=== PATIENT | female | born 1935 | race Caucasian/White ===

== ENCOUNTER 2020-11-21 14:53 | Emergency (ER) | payer MEDICARE, SELFPAY ==
--- NOTE | ~2020-11-21 | XR_ITS ---
EXAMINATION: XR shoulder LT min 2V EXAM DATE: 11/21/2020 15:59 INDICATION: diffuse left shoulder pain s/p fall today. Initial encounter. TECHNIQUE: The following left shoulder projections obtained: frontal projection with internal rotatio n, frontal projection with external rotation, Grashey, and scapular Y view (4+ views). There is no p rior study for comparison. FINDINGS: No evidence of left shoulder rotator cuff calcific tendinosis. There is There is mild gle nohumeral joint, mild to moderate acromioclavicular joint primary osteoarthritis. There are no acute fractures or dislocations identified. There is no subcutaneous gas. The soft tissue is unremarkable . There are no radiopaque foreign bodies. IMPRESSION: 1. Left shoulder exam without acute osseous findings. Reviewed, dictated and finalized at location B.
--- NOTE | ~2020-11-21 | XR_ITS ---
EXAMINATION: XR wrist LT min 3V EXAM DATE: 11/21/2020 15:17 INDICATION: Initial encounter following injury, with pain of the left wrist. TECHNIQUE: Left wrist frontal, frontal with ulnar deviation, oblique and lateral projections obtained and reviewed. There is no prior study for comparison. FINDINGS: Possible nondisplaced acute closed posttraumatic left radial distal metaphyseal fracture. T his finding has been indicated, marked on the examination for review, clinical correlation. There is some swelling overlying this region. Carpal bones are unremarkable. IMPRESSION: Possible nondisplaced left radial distal metaphyseal fracture. Reviewed, dictated and finalized at location B.
--- NOTE | ~2020-11-21 | XR_ITS ---
EXAMINATION: XR elbow LT min 3V DATE: 11/21/2020 16:00 INDICATION: Left elbow pain post fall TECHNIQUE: Anteroposterior, two oblique and lateral views of the left elbow were obtained. COMPARISON: None. FINDINGS: Alignment is normal. No fracture or joint effusion. Joint spaces are normal. Small corticated heterot opic ossicles along side the lateral epicondyle likely sequela of enthesopathy or chronic trauma to t he common extensor tendon wad. Soft tissues are otherwise unremarkable. IMPRESSION: 1. No left elbow joint effusion or osseous abnormality. Reviewed, dictated and finalized at location A.
[2020-11-21 15:03] VITALS: BP 130/75; PULSE 67; RESP 16; TEMP 36.4; O2SAT 98
--- NOTE | 2020-11-21 15:04 | ED.UPPEXIN ---
HPI - Extremity Injury (Upper) General Chief Complaint: Extremity Injury, Upper Stated Complaint: Left arm pain and shoulder Time Seen by Provider: 11/21/20 15:12 Source: patient and RN notes reviewed Mode of arrival: ambulatory Limitations: no limitations History of Present Illness HPI narrative: 85-year-old female with history of anemia, cardiac arrhythmia, hypertension presents with concern for right extremity pain after tripping on flip-flops and falling while pulling tian today. Reports she landed on her left upper extremity. Reports right wrist pain, right elbow pain, right shoulder pain denies intervention. Reports left wrist bruising and swelling. Denies head injury or head trauma. MD complaint: injury to: left and arm Related Data Home Medications Medication Instructions Recorded Confirmed alprazolam 0.5 mg tablet 0.5 mg PO DAILY 05/03/19 11/21/20 amlodipine 5 mg tablet 5 mg PO DAILY 05/03/19 11/21/20 cholestyramine-aspartame 4 gram 4 gm PO BID 05/03/19 11/21/20 oral powder ipratropium bromide 42 mcg (0.06 2 spray NASAL TID 05/03/19 11/21/20 %) nasal spray losartan 25 mg tablet 25 mg PO DAILY 05/03/19 11/21/20 metoprolol tartrate 25 mg tablet 25 mg PO DAILY 05/03/19 11/21/20 montelukast 10 mg tablet 10 mg PO DAILY 05/03/19 11/21/20 pantoprazole 40 mg tablet,delayed 40 mg PO QAM 05/03/19 11/21/20 release pramipexole 0.25 mg tablet 0.25 mg PO TID 05/03/19 11/21/20 prochlorperazine maleate 10 mg 10 mg PO Q8H PRN 05/03/19 11/21/20 tablet warfarin 4 mg tablet 4 mg PO DAILY 05/03/19 11/21/20 Allergies Allergy/AdvReac Type Severity Reaction Status Date / Time caffeine Allergy Unknown unknown Verified 11/21/20 15:10 codeine Allergy Unknown Unknown Verified 11/21/20 15:10 epinephrine Allergy Unknown Unknown Verified 11/21/20 15:10 fluoxetine Allergy Unknown Unknown Verified 11/21/20 15:10 hydroxyzine Allergy Unknown Unknown Verified 11/21/20 15:10 paroxetine Allergy Unknown Unknown Verified 11/21/20 15:10 procaine Allergy Unknown Unknown Verified 11/21/20 15:10 propafenone Allergy Unknown Diarrhea Verified 11/21/20 15:10 STIMULANTS Allergy Unknown Unknown Uncoded 11/21/20 15:10 Review of Systems Review of Systems: CONSTITUTIONAL: Denies malaise, chills, sweats, or fever. CARDIOVASCULAR: Denies chest pain, palpitations, or edema. RESPIRATORY: Denies cough or dyspnea. SKIN: Reports mild bruising and swelling to the left wrist MUSCULOSKELETAL: Reports left wrist pain, elbow pain, shoulder pain NEUROLOGIC: Denies numbness, weakness All systems reviewed & are unremarkable except as noted in HPI and below PMFSH Past Medical History Medical History (Updated 11/21/20 @ 16:11 by Rea Betancourt NP) Anemia Atrial fibrillation Cardiac arrhythmia Heart disease History of blood clots Hypertension Mitral valve prolapse Osteoporosis Restless leg syndrome Skin cancer Vascular disease Surgical History Surgical History (Updated 05/03/19 @ 10:27 by James Lala MD) H/O bilateral breast implants 1989 H/O: hysterectomy 1984 History of benign breast biopsy 2x 1995 and 1997 History of facelift 1989 History of hemorrhoidectomy 1979 History of parotidectomy 1995 Status post lumbar surgery foraminotomy Family History Family History Daughter Diabetes mellitus Father Cancer Grandparent Kidney disease Other Family history of arthritis Social History Social History (Updated 05/03/19 @ 10:16 by James Lala MD) Smoking status: Never smoker Alcohol intake: current Alcohol use details: Occasional Additional living arrangements comments: Daugther Gender identity (if verbalized by the patient): Female Spiritual care concerns: Yes ( Restorationism) Agree to blood products: No Comments At time of signature, agree with nursing past medical, surgical, social and family history. There is no relevant family his
== END 2020-11-21 16:29 | disposition home or self-care (01) ==
PROVIDERS: Emergency Provider Nurse Practitioner; PCP Internal Medicine
DX: S52.502A Unspecified fracture of the lower end of left radius, initial encounter for closed fracture (principal); W01.0XXA Fall on same level from slipping, tripping and stumbling without subsequent striking against object, initial encounter; I48.91 Unspecified atrial fibrillation; I10 Essential (primary) hypertension; I34.1 Nonrheumatic mitral (valve) prolapse; M81.0 Age-related osteoporosis without current pathological fracture; G25.81 Restless legs syndrome; Z85.828 Personal history of other malignant neoplasm of skin; D64.9 Anemia, unspecified; I49.9 Cardiac arrhythmia, unspecified
CPT/HCPCS: 29125; 73030; 73080; 73110; 99214; A4565; G0463

== ENCOUNTER 2021-01-13 09:48 | Outpatient (CLI) | payer MEDICARE, SELFPAY ==
--- NOTE | ~2021-01-13 | XR_ITS ---
EXAMINATION: XR lg joint inject/asp w image DATE: 01/13/2021 10:44 INDICATION: Unilateral primary osteoarthritis, right hip. TECHNIQUE: A time-out was performed to verify the patient's name, date of , and procedure to b e performed. The procedure including the risks, benefits, and alternatives was discussed with the pat ient. Risks discussed included bleeding and infection. The patient understood the risks and agreed to proceed. The skin overlying the right hip joint was prepped and draped in usual sterile fashion. A nesthetic was administered with 1% lidocaine subcutaneously. A 22 G needle was advanced under fluoro scopic guidance into the joint. Injection of 1 mL of Omnipaque 240 confirmed intra-articular positio n of the needle. Subsequently, injectate consisting of 5 mL 1% lidocaine and 2 mL 10 mg/mL Kenalog w as instilled. The needle was removed and the entry site was cleaned and dressed. There were no imme diate complications. Fluoroscopy exposure time was 0.1 minutes. The total number of images was 2. FINDINGS: Real-time fluoroscopy demonstrates the needle in the right hip joint. Patient's pain prior to procedure:5/10. Patient's pain following the procedure: 0/10. IMPRESSION: 1. Fluoroscopy guided right hip joint injection of local anesthetic and steroid with decrease in the patient's presenting pain. Reviewed, dictated and finalized at location A. 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
== END 2021-01-13 09:49 | disposition home or self-care (01) ==
LOC: ANHIMG 09:52
PROVIDERS: PCP Internal Medicine; Visit Provider Orthopaedic Surgery
DX: M16.11 Unilateral primary osteoarthritis, right hip (principal)
CPT/HCPCS: 20610; 77002; J3301; Q9966

== ENCOUNTER 2021-02-12 08:00 | Outpatient (RCR) | payer MEDICARE, SELFPAY ==
--- NOTE | 2021-01-14 15:08 | PTOPEVAL ---
PHYSICAL THERAPY EVALUATION AND PLAN OF CARE Thank you for referring Reginaldo Colby to [facility].? The patient is scheduled to be seen for therapy? 2x/week for 4 weeks. Please review, sign, date and return this plan of care CYNDEE. I agree with and certify that the following plan of care is medically necessary. Referring Physician Date Attending Provider: James Lala MD Evaluation Outpatient Past Medical History Cardiovascular History Hx Atrial Fibrillation Yes Hx Hypertension Yes Diagnosis pain in left shoulder, Onset 12/29/2020 Cause fall Subjective Information Reginaldo is here today following a Query Text:As Reported By Patient/ fall that resulted in a left Family distal radius fracture - she was in a brace until last week . That is doing well except her thumb is still sore. She reports left shoulder pain that pops. States that she can be sitting a certain way and the shoulder will catch and pop and be quite uncomfortable . There is a pain with reaching over head. She has modified how she gets dressed to avoid shoulder pain. Self Report Pain Assessment Left Shoulder(s) Reported Pain Level 0 Pain Description Aching Pain Frequency Acute,Intermittent Greatest Pain Intensity 4 Pain Aggravating Factors ADL's Other Pain Aggravating Factors reaching overhead Pain Behaviors Guarding Pain Score Pain Score 0: Self Report Interventions Used Interventions Used By Clinicians Exercise,Manual Therapy Techniques Pain Relief Interventions Used By Medication Patient Upper Extremity Range of Motion Scapular/ Shoulder Range of Motion Left Shoulder Flexion - Active 140 Shoulder Abduction - Active 130 Shoulder Medial Rotation - Active L5 Query Text:Reach Behind the Back Shoulder Lateral Rotation - Active 55 Shoulder Lateral Rotation - Active back of head Query Text:Reach Behind the Head Scapular/Shoulder Range of Motion Pain Limitations Scapular/Shoulder Range of Motion right external rotation: 65deg Comments Upper Extremity Muscle Strength Testing Scapular/Shoulder Left Scapular Protraction - Serratus 3+ Fair + Shoulder Flexion Strength 3+ Fair + Shoulder Abduction Strength 3+ Fair + Shoulder Medial Rotation Strength 4- Good - Shoulder Lateral Rota
--- NOTE | 2021-02-10 08:07 | PCPTNOTE ---
Patient called & cancelled scheduled appointment this date due to stomach issues.
--- NOTE | 2021-02-12 09:06 | PTOPEVAL ---
PHYSICAL THERAPY DISCHARGE NOTE Thank you for referring Reginaldo Colby to [facility].? Please review, sign, date and return this plan of care CYNDEE. I agree with and certify that the following plan of care is medically necessary. Referring Physician Date Attending Provider: James Lala MD Discharge note Diagnosis pain in left shoulder, Onset 12/29/2020 Cause fall Subjective Information Reginaldo states that her wrist/ Query Text:As Reported By Patient/ thumb are doing very well and Family she uses her putty to help strength. States that her shoulder still gives her trouble, but she can raise the arm now. She has a follow-up appointment with the MD. Reginaldo would like today to be her last therapy visit. Left Shoulder(s) Reported Pain Level 0 Pain Score Pain Score 0: Self Report Upper Extremity Range of Motion Scapular/ Shoulder Range of Motion Left Shoulder Flexion - Active 150 Shoulder Abduction - Active 145 Shoulder Medial Rotation - Active L1 Query Text:Reach Behind the Back Shoulder Lateral Rotation - Active 55 Shoulder Lateral Rotation - Active back of head Query Text:Reach Behind the Head Scapular/Shoulder Range of Motion Pain Limitations Upper Extremity Muscle Strength Testing Scapular/Shoulder Left Shoulder Flexion Strength 4 Good Shoulder Abduction Strength 4 Good Shoulder Medial Rotation Strength 4 Good Shoulder Lateral Rotation Strength 4 Good Shoulder Strength Comments left cup setter lockstitch strength: 35lb; right cup setter lockstitch strength 41lb PT Clinical Summary Reginaldo would like to discharge from physical therapy at this time. I am agreeable to this as long as she continues her shoulder strengthening exercises at home. Her ROM is symmetrical to contralateral side and her strength is progressing although does not demonstrate as WNL yet. plan to D/C from PT with HEP. PT Services Indicated No Rehabilitation Potential Good Potential Barriers to Goal Achievements None Support Requirements For Optimal None [place]
== END 2021-02-12 14:42 | disposition home or self-care (01) ==
LOC: ANHPT 08:00
PROVIDERS: PCP Internal Medicine; Visit Provider Orthopaedic Surgery
DX: S52.552D Other extraarticular fracture of lower end of left radius, subsequent encounter for closed fracture with routine healing (principal); M25.512 Pain in left shoulder
CPT/HCPCS: 97110; 97140; 97162

== ENCOUNTER 2021-03-08 11:58 | Emergency (ER) | payer MEDICARE, SELFPAY ==
--- NOTE | ~2021-03-08 | CT_ITS ---
EXAMINATION: CT cervical spine wo con DATE: 03/08/2021 14:33 INDICATION: Head injury TECHNIQUE: Computed tomography (CT) of the cervical spine was performed without intravenous contrast. The dose-length product (DLP) was 123.77 mGy-cm. Automated exposure control and iterative reconstruc tion technique were employed. COMPARISON: None FINDINGS: There is no fracture. There are 2 mm of anterolisthesis of C4 on C5. The vertebral body hei ghts are maintained. There is severe loss of intervertebral disc space height at C5-6 and C6-7. The o dontoid is intact. The prevertebral soft tissues are normal. There is moderate to severe multilevel f acet and uncovertebral joint osteoarthritis. IMPRESSION: 1. Moderate to severe cervical spondylosis without acute findings. Reviewed, dictated and finalized at location F. 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
--- NOTE | ~2021-03-08 | CT_ITS ---
EXAMINATION: CT brain wo con INDICATION: Head injury COMPARISON: None TECHNIQUE: Standard unenhanced head CT. The dose-length product (DLP) was 605.33 mGy-cm. The mA was a djusted according to patient size. Iterative reconstruction technique was employed. FINDINGS: There is no acute intraparenchymal hemorrhage. No evidence of mass lesion. No evidence of a cute infarction. There is mild periventricular and subcortical hypodensity probably related to small vessel ischemic disease. There is mild prominence of the sulci and ventricles related to cerebral atr ophy. Intracranial calcified cerebral atherosclerosis is noted. There are no extra-axial collections. There is no mass effect or midline shift. Changes in the globes are likely from ocular lens surgery. The visualized sinuses and mastoid air cells are well aerated. IMPRESSION: 1. No acute intracranial abnormality. 2. Age related findings. Reviewed, dictated and finalized at location F. 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
--- NOTE | ~2021-03-08 | XR_ITS ---
XR hip BI 2V w AP pelvis 03/08/2021 13:10 Indication: Hip pain after fall Procedure: AP pelvis and 2 views each hip Comparison: 05/03/2019 Findings: There is osteoarthritis of the hips, right greater than left. There are subchondral cysts i n the right femoral head. Pelvic rings are intact. Sacral foramen are symmetric. No acute fracture or traumatic malalignment. No focal soft tissue abnormality. No foreign bodies. Impression: 1: No acute fracture. Reviewed, dictated and finalized at location A. GHT BRAKEMAN Impression: 1: No acute fracture.
[2021-03-08 12:31] VITALS: BP 149/77; PULSE 83; RESP 16; TEMP 36.6; O2SAT 100
--- NOTE | 2021-03-08 12:41 | ED.FALL ---
HPI - Fall General Chief Complaint: Fall Stated Complaint: fall, head inj, on warfarin Time Seen by Provider: 03/08/21 12:41 Source: patient Limitations: no limitations History of Present Illness HPI Narrative: The patient is an 85 yo woman with a history of HTN, atrial fibrillation, anticoagulated on warfarin, presenting for evaluation of ground level fall. Pt states she did not pass out. Patient is not sure what made her fall. She states she may have tripped over something as she commonly does that. Pt denies chest pain, lightheadedness, or dizziness prior to the fall. She denies cough, dyspnea or chest pain. Denies lower extremity weakness or numbness. Pt has had a headache on the right side of her head, improved with Tylenol. Headache described as pounding in nature. Pt also reporting left hip pain, although impact from the fall was on the right hip. Pt has been ambulatory. Denies focal weakness or numbness. Also reports arthritis of the right hip. No LOC. No nausea, vomiting or vision changes. Pt has a ground level fall a month ago; has been following with Dr. Lala since that fall with injury. Patient has been compliant with her anticoagulation. Related Data Home Medications Medication Instructions Recorded Confirmed alprazolam 0.5 mg tablet 0.5 mg PO DAILY 05/03/19 01/07/21 amlodipine 5 mg tablet 5 mg PO DAILY 05/03/19 01/07/21 cholestyramine-aspartame 4 gram 4 gm PO BID 05/03/19 01/07/21 oral powder ipratropium bromide 42 mcg (0.06 2 spray NASAL TID 05/03/19 01/07/21 %) nasal spray losartan 25 mg tablet 25 mg PO DAILY 05/03/19 01/07/21 metoprolol tartrate 25 mg tablet 25 mg PO DAILY 05/03/19 01/07/21 montelukast 10 mg tablet 10 mg PO DAILY 05/03/19 01/07/21 pantoprazole 40 mg tablet,delayed 40 mg PO QAM 05/03/19 01/07/21 release pramipexole 0.25 mg tablet 0.25 mg PO TID 05/03/19 01/07/21 prochlorperazine maleate 10 mg 10 mg PO Q8H PRN 05/03/19 01/07/21 tablet warfarin 4 mg tablet 4 mg PO DAILY 05/03/19 01/07/21 Allergies Allergy/AdvReac Type Severity Reaction Status Date / Time caffeine Allergy Unknown unknown Verified 03/08/21 13:14 codeine Allergy Unknown Unknown Verified 03/08/21 13:14 epinephrine Allergy Unknown Unknown Verified 03/08/21 13:14 fluoxetine Allergy Unknown Unknown Verified 03/08/21 13:14 hydroxyzine Allergy Unknown Unknown Verified 03/08/21 13:14 paroxetine Allergy Unknown Unknown Verified 03/08/21 13:14 procaine Allergy Unknown Unknown Verified 03/08/21 13:14 propafenone Allergy Unknown Diarrhea Verified 03/08/21 13:14 STIMULANTS Allergy Unknown Unknown Uncoded 03/08/21 13:14 Review of Systems Review of Systems: CONSTITUTIONAL: Denies fever, chills, or sweats. EYES: Denies visual changes, redness, or discharge. ENT: Denies rhinorrhea, congestion, sore throat, or otalgia. CARDIOVASCULAR: Denies chest pain, palpitations, or edema. RESPIRATORY: Denies cough or dyspnea. GASTROINTESTINAL: Denies abdominal pain, nausea, vomiting, or diarrhea. GENITOURINARY: Denies dysuria or hematuria. SKIN: Denies rash or itching. MUSCULOSKELETAL: Denies back pain, joint pain, or myalgia.Reports left hip pain. NEUROLOGIC: Reports headache without numbness, or weakness. [facility] Past Medical History Medical History Anemia Atrial fibrillation Cardiac arrhythmia Heart disease History of blood clots Hypertension Mitral valve prolapse Osteoporosis Restless leg syndrome Skin cancer Vascular disease Surgical History Surgical History H/O bilateral breast implants 1989 H/O: hysterectomy 1984 History of benign breast biopsy 2x 1995 and 1997 History of facelift 1989 History of hemorrhoidectomy 1979 History of parotidectomy 1995 Status post lumbar surgery foraminotomy Family History Family History Daughter Diabetes mellitus Fat
[2021-03-08] MEDS: IBUPROFEN 400 MG TABLET PO (14:01)
[2021-03-08] MEDS: ACETAMINOPHEN 500 MG TABLET 1000 MG PO (14:01)
[2021-03-08 15:38] VITALS: BP 157/82; PULSE 80; RESP 17; O2SAT 100
== END 2021-03-08 15:40 | disposition home or self-care (01) ==
PROVIDERS: Emergency Provider Emergency Medicine; PCP Internal Medicine
DX: S09.90XA Unspecified injury of head, initial encounter (principal); I48.91 Unspecified atrial fibrillation; I11.9 Hypertensive heart disease without heart failure; I34.1 Nonrheumatic mitral (valve) prolapse; G25.81 Restless legs syndrome; M81.0 Age-related osteoporosis without current pathological fracture; I99.9 Unspecified disorder of circulatory system; E89.2 Postprocedural hypoparathyroidism; Z86.2 Personal history of diseases of the blood and blood-forming organs and certain disorders involving the immune mechanism; Z79.01 Long term (current) use of anticoagulants; M47.812 Spondylosis without myelopathy or radiculopathy, cervical region; W01.0XXA Fall on same level from slipping, tripping and stumbling without subsequent striking against object, initial encounter
CPT/HCPCS: 70450; 72125; 73521; 99284; A9270

== ENCOUNTER 2021-06-17 10:32 | Outpatient (CLI) | payer MEDICARE, SELFPAY ==
--- NOTE | ~2021-06-17 | XR_ITS ---
EXAMINATION: XR lg joint inject/asp w image DATE: 06/17/2021 11:17 INDICATION: Unilateral primary osteoarthritis of the right hip TECHNIQUE: A time-out was performed to verify the patient's name, date of , and procedure to b e performed. The procedure including the risks, benefits, and alternatives was discussed with the pat ient. Risks discussed included bleeding and infection. The patient understood the risks and agreed to proceed. The skin overlying the right hip joint was prepped and draped in usual sterile fashion. A nesthetic was administered with 1% lidocaine subcutaneously. A 22 G needle was advanced under fluoro scopic guidance into the joint. Injection of 1 mL of Omnipaque 240 confirmed intra-articular positio n of the needle. Subsequently, injectate consisting of 7 mL of a 5:2 mixture of 1% lidocaine:10 mg/m L Kenalog for a total dosage of 20 mg Kenalog was instilled. Washout of contrast was seen confirming intra-articular administration. The needle was removed and the entry site was cleaned and dressed. T here were no immediate complications. Fluoroscopy exposure time was 2.1 minutes. The total number of images was 2. FINDINGS: Real-time fluoroscopy demonstrates the needle in the right hip joint. Patient's pain prior to procedure:2/10. Patient's pain following the procedure: 0/10. IMPRESSION: 1. Successful right hip joint injection of local anesthetic and steroid with decrease in the patient' s presenting pain. Reviewed, dictated and finalized at location A. IMPRESSION: 1. Successful right hip joint injection of local anesthetic and steroid with de crease in the patient's presenting pain.
== END 2021-06-17 10:33 | disposition home or self-care (01) ==
PROVIDERS: PCP Internal Medicine; Visit Provider Orthopaedic Surgery
DX: M25.551 Pain in right hip (principal)
CPT/HCPCS: 20610; 77002; J3301; Q9966

== ENCOUNTER 2022-07-22 14:55 | Emergency (ER) | payer MEDICARE, SELFPAY ==
--- NOTE | ~2022-07-22 | XR_ITS ---
EXAMINATION: XR knee LT min 4V DATE: 07/22/2022 15:39 INDICATION: Left knee pain. TECHNIQUE: 4 views of left knee were obtained. COMPARISON: None. FINDINGS: Bone alignment is normal. No fracture. There is mild tricompartmental osteoarthritis charac terized by marginal osteophytes. No joint space narrowing. There is chondrocalcinosis involving the m enisci. There are dystrophic calcifications of the joint capsule. No knee joint effusion. IMPRESSION: 1. Mild left knee osteoarthritis. Reviewed, dictated and finalized at location E.
--- NOTE | 2022-07-22 15:05 | ED.EXTPRO ---
HPI - Extremity Problem General Chief complaint: Extremity Injury, Lower Stated complaint: Pain in left knee; traveling down leg Source: patient and RN notes reviewed History of Present Illness HPI Narrative: 86 yo F presents to urgent care with neighbor at side. Pt states she has been having left lateral knee pain that radiates down left lower leg x 3 weeks. Pt states she was bending over 3 weeks ago when she lost her balance and fell, injuring her left knee. Denies hitting her head or any LOC. Denies any chest pain, SOB, neck pain, numbness, tingling, N/V/D. Related Data Home Medications Medication Instructions Recorded Confirmed alprazolam 0.5 mg tablet 0.5 mg PO DAILY 05/03/19 07/22/22 amlodipine 5 mg tablet 5 mg PO DAILY 05/03/19 07/22/22 losartan 25 mg tablet 25 mg PO DAILY 05/03/19 07/22/22 metoprolol tartrate 25 mg tablet 25 mg PO DAILY 05/03/19 07/22/22 montelukast 10 mg tablet 10 mg PO DAILY 05/03/19 07/22/22 pantoprazole 40 mg tablet,delayed 40 mg PO QAM 05/03/19 07/22/22 release prochlorperazine maleate 10 mg 10 mg PO Q8H PRN Nausea 05/03/19 07/22/22 tablet aspirin 81 mg tablet,delayed 81 mg PO DAILY 10/12/21 07/22/22 release trazodone 50 mg tablet 50 mg PO HS PRN Sleep 07/22/22 07/22/22 Allergies Allergy/AdvReac Type Severity Reaction Status Date / Time codeine Allergy Unknown Unknown Verified 07/22/22 15:00 epinephrine Allergy Unknown Unknown Verified 07/22/22 15:00 fluoxetine Allergy Unknown Unknown Verified 07/22/22 15:00 hydroxyzine Allergy Unknown Unknown Verified 07/22/22 15:00 paroxetine Allergy Unknown Unknown Verified 07/22/22 15:00 procaine Allergy Unknown Unknown Verified 07/22/22 15:00 caffeine AdvReac Intermediate Jittery Verified 07/22/22 15:23 propafenone AdvReac Intermediate Diarrhea Verified 07/22/22 15:23 Review of Systems Review of Systems: Pertinent positives and pertinent negatives per HPI. [facility] Past Medical History Medical History Anemia Atrial fibrillation Cardiac arrhythmia Heart disease History of blood clots Hypertension Left shoulder pain Mitral valve prolapse Osteoporosis Restless leg syndrome Skin cancer Vascular disease Surgical History Surgical History H/O bilateral breast implants 1989 H/O: hysterectomy 1984 History of benign breast biopsy 2x 1995 and 1997 History of facelift 1989 History of hemorrhoidectomy 1979 History of parotidectomy 1995 Status post lumbar surgery foraminotomy Family History Family History Daughter Diabetes mellitus Father Cancer Grandparent Kidney disease Other Family history of arthritis Social History Social History Smoking status: Never smoker Alcohol intake: current Alcohol use details: Occasional Living arrangements: with family Additional living arrangements comments: Daugther Occupation/Education: other Gender identity (if verbalized by the patient): Female Spiritual care concerns: Yes ( Restorationist) Agree to blood products: No Comments At the time of my signature, I reviewed and agree with the nursing past medical, surgical, social, and family history. There is no relevant family history pertinent to the patient complaint. Exam Narrative: GENERAL: This is a well-nourished, well-developed patient, in no apparent distress. HEAD: normocephalic, atraumatic. EYES: Sclera clear/white. Vision is grossly intact. EARS: External ears normal, auditory canals clear and without drainage, TMs normal without perforation. Hearing grossly intact. NOSE: External nose normal with no obvious nasal discharge, nares without redness, no rhinorrhea. THROAT: Mucous membranes moist, posterior pharynx clear. NECK: Neck supple, non-tender without lymphad
[2022-07-22 15:09] VITALS: BP 142/66; PULSE 84; RESP 12; TEMP 36.8; O2SAT 100
[2022-07-22 15:18] VITALS: BP 142/66; PULSE 84; RESP 12; TEMP 36.8; O2SAT 100
[2022-07-22 15:32] LABS: Glucose Point of Care 114 mg/dl (65-105)
== END 2022-07-22 16:12 | disposition home or self-care (01) ==
PROVIDERS: Emergency Provider Nurse Practitioner Family; PCP Internal Medicine
DX: M17.12 Unilateral primary osteoarthritis, left knee (principal); I48.91 Unspecified atrial fibrillation; I10 Essential (primary) hypertension; I34.1 Nonrheumatic mitral (valve) prolapse; M81.0 Age-related osteoporosis without current pathological fracture; G25.81 Restless legs syndrome; Z85.828 Personal history of other malignant neoplasm of skin; Z86.2 Personal history of diseases of the blood and blood-forming organs and certain disorders involving the immune mechanism; Z90.89 Acquired absence of other organs; Z79.82 Long term (current) use of aspirin; R73.9 Hyperglycemia, unspecified
CPT/HCPCS: 73564; 82948; 99213; G0463

== ENCOUNTER 2025-02-18 13:13 | Emergency (ER) | payer MEDICARE, SELFPAY ==
--- OUTSIDE RECORDS SUMMARY | 2014-05-23 07:30 | XMS_ITS | Continuity of Care Document ---
Author Organization [facility] Address [address] [place] [id number] Phone Care Team Providers Care Film Reader Name Role Phone Cristian Almonte MD, MD Unavailable Unavailable Procedures Procedure Date CATARACT SURG W/IOL, 1 STAGE DILATED FUNDUS EVAL DONE PRE-SURG EYE MEASURES DOC'D CATARACT SURG W/IOL, 1 STAGE OFFICE/OUTPATIENT VISIT, NEW DILATED EXAM RIGHT EYE DILATED EXAM LEFT EYE OPHTHALMIC BIOMETRY OPHTHALMIC BIOMETRY Advance Directives Directive Yes / No Effective Date File Name No Information Encounters Encounter Description Practice Location Reason(s) For Visit Diagnoses Date Provider Providers Copied on Encounter [facility], [address] [place] [address], [id number], tel:[phone] [address] [place] [address] No Information 5 Suzy Foster. [address], [address] [place] [address], [id number] , [place]. [phone] Referring Provider: Cristian Lerner, [address], [place], [address] . tel:[phone] [facility], [address] [place] [address], [id number], tel:[phone] [address] [place] [address] No Information 5 Suzy Foster. [address], [address] [place] [address], [id number] , [place]. tel:[phone] Referring Provider: Cristian Almonte MD P, [address], [place], [address] . tel:[phone] OFFICE/OUTPA TIENT VISIT, NEW [facility], [address], [place], [place], [id number], tel:[phone] [facility] No Information 5 Suzy Foster. [address], [address], [place], [place], [id number] , [place]. tel:[phone] Referring Provider: Cristian Almonte MD P, [address], [place], [address] . tel:[phone] Family History Family Member Type Diagnosis Age At Onset No Information Payers Payer name Insurance type Covered republican ID Authoriza timarquis(s) MEDICARE OF [place] MB [id number] [facility] [id number] Social History Type Description Quantity Date Captured Comments Sex Female Smoking Status No Information Chief Complaint And Reason For Visit No Information Reason For Referral Reason For Referral No Information History Of Present Illness Encounter Date Complaint History Of Prese nt Illness No Information Functional Status Date Functional Assessmen t No Information Instructions Date Instruction Additional Infor mation No Information Assessments Type Assessment Date No Information Patient Care Teams Name Effective Dates (start - stop) Status Members No Information
[2025-02-18 13:18] VITALS: BP 150/102; PULSE 92; RESP 16; TEMP 36.4; O2SAT 97
--- NOTE | 2025-02-18 13:38 | ED.DENTAL ---
HPI - Dental/Oral General Chief complaint: Dental/Oral Stated complaint: broke crown off tooth, R. bottom tooth Time Seen by Provider: 02/18/25 13:29 Source: patient and family Mode of arrival: EMS Limitations: no limitations History of Present Illness HPI Narrative: This is a an 89-year-old female who presents to the ED via EMS for lost a crown. Family states the patient was eating tap his morning and a piece got stuck on to her right mandibular crown causing her to lose the crown. She denies any pain at this time. She does report some annoyance with the remaining metallic piece in her mouth causing some scratching to her tongue. Family does have the crown in a bag. Related Data Home Medications ?Medication ?Instructions ?Recorded ?Confirmed ?Last Taken ?Type alprazolam 0.5 mg tablet 0.5 mg PO DAILY 05/03/19 06/19/24 Unknown History amlodipine 5 mg tablet 5 mg PO DAILY 05/03/19 06/19/24 Unknown History losartan 25 mg tablet 25 mg PO DAILY 05/03/19 06/19/24 Unknown History metoprolol tartrate 25 mg tablet 25 mg PO DAILY 05/03/19 06/19/24 Unknown History montelukast 10 mg tablet 10 mg PO DAILY 05/03/19 06/19/24 Unknown History pantoprazole 40 mg tablet,delayed 40 mg PO QAM 05/03/19 06/19/24 Unknown History release prochlorperazine maleate 10 mg 10 mg PO Q8H PRN Nausea 05/03/19 06/19/24 Unknown History tablet aspirin 81 mg tablet,delayed 81 mg PO DAILY 10/12/21 06/19/24 Unknown History release pramipexole 0.75 mg tablet 1 mg PO QHS 06/19/24 06/19/24 Unknown History Allergies Allergy/AdvReac Type Severity Reaction Status Date / Time codeine Allergy Unknown Unknown Verified 02/18/25 13:14 epinephrine Allergy Unknown Unknown Verified 02/18/25 13:14 fluoxetine Allergy Unknown Unknown Verified 02/18/25 13:14 hydroxyzine Allergy Unknown Unknown Verified 02/18/25 13:14 paroxetine Allergy Unknown Unknown Verified 02/18/25 13:14 procaine Allergy Unknown Unknown Verified 02/18/25 13:14 caffeine AdvReac Intermediate Jittery Verified 02/18/25 13:14 propafenone AdvReac Intermediate Diarrhea Verified 02/18/25 13:14 Review of Systems Review of Systems: All systems reviewed & are unremarkable except as noted in HPI and below PMFSH Past Medical History Medical History Left shoulder pain Vascular disease Osteoporosis Hypertension Heart disease Cardiac arrhythmia Skin cancer History of blood clots Anemia Restless leg syndrome Mitral valve prolapse Atrial fibrillation Surgical History Surgical History Status post lumbar surgery foraminotomy History of hemorrhoidectomy 1979 History of parotidectomy 1995 History of benign breast biopsy 2x 1995 and 1997 H/O bilateral breast implants 1989 History of facelift 1989 H/O: hysterectomy 1984 Family History Family History Daughter Diabetes mellitus Father Cancer Grandparent Kidney disease Sibling Pulmonary embolism DVT (deep venous thrombosis) Other Family history of arthritis Social History Social History Smoking status: Never smoker Alcohol intake: never Alcohol use details: Occasional Substance use: never Lack of Transportation: No Lack of Food: Never True Current Housing: I Have Housing Concerned About Future Housing: No Difficulty Paying Gas/Electric Bills: No Difficulty Paying for Meds: No Currently Unemployed: No Education: High School Diploma/GED Difficulty w/ Childcare or Family Care: No Living arrangements: with family Additional living arrangements comments: Daugther Occupation/Education: other Gender identity (if verbalized by the patient): Female Spiritual care concerns: Yes ( Rastafari) Agree to blood products: No Exam Narrative: APPEARANCE: No acute distress, nontoxic, resting in bed HEENT: Normocephalic, atraumatic. Poor dentition Missing crown to the right mandibular tooth 29 RESPIRATORY: No respiratory distress CARDIOVASCULAR: Appears well perfused ABDOMINAL: Nondistended MUSCULOSKELETAl: Moves all extremities. No obvious deformities NEURO: Awake and alert. SKIN:: Warm, dry. No rashes lesions or abrasions PSYCHIATRIC: Normal affect/mood, Course Vital Signs Vital signs: Vital Signs Temperature 97.5 F L 02/18/25 13:18 Pulse Rate 92 02/18/25 13:18 Respiratory Rate 16 02/18/25 13:18 Blood Pressure 150/102 H 02/18/25 13:18 Pulse Oximetry 97 02/18/25 13:18 Oxygen Delivery Room Air 02/18/25 13:18 Temperature 97.5 F L 02/18/25 13:18 Pulse Rate 88 02/18/25 14:14 Respiratory Rate 18 02/18/25 14:14 Blood Pressure 148/62 H 02/18/25 14:14 Pulse Oximetry 97 02/18/25 14:14 Oxygen Delivery Room Air 02/18/25 13:18 MDM MDM Narrative Medical decision making narrative: 89-year-old female Presenting for lost a crown. On initial evaluation patient was in no acute distress afebrile, hemodynamic stable. Differentials include but are not limited to: Brew[place] dislodgement, abscess, dental fracture Notable exam findings: [place] dislodged to tooth 29 Patient has no tenderness over the area. There is no evidence of abscess. Family does have the crown and a plastic pad. There were given referrals to multiple dentists in the area for further evaluation and management. Patient and family were agreeable to this plan. Given strict return precautions. Differential Diagnosis Differential Diagnosis: Brew[place] dislodgement, abscess, dental fracture Discharge Plan Discharge Clinical Impression: Loss of retention of dental crown Patient Disposition: Home Condition: Stable Instructions: Antibiotic Form Additional Instructions: Try some local dentist office, here are some contact info so for them [facility]: [phone] [facility]: [phone] [facility]: [phone] Patient Language: Lithuanian Prescriptions: No Action aspirin 81 mg tablet,delayed release (DR/EC) 81 mg PO DAILY pramipexole 0.75 mg tablet 1 mg PO QHS alprazolam 0.5 mg tablet 0.5 mg PO DAILY amlodipine 5 mg tablet 5 mg PO DAILY losartan 25 mg tablet 25 mg PO DAILY metoprolol tartrate 25 mg tablet 25 mg PO DAILY montelukast 10 mg tablet 10 mg PO DAILY pantoprazole 40 mg tablet,delayed release (DR/EC) 40 mg PO QAM prochlorperazine maleate 10 mg tablet 10 mg PO Q8H PRN (Reason: Nausea) acetaminophen 500 mg capsule 500 mg PO Q6H PRN (Reason: fever or pain) Qty: 30 0RF celecoxib 200 mg capsule See Rx Instructions .ROUTE .COMPLEX Qty: 30 1RF Dose Instruction: Take 1 capsule by mouth once daily Rx Instructions: Take 1 capsule by mouth once daily Follow-up/Referrals: Paras,Allison Ellis MD [Non-Staff, Unknown]
[2025-02-18 14:14] VITALS: BP 148/62; PULSE 88; RESP 18; O2SAT 97
--- OUTSIDE RECORDS SUMMARY | 2025-02-18 14:57 | XMS_ITS | Encounter Summary ---
Author Organization [facility] Facility Care Team Providers Care Managing Manager Name Role Phone Allison Crain MD Primary Care Provider [phone] Sultan Arabella Tyson MD Unavailable [phone] Grant Romo MD Unavailable [phone] Rosalind Domingo LPN Unavailable [phone] James Lala MD Unavailable Jennifer Lewis MA Unavailable Rosalind Domingo LPN Unavailable Izabel Alvarez MA Unavailable Eyad Jimenez RN Unavailable [phone] Encounter Details Date Type Department Care Team (Latest Contact Info) Description 12/29/2014 Orders Only [facility] CLINCONV Provider, MD Ronaldo [address] [place] [address] Social History Tobacco Use Types Packs/Day Years Used Date Smoking Tobacco: Never Assessed Comments Unknown Sex and Gender Information Value Date Recorded Sex Assigned at Not on file Legal Sex Female 6:46 AM SENIOR FRONT END ENGINEER Gender Identity Not on file Sexual Orientation Not on file documented as of this encounter Plan of Treatment Not on file documented as of this encounter Procedures Procedure Name Priority Date/Time Associated Diagnosis Comments SCAN - LABS 11/24/2015 12:00 AM CDT SCAN - LABS 12/29/2014 12:00 AM CDT documented in this encounter Results * SCAN - LABS (11/24/2015 12:00 AM CDT) Narrative 11/24/2015 12:00 AM CDT Ordered by an unspecified provider. us Historical Provider Final Res ult * SCAN - LABS (12/29/2014 12:00 AM CDT) Narrative 12/29/2014 12:00 AM CDT Ordered by an unspecified provider. us Historical Provider Final Res ult documented in this encounter Visit Diagnoses Not on filedocumented in this encounter Additional Health Concerns Infection Onset Date Last Indicated Resolved Time COVID: Suspected 04/12/2022 04/12/2022 04/12/2022 12:14 PM SENIOR FRONT END ENGINEER COVID: Suspected 08/11/2022 08/11/2022 08/11/2022 3:55 PM CDT COVID: Suspected 01/10/2024 01/10/2024 01/10/2024 11:43 AM SENIOR FRONT END ENGINEER COVID: Suspected 07/23/2024 07/23/2024 07/23/2024 7:32 PM CDT MDR gram neg/ESBL Comment:Contact Precautions (gown and gloves) Must be off effective antibiotics for at least 48 hours, 1 negative culture from original site (if accessible) AND 1 negative culture from any open wounds AND 1 culture from any body site with an indwelling device prior to flag removal. - Nicolas DALEY, RN 02/11/25 08/10/2024 08/10/2024 COVID: Suspected 11/27/2024 11/27/2024 11/27/2024 3:33 PM CDT COVID: Suspected 02/04/2025 02/04/2025 02/04/2025 1:06 AM SENIOR FRONT END ENGINEER documented as of this encounter Care Teams Managing Manager Relationship Specialty Start Date End Date Allison Crain MD [address] [place] [address] [phone] PCP - General Internal Medicine 07/21/18 Sultan Arabella Tyson MD [address] [facility] [address] [address] Licensed Chemical Spray Technician Cardiovascular Disease 11/20/18 Grant Romo MD [address] [facility] [address] [facility] [address] [address] Surgeon Vascular Surgery 11/20/18 Rosalind Domingo LPN [address] [facility] [address] [facility] [address] [address] Leather Stretcher 07/30/20 07/30/20 James Lala MD [address] [facility] [address] [facility] [address] [address] Referring Physician Orthopedic Surgery 11/28/20 Jennifer Lewis MA [address] [facility] [address] [place] [address] ACO Care Ceramic Tile Installation Helper 07/16/24 07/24/24 Rosalind Domingo LPN [address] [facility] [address] [place] [address] Leather Stretcher 08/07/24 08/27/24 Izabel Alvarez MA [address] [facility] [address] [place] [address] ACO Care Ceramic Tile Installation Helper 09/17/24 09/17/24 Eyad Jimenez, MAYNOR [address] [facility] [address] [place] [address] Leather Stretcher 10/18/24 12/23/24 documented as of this encounter
--- OUTSIDE RECORDS SUMMARY | 2025-02-18 14:57 | XMS_ITS | Encounter Summary ---
Author Organization [facility] Facility Care Team Providers Care Senior Customer Service Representative Name Role Phone Allison Crain MD Primary Care Provider [phone] Sultan Arabella Tyson MD Unavailable [phone] Grant Romo MD Unavailable [phone] Rosalind Domingo LPN Unavailable [phone] James Lala MD Unavailable Jennifer Lewis MA Unavailable Rosalind Domingo LPN Unavailable [phone] Izabel Alvarez MA Unavailable Eyad Jimenez RN Unavailable [phone] Encounter Details Date Type Department Care Team (Latest Contact Info) Description 11/24/2015 Orders Only [facility] CLINCONV ProviderRonaldo MD [address] [place] [address] Social History Tobacco Use Types Packs/Day Years Used Date Smoking Tobacco: Never Assessed Comments Unknown Sex and Gender Information Value Date Recorded Sex Assigned at Not on file Legal Sex Female 6:46 AM SUPERVISOR BEAM DEPARTMENT Gender Identity Not on file Sexual Orientation Not on file documented as of this encounter Plan of Treatment Not on file documented as of this encounter Procedures Procedure Name Priority Date/Time Associated Diagnosis Comments COLONOSCOPY - SCAN 11/24/2015 12 :00 AM CDT documented in this encounter Results * COLONOSCOPY - SCAN (11/24/2015 12:00 AM CDT) Narrative 11/24/2015 12:00 AM CDT Ordered by an unspecified provider. us Historical Provider Final Res ult documented in this encounter Visit Diagnoses Not on filedocumented in this encounter Additional Health Concerns Infection Onset Date Last Indicated Resolved Time COVID: Suspected 04/12/2022 04/12/2022 04/12/2022 12:14 PM SUPERVISOR BEAM DEPARTMENT COVID: Suspected 08/11/2022 08/11/2022 08/11/2022 3:55 PM CDT COVID: Suspected 01/10/2024 01/10/2024 01/10/2024 11:43 AM SUPERVISOR BEAM DEPARTMENT COVID: Suspected 07/23/2024 07/23/2024 07/23/2024 7:32 PM [...] COVID: Suspected 02/04/2025 02/04/2025 02/04/2025 1:06 AM SUPERVISOR BEAM DEPARTMENT documented as of this encounter Care Teams Senior Customer Service Representative Relationship Specialty Start Date End Date Allison Crain MD [address] [place] [address] PCP - General Internal Medicine 07/21/18 Sultan Arabella Tyson MD [address] [address] Mortgage Loan Originator Cardiovascular Disease 11/20/18 Grant Romo MD [address] [facility] [address] [place] [address] [place] [address] Surgeon Vascular Surgery 11/20/18 Rosalind Domingo LPN [address] [facility] [address] [place] [address] [place] [address] Package Lift Operator 07/30/20 07/30/20 James Lala MD [address] [facility] [address] [place] [address] [place] [address] Referring Physician Orthopedic Surgery 11/28/20 Jennifer Lewis MA [address] [place] [address] [address] [place] [address] ACO Care Automobile Radio Repairer 07/16/24 07/24/24 Rosalind Domingo LPN [address] [place] [address] [address] [place] [address] Package Lift Operator 08/07/24 08/27/24 Izabel Alvarez MA [address] [place] [address] [address] [place] [address] ACO Care Automobile Radio Repairer 09/17/24 09/17/24 Eyad Jimenez, MAYNOR [address] [place] [address] [address] [place] [address] Package Lift Operator 10/18/24 12/23/24 documented as of this encounter
--- OUTSIDE RECORDS SUMMARY | 2025-02-18 14:57 | XMS_ITS | Encounter Summary ---
Author Organization [facility] Facility Care Team Providers Care Steward/Stewardess Bath Name Role Phone Allison Crain MD Primary Care Provider [phone] Sultan Arabella Tyson MD Unavailable [phone] Grant Romo MD Unavailable [phone] Rosalind Domingo LPN Unavailable [phone] James Lala MD Unavailable Jennifer Lewis MA Unavailable Rosalind Domingo LPN Unavailable [phone] Izabel Alvarez MA Unavailable Eyad Jimenez RN Unavailable [phone] Encounter Details Date Type Department Care Team (Latest Contact Info) Description 03/15/2018 Orders Only [facility] CLINCONV Provider, MD Ronaldo [address] [place] [address] Social History Tobacco Use Types Packs/Day Years Used Date Smoking Tobacco: Never Assessed Comments Unknown Sex and Gender Information Value Date Recorded Sex Assigned at Not on file Legal Sex Female 6:46 AM ACCOUNTING ADMINISTRATIVE ASSISTANT Gender Identity Not on file Sexual Orientation Not on file documented as of this encounter Plan of Treatment Not on file documented as of this encounter Procedures Procedure Name Priority Date/Time Associated Diagnosis Comments SCAN - LABS 03/16/2018 12:00 AM ACCOUNTING ADMINISTRATIVE ASSISTANT documented in this encounter Results * SCAN - LABS (03/16/2018 12:00 AM ACCOUNTING ADMINISTRATIVE ASSISTANT) Narrative 03/16/2018 12:00 AM ACCOUNTING ADMINISTRATIVE ASSISTANT Ordered by an unspecified provider. us Historical Provider Final Res ult documented in this encounter Visit Diagnoses Not on filedocumented in this encounter Additional Health Concerns Infection Onset Date Last Indicated Resolved Time COVID: Suspected 04/12/2022 04/12/2022 04/12/2022 12:14 PM ACCOUNTING ADMINISTRATIVE ASSISTANT COVID: Suspected 08/11/2022 08/11/2022 08/11/2022 3:55 PM CDT COVID: Suspected 01/10/2024 01/10/2024 01/10/2024 11:43 AM ACCOUNTING ADMINISTRATIVE ASSISTANT COVID: Suspected 07/23/2024 07/23/2024 07/23/2024 7:32 PM [...] COVID: Suspected 02/04/2025 02/04/2025 02/04/2025 1:06 AM ACCOUNTING ADMINISTRATIVE ASSISTANT documented as of this encounter Care Teams Steward/Stewardess Bath Relationship Specialty Start Date End Date Allison Crain MD [address] [place] [address] PCP - General Internal Medicine 07/21/18 Sultan Arabella Tyson MD [address] [address] Administrative Assistant Front Desk Cardiovascular Disease 11/20/18 Grant Romo MD [address] [facility] [address] [place] [address] [place] [address] Surgeon Vascular Surgery 11/20/18 Rosalind Domingo LPN [address] [facility] [address] [place] [address] Waste Reduction Coordinator 07/30/20 07/30/20 James Lala MD [address] [facility] [address] [place] [address] [place] [address] Referring Physician Orthopedic Surgery 11/28/20 Jennifer Lewis MA [address] [place] [address] [address] [place] [address] ACO Care Human Resources Assistant 07/16/24 07/24/24 Rosalind Domingo LPN [address] [place] [address] Waste Reduction Coordinator 08/07/24 08/27/24 Izabel Alvarez MA [address] [place] [address] [address] [place] [address] ACO Care Human Resources Assistant 09/17/24 09/17/24 Eyad Jimenez, MAYNOR [address] [place] [address] [address] [place] [address] Waste Reduction Coordinator 10/18/24 12/23/24 documented as of this encounter
--- OUTSIDE RECORDS SUMMARY | 2025-02-18 14:57 | XMS_ITS | Encounter Summary ---
Author Organization [facility] Facility Care Team Providers Care Lithoplate Maker Name Role Phone Allison Crain MD Primary Care Provider + [phone] Sultan Arabella Tyson MD Unavailable [phone] Grant Romo MD Unavailable [phone] Rosalind Domingo LPN Unavailable [phone] James Lala MD Unavailable Jennifer Lewis MA Unavailable Rosalind Domingo LPN Unavailable [phone] Izabel Alvarez MA Unavailable Eyad Jimenez RN Unavailable [phone] Encounter Details Date Type Department Care Team (Latest Contact Info) Description 02/26/2013 Orders Only [facility] CLINCONV ProviderRonaldo MD [address] [place] [address] Social History Tobacco Use Types Packs/Day Years Used Date Smoking Tobacco: Never Assessed Comments Unknown Sex and Gender Information Value Date Recorded Sex Assigned at Not on file Legal Sex Female 6:46 AM MIGRANT LEADER Gender Identity Not on file Sexual Orientation Not on file documented as of this encounter Plan of Treatment Not on file documented as of this encounter Procedures Procedure Name Priority Date/Time Associated Diagnosis Comments CARDIOLOGY REPORT 02/26/2013 12: 00 AM MIGRANT LEADER CARDIOLOGY REPORT 02/26/2013 12: 00 AM MIGRANT LEADER documented in this encounter Results * CARDIOLOGY REPORT (02/26/2013 12:00 AM MIGRANT LEADER) Anatomical Region Laterality Modality Other Narrative 02/26/2013 12:00 AM MIGRANT LEADER Ordered by an unspecified provider. us Historical Provider CV CARDIAC SERVICES PROCE DURES Final Result * CARDIOLOGY REPORT (02/26/2013 12:00 AM MIGRANT LEADER) Anatomical Region Laterality Modality Other Narrative 02/26/2013 12:00 AM MIGRANT LEADER Ordered by an unspecified provider. us Historical Provider CV CARDIAC SERVICES PROCE DURES Final Result documented in this encounter Visit Diagnoses Not on filedocumented in this encounter Additional Health Concerns Infection Onset Date Last Indicated Resolved Time COVID: Suspected 04/12/2022 04/12/2022 04/12/2022 12:14 PM MIGRANT LEADER COVID: Suspected 08/11/2022 08/11/2022 08/11/2022 3:55 PM CDT COVID: Suspected 01/10/2024 01/10/2024 01/10/2024 11:43 AM MIGRANT LEADER COVID: Suspected 07/23/2024 07/23/2024 07/23/2024 7:32 PM [...] COVID: Suspected 02/04/2025 02/04/2025 02/04/2025 1:06 AM MIGRANT LEADER documented as of this encounter Care Teams Lithoplate Maker Relationship Specialty Start Date End Date Allison Crain MD [address] [place] [address] PCP - General Internal Medicine 07/21/18 Sultan Arabella Tyson MD [address] [facility] [address] [address] Rn Referral Cardiovascular Disease 11/20/18 Grant Romo MD [address] [facility] [address] [address] Surgeon Vascular Surgery 11/20/18 Rosalind Domingo LPN [address] [facility] [address] [address] Drum Handler 07/30/20 07/30/20 James Lala MD [address] [facility] [address] [address] Referring Physician Orthopedic Surgery 11/28/20 Jennifer Lewis MA [address] [facility] [address] [place] [address] ACO Care Seat Covers Trimmer 07/16/24 07/24/24 Rosalind Domingo LPN [address] [facility] [address] [place] [address] Drum Handler 08/07/24 08/27/24 Izabel Alvarez MA [address] [facility] [address] [place] [address] ACO Care Seat Covers Trimmer 09/17/24 09/17/24 Eyad Jimenez, MAYNOR [address] [place] [address] [address] [place] [address] Drum Handler 10/18/24 12/23/24 documented as of this encounter
--- OUTSIDE RECORDS SUMMARY | 2025-02-18 14:57 | XMS_ITS | Encounter Summary ---
Author Organization [facility] Facility Care Team Providers Care Submarine Diver Name Role Phone Allison Crain MD Primary Care Provider [phone] Sultan Arabella Tyson MD Unavailable [phone] Grant Romo MD Unavailable [phone] Rosalind Domingo LPN Unavailable [phone] James Lala MD Unavailable Jennifer Lewis MA Unavailable Rosalind Domingo LPN Unavailable [phone] Izabel Alvarez MA Unavailable Eyda Jimenez RN Unavailable [phone] Encounter Details Date Type Department Care Team (Latest Contact Info) Description 08/10/2017 Orders Only [facility] CLINCONV ProviderRonaldo MD [address] [place] [address] Social History Tobacco Use Types Packs/Day Years Used Date Smoking Tobacco: Never Assessed Comments Unknown Sex and Gender Information Value Date Recorded Sex Assigned at Not on file Legal Sex Female 6:46 AM APPETIZER PACKER Gender Identity Not on file Sexual Orientation Not on file documented as of this encounter Plan of Treatment Not on file documented as of this encounter Procedures Procedure Name Priority Date/Time Associated Diagnosis Comments SCAN - LABS 08/18/2017 12:00 AM CDT documented in this encounter Results * SCAN - LABS (08/18/2017 12:00 AM CDT) Narrative 08/18/2017 12:00 AM CDT Ordered by an unspecified provider. us Historical Provider Final Res ult documented in this encounter Visit Diagnoses Not on filedocumented in this encounter Additional Health Concerns Infection Onset Date Last Indicated Resolved Time COVID: Suspected 04/12/2022 04/12/2022 04/12/2022 12:14 PM APPETIZER PACKER COVID: Suspected 08/11/2022 08/11/2022 08/11/2022 3:55 PM CDT COVID: Suspected 01/10/2024 01/10/2024 01/10/2024 11:43 AM APPETIZER PACKER COVID: Suspected 07/23/2024 07/23/2024 07/23/2024 7:32 PM [...] COVID: Suspected 02/04/2025 02/04/2025 02/04/2025 1:06 AM APPETIZER PACKER documented as of this encounter Care Teams Submarine Diver Relationship Specialty Start Date End Date Allison Crain MD [address] [place] [address] PCP - General Internal Medicine 07/21/18 Sultan Arabella Tyson MD [address] [address] Competitive Intelligence Analyst Cardiovascular Disease 11/20/18 Grant Romo MD [address] [facility] [address] [place] [address] [place] [address] Surgeon Vascular Surgery 11/20/18 Rosalind Domingo LPN [address] [facility] [address] [place] [address] [place] [address] Public Information Relations Manager 07/30/20 07/30/20 James Lala MD [address] [facility] [address] [place] [address] [place] [address] Referring Physician Orthopedic Surgery 11/28/20 Jennifer Lewis MA [address] [place] [address] [address] [place] [address] ACO Care Operations Professional 07/16/24 07/24/24 Rosalind Domingo LPN [address] [place] [address] Dr [address] [place] [address] Public Information Relations Manager 08/07/24 08/27/24 Izabel Alvarez MA [address] [place] [address] [address] [place] [address] ACO Care Operations Professional 09/17/24 09/17/24 Eyad Jimenez, MAYNOR [address] [place] [address] [address] [place] [address] Public Information Relations Manager 10/18/24 12/23/24 documented as of this encounter
--- OUTSIDE RECORDS SUMMARY | 2025-02-18 14:57 | XMS_ITS | Encounter Summary ---
Author Organization [facility] Facility Care Team Providers Care Living Skills Advisor Name Role Phone Allison Crain MD Primary Care Provider [phone] Sultan Arabella Tyson MD Unavailable [phone] Grant Romo MD Unavailable [phone] Rosalind Domingo LPN Unavailable [phone] James Lala MD Unavailable Jennifer Lewis MA Unavailable Rosalind Domingo LPN Unavailable [phone] Izabel Alvarez MA Unavailable Eyad Jimenez RN Unavailable [phone] Encounter Details Date Type Department Care Team (Latest Contact Info) Description 05/22/2018 Orders Only [facility] CLINCONV Provider, MD Ronaldo [address] [place] [address] Social History Tobacco Use Types Packs/Day Years Used Date Smoking Tobacco: Never Assessed Comments Unknown Sex and Gender Information Value Date Recorded Sex Assigned at Not on file Legal Sex Female 6:46 AM DIGITAL MARKETING PROJECT MANAGER Gender Identity Not on file Sexual Orientation Not on file documented as of this encounter Plan of Treatment Not on file documented as of this encounter Procedures Procedure Name Priority Date/Time Associated Diagnosis Comments SCAN - LABS 05/23/2018 12:00 AM CDT SCAN - LABS 05/23/2018 12:00 AM CDT documented in this encounter Results * SCAN - LABS (05/23/2018 12:00 AM CDT) Narrative 05/23/2018 12:00 AM CDT Ordered by an unspecified provider. us Historical Provider Final Res ult * SCAN - LABS (05/23/2018 12:00 AM CDT) Narrative 05/23/2018 12:00 AM CDT Ordered by an unspecified provider. us Historical Provider Final Res ult documented in this encounter Visit Diagnoses Not on filedocumented in this encounter Additional Health Concerns Infection Onset Date Last Indicated Resolved Time COVID: Suspected 04/12/2022 04/12/2022 04/12/2022 12:14 PM DIGITAL MARKETING PROJECT MANAGER COVID: Suspected 08/11/2022 08/11/2022 08/11/2022 3:55 PM CDT COVID: Suspected 01/10/2024 01/10/2024 01/10/2024 11:43 AM DIGITAL MARKETING PROJECT MANAGER COVID: Suspected 07/23/2024 07/23/2024 07/23/2024 7:32 PM [...] COVID: Suspected 02/04/2025 02/04/2025 02/04/2025 1:06 AM DIGITAL MARKETING PROJECT MANAGER documented as of this encounter Care Teams Living Skills Advisor Relationship Specialty Start Date End Date Allison Crain MD [address] [place] [address] PCP - General Internal Medicine 07/21/18 Sultan Arabella Tyson MD [address] [facility] [address] [address] Slip Laster Cardiovascular Disease 11/20/18 Grant Romo MD [address] [facility] [address] [facility] [address] Surgeon Vascular Surgery 11/20/18 Rosalind Domingo LPN [address] [facility] [address] [facility] [address] [address] Guard Dance Hall 07/30/20 07/30/20 James Lala MD [address] [facility] [address] [facility] [address] [address] Referring Physician Orthopedic Surgery 11/28/20 Jennifer Lewis MA [address] [facility] [address] [place] [address] ACO Care Supervisor Sanding 07/16/24 07/24/24 Rosalind Domingo LPN [address] [facility] [address] [place] [address] Guard Dance Hall 08/07/24 08/27/24 Izabel Alvarez MA [address] [facility] [address] [place] [address] ACO Care Supervisor Sanding 09/17/24 09/17/24 Eyad Jimenez, MAYNOR [address] [facility] [address] [place] [address] Guard Dance Hall 10/18/24 12/23/24 documented as of this encounter
--- OUTSIDE RECORDS SUMMARY | 2025-02-18 14:57 | XMS_ITS | Encounter Summary ---
Author Organization [facility] Facility Care Team Providers Care Pneumatic Jacketer Name Role Phone Allison Crain MD Primary Care Provider [phone] Sultan Arabella Tyson MD Unavailable [phone] Grant Romo MD Unavailable [phone] Rosalind Domingo LPN Unavailable [phone] James Lala MD Unavailable Jennifer Lewis MA Unavailable Rosalind Domingo LPN Unavailable [phone] Izabel Alvarez MA Unavailable Eyad Jimenez RN Unavailable [phone] Encounter Details Date Type Department Care Team (Latest Contact Info) Description 09/09/2017 Orders Only [facility] CLINCONV ProviderRonaldo MD [address] [place] [address] Social History Tobacco Use Types Packs/Day Years Used Date Smoking Tobacco: Never Assessed Comments Unknown Sex and Gender Information Value Date Recorded Sex Assigned at Not on file Legal Sex Female 6:46 AM HOME HEALTH CARE WORKER Gender Identity Not on file Sexual Orientation Not on file documented as of this encounter Plan of Treatment Not on file documented as of this encounter Procedures Procedure Name Priority Date/Time Associated Diagnosis Comments COLONOSCOPY - SCAN 09/09/2017 12 :00 AM CDT documented in this encounter Results * COLONOSCOPY - SCAN (09/09/2017 12:00 AM CDT) Narrative 09/09/2017 12:00 AM CDT Ordered by an unspecified provider. us Historical Provider Final Res ult documented in this encounter Visit Diagnoses Not on filedocumented in this encounter Additional Health Concerns Infection Onset Date Last Indicated Resolved Time COVID: Suspected 04/12/2022 04/12/2022 04/12/2022 12:14 PM HOME HEALTH CARE WORKER COVID: Suspected 08/11/2022 08/11/2022 08/11/2022 3:55 PM CDT COVID: Suspected 01/10/2024 01/10/2024 01/10/2024 11:43 AM HOME HEALTH CARE WORKER COVID: Suspected 07/23/2024 07/23/2024 07/23/2024 7:32 PM [...] COVID: Suspected 02/04/2025 02/04/2025 02/04/2025 1:06 AM HOME HEALTH CARE WORKER documented as of this encounter Care Teams Pneumatic Jacketer Relationship Specialty Start Date End Date Allison Crain MD [address] [place] [address] PCP - General Internal Medicine 07/21/18 Sultan Arabella Tyson MD [address] [address] Corporate Staff Accountant Cardiovascular Disease 11/20/18 Grant Romo MD [address] [facility] [address] [place] [address] [place] [address] Surgeon Vascular Surgery 11/20/18 Rosalind Domingo LPN [address] [facility] [address] [place] [address] [place] [address] Non Destructive Testing Technician 07/30/20 07/30/20 James Lala MD [address] [facility] [address] [place] [address] [place] [address] Referring Physician Orthopedic Surgery 11/28/20 Jennifer Lewis MA [address] [place] [address] [address] [place] [address] ACO Care Independent Living Specialist 07/16/24 07/24/24 Rosalind Domingo LPN [address] [place] [address] [address] [place] [address] Non Destructive Testing Technician 08/07/24 08/27/24 Izabel Alvarez MA [address] [place] [address] [address] [place] [address] ACO Care Independent Living Specialist 09/17/24 09/17/24 Eyad Jimenez, MAYNOR [address] [place] [address] [address] [place] [address] Non Destructive Testing Technician 10/18/24 12/23/24 documented as of this encounter
--- OUTSIDE RECORDS SUMMARY | 2025-02-18 14:57 | XMS_ITS | Encounter Summary ---
Author Organization [facility] Facility Care Team Providers Care Active Directory Specialist Name Role Phone Allison Crain MD Primary Care Provider [phone] Sultan Arabella Tyson MD Unavailable [phone] Grant Romo MD Unavailable [phone] Rosalind Domingo LPN Unavailable [phone] James Lala MD Unavailable Jennifer Lewis MA Unavailable Rosalind Domingo LPN Unavailable [phone] Izabel Alvarez MA Unavailable Eyad Jimenez RN Unavailable [phone] Encounter Details Date Type Department Care Team (Latest Contact Info) Description 09/07/2017 Orders Only [facility] CLINCONV ProviderRonaldo MD [address] [place] [address] Social History Tobacco Use Types Packs/Day Years Used Date Smoking Tobacco: Never Assessed Comments Unknown Sex and Gender Information Value Date Recorded Sex Assigned at Not on file Legal Sex Female 6:46 AM FOUNTAIN SUPERVISOR Gender Identity Not on file Sexual Orientation Not on file documented as of this encounter Plan of Treatment Not on file documented as of this encounter Procedures Procedure Name Priority Date/Time Associated Diagnosis Comments COLONOSCOPY - SCAN 09/07/2017 12 :00 AM CDT documented in this encounter Results * COLONOSCOPY - SCAN (09/07/2017 12:00 AM CDT) Narrative 09/07/2017 12:00 AM CDT Ordered by an unspecified provider. us Historical Provider Final Res ult documented in this encounter Visit Diagnoses Not on filedocumented in this encounter Additional Health Concerns Infection Onset Date Last Indicated Resolved Time COVID: Suspected 04/12/2022 04/12/2022 04/12/2022 12:14 PM FOUNTAIN SUPERVISOR COVID: Suspected 08/11/2022 08/11/2022 08/11/2022 3:55 PM CDT COVID: Suspected 01/10/2024 01/10/2024 01/10/2024 11:43 AM FOUNTAIN SUPERVISOR COVID: Suspected 07/23/2024 07/23/2024 07/23/2024 7:32 PM [...] COVID: Suspected 02/04/2025 02/04/2025 02/04/2025 1:06 AM FOUNTAIN SUPERVISOR documented as of this encounter Care Teams Active Directory Specialist Relationship Specialty Start Date End Date Allison Crain MD [address] [place] [address] PCP - General Internal Medicine 07/21/18 Sultan Arabella Tyson MD [address] [address] Spanisher Cardiovascular Disease 11/20/18 Grant Romo MD [address] [facility] [address] [place] [address] [place] [address] Surgeon Vascular Surgery 11/20/18 Rosalind Domingo LPN [address] [facility] [address] [place] [address] [place] [address] Personnel Adviser 07/30/20 07/30/20 James Lala MD [address] [facility] [address] [place] [address] [place] [address] Referring Physician Orthopedic Surgery 11/28/20 Jennifer Lewis MA [address] [place] [address] [address] [place] [address] ACO Care Barn Boss 07/16/24 07/24/24 Rosalind Domingo LPN [address] [place] [address] [address] [place] [address] Personnel Adviser 08/07/24 08/27/24 Izabel Alvarez MA [address] [place] [address] [address] [place] [address] ACO Care Barn Boss 09/17/24 09/17/24 Eyad Jimenez, MAYNOR [address] [place] [address] [address] [place] [address] Personnel Adviser 10/18/24 12/23/24 documented as of this encounter
--- OUTSIDE RECORDS SUMMARY | 2025-02-18 14:57 | XMS_ITS | Encounter Summary ---
Author Organization [facility] Facility Care Team Providers Care Aerodynamicist Name Role Phone Allison Crain MD Primary Care Provider [phone] Sultan Arabella Tyson MD Unavailable [phone] Grant Romo MD Unavailable [phone] Rosalind Domingo LPN Unavailable [phone] James Lala MD Unavailable Jennifer Lewis MA Unavailable Rosalind Domingo LPN Unavailable [phone] Izabel Alvarez MA Unavailable Eyad Jimenez RN Unavailable [phone] Encounter Details Date Type Department Care Team (Latest Contact Info) Description 02/22/2018 Orders Only MMG CLINCONV Provider, MD Ronaldo [address] [place] [address] Social History Tobacco Use Types Packs/Day Years Used Date Smoking Tobacco: Never Assessed Comments Unknown Sex and Gender Information Value Date Recorded Sex Assigned at Not on file Legal Sex Female 6:46 AM FIELD OPERATIONS SUPERVISOR Gender Identity Not on file Sexual Orientation Not on file documented as of this encounter Plan of Treatment Not on file documented as of this encounter Procedures Procedure Name Priority Date/Time Associated Diagnosis Comments SCAN - LABS 02/22/2018 12:00 AM FIELD OPERATIONS SUPERVISOR documented in this encounter Results * SCAN - LABS (02/22/2018 12:00 AM FIELD OPERATIONS SUPERVISOR) Narrative 02/22/2018 12:00 AM FIELD OPERATIONS SUPERVISOR Ordered by an unspecified provider. us Historical Provider Final Res ult documented in this encounter Visit Diagnoses Not on filedocumented in this encounter Additional Health Concerns Infection Onset Date Last Indicated Resolved Time COVID: Suspected 04/12/2022 04/12/2022 04/12/2022 12:14 PM FIELD OPERATIONS SUPERVISOR COVID: Suspected 08/11/2022 08/11/2022 08/11/2022 3:55 PM CDT COVID: Suspected 01/10/2024 01/10/2024 01/10/2024 11:43 AM FIELD OPERATIONS SUPERVISOR COVID: Suspected 07/23/2024 07/23/2024 07/23/2024 7:32 [...] COVID: Suspected 02/04/2025 02/04/2025 02/04/2025 1:06 AM FIELD OPERATIONS SUPERVISOR documented as of this encounter Care Teams Aerodynamicist Relationship Specialty Start Date End Date Allison Crain MD [address] [place] [address] PCP - General Internal Medicine 07/21/18 Sultan Arabella Tyson MD [address] [address] Chief General Pediatric Clinic Cardiovascular Disease 11/20/18 Grant Romo MD [address] [facility] [address] [place] [address] [place] [address] Surgeon Vascular Surgery 11/20/18 Rosalind Domingo LPN [address] [facility] [address] [place] [place] [address] Motorcoach Driver 07/30/20 07/30/20 James Lala MD [address] [facility] [address] [place] [address] [place] [address] Referring Physician Orthopedic Surgery 11/28/20 Jennifer Lewis MA [address] [place] [address] [address] [place] [address] ACO Care Rivet Heater Gas 07/16/24 07/24/24 Rosalind Domingo LPN [address] [facility] [address] [place] [address] Motorcoach Driver 08/07/24 08/27/24 Izabel Alvarez MA [address] [place] [address] [address] [place] [address] ACO Care Rivet Heater Gas 09/17/24 09/17/24 Eyad Jimenez, MAYNOR [address] [place] [address] [address] [place] [address] Motorcoach Driver 10/18/24 12/23/24 documented as of this encounter
--- OUTSIDE RECORDS SUMMARY | 2025-02-18 14:57 | XMS_ITS | Encounter Summary ---
Author Organization [facility] Facility Care Team Providers Care Chemical Sales Representative Name Role Phone Allison Crain MD Primary Care Provider [phone] Sultan Arabella Tyson MD Unavailable [phone] Grant Romo MD Unavailable [phone] Rosalind Domingo LPN Unavailable [phone] James Lala MD Unavailable Jennifer Lewis MA Unavailable Rosalind Domingo LPN Unavailable [phone] Izabel Alvarez MA Unavailable Eyad Jimenez RN Unavailable [phone] Encounter Details Date Type Department Care Team (Latest Contact Info) Description 10/20/2017 Orders Only [facility] CLINCONV ProviderRonaldo MD [address] [place] [address] Social History Tobacco Use Types Packs/Day Years Used Date Smoking Tobacco: Never Assessed Comments Unknown Sex and Gender Information Value Date Recorded Sex Assigned at Not on file Legal Sex Female 6:46 AM RAILROAD INSPECTOR Gender Identity Not on file Sexual Orientation Not on file documented as of this encounter Plan of Treatment Not on file documented as of this encounter Procedures Procedure Name Priority Date/Time Associated Diagnosis Comments SCAN - LABS 10/21/2017 12:00 AM CDT documented in this encounter Results * SCAN - LABS (10/21/2017 12:00 AM CDT) Narrative 10/21/2017 12:00 AM CDT Ordered by an unspecified provider. us Historical Provider Final Res ult documented in this encounter Visit Diagnoses Not on filedocumented in this encounter Additional Health Concerns Infection Onset Date Last Indicated Resolved Time COVID: Suspected 04/12/2022 04/12/2022 04/12/2022 12:14 PM RAILROAD INSPECTOR COVID: Suspected 08/11/2022 08/11/2022 08/11/2022 3:55 PM CDT COVID: Suspected 01/10/2024 01/10/2024 01/10/2024 11:43 AM RAILROAD INSPECTOR COVID: Suspected 07/23/2024 07/23/2024 07/23/2024 7:32 PM [...] COVID: Suspected 02/04/2025 02/04/2025 02/04/2025 1:06 AM RAILROAD INSPECTOR documented as of this encounter Care Teams Chemical Sales Representative Relationship Specialty Start Date End Date Allison Crain MD [address] [place] [address] PCP - General Internal Medicine 07/21/18 Sultan Arabella Tyson MD [address] [address] Casework Specialist Cardiovascular Disease 11/20/18 Grant Romo MD [address] [facility] [address] [place] [address] [place] [address] Surgeon Vascular Surgery 11/20/18 Rosalind Domingo LPN [address] [facility] [address] [place] [address] [place] [address] Laborer Brooder Farm 07/30/20 07/30/20 James Lala MD [address] [facility] [address] [place] [address] [place] [address] Referring Physician Orthopedic Surgery 11/28/20 Jennifer Lewis MA [address] [place] [address] [address] [place] [address] [address]CO [address] Maintenance Worker 07/16/24 07/24/24 Rosalind Domingo LPN [address] [place] [address] [address] [place] [address] Laborer Brooder Farm 08/07/24 08/27/24 Izabel Alvarez MA [address] [place] [address] [address] [place] [address] [address] Maintenance Worker 09/17/24 09/17/24 Eyad Jimenez, MAYNOR [address] [place] [address] [address] [place] [address] Laborer Brooder Farm 10/18/24 12/23/24 documented as of this encounter
--- OUTSIDE RECORDS SUMMARY | 2025-02-18 14:57 | XMS_ITS | Encounter Summary ---
Author Organization [facility] Facility Care Team Providers Care Operator Prefinish Name Role Phone Allison Crain MD Primary Care Provider [phone] Sultan Arabella Tyson MD Unavailable [phone] Grant Romo MD Unavailable [phone] Rosalind Domingo LPN Unavailable [phone] James Lala MD Unavailable Jennifer Lewis MA Unavailable Rosalind Domingo LPN Unavailable [phone] Izabel Alvarez MA Unavailable Eyad Jimenez RN Unavailable [phone] Encounter Details Date Type Department Care Team (Latest Contact Info) Description 08/02/2016 Orders Only [facility]G CLINCONV ProviderRonaldo MD [address] [place] [address] Social History Tobacco Use Types Packs/Day Years Used Date Smoking Tobacco: Never Assessed Comments Unknown Sex and Gender Information Value Date Recorded Sex Assigned at Not on file Legal Sex Female 6:46 AM BUSINESS SYSTEMS DEVELOPER Gender Identity Not on file Sexual Orientation Not on file documented as of this encounter Plan of Treatment Not on file documented as of this encounter Procedures Procedure Name Priority Date/Time Associated Diagnosis Comments CARDIOLOGY REPORT 08/02/2016 12: 00 AM CDT documented in this encounter Results * CARDIOLOGY REPORT (08/02/2016 12:00 AM CDT) Anatomical Region Laterality Modality Other Narrative 08/02/2016 12:00 AM CDT Ordered by an unspecified provider. us Historical Provider [facility] Final Result documented in this encounter Visit Diagnoses Not on filedocumented in this encounter Additional Health Concerns Infection Onset Date Last Indicated Resolved Time COVID: Suspected 04/12/2022 04/12/2022 04/12/2022 12:14 PM BUSINESS SYSTEMS DEVELOPER COVID: Suspected 08/11/2022 08/11/2022 08/11/2022 3:55 PM CDT COVID: Suspected 01/10/2024 01/10/2024 01/10/2024 11:43 AM BUSINESS SYSTEMS DEVELOPER COVID: Suspected 07/23/2024 07/23/2024 07/23/2024 7:32 PM [...] COVID: Suspected 02/04/2025 02/04/2025 02/04/2025 1:06 AM BUSINESS SYSTEMS DEVELOPER documented as of this encounter Care Teams Operator Prefinish Relationship Specialty Start Date End Date Allison Crain MD [address] [place] [address] PCP - General Internal Medicine 07/21/18 Sultan Arabella Tyson MD [address] [address] Enamel Shader Cardiovascular Disease 11/20/18 Grant Romo MD [address] [facility] [address] [place] [facility] [place] [address] Surgeon Vascular Surgery 11/20/18 Rosalind Domingo LPN [address] [facility] [address] [place] [address] [place] [address] Pension Adviser 07/30/20 07/30/20 James Lala MD [address] [facility] [address] [place] [address] [place] [address] Referring Physician Orthopedic Surgery 11/28/20 Jennifer Lewis MA [address] [place] [address] [address] [place] [address] ACO Care Stationary Plant Operators 07/16/24 07/24/24 Rosalind Domingo LPN [address] [place] [address] [address] [place] [address] Pension Adviser 08/07/24 08/27/24 Izabel Alvarez MA [address] [place] [address] [address] [place] [address] ACO Care Stationary Plant Operators 09/17/24 09/17/24 Eyad Jimenez, MAYNOR [address] [place] [address] [address] [place] [address] Pension Adviser 10/18/24 12/23/24 documented as of this encounter
--- OUTSIDE RECORDS SUMMARY | 2025-02-18 14:57 | XMS_ITS | Encounter Summary ---
Author Organization [facility] Facility Care Team Providers Care Associate Professor Of Chemistry Name Role Phone Allison Crain MD Primary Care Provider [phone] Sultan Arabella Tyson MD Unavailable [phone] Grant Romo MD Unavailable [phone] Rosalind Domingo LPN Unavailable [phone] James Lala MD Unavailable Jennifer Lewis MA Unavailable Rosalind Domingo LPN Unavailable [phone] Izabel Alvarez MA Unavailable Eyad Jimenez RN Unavailable [phone] Encounter Details Date Type Department Care Team (Latest Contact Info) Description 04/13/2018 Orders Only [facility]G CLINCONV Provider, MD Ronaldo [address] [place] [address] Social History Tobacco Use Types Packs/Day Years Used Date Smoking Tobacco: Never Assessed Comments Unknown Sex and Gender Information Value Date Recorded Sex Assigned at Not on file Legal Sex Female 6:46 AM SOCIAL SECRETARY Gender Identity Not on file Sexual Orientation Not on file documented as of this encounter Plan of Treatment Not on file documented as of this encounter Procedures Procedure Name Priority Date/Time Associated Diagnosis Comments SCAN - LABS 04/14/2018 12:00 AM SOCIAL SECRETARY documented in this encounter Results * SCAN - LABS (04/14/2018 12:00 AM SOCIAL SECRETARY) Narrative 04/14/2018 12:00 AM SOCIAL SECRETARY Ordered by an unspecified provider. us Historical Provider Final Res ult documented in this encounter Visit Diagnoses Not on filedocumented in this encounter Additional Health Concerns Infection Onset Date Last Indicated Resolved Time COVID: Suspected 04/12/2022 04/12/2022 04/12/2022 12:14 PM SOCIAL SECRETARY COVID: Suspected 08/11/2022 08/11/2022 08/11/2022 3:55 PM CDT COVID: Suspected 01/10/2024 01/10/2024 01/10/2024 11:43 AM SOCIAL SECRETARY COVID: Suspected 07/23/2024 07/23/2024 07/23/2024 7:32 PM [...] COVID: Suspected 02/04/2025 02/04/2025 02/04/2025 1:06 AM SOCIAL SECRETARY documented as of this encounter Care Teams Associate Professor Of Chemistry Relationship Specialty Start Date End Date Allison Crain MD [address] [place] [address] PCP - General Internal Medicine 07/21/18 Sultan Arabella Tyson MD [address] [address] Stamping Die Maker Bench Cardiovascular Disease 11/20/18 Grant Romo MD [address] [facility] [address] [place] [address] [place] [address] Surgeon Vascular Surgery 11/20/18 Rosalind Domingo LPN [address] [facility] [address] [place] [address] [place] [address] Discharge Planner 07/30/20 07/30/20 James Lala MD [address] [facility] [address] [place] [address] [place] [address] Referring Physician Orthopedic Surgery 11/28/20 Jennifer Lewis MA [address] [place] [address] [address] [place] [address] ACO Care Seismic Prospecting Observer 07/16/24 07/24/24 Rosalind Domingo LPN [address] [facility] [address] [place] [address] Discharge Planner 08/07/24 08/27/24 Izabel Alvarez MA [address] [place] [address] [address] [place] [address] ACO Care Seismic Prospecting Observer 09/17/24 09/17/24 Eyad Jimenez, MAYNOR [address] [place] [address] [address] [place] [address] Discharge Planner 10/18/24 12/23/24 documented as of this encounter
--- OUTSIDE RECORDS SUMMARY | 2025-02-18 14:57 | XMS_ITS | Encounter Summary ---
Author Organization [facility] Facility Care Team Providers Care Accounts Receivable Administrator Name Role Phone Allison Crain MD Primary Care Provider [phone] Sultan Arabella Tyson MD Unavailable [phone] Grant Romo MD Unavailable [phone] Rosalind Domingo LPN Unavailable [phone] James Lala MD Unavailable Jennifer Lewis MA Unavailable Rosalind Domingo LPN Unavailable [phone] Izabel Alvarez MA Unavailable Eyad Jimenez RN Unavailable [phone] Encounter Details Date Type Department Care Team (Latest Contact Info) Description 11/03/2017 Orders Only [facility]G CLINCONV ProviderRonaldo MD [address] [place] [address] Social History Tobacco Use Types Packs/Day Years Used Date Smoking Tobacco: Never Assessed Comments Unknown Sex and Gender Information Value Date Recorded Sex Assigned at Not on file Legal Sex Female 6:46 AM PODIATRIC AIDE Gender Identity Not on file Sexual Orientation Not on file documented as of this encounter Plan of Treatment Not on file documented as of this encounter Procedures Procedure Name Priority Date/Time Associated Diagnosis Comments COLONOSCOPY - SCAN 11/03/2017 12 :00 AM CDT documented in this encounter Results * COLONOSCOPY - SCAN (11/03/2017 12:00 AM CDT) Narrative 11/03/2017 12:00 AM CDT Ordered by an unspecified provider. us Historical Provider Final Res ult documented in this encounter Visit Diagnoses Not on filedocumented in this encounter Additional Health Concerns Infection Onset Date Last Indicated Resolved Time COVID: Suspected 04/12/2022 04/12/2022 04/12/2022 12:14 PM PODIATRIC AIDE COVID: Suspected 08/11/2022 08/11/2022 08/11/2022 3:55 PM CDT COVID: Suspected 01/10/2024 01/10/2024 01/10/2024 11:43 AM PODIATRIC AIDE COVID: Suspected 07/23/2024 07/23/2024 07/23/2024 7:32 PM [...] COVID: Suspected 02/04/2025 02/04/2025 02/04/2025 1:06 AM PODIATRIC AIDE documented as of this encounter Care Teams Accounts Receivable Administrator Relationship Specialty Start Date End Date Allison Crain MD [address] [place] [address] PCP - General Internal Medicine 07/21/18 Sultan Arabella Tyson MD [address] [address] Cargo Surveyor Cardiovascular Disease 11/20/18 Grant Romo MD [address] [facility] [address] [place] [address] [place] [address] Surgeon Vascular Surgery 11/20/18 Rosalind Domingo LPN [address] [facility] [address] [place] [address] [place] [address] Voltmeter Operator 07/30/20 07/30/20 James Lala MD [address] [facility] [address] [place] [address] [place] [address] Referring Physician Orthopedic Surgery 11/28/20 Jennifer Lewis MA [address] [place] [address] [address] [place] [address] ACO Care Air Purifier Servicer 07/16/24 07/24/24 Rosalind Domingo LPN [address] [place] [address] [address] [place] [address] Voltmeter Operator 08/07/24 08/27/24 Izabel Alvarez MA [address] [place] [address] [address] [place] [address] ACO Care Air Purifier Servicer 09/17/24 09/17/24 Eyad Jimenez, MAYNOR [address] [place] [address] [address] [place] [address] Voltmeter Operator 10/18/24 12/23/24 documented as of this encounter
--- OUTSIDE RECORDS SUMMARY | 2025-02-18 14:57 | XMS_ITS | Encounter Summary ---
Author Organization [facility] Facility Care Team Providers Care Process Helper Name Role Phone Allison Crain MD Primary Care Provider [phone] Sultan Arabella Tyson MD Unavailable [phone] Grant Romo MD Unavailable [phone] Rosalind Domingo LPN Unavailable [phone] James Lala MD Unavailable Jennifer Lewis MA Unavailable Rosalind Domingo LPN Unavailable [phone] Izabel Alvarez MA Unavailable Eyad Jimenez RN Unavailable [phone] Encounter Details Date Type Department Care Team (Latest Contact Info) Description 07/02/2015 Orders Only MMG CLINCONV ProviderRonaldo MD [address] [place] [address] Social History Tobacco Use Types Packs/Day Years Used Date Smoking Tobacco: Never Assessed Comments Unknown Sex and Gender Information Value Date Recorded Sex Assigned at Not on file Legal Sex Female 6:46 AM TOP SCREW Gender Identity Not on file Sexual Orientation Not on file documented as of this encounter Plan of Treatment Not on file documented as of this encounter Procedures Procedure Name Priority Date/Time Associated Diagnosis Comments SCAN - LABS 07/02/2015 12:00 AM CDT documented in this encounter Results * SCAN - LABS (07/02/2015 12:00 AM CDT) Narrative 07/02/2015 12:00 AM CDT Ordered by an unspecified provider. us Historical Provider Final Res ult documented in this encounter Visit Diagnoses Not on filedocumented in this encounter Additional Health Concerns Infection Onset Date Last Indicated Resolved Time COVID: Suspected 04/12/2022 04/12/2022 04/12/2022 12:14 PM TOP SCREW COVID: Suspected 08/11/2022 08/11/2022 08/11/2022 3:55 PM CDT COVID: Suspected 01/10/2024 01/10/2024 01/10/2024 11:43 AM TOP SCREW COVID: Suspected 07/23/2024 07/23/2024 07/23/2024 7:32 PM [...] COVID: Suspected 02/04/2025 02/04/2025 02/04/2025 1:06 AM TOP SCREW documented as of this encounter Care Teams Process Helper Relationship Specialty Start Date End Date Allison Crain MD [address] [place] [address] PCP - General Internal Medicine 07/21/18 Sultan Arabella Tyson MD [address] [address] Auto Service Representative Cardiovascular Disease 11/20/18 Grant Romo MD [address] [facility] [address] [place] [address] [place] [address] Surgeon Vascular Surgery 11/20/18 Rosalind Domingo LPN [address] [facility] [address] [place] [address] [place] [address] Back Tender Insulation Board 07/30/20 07/30/20 James Lala MD [address] [facility] [address] [place] [address] [place] [address] Referring Physician Orthopedic Surgery 11/28/20 Jennifer Lewis MA [address] [place] [address] [address] [place] [address] ACO Care Plastics Engineer 07/16/24 07/24/24 Rosalind Domingo LPN [address] [place] [address] Dr [address] [place] [address] Back Tender Insulation Board 08/07/24 08/27/24 Izabel Alvarez MA [address] [place] [address] [address] [place] [address] ACO Care Plastics Engineer 09/17/24 09/17/24 Eyad Jimenez, MAYNOR [address] [place] [address] [address] [place] [address] Back Tender Insulation Board 10/18/24 12/23/24 documented as of this encounter
--- OUTSIDE RECORDS SUMMARY | 2025-02-18 14:57 | XMS_ITS | Encounter Summary ---
Author Organization [facility] Facility Care Team Providers Care Parker Name Role Phone Allison Crain MD Primary Care Provider [phone] Sultan Arabella Tyson MD Unavailable [phone] Grant Romo MD Unavailable [phone] Rosalind Domingo LPN Unavailable [phone] James Lala MD Unavailable Jennifer Lewis MA Unavailable Rosalind Domingo LPN Unavailable [phone] Izabel Alvarez MA Unavailable Eyad Jimenez RN Unavailable [phone] Encounter Details Date Type Department Care Team (Latest Contact Info) Description 01/17/2018 Orders Only MMG CLINCONV Provider, MD Ronaldo [address] [place] [address] Social History Tobacco Use Types Packs/Day Years Used Date Smoking Tobacco: Never Assessed Comments Unknown Sex and Gender Information Value Date Recorded Sex Assigned at Not on file Legal Sex Female 6:46 AM JUNIOR SOFTWARE DEVELOPER Gender Identity Not on file Sexual Orientation Not on file documented as of this encounter Plan of Treatment Not on file documented as of this encounter Procedures Procedure Name Priority Date/Time Associated Diagnosis Comments SCAN - LABS 01/17/2018 12:00 AM JUNIOR SOFTWARE DEVELOPER documented in this encounter Results * SCAN - LABS (01/17/2018 12:00 AM JUNIOR SOFTWARE DEVELOPER) Narrative 01/17/2018 12:00 AM JUNIOR SOFTWARE DEVELOPER Ordered by an unspecified provider. us Historical Provider Final Res ult documented in this encounter Visit Diagnoses Not on filedocumented in this encounter Additional Health Concerns Infection Onset Date Last Indicated Resolved Time COVID: Suspected 04/12/2022 04/12/2022 04/12/2022 12:14 PM JUNIOR SOFTWARE DEVELOPER COVID: Suspected 08/11/2022 08/11/2022 08/11/2022 3:55 PM CDT COVID: Suspected 01/10/2024 01/10/2024 01/10/2024 11:43 AM JUNIOR SOFTWARE DEVELOPER COVID: Suspected 07/23/2024 07/23/2024 07/23/2024 7:32 [...] COVID: Suspected 02/04/2025 02/04/2025 02/04/2025 1:06 AM JUNIOR SOFTWARE DEVELOPER documented as of this encounter Care Teams Parker Relationship Specialty Start Date End Date Allison Crain MD [address] [place] [address] PCP - General Internal Medicine 07/21/18 Sultan Arabella Tyson MD [address] [address] Foundry Worker Cardiovascular Disease 11/20/18 Grant Romo MD [address] [facility] [address] [place] [address] [place] [address] Surgeon Vascular Surgery 11/20/18 Rosalind Domingo LPN [address] [facility] [address] [place] [address] [place] [address] Test Lab Technician 07/30/20 07/30/20 James Lala MD [address] [facility] [address] [place] [address] [place] [address] Referring Physician Orthopedic Surgery 11/28/20 Jennifer Lewis MA [address] [place] [address] [address] [place] [address] ACO Care Armature Winder Repair Helper 07/16/24 07/24/24 Rosalind Domingo LPN [address] [facility] [address] [place] [address] Test Lab Technician 08/07/24 08/27/24 Izabel Alvarez MA [address] [place] [address] [address] [place] [address] ACO Care Armature Winder Repair Helper 09/17/24 09/17/24 Eyad Jimenez, MAYNOR [address] [place] [address] [address] [place] [address] Test Lab Technician 10/18/24 12/23/24 documented as of this encounter
--- OUTSIDE RECORDS SUMMARY | 2025-02-18 14:57 | XMS_ITS | Encounter Summary ---
Author Organization [facility] Facility Care Team Providers Care Chicle Grinder Feeder Name Role Phone Allison Crain MD Primary Care Provider [phone] Sultan Arabella Tyson MD Unavailable [phone] Grant Romo MD Unavailable [phone] Rosalind Domingo LPN Unavailable [phone] James Lala MD Unavailable Jennifer Lewis MA Unavailable Rosalind Domingo LPN Unavailable [phone] Izabel Alvarez MA Unavailable Eyad Jimenez RN Unavailable [phone] Encounter Details Date Type Department Care Team (Latest Contact Info) Description 01/04/2017 Orders Only MMG CLINCONV Provider, MD Ronaldo [address] [place] [address] Social History Tobacco Use Types Packs/Day Years Used Date Smoking Tobacco: Never Assessed Comments Unknown Sex and Gender Information Value Date Recorded Sex Assigned at Not on file Legal Sex Female 6:46 AM ROD GREASER Gender Identity Not on file Sexual Orientation Not on file documented as of this encounter Plan of Treatment Not on file documented as of this encounter Procedures Procedure Name Priority Date/Time Associated Diagnosis Comments SCAN - LABS 01/04/2017 12:00 AM ROD GREASER documented in this encounter Results * SCAN - LABS (01/04/2017 12:00 AM ROD GREASER) Narrative 01/04/2017 12:00 AM ROD GREASER Ordered by an unspecified provider. us Historical Provider Final Res ult documented in this encounter Visit Diagnoses Not on filedocumented in this encounter Additional Health Concerns Infection Onset Date Last Indicated Resolved Time COVID: Suspected 04/12/2022 04/12/2022 04/12/2022 12:14 PM ROD GREASER COVID: Suspected 08/11/2022 08/11/2022 08/11/2022 3:55 PM CDT COVID: Suspected 01/10/2024 01/10/2024 01/10/2024 11:43 AM ROD GREASER COVID: Suspected 07/23/2024 07/23/2024 07/23/2024 7:32 PM [...] COVID: Suspected 02/04/2025 02/04/2025 02/04/2025 1:06 AM ROD GREASER documented as of this encounter Care Teams Chicle Grinder Feeder Relationship Specialty Start Date End Date Alliosn Crain MD [address] [place] [address] PCP - General Internal Medicine 07/21/18 Sultan Arabella Tyson MD [address] [address] Medical Physics Professor Cardiovascular Disease 11/20/18 Grant Romo MD [address] [facility] [address] [place] [address] [place] [address] Surgeon Vascular Surgery 11/20/18 Rosalind Domingo LPN [address] [facility] [address] [place] [address] Trailer Truck Driver 07/30/20 07/30/20 James Lala MD [address] [facility] [address] [place] [address] [place] [address] Referring Physician Orthopedic Surgery 11/28/20 Jennifer Lewis MA [address] [place] [address] [address] [place] [address] ACO Care Prepress Technician 07/16/24 07/24/24 Rosalind Domingo LPN [address] [facility] [address] [place] [address] Trailer Truck Driver 08/07/24 08/27/24 Izabel Alvarez MA [address] [place] [address] [address] [place] [address] ACO Care Prepress Technician 09/17/24 09/17/24 Eyad Jimenez, MAYNOR [address] [place] [address] [address] [place] [address] Trailer Truck Driver 10/18/24 12/23/24 documented as of this encounter
--- OUTSIDE RECORDS SUMMARY | 2025-02-18 14:57 | XMS_ITS | Encounter Summary ---
Author Organization [facility] Facility Care Team Providers Care Respiratory Services Manager Name Role Phone Allison Crain MD Primary Care Provider [phone] Sultan Arabella Tyson MD Unavailable [phone] Grant Romo MD Unavailable [phone] Rosalind Domingo LPN Unavailable [phone] James Lala MD Unavailable Jennifer Lewis MA Unavailable Rosalind Domingo LPN Unavailable [phone] Izabel Alvarez MA Unavailable Eyad Jimenez RN Unavailable [phone] Encounter Details Date Type Department Care Team (Latest Contact Info) Description 05/14/2015 Orders Only [facility] CLINCONV Provider, MD Ronaldo [address] [place] [address] Social History Tobacco Use Types Packs/Day Years Used Date Smoking Tobacco: Never Assessed Comments Unknown Sex and Gender Information Value Date Recorded Sex Assigned at Not on file Legal Sex Female 6:46 AM MASTER NAVAL PARACHUTIST Gender Identity Not on file Sexual Orientation Not on file documented as of this encounter Plan of Treatment Not on file documented as of this encounter Procedures Procedure Name Priority Date/Time Associated Diagnosis Comments SCAN - LABS 05/14/2015 12:00 AM CDT SCAN - LABS 05/14/2015 12:00 AM CDT documented in this encounter Results * SCAN - LABS (05/14/2015 12:00 AM CDT) Narrative 05/14/2015 12:00 AM CDT Ordered by an unspecified provider. us Historical Provider Final Res ult * SCAN - LABS (05/14/2015 12:00 AM CDT) Narrative 05/14/2015 12:00 AM CDT Ordered by an unspecified provider. us Historical Provider Final Res ult documented in this encounter Visit Diagnoses Not on filedocumented in this encounter Additional Health Concerns Infection Onset Date Last Indicated Resolved Time COVID: Suspected 04/12/2022 04/12/2022 04/12/2022 12:14 PM MASTER NAVAL PARACHUTIST COVID: Suspected 08/11/2022 08/11/2022 08/11/2022 3:55 PM CDT COVID: Suspected 01/10/2024 01/10/2024 01/10/2024 11:43 AM MASTER NAVAL PARACHUTIST COVID: Suspected 07/23/2024 07/23/2024 07/23/2024 7:32 PM [...] COVID: Suspected 02/04/2025 02/04/2025 02/04/2025 1:06 AM MASTER NAVAL PARACHUTIST documented as of this encounter Care Teams Respiratory Services Manager Relationship Specialty Start Date End Date Allison Crain MD [address] [place] [address] PCP - General Internal Medicine 07/21/18 Sultan Arabella Tyson MD [address] [facility] [address] AR[address] [address] Sports Team Manager Cardiovascular Disease 11/20/18 Grant Romo MD [address] [facility] [address] ARTHUR [facility] [address] [address] Surgeon Vascular Surgery 11/20/18 Rosalind Domingo LPN [address] [facility] [address] AR[address]UR [facility] [address] [address] Marketing Recruiter 07/30/20 07/30/20 James Lala MD [address] [facility] [address] AR[address]UR [facility] [address] [address] Referring Physician Orthopedic Surgery 11/28/20 Jennifer Lewis MA [address] [facility] [address] [place] [address] ACO Care Infant Childcare Provider 07/16/24 07/24/24 Rosalind Domingo LPN [address] [facility] [address] [place] [address] Marketing Recruiter 08/07/24 08/27/24 Izabel Alvarez MA [address] [facility] [address] [place] [address] ACO Care Infant Childcare Provider 09/17/24 09/17/24 Eyad Jimenez, MAYNOR [address] [facility] [address] [place] [address] Marketing Recruiter 10/18/24 12/23/24 documented as of this encounter
--- OUTSIDE RECORDS SUMMARY | 2025-02-18 14:57 | XMS_ITS | Encounter Summary ---
Author Organization [facility] Facility Care Team Providers Care Thermometer Maker Name Role Phone Allison Crain MD Primary Care Provider [phone] Sultan Arabella Tyson MD Unavailable [phone] Grant Romo MD Unavailable [phone] Rosalind Domingo LPN Unavailable [phone] James Lala MD Unavailable Jennifer Lewis MA Unavailable Rosalind Domingo LPN Unavailable [phone] Izabel Alvarez MA Unavailable Eyad Jimenez RN Unavailable [phone] Encounter Details Date Type Department Care Team (Latest Contact Info) Description 07/23/2016 Orders Only [facility] CLINCONV ProviderRonaldo MD [address] [place] [address] Social History Tobacco Use Types Packs/Day Years Used Date Smoking Tobacco: Never Assessed Comments Unknown Sex and Gender Information Value Date Recorded Sex Assigned at Not on file Legal Sex Female 6:46 AM 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 us Historical Provider Final Res ult documented in this encounter Visit Diagnoses Not on filedocumented in this encounter Additional Health Concerns Infection Onset Date Last Indicated Resolved Time COVID: Suspected 04/12/2022 04/12/2022 04/12/2022 12:14 PM FIBERGLASS QUALITY TECHNICIAN COVID: Suspected 08/11/2022 08/11/2022 08/11/2022 3:55 PM CDT COVID: Suspected 01/10/2024 01/10/2024 01/10/2024 11:43 AM FIBERGLASS QUALITY TECHNICIAN COVID: Suspected 07/23/2024 07/23/2024 07/23/2024 7:32 PM [...] COVID: Suspected 02/04/2025 02/04/2025 02/04/2025 1:06 AM FIBERGLASS QUALITY TECHNICIAN documented as of this encounter Care Teams Thermometer Maker Relationship Specialty Start Date End Date Allison Crain MD [address] [place] [address] PCP - General Internal Medicine 07/21/18 Sultan Arabella Tyson MD [address] [address] Treating Plant Operator Cardiovascular Disease 11/20/18 Grant Romo MD [address] [facility] [address] [place] [address] [place] [address] Surgeon Vascular Surgery 11/20/18 Rosalind Domingo LPN [address] [facility] [address] [place] [address] [place] [address] Documentation Coordinator 07/30/20 07/30/20 James Lala MD [address] [facility] [address] [place] [address] [place] [address] Referring Physician Orthopedic Surgery 11/28/20 Jennifer Lewis MA [address] [place] [address] [address] [place] [address] ACO Care Salesforce Specialist 07/16/24 07/24/24 Rosalind Domingo LPN [address] [place] [address] [address] [place] [address] Documentation Coordinator 08/07/24 08/27/24 Izabel Alvarez MA [address] [place] [address] [address] [place] [address] ACO Care Salesforce Specialist 09/17/24 09/17/24 Eyad Jimenez, MAYNOR [address] [place] [address] [address] [place] [address] Documentation Coordinator 10/18/24 12/23/24 documented as of this encounter
--- OUTSIDE RECORDS SUMMARY | 2025-02-18 14:57 | XMS_ITS | Encounter Summary ---
Author Organization [facility] Facility Care Team Providers Care Grain Elevator Clerk Name Role Phone Allison Crain MD Primary Care Provider [phone] Sultan Arabella Tyson MD Unavailable [phone] Grant Romo MD Unavailable [phone] Rosalind Domingo LPN Unavailable [phone] James Lala MD Unavailable Jennifer Lewis MA Unavailable Rosalind Domingo LPN Unavailable [phone] Izabel Alvarez MA Unavailable Eyad Jimenez RN Unavailable [phone] Encounter Details Date Type Department Care Team (Latest Contact Info) Description 03/21/2014 Orders Only [facility] CLINCONV ProviderRonaldo MD [address] [place] [address] Social History Tobacco Use Types Packs/Day Years Used Date Smoking Tobacco: Never Assessed Comments Unknown Sex and Gender Information Value Date Recorded Sex Assigned at Not on file Legal Sex Female 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 us Historical Provider Final Res ult documented in this encounter Visit Diagnoses Not on filedocumented in this encounter Additional Health Concerns Infection Onset Date Last Indicated Resolved Time COVID: Suspected 04/12/2022 04/12/2022 04/12/2022 12:14 PM GLASS BLOWER HELPER COVID: Suspected 08/11/2022 08/11/2022 08/11/2022 3:55 PM CDT COVID: Suspected 01/10/2024 01/10/2024 01/10/2024 11:43 AM GLASS BLOWER HELPER COVID: Suspected 07/23/2024 07/23/2024 07/23/2024 7:32 PM [...] COVID: Suspected 02/04/2025 02/04/2025 02/04/2025 1:06 AM GLASS BLOWER HELPER documented as of this encounter Care Teams Grain Elevator Clerk Relationship Specialty Start Date End Date Allison Crain MD [address] [place] [address] PCP - General Internal Medicine 07/21/18 Sultan Arabella Tyson MD [address] [address] Housekeeper Nanny Cardiovascular Disease 11/20/18 Grant Romo MD [address] [facility] [address] [place] [address] [place] [address] Surgeon Vascular Surgery 11/20/18 Rosalind Domingo LPN [address] [facility] [address] [place] [address] [place] [address] Oracle Technical Developer 07/30/20 07/30/20 James Lala MD [address] [facility] [address] [place] [address] [place] [address] Referring Physician Orthopedic Surgery 11/28/20 Jennifer Lewis MA [address] [place] [address] [address] [place] [address] ACO Care Room Server 07/16/24 07/24/24 Rosalind Domingo LPN [address] [place] [address] [address] [place] [address] Oracle Technical Developer 08/07/24 08/27/24 Izabel Alvarez MA [address] [place] [address] [address] [place] [address] ACO Care Room Server 09/17/24 09/17/24 Eyad Jimenez, MAYNOR [address] [place] [address] [address] [place] [address] Oracle Technical Developer 10/18/24 12/23/24 documented as of this encounter
--- OUTSIDE RECORDS SUMMARY | 2025-02-18 14:57 | XMS_ITS | Encounter Summary ---
Author Organization [facility] Facility Care Team Providers Care Antichecking Iron Worker Name Role Phone Allison Crain MD Primary Care Provider [phone] Sultan Arabella Tyson MD Unavailable [phone] Grant Romo MD Unavailable [phone] Rosalind Domingo LPN Unavailable [phone] James Lala MD Unavailable Jennifer Lewis MA Unavailable Rosalind Domingo LPN Unavailable [phone] Izabel Alvarez MA Unavailable Eyad Jimenez RN Unavailable [phone] Encounter Details Date Type Department Care Team (Latest Contact Info) Description 12/19/2017 Orders Only [facility] CLINCONV Provider, MD Ronaldo [address] [place] [address] Social History Tobacco Use Types Packs/Day Years Used Date Smoking Tobacco: Never Assessed Comments Unknown Sex and Gender Information Value Date Recorded Sex Assigned at Not on file Legal Sex Female 6:46 AM WELDING MACHINE OPERATOR GAS Gender Identity Not on file Sexual Orientation Not on file documented as of this encounter Plan of Treatment Not on file documented as of this encounter Procedures Procedure Name Priority Date/Time Associated Diagnosis Comments SCAN - LABS 12/20/2017 12:00 AM CDT documented in this encounter Results * SCAN - LABS (12/20/2017 12:00 AM CDT) Narrative 12/20/2017 12:00 AM CDT Ordered by an unspecified provider. us Historical Provider Final Res ult documented in this encounter Visit Diagnoses Not on filedocumented in this encounter Additional Health Concerns Infection Onset Date Last Indicated Resolved Time COVID: Suspected 04/12/2022 04/12/2022 04/12/2022 12:14 PM WELDING MACHINE OPERATOR GAS COVID: Suspected 08/11/2022 08/11/2022 08/11/2022 3:55 PM CDT COVID: Suspected 01/10/2024 01/10/2024 01/10/2024 11:43 AM WELDING MACHINE OPERATOR GAS COVID: Suspected 07/23/2024 07/23/2024 07/23/2024 7:32 PM [...] COVID: Suspected 02/04/2025 02/04/2025 02/04/2025 1:06 AM WELDING MACHINE OPERATOR GAS documented as of this encounter Care Teams Antichecking Iron Worker Relationship Specialty Start Date End Date Allison Crain MD [address] [place] [address] PCP - General Internal Medicine 07/21/18 Sultan Arabella Tyson MD [address] [address] Mannequin Sander And Finisher Cardiovascular Disease 11/20/18 Grant Romo MD [address] [facility] [address] [place] [address] [place] [address] Surgeon Vascular Surgery 11/20/18 Rosalind Domingo LPN [address] [facility] [address] [place] [address] [place] [address] Power Plant Supervisor 07/30/20 07/30/20 James Lala MD [address] [facility] [address] [place] [address] [place] [address] Referring Physician Orthopedic Surgery 11/28/20 Jennifer Lewis MA [address] [place] [address] [address] [place] [address] ACO Care Sword Swallower 07/16/24 07/24/24 Rosalind Domingo LPN [address] [place] [address] [address] [place] [address] Power Plant Supervisor 08/07/24 08/27/24 Izabel Alvarez MA [address] [place] [address] [address] [place] [address] ACO Care Sword Swallower 09/17/24 09/17/24 Eyad Jimenez, MAYNOR [address] [place] [address] [address] [place] [address] Power Plant Supervisor 10/18/24 12/23/24 documented as of this encounter
--- OUTSIDE RECORDS SUMMARY | 2025-02-18 14:57 | XMS_ITS | Encounter Summary ---
Author Organization [facility] Facility Care Team Providers Care Excavating Supervisor Name Role Phone Allison Crain MD Primary Care Provider [phone] Sultan Arabella Tyson MD Unavailable [phone] Grant Romo MD Unavailable [phone] Rosalind Domingo LPN Unavailable [phone] James Lala MD Unavailable Jennifer Lewis MA Unavailable Rosalind Domingo LPN Unavailable [phone] Izabel Alvarez MA Unavailable Eyad Jimenez RN Unavailable [phone] Encounter Details Date Type Department Care Team (Latest Contact Info) Description 05/27/2016 Orders Only [facility]G CLINCONV Provider, MD Ronaldo [address] [place] [address] Social History Tobacco Use Types Packs/Day Years Used Date Smoking Tobacco: Never Assessed Comments Unknown Sex and Gender Information Value Date Recorded Sex Assigned at Not on file Legal Sex Female 6:46 AM TELECOMMUNICATION ENGINEER Gender Identity Not on file Sexual [...] COVID: Suspected 04/12/2022 04/12/2022 04/12/2022 12:14 PM TELECOMMUNICATION ENGINEER COVID: Suspected 08/11/2022 08/11/2022 08/11/2022 3:55 PM CDT COVID: Suspected 01/10/2024 01/10/2024 01/10/2024 11:43 AM TELECOMMUNICATION ENGINEER COVID: Suspected 07/23/2024 07/23/2024 07/23/2024 7:32 [...] COVID: Suspected 02/04/2025 02/04/2025 02/04/2025 1:06 AM TELECOMMUNICATION ENGINEER documented as of this encounter Care Teams Excavating Supervisor Relationship Specialty Start Date End Date Allison Crain MD [address] [place] [address] PCP - General Internal Medicine 07/21/18 Sultan Arabella Tyson MD [address] [address] Certified Nurse Practitioner Cardiovascular Disease 11/20/18 Grant Romo MD [address] [facility] [address] [place] [address] [place] [address] Surgeon Vascular Surgery 11/20/18 Rosalind Domingo LPN [address] [facility] [address] [place] [address] [place] [address] Social Work Professor 07/30/20 07/30/20 James Lala MD [address] [facility] [address] [place] [address] [place] [address] Referring Physician Orthopedic Surgery 11/28/20 Jennifer Lewis MA [address] [place] [address] [address] [place] [address] ACO Care Fashion Intern 07/16/24 07/24/24 Rosalind Domingo LPN [address] [place] [address] [address] [place] [address] Social Work Professor 08/07/24 08/27/24 Izabel Alvarez MA [address] [place] [address] [address] [place] [address] ACO Care Fashion Intern 09/17/24 09/17/24 Eyad Jimenez, MAYNOR [address] [place] [address] [address] [place] [address] Social Work Professor 10/18/24 12/23/24 documented as of this encounter
--- OUTSIDE RECORDS SUMMARY | 2025-02-18 14:57 | XMS_ITS | Clinical Summary ---
Author Organization [facility] Office Center Address [address] [place] [address] Care Team Providers Care Learning Consultant Name Role Phone Allison Crain MD Primary Care Provider [phone] Sultan Arabella Tyson MD Unavailable [phone] Grant Romo MD Unavailable [phone] James Lala MD Unavailable Allergies Active Allergy Reactions Criticality Noted Date Comments Caffeine Unknown High 11/15/2011 Causes A Fib Codeine Stomach upset,Unknown Low 01/25/2017 Codeine Sulfate Unknown 06/16/2018 Epinephrine Unknown High 10/11/2011 Caused atrial fib Fluoxetine Unknown 01/25/2017 Other reaction(s): body jerks Hydroxyzine Other (See comments),Unknown High 01/25/2017 Hydroxyzine Hcl Unknown 06/16/2018 Paroxetine Unknown 01/25/2017 Other reaction(s): body jerks Procaine Unknown High 01/25/2017 Other reaction(s): a-fib Propafenone Diarrhea,Nausea & Vomiting,Unknown,Nausea And Vomiting High 10/11/2011 Severe metal taste in mouth Other reaction(s): diarrhea and a strong metal taste in the mouth. diarrhea Severe metal taste in mouth Other reaction(s): diarrhea and a strong metal taste in the mouth. Propafenone Hcl Diarrhea Low 06/16/2018 diarrhea Medications acetaminophen (TYLENOL) 500 mg tabletIndication s:Chronic pain of both knees Take 2 tablets (1,000 mg total) by mouth 2 (two) times a day Active Additional Information Patient not taking.Reported on 02/04/2025 omeprazole (PriLOSEC) 40 mg capsule Take 1 capsule (40 mg total) by mouth Active QUEtiapine (SEROquel) 50 mg tablet Take 1 tablet (50 mg total) by mouth nightly 90 tablet 3 025 2025 Active Additional Information Patient taking differently: 100 mgoral2 times daily, Informant: Child, Reported on 02/04/2025 albuterol-budeso nide (Airsupra) 90-80 mcg/actuation HFA aerosol inhaler Inhale 1-2 puffs every 4 (four) hours as needed (wheezing, cough, shortness of breath) 32.1 g 3 Active benzonatate (TESSALON) 100 mg capsuleIndicatio ns:Cough Take 1 capsule (100 mg total) by mouth 3 (three) times a day as needed for cough 42 capsule Active ondansetron ODT (ZOFRAN-ODT) 4 mg disintegrating tabletIndication s:Nausea and Vomiting Take 1 tablet (4 mg total) by mouth every 6 (six) hours as needed for nausea or vomiting 20 tablet Active glycopyrrolate (ROBINUL) 1 mg tablet Take 1 tablet (1 mg total) by mouth 3 (three) times a day as needed (secretions) 30 tablet 2025 Active LORazepam (ATIVAN) 0.5 mg tablet Take 1 tablet (0.5 mg total) by mouth every 2 (two) hours as needed for anxiety (or shortness of breath) May take by mouth or place under the tongue. Call [facility] hospice if no relief. 12 each Active bisacodyL (DULCOLAX) 10 mg suppositoryIndic ations:constipat ion Insert 1 suppository (10 mg total) into the rectum daily as needed for constipation 2 suppository Active potassium chloride ER 10 mEq CR tablet TAKE 1 TABLET BY MOUTH DAILY 90 tablet Active metoprolol XL (TOPROL-XL) 25 mg extended release tablet TAKE 1 TABLET BY MOUTH TWICE DAILY 180 tablet [address] (PROTONIX) 40 mg EC tabletIndication s:GERD without esophagitis TAKE 1 TABLET BY MOUTH DAILY 90 tablet 3 2024 Discontinued( Stop Taking at Discharge) polyethylene glycol (MIRALAX) 17 gram/dose bulk powderIndication s:constipation Take 17 g by mouth daily 2024 Discontinued( Stop Taking at Discharge) ALPRAZolam (XANAX) 0.5 mg tabletIndication s:Generalized anxiety disorder Take 1 tablet (0.5 mg total) by mouth 2 (two) times a day as needed for anxiety 30 tablet 2024 Discontinued( Stop Taking at Discharge) senna-docusate (PERICOLACE) 8.6-50 mg Take 2 tablets by mouth daily 2024 Discontinued( Stop Taking at Discharge) gabapentin (NEURONTIN) 100 mg capsuleIndicatio ns:Chronic pruritus TAKE 1 CAPSULE BY MOUTH EARLY IN THE MORNING BEFORE BREAKFAST AND 2 CAPSULES EVERY NIGHT 270 capsule 1 2024 Discontinued( Stop Taking at Discharge) tamsulosin (FLOMAX) 0.4 mg extended release capsuleIndicatio ns:Obstructive uropathy Take 1 capsule (0.4 mg total) by mouth daily with dinner 30 capsule 2024 Discontinued( Stop Taking at Discharge) pramipexole (MIRAPEX) 0.5 mg tablet TAKE 1 TABLET BY MOUTH TWICE DAILY 180 tablet 3 2024 Discontinued( Patient Reported) estrogens, conjugated, (PREMARIN) vaginal cream Insert 0.5 g into the vagina daily 30 g 2 025 2024 Discontinued( Stop Taking at Discharge) potassium chloride ER 10 mEq CR tablet Take 1 tablet/capsule (10 mEq total) by mouth 2 (two) times a day 025 2024 Discontinued( Stop Taking at Discharge) spironolactone (ALDACTONE) 25 mg tablet Take 1 tablet (25 mg total) by mouth daily 2024 Discontinued( Stop Taking at Discharge) furosemide (LASIX) 40 mg tablet Take 1 tablet (40 mg total) by mouth daily 2024 Discontinued( Stop Taking at Discharge) aspirin 81 mg enteric coated tablet Take 1 tablet (81 mg total) by mouth daily 2024 Discontinued( Stop Taking at Discharge) escitalopram (LEXAPRO) 5 mg tablet TAKE 1 TABLET BY MOUTH DAILY 90 tablet 3 025 2024 Discontinued( Stop Taking at Discharge) metoprolol XL (TOPROL-XL) 25 mg extended release tablet TAKE 1 TABLET BY MOUTH TWICE DAILY 180 tablet 3 025 2024 Discontinued( Stop Taking at Discharge) HYDROcodone-acet aminophen (NORCO) 5-325 mg per tabletIndication s:Pain Take 2 tablets by mouth every 4 (four) hours as needed for pain for up to 5 days 20 tablet 025 2024 predniSONE (DELTASONE) 20 mg tablet Take 1 tablet (20 mg) by mouth daily for 5 days 5 tablet 025 2024 Active Problems Problem Noted Date Diagnosed Date 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 -continue with [facility]-acquired pneumonia 02/06/2025 Assessment & Plan (02/07/2025 1:05 PM CHILDREN'S LITERATURE PROFESSOR): Secondary to aspiration - since discovered 72 hours after admission would treat as hap -mrsa nares negative, continue with cefepime -blood cultures, ua, skin source negative as a source for sepsis Assessment & Plan (02/06/2025 10:46 AM CHILDREN'S LITERATURE PROFESSOR): Secondary to aspiration - since discovered 72 hours after admission would treat as hap -mrsa nares negative, continue with cefepime -blood cultures, ua, skin source negative as a source for sepsis Dysphagia 02/06/2025 Assessment & Plan (02/07/2025 1:05 PM CHILDREN'S LITERATURE PROFESSOR): Secondary to advanced dementia. Likely not reversible. Will treat as per family wishes to see if it improves with pneumonia and if there is some role for metabolic encephalopathy acute -if no response by end of week, hospice appropriate -OIL FIELD PUMPER working with patient Assessment & Plan (02/06/2025 10:46 AM CHILDREN'S LITERATURE PROFESSOR): Secondary to advanced dementia. Likely not reversible. Will treat as per family wishes to see if it improves with pneumonia and if there is some role for metabolic encephalopathy acute -if no response by end of week, hospice appropriate -OIL FIELD PUMPER working with patient Aspiration pneumonia 02/06/2025 Assessment & Plan (02/07/2025 1:05 PM CHILDREN'S LITERATURE PROFESSOR): Secondary to dysphagia secondary to dementia. Assessment & Plan (02/06/2025 10:46 AM CHILDREN'S LITERATURE PROFESSOR): Secondary to dysphagia secondary to dementia. 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 -may require hospice referral if dysphagia not improving by the end of the week Assessment & Plan (02/06/2025 12:19 PM CHILDREN'S LITERATURE PROFESSOR): 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 Discussed with patient's daughter at bedside. Likely an aspiration pneumonia/viral pneumonia. Daughter and family would like investigation and consideration of treatment at this time. Suggested hospice since frequent hospitalizations and advanced dementia. CT abdomen was normal on admission, and skin exam and physical exam does not suggest infection -cbc, bmp, blood cultures, urinalysis -obtain pvr -CT chest noncon -OIL FIELD PUMPER evaluation, npo till then -After evaluation, will discuss treatment options with family vs hospice Generalized weakness 02/04/2025 Assessment & Plan (02/07/2025 1:05 PM CHILDREN'S LITERATURE PROFESSOR): Patient has this recurrent acute syndrome several times a year. Luminal and imaging evaluation has been negative. Likely to be sequelae of dementia- with aspiration leading to cough. Assessment & Plan (02/06/2025 10:46 AM CHILDREN'S LITERATURE PROFESSOR): Patient has this recurrent acute syndrome several times a year. Luminal and imaging evaluation has been negative. Likely to be sequelae of dementia- with aspiration leading to cough. Assessment & Plan (02/05/2025 10:31 AM CHILDREN'S LITERATURE PROFESSOR): Patient has this recurrent acute syndrome several times a year. Luminal and imaging evaluation has been negative. Likely to be sequelae of dementia- with aspiration leading to cough. IF not that, it might be a viral infection -patient has been afebrile off abx and is euvolemic on exam. Observe off abx for one day and can discharge tomorrow Assessment & Plan (02/04/2025 2:45 PM CHILDREN'S LITERATURE PROFESSOR): Patient has this recurrent acute syndrome several times a year. Luminal and imaging evaluation has been negative. Likely to be sequelae of dementia- with aspiration leading to cough. IF not that, it might be a viral infection -patient has been afebrile off abx and is euvolemic on exam. Observe off abx for one day and can discharge tomorrow Vaginal dryness 09/19/2024 Chronic pain of both knees 08/01/2024 Assessment & Plan (08/03/2024 2:57 PM CDT): Due to underlying arthritis. Patient is now status post left knee injection on 08/02/2024, tolerated well. Continue pain control with b.i.d. Tylenol Assessment & Plan (08/01/2024 2:21 PM CDT): Likely due to underlying arthritis. Daughter reports that patient gets routine injections to her knees, recently had right injection done about 3 months ago. Is requesting left knee injection. We will discuss with physiatry. Stage 3a chronic kidney disease 07/31/2024 Assessment & Plan (08/03/2024 2:56 PM CDT): Stable/at baseline. BUN/creatinine 19/0.98 with a GFR of 56 Assessment & Plan (07/31/2024 5:14 PM CDT): Much improved, current BUN/Cr 19/0.98, GFR 56. Continue to monitor Acute urinary retention 07/23/2024 Assessment & Plan (07/29/2024 10:19 PM CDT): Hidalgo now in place, draining well. Continue Flomax 0.4 mg daily. We will need outpatient follow-up with Urology Obstructive uropathy 07/23/2024 Assessment & Plan (08/03/2024 2:56 PM CDT): Now resolved, has had a successful voiding trial earlier this week. Continue Flomax 0.4 mg daily for now, can revisit this with PCP Assessment & Plan (08/01/2024 2:16 PM CDT): Patient has had a successful voiding trial, voiding well. Continue flomax 0.4mg daily Assessment & Plan (07/30/2024 4:10 PM CDT): Today's labs are reviewed. A voiding trial with removal of the indwelling Hidalgo as scheduled for today. The daughter understands that a reinsertion of the catheter and Urology follow up may be necessary. We will continue tamsulosin 0.4 mg daily. Assessment & Plan (07/27/2024 10:55 AM CDT): She was seen in-house by Urology. She currently isn't indwelling Hidalgo catheter. We will continue the scripting of tamsulosin 0.4 mg daily. There was intention for a voiding trial on Tuesday. If this is unsuccessful an indwelling Hidalgo catheter will be necessitated pending Urology follow up. Renal insufficiency 07/23/2024 Nausea and vomiting, unspecified vomiting type 0 07/11/2024 Assessment & Plan (02/07/2025 1:05 PM CHILDREN'S LITERATURE PROFESSOR): Patient has this recurrent acute syndrome several times a year. Luminal and imaging evaluation has been negative. Likely to be sequelae of dementia- with aspiration leading to cough. Assessment & Plan (02/06/2025 10:46 AM CHILDREN'S LITERATURE PROFESSOR): Patient has this recurrent acute syndrome several times a year. Luminal and imaging evaluation has been negative. Likely to be sequelae of dementia- with aspiration leading to cough. Assessment & Plan (02/05/2025 10:31 AM CHILDREN'S LITERATURE PROFESSOR): Patient has this recurrent acute syndrome several times a year. Luminal and imaging evaluation has been negative. Likely to be sequelae of dementia- with aspiration leading to cough. IF not that, it might be a viral infection -patient has been afebrile off abx and is euvolemic on exam. Observe off abx for one day and can discharge tomorrow Assessment & Plan (02/04/2025 2:45 PM CHILDREN'S LITERATURE PROFESSOR): Patient has this recurrent acute syndrome several times a year. Luminal and imaging evaluation has been negative. Likely to be sequelae of dementia- with aspiration leading to cough. IF not that, it might be a viral infection -patient has been afebrile off abx and is euvolemic on exam. Observe off abx for one day and can discharge tomorrow Assessment & Plan (08/10/2024 3:37 PM CDT): Resolved after hospitalization. Severe persistent asthma without complication Overview (06/10/2024): Normal Spirometry 01/202305/25/2023 Dr Dennis note eval for chr cough: Chronic cough-possible asthma Up anything cough is multifactorial. Maybe some underlying asthma/bronchitis but probably mostly driven by rhinitis/postnasal drip, may be HFpEF, GERD, and possibly age-related changes Try to maximize therapy for asthma to see if that improves cough at all. Change Advair to Trelegy Change albuterol to Xopenex due to tremulousness Start Dupixent If no change and cough after maximal asthma therapy, probably not related to any pulmonary parenchymal disease and maybe more upper airway cough syndrome vs idiopathic refractory cough Assessment & Plan (06/10/2024 3:20 PM CDT): Unsure of this dx, pulmonary was unsure as well when evaluated on 05/25/2023, see OV note Normal Spirometry 01/202305/25/2023 Dr Dennis note eval for chr cough: Chronic cough-possible asthma Up anything cough is multifactorial. Maybe some underlying asthma/bronchitis but probably mostly driven by rhinitis/postnasal drip, may be HFpEF, GERD, and possibly age-related changes Try to maximize therapy for asthma to see if that improves cough at all. Change Advair to Trelegy Change albuterol to Xopenex due to tremulousness Start Dupixent If no change and cough after maximal asthma therapy, probably not related to any pulmonary parenchymal disease and maybe more upper airway cough syndrome vs idiopathic refractory cough Patient is no longer taking Trelegy inhaler, Dupixent not covered by her plan, no longer on montelukast, no longer taking xopenex Cough did not improve Chr post nasal drip, seasonal allergies and GERD likely cause of cough, not asthma Chronic pruritus 06/07/2024 Assessment & Plan (06/10/2024 3:09 PM CDT): Gabapentin rx by derm but making her more sleepy/drowsy putting her at risk for falls and can affect the dementia Reduce gabapentin dosage to 100 mg in am and 200 mg in pm, can always try just 300 mg at night and see if that is sufficient Non-cardiac chest pain 06/01/2024 Assessment & Plan (06/10/2024 3:08 PM CDT): I suspect her chest pain is from the breast implant contractures. Has old calcified breast implants, seen on CT scans, likely causing the chest discomfort Ff up with cardio as planned Depression, recurrent 06/07/2023 Assessment & Plan (08/03/2024 2:57 PM CDT): With anxiety. Mood overall stable, continue escitalopram daily, prn Xanax Assessment & Plan (07/27/2024 10:54 AM CDT): Continue escitalopram Assessment & Plan (01/24/2024 4:30 PM CHILDREN'S LITERATURE PROFESSOR): Situationally worse with recent of daughter. Continue Lexapro 5 mg. Report any worsening symptoms or thoughts of suicide. Assessment & Plan (06/07/2023 9:42 AM CDT): Secondary to advancing age and chronic illnesses. Not needing prescription medication at this time more component of anxiety for which she takes alprazolam. Stable Chronic combined systolic an d diastolic congestive heart failure 06/07/2023 Assessment & Plan (08/03/2024 2:55 PM CDT): Compensated, off diuretic. Continue monitor electrolytes, renal function, weight Assessment & Plan (07/30/2024 4:08 PM CDT): This is currently stable. We will continue to monitor vital signs for serial trending and continue metoprolol 25 mg p.o. b.i.d.. Assessment & Plan (06/10/2024 3:09 PM CDT): Stable Cont same meds Cont under cardio Assessment & Plan (01/24/2024 4:30 PM CHILDREN'S LITERATURE PROFESSOR): Acute on chronic flare recently with pneumonia. Resolved during hospitalization into [facility]. Continue to monitor weight daily, report any weight gain above 3 lb. Assessment & Plan (09/29/2023 10:08 AM CDT): Doing better on 2 lasix a day Cont same rx lasix Ff up with cardio as planned Assessment & Plan (06/07/2023 10:58 AM CDT): Educated on weighting daily and record weight If weight changes by 5 lbs, inc lasix to 40 mg twice a day for 2-3 days till returns to dry weight If shortness of breath worsens call [facility] Hoarseness 04/22/2023 Assessment & Plan (04/22/2023 2:21 PM CHILDREN'S LITERATURE PROFESSOR): I reassured her that I do not find any worrisome lesions on her vocal cords. She does have some element of strain and probably aging effects to the larynx which causes bowed vocal cords. I talked with her about ways to address this. Overall I think she would probably benefit from consultation with a speech and language pathologist. She also could see 1 of the voice specialist. She is going to talk it over with her family and may let us know if she wants to do anything further. Otherwise she is okay with the way things are. 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 That is being provided. Follow-up as needed for this. 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 Continue montelukast and Atrovent nasal sprays therapy. Unexplained chronic cough 08/11/2022 Assessment & Plan (08/25/2023 12:08 PM CDT): cxr reviewed Chr and persistent Tessalon perles prn cough CT chest c contrast completed Did see ENT Dr Jefferson and direct oral exam normal Zyrtec at hs 10mg If all neg may need to see a lung specialist Assessment & Plan (08/11/2022 4:26 PM CDT): cxr reviewed Chr and persistent Tessalon perles prn cough CT chest c contrast Zyrtec at hs 10mg If all neg may need to see a lung specialist Bilateral swelling of feet and ankles 08/03/2022 Dyspepsia 05/17/2022 Overview (05/17/2022): Small HH Assessment & Plan (06/16/2023 10:08 AM CDT): Patient will continue BRAT diet, adding other foods as tolerated. She is encouraged to increase her fluid intake as she will barely get 12 oz of water in a day. Blood pressure is low today, likely due to dehydration and poor appetite. She is encouraged to change position slowly and walk with walker to avoid falls. I will refill Compazine, she is encouraged to take this on schedule until she is feeling better. Assessment & Plan (05/17/2022 3:55 PM CDT): Has a small HH Likely from asa therapy, but needs to take due to afib and cant be on coumadin Cont pantoprazole daily Eat small frequent meals Sleep disturbance 05/17/2022 Overview (05/17/2022): trazodone Assessment & Plan (05/17/2022 4:06 PM CDT): Trial rx trazodone 50mg at hs Might need higher dose, ff up in 4 wks 11/11/2022 Assessment & Plan (06/10/2024 3:23 PM CDT): Sec to dementia Expected Trial seroquel failed did not like side effects More pronounced on gabapentin, (rx by derm), reduce dosage, take only at HS Will consider rexulti but cost of med is an issue Patient no longer drives Caregiver dtr Milagros Assessment & Plan (11/11/2021 12:02 PM CDT): Sec to dementia Expected Trial seroquel Patient told no longer to drive a vehicle Urinary frequency 08/04/2021 Assessment & Plan (08/04/2021 1:12 PM CDT): Worsening Possible uti by sx and urine dip rx augmentin sent Checked urine dip here in office, urine to be sent for culture Might be cause of abd pain but fear more is going on in her abdomen Gait instability 07/09/2021 Assessment & Plan (07/09/2021 1:11 PM CDT): Worsening Now needing a walker Use at all times PT prn Uses roller walker 07/09/2021 Assessment & Plan (07/09/2021 1:12 PM CDT): Use rollator at all times for safety given frequent calls PT prn Tremor 07/09/2021 Assessment & Plan (02/07/2025 1:47 PM CHILDREN'S LITERATURE PROFESSOR): Add propranolol Stop metoprolol Assessment & Plan (07/09/2021 11:36 AM CDT): Has mirapex Cont to take Dependence on care provider 07/09/2021 Assessment & Plan (05/17/2022 3:51 PM CDT): Lady next door Norma is one fo the caregivers dtr lives only a mile Away Cont to live at home No longer able to drive, told not to cook anymore Assessment & Plan (07/09/2021 1:12 PM CDT): Needing more assistance Dementia progressing History of recent fall 03/10/2021 Overview (03/10/2021): 07/28/2021 Fall in yard, ER, CT Brain no bleed, on coumadin for afib 03/08/2021 fell in kitchen, hit head, ER, CT brain no bleed, Headache (on coumadin for afib) Assessment & Plan (07/09/2021 11:19 AM CDT): 3 falls since last here One fall 6 mos ago, fx the left wrist Pre-syncope 08/14/2020 Assessment & Plan (08/14/2020 9:20 AM CDT): Sec to cv disease Sec to chr afib Avoid stooping forward Keep hydrated Get up and go slowly to avoid falls Medicare annual wellness visit, subsequent 07/24 Assessment & Plan (01/24/2024 4:26 PM CHILDREN'S LITERATURE PROFESSOR): Wear sunscreen with SPF over 50 while outdoors. Wear sun protective head wear and clothing if planning to stay outdoors exposed to the direct sunlight for extended hours. Wear seatbelts while in a vehicle. Do not TEXT and DRIVE Do not DRINK and DRIVE. Drink responsibly Follow a heart healthy diet and lifestyle. Consume 5-7 servings of fruits and vegetables a day. Such as the Mediterranean Diet. Maintain/attain normal body weight. Exercise regularly, minimum 20 mins 3 days a week to reduce cardiovascular healthy. Maintain good sleep schedule and sleep habits I recommend that all patients follow a diet that is high in fruits and vegetables and low in processed foods such as sugar and foods that are made with white flour. I recommend using beneficial fats such as olive oil, nuts, seeds and berries and avoiding saturated animal fats. Please stay physically active to the extent that you are physically able to. Test results: if you have not received communication about test results within 7 days of the test being performed, please contact the office. I strongly encourage myChart sign ups. It can facilitate communication flow. Please contact the office for instructions on signing up. Consider getting Shingrix (shingles vaccine). This is a 2-shot series with each injection given 2-6 months apart. You can obtain the vaccine at most major pharmacies without a prescription Assessment & Plan (11/30/2022 10:37 AM CDT): Reviewed previous labs and diagnostic test results. Chronic medical problems evaluated and management plans discussed with the patient. Prescription medications, supplements, vitamins and immunizations reviewed. Wear seatbelts. Use sunscreen. Discussed healthy diet and disease prevention. Recommend moving towards a plant based diet. Discussed importance of scheduling recommended screening tests. Discussed importance of regular physical examinations for health maintenance. Discussed importance of a living will, advanced directives and establishing or updating healthcare power of traffic law attorney document and providing our office with a copy. Please give the patient papers with information on Advanced Directives, Healthcare Power of Child Care Provider and Living Will to complete and bring back to the office for their medical records. For comprehensive documentation of your Healthcare directives, I recommend that you fill out paperwork for 5 WISHES online at [email or web address] and return a copy of the completed forms to my office. Assessment & Plan (08/04/2021 10:32 AM CDT): Reviewed previous labs and diagnostic test results. Chronic medical problems evaluated and management plans discussed with the patient. Prescription medications, supplements, vitamins and immunizations reviewed. Wear seatbelts. Use sunscreen. Discussed healthy diet and disease prevention. Recommend moving towards a plant based diet. Discussed importance of scheduling recommended screening tests. Discussed importance of regular physical examinations for health maintenance. Discussed importance of a living will, advanced directives and establishing or updating healthcare power of traffic law attorney document and providing our office with a copy. Please give the patient papers with information on Advanced Directives, Healthcare Power of Child Care Provider and Living Will to complete and bring back to the office for their medical records. For comprehensive documentation of your Healthcare directives, I recommend that you fill out paperwork for 5 WISHES online at [email or web address] and return a copy of the completed forms to my office. Assessment & Plan (07/24/2020 12:19 PM CDT): Reviewed previous labs and diagnostic test results. Chronic medical problems evaluated and management plans discussed with the patient. Prescription medications, supplements, vitamins and immunizations reviewed. Wear seatbelts. Use sunscreen. Discussed healthy diet and disease prevention. Recommend moving towards a plant based diet. Discussed importance of scheduling recommended screening tests. Discussed importance of regular physical examinations for health maintenance. Discussed importance of a living will, advanced directives and establishing or updating healthcare power of traffic law attorney document and providing our office with a copy. Risk for falls 07/24/2020 Assessment & Plan (01/24/2024 4:26 PM CHILDREN'S LITERATURE PROFESSOR): Ongoing. Made worse with recent hospitalization. Patient encouraged to allow family to assist with daily chores. Use walker or cane if needed. Assessment & Plan (11/30/2022 10:37 AM CDT): Patient at risk for falls due to age and co morbidities. Fall prevention discussed c patient in detail. Exercises for balance and coordination, keep LE muslces toned and strong. Assessment & Plan (08/04/2021 10:46 AM CDT): Patient at risk for falls due to age and co morbidities. Fall prevention discussed c patient in detail. Exercises for balance and coordination, keep LE muslces toned and strong. Assessment & Plan (07/24/2020 12:26 PM CDT): Recent fall Get a shower chair for safety Install ring cameras or similar for surveillance Cont to wear the lifeline, upgrade to the kind that detects fall or change in position Precordial chest pain 04/01/2020 Assessment & Plan (06/30/2020 5:05 PM CDT): Cardiac catheterization 05/26/2005 showed normal coronary arteries. The Lexiscan stress test 03/14/2020 was negative for ischemia. Assessment & Plan (04/01/2020 11:36 AM CHILDREN'S LITERATURE PROFESSOR): Was hospitalized at [facility] 03/14/2020 with chest pain and dyspnea. The Lexiscan stress test 03/14/2020 was negative for ischemia. History of osteoporosis 05/02/2019 Overview (05/02/2019): Boniva therapy completed 5 yrs Assessment & Plan (05/02/2019 3:50 PM CHILDREN'S LITERATURE PROFESSOR): Due for dexa hip and spine Cough 05/02/2019 Assessment & Plan (02/07/2025 1:05 PM CHILDREN'S LITERATURE PROFESSOR): Patient has this recurrent acute syndrome several times a year. Luminal and imaging evaluation has been negative. Likely to be sequelae of dementia- with aspiration leading to cough. Assessment & Plan (02/06/2025 10:46 AM CHILDREN'S LITERATURE PROFESSOR): Patient has this recurrent acute syndrome several times a year. Luminal and imaging evaluation has been negative. Likely to be sequelae of dementia- with aspiration leading to cough. Assessment & Plan (02/05/2025 10:31 AM CHILDREN'S LITERATURE PROFESSOR): Patient has this recurrent acute syndrome several times a year. Luminal and imaging evaluation has been negative. Likely to be sequelae of dementia- with aspiration leading to cough. IF not that, it might be a viral infection -patient has been afebrile off abx and is euvolemic on exam. Observe off abx for one day and can discharge tomorrow Assessment & Plan (02/04/2025 2:45 PM CHILDREN'S LITERATURE PROFESSOR): Patient has this recurrent acute syndrome several times a year. Luminal and imaging evaluation has been negative. Likely to be sequelae of dementia- with aspiration leading to cough. IF not that, it might be a viral infection -patient has been afebrile off abx and is euvolemic on exam. Observe off abx for one day and can discharge tomorrow Assessment & Plan (05/02/2019 3:57 PM CHILDREN'S LITERATURE PROFESSOR): CXR Recurrent UTI 05/02/2019 Assessment & Plan (05/02/2019 4:02 PM CHILDREN'S LITERATURE PROFESSOR): Hydrate more Drink more water daily 6-8 8 oz glasses a day at least Repeat UA Chronic fatigue 05/01/2019 Assessment & Plan (01/24/2024 4:27 PM CHILDREN'S LITERATURE PROFESSOR): Ongoing. Made worse with recent hospitalization for pneumonia and acute on chronic congestive heart failure. Patient encouraged activity as tolerated, but allow 3- 6 weeks for improvement. Assessment & Plan (06/30/2020 5:07 PM CDT): Labs okay. Fatigue due to stress and depression. Assessment & Plan (03/28/2020 11:05 AM CHILDREN'S LITERATURE PROFESSOR): Labs okay. Stress. Depression. Assessment & Plan (02/01/2020 1:32 PM CHILDREN'S LITERATURE PROFESSOR): The CBC, electrolytes, chemistries, TSH April 2019 were within normal limits. Assessment & Plan (05/01/2019 10:31 AM CHILDREN'S LITERATURE PROFESSOR): Will check CBC, complete metabolic panel, CPK, T4 and TSH and will follow the results. Her daughter wanted the UA done and I told her to have it done through her primary MD. Vascular dementia 01/22/2019 Overview (01/27/2021): SLUMs 01/22/2019 score 24, namenda started [facility] 05/02/[address] Brain 01/22/2019 small vessel disease o/w negative [facility] 01/27/21 score 25, off namenda Assessment & Plan (11/27/2024 4:02 PM CDT): Patient poor historian. Primary child day care center worker not in office today. Some concern with listed allergies and tessalon perle Rx. Patient reports previously tolerated and worked well. Family instructed to call if reporting different history with tessalon. Consider OTC cough medication options. Assessment & Plan (08/03/2024 2:58 PM CDT): [facility] 730 indicating severe decline. Easily redirectable by staff, sleeping better with PRN Xanax, p.r.n. melatonin. Patient has not had any further behaviors, Zyprexa discontinued. Assessment & Plan (07/30/2024 4:11 PM CDT): This is chronic, sometimes associated with sundowning and nocturnal behavior. The day nurse reports that the evening nurse recognized the patient slept well during the night without behavior are wandering. We will continue the alprazolam 0.5 mg p.o. b.i.d. PRN, escitalopram 5 mg daily. With continued stability we should be able to begin to taper the alprazolam. Her daughter at earlier ask about Zyprexa dosing. I advised against this Assessment & Plan (07/29/2024 10:15 PM CDT): Patient has had a significant decline in dementia, MOCA now 09/26. Patient has been able to be redirected by staff, has been sleeping better. We will continue alprazolam 0.5 mg b.i.d. PRN, escitalopram 5 mg daily. Assessment & Plan (07/27/2024 10:54 AM CDT): Per daughter this is a chronic problem that has been worsening over the past several weeks. At baseline the patient lives with her daughter in the same home. She has also been experiencing sundowning. We discussed the potential side effects of Zyprexa in the daughter does not want to continue this for now. She does ask that we increase his Xanax dosing and this is increased from 0.25 b.i.d. PRN to 0.5 mg p.o. b.i.d. PRN. We will also continue escitalopram 5 mg daily and consult is placed to speech therapy to evaluate, advise, treat Assessment & Plan (06/10/2024 3:02 PM CDT): Discussed risks: Falls, safety, etc Caregiving by Dru Linares For Sundowning in the same time every evening, has tried seroquel low dose. Did not help she did not like how she felt. Has tried Namenda in the past. Untoward side effects. Offered Rexulti but cost of medication is concerning for them Cont to stay at home under supervision of dru Linares Assessment & Plan (01/24/2024 4:31 PM CHILDREN'S LITERATURE PROFESSOR): Stable. Report any new or worsening symptoms to office. Assessment & Plan (06/07/2023 9:43 AM CDT): Discussed risks: Falls, safety, etc caregiving For Sundowning in the same time every evening, has tried seroquel low dose. Did not help she did not like how she felt. Has tried Namenda in the past. Untoward side effects. Cont to stay at home under supervision of children. Assessment & Plan (05/17/2022 3:50 PM CDT): Discussed risks: Falls, safety, etc caregiving For Sundowning in the same time every evening, will try seroquel low dose Cont to stay at home Trial rx trazodone at hs Did not like seroquel Assessment & Plan (11/11/2021 11:49 AM CDT): Discussed risks: Falls, safety, etc caregiving For Sundowning in the same time every evening, will try seroquel low dose Cont to stay at home Assessment & Plan (07/09/2021 1:11 PM CDT): Worsening Needing more help Getting more forgetful SLUMs 01/22/2019 score 24, namenda started [facility] 05/02/[address] Brain 01/22/2019 small vessel disease o/w negative [facility] 01/27/21 score 25, off namenda Assessment & Plan (01/27/2021 10:41 AM CHILDREN'S LITERATURE PROFESSOR): Declining gradually Now unable to safely cook, left burner on Now not recommended she drive Applying for Aid thru the [facility] form completed Has a cleaning lady coming in Meds supervised Meals need supervision and prep, patient should not cook, reheat food ok Brittney takes her shopping Stay engaged and stay socialized, Brittney driving her places is a good idea Assessment & Plan (07/24/2020 12:36 PM CDT): No benefit from aricept or namenda therapy Still able to remain at home Get shower chair Has cleaning lady coming in, was able to get someone dtr helping with medication mgt Change up lifeline to detect falls/horizontal positions Cont to socialize, zoom visits Driving is a contention at this time, do not recommend that she drive, has gotten lost Avoid driving car Assessment & Plan (03/19/2020 12:15 PM CHILDREN'S LITERATURE PROFESSOR): No benefit from aricept or namenda therapy Still able to remain at home Patient to get a supervisor park workers and get meals pre prepared Assessment & Plan (05/02/2019 3:43 PM CHILDREN'S LITERATURE PROFESSOR): SLUMs 01/22/2019 score 24, namenda started, but stopped it. SLUMs 05/02/[address] Brain 01/22/2019 small vessel disease o/w negative Slums testing is better since December. Do brain exercises Do physical exercises Assessment & Plan (01/22/2019 7:25 PM CHILDREN'S LITERATURE PROFESSOR): SLUMS score is 24 c/w mild cognitive impairment aricept not able to take due to drug drug interaction with amiodarone can prolong the QT interval Trial of namenda titration pack, patient willing to try Last CT brain 2016, age related changes, microvascular changes. No NPH or frontal lobe atrophy. Patient willing to wait, wants to get lab testing first before performing another CT scan. Brain exercises Recommend working at preserving current memory capacities by taking a daily supplement such as curcumin/turmeric, this is very good for memory. It is the active ingredient in victoria. Take Theracurmin 90mg twice daily. Available over the counter and in health food stores. Start a B-100 complex, this is also good for the brain and nervous system. This is also available [id number]. New learning is vital to engage the brain. Try learning new instrument or a new language. Also do brain exercises such as crossword puzzles, math problems such as balancing your checkbook. Exercising on a regular basis always is recommended for healthy brain. Unless already done I may ask that you undergo blood work evaluations including a CBC, CMP, CRP, vitamin B12, folate, vitamin-D, homocystine and TSH levels. In addition you may need a CT scan of the brain if none has been done recently. There are conditions that are reversible and treatable and this blood test and brain scan may help us identify other causes of non Alzheimer's or senile memory loss. Gastroesophageal reflux disease without esophagi tis 01/22/2019 Overview (01/22/2019): Used to take nexium (nausea) has had EGDs Dr Mancia Assessment & Plan (08/03/2024 2:56 PM CDT): Stable, continue daily Protonix Assessment & Plan (07/27/2024 10:56 AM CDT): Continue omeprazole 40 mg daily Assessment & Plan (01/24/2024 4:27 PM CHILDREN'S LITERATURE PROFESSOR): Stable. Continue pantoprazole 40 mg daily. Assessment & Plan (09/29/2023 9:56 AM CDT): With chronic cough and hoarseness from GERD Continue on chronic Rx pantoprazole therapy. Patient used to take Nexium but cause nausea. Previous EGD was done by Dr. Mancia Follow GERD diet. Okay to take occasional Tums. Bev. Assessment & Plan (06/07/2023 9:45 AM CDT): With chronic cough and hoarseness from GERD Continue on chronic Rx pantoprazole therapy. Follow GERD diet. Okay to take occasional Tums. Stable. Assessment & Plan (11/29/2022 7:04 PM CDT): Continue on chronic pantoprazole therapy. Bev. Assessment & Plan (01/22/2019 4:58 PM CHILDREN'S LITERATURE PROFESSOR): Cont on pantoprazole therapy as rx at 40mg for now, plan on lowering the dose to 20mg if it helps at the lower dose. Watch the b12 levels, check b12 soon, might need to restart b12 injections again Anticoagulation adequate with anticoagulant ther apy 11/23/2018 Overview (11/23/2018): Dr Tyson manages coumadin. Permanent AFIB on coumadin for stroke prevention Assessment & Plan (07/01/2020 9:47 AM CDT): Coumadin to prevent systemic embolization from the atrial fibrillation. Target INR between 2 and 3. Assessment & Plan (04/01/2020 11:33 AM CHILDREN'S LITERATURE PROFESSOR): Coumadin to prevent systemic embolization from the atrial fibrillation. Assessment & Plan (02/05/2020 10:32 AM CHILDREN'S LITERATURE PROFESSOR): For atrial fibrillation. Therapeutic INR between 2 and 3. Assessment & Plan (11/23/2018 3:36 PM CDT): Cont under care of dr Tyson, manages protimes. Stable. Continue for stroke prevention from AFIB Diverticulosis of sigmoid colon 11/23/2018 Overview (11/23/2018): Colonoscopy done in 2018, Dr Mancia Irritable bowel syndrome with diarrhea 9 Assessment & Plan (01/24/2024 4:28 PM CHILDREN'S LITERATURE PROFESSOR): Stable. Continue dicyclomine 20 mg twice a day as needed. Assessment & Plan (09/29/2023 9:54 AM CDT): Possible inflammatory bowel disease based on duration of diarrhea and positive stool for calprotectin. Patient has tried multiple remedies. Referral was made to Gastroenterology for further evaluation possible short flexible sigmoidoscopy for confirmatory diagnosis with a biopsy and direct visualization. Assessment & Plan (08/25/2023 12:06 PM CDT): Worsening Not improving Abd hurts intermittently Had ct scan done, all normal reviewed Since otc regimen and other remedies are not helping Also taking dicyclomine for cramping, does help a little Afraid to get out this am had to hold back on eating or drinking to not have an accident Trial xifaxan for IBS D Keep nerves and anxiety controlled, discussed CT scan 05/2023 GI: No dilated bowel loops. No obvious wall thickening. Normal appendix. Stool for calprotectin to rule out COLITIS inflammatory type Scattered diverticular disease without diverticulitis. uncomplicated Assessment & Plan (07/28/2023 12:10 PM CDT): Worsening Not improving Frustrated Abd hurts intermittently Had ct scan done, all normal Since otc regimen and other remedies are not helping Also taking dicyclomine for cramping, does help a little Afraid to get out this am had to hold back on eating or drinking to not have an accident Trial xifaxan for IBS D Keep nerves controlled, discussed CT scan 05/2023 GI: No dilated bowel loops. No obvious wall thickening. Normal appendix. Stool for calprotectin to rule out COLITIS inflammatory type Scattered diverticular disease without diverticulitis. Assessment & Plan (11/23/2018 4:02 PM CDT): Vs biliary dysfunction May benefit cholestyramine powder Atrial flutter 07/20/2018 Assessment & Plan (06/30/2020 5:00 PM CDT): Previous atrial flutter which was ablated. No recurrence. Now has permanent atrial fibrillation. Assessment & Plan (03/28/2020 10:58 AM CHILDREN'S LITERATURE PROFESSOR): Previous atrial flutter which was ablated. No recent recurrence of the atrial flutter. Now has permanent atrial fibrillation. Assessment & Plan (02/05/2020 10:32 AM CHILDREN'S LITERATURE PROFESSOR): Previous atrial flutter. Was ablated. No recent recurrence of the atrial fibrillation. Now permanent atrial fibrillation. Assessment & Plan (04/26/2019 5:42 PM CHILDREN'S LITERATURE PROFESSOR): Previous atrial flutter. Was ablated. No recent atrial flutter . Now permanent atrial fibrillation. Assessment & Plan (02/15/2019 6:47 PM CHILDREN'S LITERATURE PROFESSOR): Previous atrial flutter. Was ablated Assessment & Plan (07/20/2018 12:43 PM CDT): Previous atrial flutter. Was ablated. Status post cardiac catheterization 07/20/2018 Overview (11/23/2018): Dr Tyson. Cardiac catheterization 05/26/2005 showed normal coronary arteries. Assessment & Plan (06/30/2020 5:06 PM CDT): Cardiac catheterization 05/26/2005 showed normal coronary arteries. Assessment & Plan (03/28/2020 11:04 AM CHILDREN'S LITERATURE PROFESSOR): Cardiac catheterization 05/26/2005 showed normal coronary arteries. Assessment & Plan (02/01/2020 1:30 PM CHILDREN'S LITERATURE PROFESSOR): Cardiac catheterization 05/26/2005 showed normal coronary arteries. Assessment & Plan (04/26/2019 5:37 PM CHILDREN'S LITERATURE PROFESSOR): Cardiac catheterization 05/26/2005 showed normal coronary arteries. Assessment & Plan (02/15/2019 6:50 PM CHILDREN'S LITERATURE PROFESSOR): Cardiac catheterization 05/26/2005 showed normal coronary arteries. Assessment & Plan (07/20/2018 12:44 PM CDT): Cardiac catheterization 05/26/2005 showed normal coronary arteries. Atrial septal defect 07/20/2018 Overview (11/23/2018): Small. Does not require intervention Assessment & Plan (06/30/2020 5:01 PM CDT): Small. Does not require intervention Assessment & Plan (04/01/2020 11:33 AM CHILDREN'S LITERATURE PROFESSOR): Small. Does not require intervention. Assessment & Plan (02/01/2020 1:28 PM CHILDREN'S LITERATURE PROFESSOR): Small. Does not require intervention. Assessment & Plan (04/26/2019 5:42 PM CHILDREN'S LITERATURE PROFESSOR): Small. No intervention required. Assessment & Plan (02/15/2019 6:48 PM CHILDREN'S LITERATURE PROFESSOR): Small. Does not require intervention Assessment & Plan (07/20/2018 12:45 PM CDT): Small. Does not require intervention. Raynaud's phenomenon without gangrene 07/20/2018 Overview (11/23/2018): No recurrence, amlodipine helps vasodilation Assessment & Plan (07/01/2020 9:48 AM CDT): No recurrence. Amlodipine. Assessment & Plan (03/28/2020 11:00 AM CHILDREN'S LITERATURE PROFESSOR): No recurrence. Amlodipine. Assessment & Plan (02/05/2020 10:34 AM CHILDREN'S LITERATURE PROFESSOR): No recurrence. Assessment & Plan (11/23/2018 3:33 PM CDT): Amlodipine helps vasodilation of peripheral arteries, reducing symptoms of raynauds Assessment & Plan (07/25/2018 10:02 AM CDT): No recurrence. Aortic dissection, abdominal 07/20/2018 Overview (11/23/2018): CT abdomen 08/11/2017 showed ectasia of the abdominal aorta with a focal short segment of dissection which is unchanged since the previous examination of 02/19/2014. Vascular surgery is following Assessment & Plan (06/10/2024 3:09 PM CDT): Not new. Stable Non operable CT abdomen 08/11/2017 showed ectasia of the abdominal aorta with a focal short segment of dissection which is unchanged since the previous examination of 02/19/2014. Vascular surgery is following Assessment & Plan (06/07/2023 9:42 AM CDT): CT abdomen 08/11/2017 showed ectasia of the abdominal aorta with a focal short segment of dissection which is unchanged since the previous examination of 02/19/2014. Vascular surgery is following. Scales Inspector following Assessment & Plan (01/10/2023 1:14 PM CHILDREN'S LITERATURE PROFESSOR): Continues to have asymptomatic chronic focal aortic dissection. Aorta remains non aneurysmal. Plan: Follow-up in 1 year with aortic duplex. Assessment & Plan (01/11/2022 12:04 PM CHILDREN'S LITERATURE PROFESSOR): Patient has stable non flow-limiting infrarenal aortic dissection nonaneurysmal. No indication for surgical intervention. Will continue yearly duplex surveillance. Assessment & Plan (12/25/2020 3:50 PM CDT): Impression: Small short-segment non flow limiting infrarenal aortic dissection which remains stable on aortic duplex surveillance. Patient is currently asymptomatic. Plan: Recommend ongoing risk factor modifications and follow-up in 1 year for re-evaluation with repeat aortic duplex surveillance. Assessment & Plan (06/30/2020 5:03 PM CDT): CT abdomen 08/11/2017 showed ectasia of the abdominal aorta with a focal short segment of dissection which is unchanged since the previous examination of 02/19/2014. Vascular surgery is following Assessment & Plan (03/28/2020 10:57 AM CHILDREN'S LITERATURE PROFESSOR): CT abdomen 08/11/2017 showed ectasia of the abdominal aorta with a focal short segment of dissection which is unchanged since the previous examination of 02/19/2014. Vascular surgery is following Assessment & Plan (02/01/2020 1:27 PM CHILDREN'S LITERATURE PROFESSOR): CT abdomen 08/11/2017 showed ectasia of the abdominal aorta with a focal short segment of dissection which is unchanged since the previous examination of 02/19/2014. Vascular surgery is following Assessment & Plan (12/18/2019 3:19 PM CDT): Impression: Stable focal short segment infrarenal aortic dissection that is non flow limiting. Patient remains asymptomatic. She has been compliant with ongoing risk factor modifications. Plan: No surgical intervention currently needed. Recommend ongoing risk factor modifications and follow-up in 1 year for re-evaluation and repeat aortic duplex surveillance. Assessment & Plan (04/26/2019 5:40 PM CHILDREN'S LITERATURE PROFESSOR): CT abdomen 08/11/2017 showed ectasia of the abdominal aorta with a focal short segment of dissection which is unchanged since the previous examination of 02/19/2014. Vascular surgery is following Assessment & Plan (02/15/2019 6:51 PM CHILDREN'S LITERATURE PROFESSOR): CT abdomen 08/11/2017 showed ectasia of the abdominal aorta with a focal short segment of dissection which is unchanged since the previous examination of 02/19/2014. Vascular surgery is following Assessment & Plan (12/19/2018 4:48 PM CDT): Patient remains asymptomatic with no aneurysmal change. Continue yearly duplex surveillance. Assessment & Plan (11/23/2018 3:31 PM CDT): CT abdomen 08/11/2017 showed ectasia of the abdominal aorta with a focal short segment of dissection which is unchanged since the previous examination of 02/19/2014. Vascular surgery is following Assessment & Plan (07/20/2018 12:47 PM CDT): CT abdomen 08/11/2017 showed ectasia of the abdominal aorta with a focal short segment of dissection which is unchanged since the previous examination of 02/19/2014. Vascular surgery is following. Generalized anxiety disorder 07/20/2018 Overview (11/29/2022): >>OVERVIEW FOR GENERALIZED ANXIETY DISORDER WRITTEN ON 05/17/2022 2:40 PM BY MICHELLE CORDERO MA Last Assessment & Plan: Cont xanax, take full dose if needs it Cont to use prn Prefer her anxiety to be controlled than to trigger afib Assessment & Plan (07/28/2023 12:11 PM CDT): Chronic. Worries all the time. This not expected to improve Continue prescription alprazolam p.r.n.. Patient again reminded of its addictive potential. Patient is of advancing age. This is expected to worsen. Inc dose of trazodone to 75 mg at hs if the inc in rx mirapex does not work in the next 2 wks, Milagros instructed on how to do it Assessment & Plan (06/07/2023 10:48 AM CDT): Chronic. Worries all the time. This not expected to improve Continue prescription alprazolam p.r.n.. Patient again reminded of its addictive potential. Patient is of advancing age. This is expected to worsen. Inc dose of trazodone to 100 mg at hs if the inc in rx mirapex does not work in the next 2 wks, Milagros instructed on how to do it Assessment & Plan (11/29/2022 7:04 PM CDT): Chronic. Worries all the time. This not expected to improve Assessment & Plan (05/17/2022 3:42 PM CDT): Worsening Worrier by nature, Patient reluctant to raise dose Trial trazodone 50 mg for sleep trial take at hs Assessment & Plan (11/11/2021 11:54 AM CDT): Start seroquel for anxiety, sundowning Give after supper Use of xanax should be prn only might never need again Assessment & Plan (03/19/2020 12:21 PM CHILDREN'S LITERATURE PROFESSOR): Cont xanax, take full dose if needs it Cont to use prn Prefer her anxiety to be controlled than to trigger afib Restless leg syndrome 07/20/2018 Assessment & Plan (08/03/2024 2:58 PM CDT): Stable, continue Mirapex Assessment & Plan (07/27/2024 10:57 AM CDT): Continue pramipexole 0. 5 mg p.o. b.i.d.. 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 Stable. Assessment & Plan (03/28/2020 11:04 AM CHILDREN'S LITERATURE PROFESSOR): Mirapex. Assessment & Plan (02/05/2020 10:34 AM CHILDREN'S LITERATURE PROFESSOR): Mirapex. Permanent atrial fibrillation 06/08/2018 Overview (05/17/2022): Dr Tyson. Persistent atrial fibrillation now Rate control with Toprol XL. On Coumadin to prevent systemic embolization Last Assessment & Plan: Rate control with Toprol XL. Coumadin to prevent systemic embolization. Assessment & Plan (02/07/2025 1:05 PM CHILDREN'S LITERATURE PROFESSOR): Has been off anticoagulation due to falls Assessment & Plan (02/06/2025 10:46 AM CHILDREN'S LITERATURE PROFESSOR): Has been off anticoagulation due to falls Assessment & Plan (02/05/2025 10:31 AM CHILDREN'S LITERATURE PROFESSOR): Has been off anticoagulation due to falls Assessment & Plan (02/04/2025 2:45 PM CHILDREN'S LITERATURE PROFESSOR): Has been off anticoagulation due to falls Assessment & Plan (08/03/2024 2:55 PM CDT): Heart rate controlled, continue metoprolol. Remain off anticoagulation due to fall risk Assessment & Plan (07/29/2024 10:16 PM CDT): Heart rate well controlled, continue metoprolol 25 mg b.i.d.. Patient will remain off anticoagulation due to fall risk. Continue to monitor. Assessment & Plan (07/27/2024 10:56 AM CDT): We will continue scripting of metoprolol succinate 25 mg p.o. b.i.d.. Because of her fall risk anticoagulation is not ordered. Her daughter is so advised and endorses this decision. She also confirms that the primary provider had discontinued oral anticoagulation for fall risk and concern for closed head injury. Essential (primary) hypertension 02/14/2017 Overview (11/29/2022): Amlodipine therapy Assessment & Plan (02/07/2025 1:05 PM CHILDREN'S LITERATURE PROFESSOR): Continue home medications Assessment & Plan (02/06/2025 10:46 AM CHILDREN'S LITERATURE PROFESSOR): Continue home medications Assessment & Plan (02/05/2025 10:31 AM CHILDREN'S LITERATURE PROFESSOR): Continue home medications Assessment & Plan (02/04/2025 2:45 PM CHILDREN'S LITERATURE PROFESSOR): Continue home medications Assessment & Plan (11/27/2024 4:00 PM CDT): Avoid cold medications with decongestants due to risk of high blood pressure. Assessment & Plan (08/03/2024 2:55 PM CDT): Blood pressure well controlled with metoprolol b.i.d. Assessment & Plan (07/31/2024 5:15 PM CDT): BP stable, continue metoprolol BID Assessment & Plan (07/30/2024 4:09 PM CDT): This is currently stable. We will continue to monitor serial vital signs for trending continue metoprolol 25 mg p.o. b.i.d.. Assessment & Plan (01/24/2024 4:29 PM CHILDREN'S LITERATURE PROFESSOR): Stable. Continue metoprolol 25 mg twice daily. Assessment & Plan (06/07/2023 9:41 AM CDT): bp stable continue current prescription regimen Cont same prescription amlodipine Follow low-sodium diet Assessment & Plan (11/29/2022 7:02 PM CDT): bp stable continue current prescription regimen Cont same Assessment & Plan (01/11/2022 12:04 PM CHILDREN'S LITERATURE PROFESSOR): Hypertension chronic and controlled. Continue current medical therapy. Assessment & Plan (07/09/2021 11:21 AM CDT): bp stable Cont same Assessment & Plan (12/25/2020 3:50 PM CDT): Impression: Stable chronic hypertension. Plan: Medications reviewed and recommend continuing daily antihypertensive regimen as directed by patient's primary care physician. Assessment & Plan (04/01/2020 11:32 AM CHILDREN'S LITERATURE PROFESSOR): Salt restriction. Amlodipine. Losartan. Toprol XL. Blood pressure 110/60. Assessment & Plan (02/05/2020 10:33 AM CHILDREN'S LITERATURE PROFESSOR): Blood pressure 136/80. Salt restriction. Continue the current regimen. Assessment & Plan (12/18/2019 3:20 PM CDT): Impression: Stable hypertension. Plan: Continue current antihypertensive regimen as directed by PCP. Assessment & Plan (02/16/2019 12:15 PM CHILDREN'S LITERATURE PROFESSOR): Blood pressure 148/80. Salt restriction. Continue the current regimen. Assessment & Plan (12/19/2018 4:49 PM CDT): Patient reports that her blood pressure is controlled. She is to continue her current regimen per primary care physician. Assessment & Plan (11/23/2018 3:32 PM CDT): BP is controlled. Follow low sodium DASH Diet. Exercise regularly for CV health. Maintain normal BMI/Weight. Take medications as prescribed. Report if having porblems with the medication or if develops Chest pains. Monitor BP occly and record. Report if BP consistently over 160/90 or under 90/60 and dizzy and LH. Bradycardia 09/24/2015 Assessment & Plan (06/30/2020 5:03 PM CDT): No recurrence. Assessment & Plan (03/28/2020 10:59 AM CHILDREN'S LITERATURE PROFESSOR): No recurrence. Assessment & Plan (02/01/2020 1:28 PM CHILDREN'S LITERATURE PROFESSOR): No recurrence. Assessment & Plan (04/26/2019 5:39 PM CHILDREN'S LITERATURE PROFESSOR): No recurrence. Assessment & Plan (02/15/2019 6:45 PM CHILDREN'S LITERATURE PROFESSOR): No recurrence . Assessment & Plan (07/20/2018 12:42 PM CDT): No recurrence. Hyponatremia 09/24/2015 Assessment & Plan (07/01/2020 9:48 AM CDT): Fluid restriction. On 03/14/2020, sodium was 137. Assessment & Plan (03/28/2020 11:00 AM CHILDREN'S LITERATURE PROFESSOR): Fluid restriction. Corrected. On 03/14/2020 the sodium was 137. Assessment & Plan (02/05/2020 10:33 AM CHILDREN'S LITERATURE PROFESSOR): Fluid restriction. Hyperlipidemia 05/25/2015 Overview (11/23/2018): Statin intolerant Assessment & Plan (01/11/2022 12:04 PM CHILDREN'S LITERATURE PROFESSOR): Stable chronic hyperlipidemia. Continue current medical therapy. Assessment & Plan (12/25/2020 3:51 PM CDT): Impression: Stable chronic hyperlipidemia. Plan: Medications reviewed I recommend continuing daily statin regimen as directed by patient's primary care physician. Assessment & Plan (06/30/2020 5:01 PM CDT): Statin intolerant. Assessment & Plan (03/28/2020 10:59 AM CHILDREN'S LITERATURE PROFESSOR): Statin intolerant. Assessment & Plan (02/01/2020 1:28 PM CHILDREN'S LITERATURE PROFESSOR): Statin intolerant. Assessment & Plan (04/26/2019 5:39 PM CHILDREN'S LITERATURE PROFESSOR): Statin intolerant. Assessment & Plan (02/15/2019 6:49 PM CHILDREN'S LITERATURE PROFESSOR): Statin intolerant Assessment & Plan (07/25/2018 10:02 AM CDT): Not on a statin as they are poorly tolerated. Resolved Problems Problem Noted Date Diagnosed Date Resolved Date Acute respiratory failure with hypoxia 06/10/2024 06/10/2024 Assessment & Plan (06/10/2024 3:20 PM CDT): Resolved, old dx Right lower quadrant abdominal pain 08/04/2021 06/07/2023 Assessment & Plan (08/04/2021 10:55 AM CDT): New and concerning Check urine dip May have an abdominal process ongoing causing bilat pedal edema Rule out abdominal pathology Diarrhea recently with RLQ pain Hx of total hysterectomy and appendectomy Vascular dementia 01/22/2019 05/17/2022 Overview (05/17/2022): SLUMs 01/22/2019 score 24, namenda started [facility] 05/02/[address] Brain 01/22/2019 small vessel disease o/w negative [facility] 01/27/21 score 25, off namenda Last Assessment & Plan: Declining gradually Now unable to safely cook, left burner on Now not recommended she drive Applying for Aid thru the [facility] form completed Has a cleaning lady coming in Meds supervised Meals need supervision and prep, patient should not cook, reheat food ok Brittney takes her shopping Stay engaged and stay socialized, Brittney driving her places is a good idea RUQ pain 11/23/2018 05/02/2019 Assessment & Plan (11/23/2018 3:59 PM CDT): R/o gallbladder disease or biliary dysfunction RUQ US Aortic dissection, abdominal 07/20/2018 01/10/2023 Overview (05/17/2022): CT abdomen 08/11/2017 showed ectasia of the abdominal aorta with a focal short segment of dissection which is unchanged since the previous examination of 02/19/2014. Vascular surgery is following Last Assessment & Plan: Impression: Small short-segment non flow limiting infrarenal aortic dissection which remains stable on aortic duplex surveillance. Patient is currently asymptomatic. Plan: Recommend ongoing risk factor modifications and follow-up in 1 year for re-evaluation with repeat aortic duplex surveillance. Permanent atrial fibrillation 06/08/2018 05/17/2022 Overview (11/23/2018): Dr Tyson. Persistent atrial fibrillation now Rate control with Toprol XL. On Coumadin to prevent systemic embolization Assessment & Plan (07/09/2021 11:21 AM CDT): Recent hospitalization for afib with rvr Cont on beta eamon Cont on coumadin therapy Managed by dr Tyson Assessment & Plan (06/30/2020 5:02 PM CDT): Rate control with Toprol XL. Coumadin to prevent systemic embolization. Assessment & Plan (03/28/2020 11:00 AM CHILDREN'S LITERATURE PROFESSOR): Rate control with Toprol XL. Coumadin to prevent systemic embolization. Assessment & Plan (03/19/2020 12:20 PM CHILDREN'S LITERATURE PROFESSOR): Recent hospitalization for afib with rvr Cont on beta eamon Cont on coumadin therapy Managed by dr Tyson Assessment & Plan (02/01/2020 1:29 PM CHILDREN'S LITERATURE PROFESSOR): Rate control with Toprol XL. Coumadin to prevent systemic embolization. Assessment & Plan (05/01/2019 10:30 AM CHILDREN'S LITERATURE PROFESSOR): Persistent atrial fibrillation now Rate control with Toprol XL. On Coumadin to prevent systemic embolization. The amiodarone was discontinued a while back. EKG today shows atrial fibrillation with ventricular rate of 75,, incomplete right bundle branch block, minor T-wave changes. Assessment & Plan (02/16/2019 12:17 PM CHILDREN'S LITERATURE PROFESSOR): Persistent atrial fibrillation. Rate control with Toprol XL. Coumadin to prevent systemic embolization. EKG today shows atrial fibrillation with ventricular rate of 66, minor T-wave changes, incomplete right bundle branch block. Assessment & Plan (11/23/2018 3:30 PM CDT): Persistent atrial fibrillation now Rate control with Toprol XL. On Coumadin to prevent systemic embolization. Managed by Dr Tyson Assessment & Plan (07/25/2018 10:03 AM CDT): Persistent atrial fibrillation now Rate control with Toprol XL. On Coumadin to prevent systemic embolization. EKG today shows atrial fibrillation with a ventricular rate of 69. Normal QRS morphology. Essential (primary) hypertension 02/14/2017 01/10/2023 Overview (05/17/2022): Last Assessment & Plan: Impression: Stable chronic hypertension. Plan: Medications reviewed and recommend continuing daily antihypertensive regimen as directed by patient's primary care physician. 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 Amlodipine. Losartan. Toprol XL. Blood pressure 132/80. Assessment & Plan (05/01/2019 10:30 AM CHILDREN'S LITERATURE PROFESSOR): Blood pressure 110/70. Salt restriction. Continue the current regimen. Assessment & Plan (11/23/2018 3:33 PM CDT): BP is controlled. No signs of heart failure Assessment & Plan (07/25/2018 10:02 AM CDT): Blood pressure 102/70. Hyperlipidemia 05/25/2015 01/10/2023 Overview (05/17/2022): Statin intolerant Last Assessment & Plan: Impression: Stable chronic hyperlipidemia. Plan: Medications reviewed I recommend continuing daily statin regimen as directed by patient's primary care physician. Encounters Date Type Department Care Team Description 02/13/2025 Telephone [facility] Primary Care [address] [place] [phone] Allison Crain MD 02/12/2025 Telephone [facility] Care [address] [place] [phone] Allison Crain MD 02/03/2025 9:53 PM CHILDREN'S LITERATURE PROFESSOR - 02/08/2025 4:15 PM CHILDREN'S LITERATURE PROFESSOR Hospital Encounter [address] [id number] Robbi Ocasio DO Sada, Kahmalia-Kalee Conceptia, MD Venkataramanan, Akash, MD Generalized weakness (Primary Dx); Frequent falls; Nausea; Atrial septal defect; Typical atrial flutter (HCC); Dependence on care provider Discharge Disposition: Discharge to hospice / home 12/31/2024 Telephone [facility] Care [address] [place] [phone] Allison Crain MD Additional Services Or Orders 11/27/2024 3:00 PM CDT Office Visit [facility] Care [address] [place] [phone] Lili Simpson NP Viral upper respiratory tract infection with cough (Primary Dx); Acute cough; Congestion of nasal sinus; Acute bronchitis, unspecified organism; Essential (primary) hypertension; Severe vascular dementia with anxiety (HCC) 11/27/2024 Nurse Triage [facility] Care [address] [place] [phone] Allison Crain MD from Last 3 Months Immunizations Immunization Administration Dates Next Due Influenza, Quadrivalent, Hig h Dose, Preservative Free, Intrr 11/30/2022,11/11/2021,12/18/2020,11/18 Influenza, Trivalent, High D ose, Split, Preservative Free, Intramuscular 12/16/2023,12/10/2018,12/02/2017,11/16,12/05/2015,12/20/2014 Influenza, Trivalent, IM (MDV) 12/16/2023,2012 Influenza, Trivalent, Preser vative Free, Intramuscular 12/06/2015 Influenza, Unspecified 12/10/2018,2017,11/16/2016,12/05,12/05/2015,12/20/2014,12/25/2012 PPD TEST 07/27/2024 Pneumococcal Conjugate PCV 13 11/16/2016, 016,07/25/2014 Pneumococcal Polysaccharide PPV23 12/02/2017,02/2009 ZOSTER LIVE 02/29/2012 Surgical History Surgery Date Site/Laterality Comments CARDIAC ELECTROPHYSIOLOGY STUDY AND ABLATION 3 PAROTIDECTOMY HYSTERECTOMY AUGMENTATION MAMMAPLASTY BREAST BIOPSY CATARACT EXTRACTION COSMETIC SURGERY SPINE SURGERY TONSILLECTOMY Medical History Medical History Date Comments HTN (hypertension), benign HHD (hypertensive heart disease) Nonrheumatic mitral valve prolapse RLS (restless legs syndrome) Raynaud's syndrome GERD without esophagitis Palpitations Atrial septal defect Bradycardia Hyponatremia Anxiety HLD (hyperlipidemia) Cough Dyspepsia A-fib (HCC) RUQ pain 11/23/2018 Arthritis Heart disease Delayed emergence from general anesthesia Acute respiratory failure with hypoxia (HCC) Family History Medical History Relation Name Comments Diabetes Daughter Milagros No Known Problems Father No Known Problems Mother Breast cancer Sister Mily Cancer Sister Mily Diabetes Sister Mily Relation Name Status Comments Daughter Milagros Father Mother Sister Mily Social History Tobacco Use Types Packs/Day Years Used Date Smoking Tobacco: Never Smokeless Tobacco: Never Tobacco Cessation:Counseling Given: Not Answered Alcohol Use Standard Drinks/Week Comments Not Currently 0 (1 standard drink = 0.6 oz pur e alcohol) Wine socially Social Connection and Isolation Panel Answer Date Recorded In a typical week, how many times do you talk on the phone with family, friends, or neighbors? More than three times a week 07/12/2024 How often do you get togethe r with friends or relatives? More than three times a week 07/12/2024 How often do you attend chur ch or cheondoism services? Never 07/12/2024 Do you belong to any clubs o r organizations such as baptist groups, unions, fraternal or athletic groups, or school groups? No 07/12/2024 How often do you attend meet ings of the clubs or organizations you belong to? Never 07/12/2024 Are you , , di vorced, , never , or living with a partner? 07/12/2024 AUDIT-C Answer Date Recorded Q1: How often do you have a drink containing alcohol? Never 07/23/2024 Q2: How many drinks containi ng alcohol do you have on a typical day when you are drinking? Patient does not drink Q3: How often do you have si x or more drinks on one occasion? Never 07/23/2024 Overall Financial Resource Strain (CARDIA) Answe r Date Recorded How hard is it for you to pa y for the very basics like food, housing, medical care, and heating? Not hard at all 07/12/2024 PHQ-2 Answer Date Recorded PHQ-2 Total Score (If total score is 3 or more points, staff should administer the PHQ-9) 3 01/22/2025 PRAPARE - Transportation Answer Date Re corded In the past 12 months, has l ack of transportation kept you from medical appointments or from getting medications? No 06/28 In the past 12 months, has l ack of transportation kept you from meetings, work, or from getting things needed for daily living? No 07/12/2024 PHQ-9 Answer Date Recorded PHQ-9 Total Score 14 01/22/2025 Housing Stability Vital Sign Answer Lalo e Recorded In the last 12 months, was t here a time when you were not able to pay the mortgage or rent on time? No 07/12/2024 In the past 12 months, how m any times have you moved where you were living? 0 07/12/2024 At any time in the past 12 m [facility], were you homeless or living in a retirement (including now)? No 07/12/2024 Social Connection and Isolation Panel Answer Date Recorded In a typical week, how many times do you talk on the phone with family, friends, or neighbors? More than three times a week 02/04/2025 How often do you get togethe r with friends or relatives? More than three times a week 02/04/2025 How often do you attend chur ch or cheondoism services? Never 02/04/2025 Do you belong to any clubs o r organizations such as baptist groups, unions, fraternal or athletic groups, or school groups? No 02/04/2025 How often do you attend meet ings of the clubs or organizations you belong to? Never 02/04/2025 Are you , , di vorced, , never , or living with a partner? 02/04/2025 Overall Financial Resource Strain (CARDIA) Answe r Date Recorded How hard is it for you to pa y for the very basics like food, housing, medical care, and heating? Not hard at all 02/04/2025 Hunger Vital Sign Answer Date Recorded Within the past 12 months, y ou worried that your food would run out before you got the money to buy more. Never true 02/05/20 25 Within the past 12 months, t he food you bought just didn't last and you didn't have money to get more. Never true 02/04/2025 PRAPARE - Transportation Answer Date Re corded In the past 12 months, has l ack of transportation kept you from medical appointments or from getting medications? No 09/2024 In the past 12 months, has l ack of transportation kept you from meetings, work, or from getting things needed for daily living? No 02/04/2025 Housing Stability Vital Sign Answer Lalo e Recorded In the last 12 months, was t here a time when you were not able to pay the mortgage or rent on time? No 02/04/2025 In the past 12 months, how m any times have you moved where you were living? 0 02/04/2025 At any time in the past 12 m [facility], were you homeless or living in a retirement (including now)? No 02/04/2025 [facility] Utilities Answer Date Recorded In the past 12 months has e electric, gas, oil, or water company threatened to shut off services in your home? No 02/04/2025 Personal Safety Answer Date Recorded Have you ever been in or are you currently in a harmful physical or emotional relationship or is someone making you feel afraid or unsafe? Denies 02/04/2025 Comments No Sex and Gender Information Value Date Recorded Sex Assigned at Not on file Legal Sex Female 6:46 AM CHILDREN'S LITERATURE PROFESSOR Gender Identity Not on file Sexual Orientation Not on file Obstetrics History Para Term AB IAB SAB Ectopic Multiple Livin g Live Births 2 Date Outcome GA Total Labor Labor/2nd/3rd Weight Sex Type Anes PTL Janae A1 A5 Name Clin Last Filed Vital Signs Vital Sign Reading Time Taken Comments Blood Pressure 107/56 02/08/2025 2:30 PM CHILDREN'S LITERATURE PROFESSOR Pulse 85 02/08/2025 2:30 PM CHILDREN'S LITERATURE PROFESSOR Temperature 36.9 C (98.4 F) 02/08/2025 2:30 PM CHILDREN'S LITERATURE PROFESSOR Respiratory Rate 19 02/08/2025 2:30 PM CHILDREN'S LITERATURE PROFESSOR Oxygen Saturation 95% 02/08/2025 2:30 PM CHILDREN'S LITERATURE PROFESSOR Inhaled Oxygen Concentration - - Weight 70 kg (154 lb 5.2 oz) 02/07/2025 5:20 AM CHILDREN'S LITERATURE PROFESSOR Height 160 cm (5' 2.99) 02/04/2025 2:26 AM CHILDREN'S LITERATURE PROFESSOR Body Mass Index 27.34 02/04/2025 2:26 AM CHILDREN'S LITERATURE PROFESSOR Plan of Treatment Health Maintenance Due Date Last Done Comments Zoster Vaccine (2 of 3) 04/25/2012 02/29/2012 Osteoporosis Screening-Bone Density Scan 06/19/2023 06/18/2021 Covid-19 Vaccine (2024-2 6 season) 2024 12/16/2023, 12/20/2022, 01/04/2022, Additional history exists Influenza Vaccine (#1) 2024 , 12/16/2023, 11/30/2022, Additional history exists Well Visit 65+ 01/23/2025 01/24/2024, 10/04/2022, 08/04/2021, Additional history exists Depression Screening 11/27/2025 11/27/2024, 09/19/2024, 08/10/2024, Additional history exists Fall Risk Assessment 02/08/2026 02/08/2025, 01/24/2024, 06/07/2023, Additional history exists Hepatitis B Screening Completed 09/29/2013 Pneumococcal vaccine 65+ Completed 018, 11/16/2016, 05/26/2015, Additional history exists DTaP/Tdap/Td Vaccine Discontinued Procedures Procedure Name Priority Date/Time Associated Diagnosis Comments MAGNESIUM Routine 02/07/2025 2:46 AM CHILDREN'S LITERATURE PROFESSOR EGFR Routine 02/07/2025 2:46 AM CHILDREN'S LITERATURE PROFESSOR DIFFERENTIAL AUTO Routine 02/07/2025 2:4 6 AM CHILDREN'S LITERATURE PROFESSOR CBC WITH AUTO DIFFERENTIAL Routine 02/07/2025 2:46 AM CHILDREN'S LITERATURE PROFESSOR COMPREHENSIVE METABOLIC PANEL Routine 02/07/2025 2:46 AM CHILDREN'S LITERATURE PROFESSOR MAGNESIUM Timed 02/06/2025 5:05 AM CHILDREN'S LITERATURE PROFESSOR EGFR Routine 02/06/2025 5:05 AM CHILDREN'S LITERATURE PROFESSOR DIFFERENTIAL AUTO Routine 02/06/2025 5:0 5 AM CHILDREN'S LITERATURE PROFESSOR VANCOMYCIN LEVEL RANDOM Timed 02/06/2025 5:05 AM CHILDREN'S LITERATURE PROFESSOR CBC WITH AUTO DIFFERENTIAL Routine 02/06/2025 5:05 AM CHILDREN'S LITERATURE PROFESSOR COMPREHENSIVE METABOLIC PANEL Routine 02/06/2025 5:05 AM CHILDREN'S LITERATURE PROFESSOR URINALYSIS, MICROSCOPIC ONLY Routine 02/05/2025 6:32 PM CHILDREN'S LITERATURE PROFESSOR URINALYSIS AND REFLEX TO MICROSCOPIC Routine 02/05/2025 6:32 PM CHILDREN'S LITERATURE PROFESSOR MRSA ONLY (STAPHYLOCOCCUS AUREUS) PCR Routine 02/05/2025 5:47 [address]'S LITERATURE PROFESSOR CT CHEST WO CONTRAST IP Routine 02/05/2025 2:16 PM CHILDREN'S LITERATURE PROFESSOR DIFFERENTIAL AUTO Routine 02/05/2025 12: 31 PM CHILDREN'S LITERATURE PROFESSOR CBC WITH AUTO DIFFERENTIAL Routine 02/05/2025 12:31 PM CHILDREN'S LITERATURE PROFESSOR BLOOD CULTURE STAT 02/05/2025 10:59 AM CHILDREN'S LITERATURE PROFESSOR POC BLOOD GAS AND CHEMISTRIES, VENOUS Routine 02/05/2025 10:47 AM CHILDREN'S LITERATURE PROFESSOR EGFR STAT 02/05/2025 10:25 AM CHILDREN'S LITERATURE PROFESSOR COMPREHENSIVE METABOLIC PANEL STAT 02/05/2025 10:25 AM CHILDREN'S LITERATURE PROFESSOR BLOOD CULTURE STAT 02/05/2025 10:25 AM CHILDREN'S LITERATURE PROFESSOR TRANSTHORACIC ECHO (TTE) COMPLETE W DOPPLER/CF WO CONTRAST Routine 02/04/2025 1:49 PM CHILDREN'S LITERATURE PROFESSOR EGFR Routine 02/04/2025 7:32 AM CHILDREN'S LITERATURE PROFESSOR CBC WITHOUT DIFFERENTIAL Routine 02/04/2025 7:32 AM CHILDREN'S LITERATURE PROFESSOR BASIC METABOLIC PANEL Routine 02/04/2025 7:32 AM CHIL[address]EN'S LITERATURE PROFESSOR CT HEAD WO CONTRAST ED Urgent/IP Urgent 02/04/2025 1:31 AM CHILDREN'S LITERATURE PROFESSOR URINALYSIS, MICROSCOPIC ONLY STAT 02/04/2025 12:18 AM CHILDREN'S LITERATURE PROFESSOR INFLUENZA A/B, RSV, AND COVID-19 PCR STAT 02/04/2025 12:18 AM CHILDREN'S LITERATURE PROFESSOR URINALYSIS AND REFLEX TO MICROSCOPIC AND CULTURE STAT 02/04/2025 12:18 AM CHIL[address]EN'S LITERATURE PROFESS[address] CT ABDOMEN PELVIS W CONTRAST ED 02/03/2025 11:05 PM CHILDREN'S LITERATURE PROFESSOR XR CHEST 1 VIEW ED 02/03/2025 10:06 PM CHILDREN'S LITERATURE PROFESSOR PRO B-TYPE NATRIURETIC PEPTIDE STAT 02/03/2025 9:59 PM CHILDREN'S LITERATURE PROFESSOR EGFR STAT 02/03/2025 9:59 PM CHILDREN'S LITERATURE PROFESSOR DIFFERENTIAL AUTO STAT 02/03/2025 9:5 9 PM CHILDREN'S LITERATURE PROFESSOR SEPSIS LACTATE WITH REFLEX STAT 02/03/2025 9:59 PM CHILDREN'S LITERATURE PROFESSOR COMPREHENSIVE METABOLIC PANEL STAT 02/03/2025 9:59 PM CHILDREN'S LITERATURE PROFESSOR CBC WITH AUTO DIFFERENTIAL STAT 02/03/2025 9:59 PM CHILDREN'S LITERATURE PROFESSOR POC INFLUENZA A/B, COVID-19 ANTIGEN Routine 11/27/2024 3:32 PM CDT Acute cough Congestion of nasal sinus POCT RESPIRATORY SYNCYTIAL VIRUS Routine 11/27/2024 3:32 PM CDT Acute cough Congestion of nasal sinus DEXA AXIAL SKELETON BONE DENSITY 1 OR MORE SITES Schedule Routine, Read Routine (OP Routine) 06/18/2021 12:37 PM CDT Post-menopausal from Last 3 Months or Most Recently Relevant to Health Maintenance Results * (ABNORMAL) eGFR (02/07/2025 2:46 AM CHILDREN'S LITERATURE PROFESSOR) eGFR 30(L) >=60 mL/min/1. 73 m2 Comment: Interpretive Data Reference Interval Normal >/= 90 mL/min/1.73m2 Mildly decreased* 60 - 89 mL/min/1.73m2 Mildly to moderately decreased 45 - 59 mL/min/1.73m2 Moderately to severely decreased 30 - 44 mL/min/1.73m2 Severely decreased 15 - 29 mL/min/1.73m2 Kidney Failure < 15 mL/min/1.73m2 *Relative to young adult level Estimated glomerular filtration rate is determined by the 2020 CKD-EPI equation recommended by the National Kidney Foundation (A Unifying Approach to GFR Estimation: Recommendations of the NKF-ASK Task Force on Reassessing the Inclusion of Race in Diagnosing Kidney Disease, AZALIA 2020). The CKD-EPI equation should not be used for patients with unstable renal function and has not been validated in children and those over 70. Current interpretive data was last reviewed 2020. Blood 02/07/2025 2:46 AM CHILDREN'S LITERATURE PROFESSOR 02/07/2025 2:54 AM CHILDREN'S LITERATURE PROFESSOR Dru Galvan MD LAB BLOOD ORDERABLES Fin al Result [facility] [address] [facility] Department [place] [address] * (ABNORMAL) Differential, auto (02/07/2025 2:46 AM CHILDREN'S LITERATURE PROFESSOR) Neutrophil abs 6.24 1.50 - 6.50 K/cumm Imm gran abs 0.07 0.00 - 0.10 K/cumm [facility] Lymphocyte abs 1.18 0.80 - 3.30 K/cumm [facility] Monocyte abs 1.29(H) 0.20 - 0.80 K/cumm [facility] Eosinophil abs 0.24 0.00 - 0.50 K/cumm [facility] Basophil abs 0.02 0.00 - 0.10 K/cumm [facility] Neutrophil pct 68.9 % [facility] Comment: Interpretive Data Percent cell count reference ranges are not reported, since discordance with absolute values may lead to misinterpretation of CBC data. Current Interpretive Data was last revised on 2017. Imm gran pct 0.8 % [facility] Comment: Interpretive Data Percent cell count reference ranges are not reported, since discordance with absolute values may lead to misinterpretation of CBC data. Current Interpretive Data was last revised on 2017. Lymphocyte pct 13.1 % [facility] Comment: Interpretive Data Percent cell count reference ranges are not reported, since discordance with absolute values may lead to misinterpretation of CBC data. Current Interpretive Data was last revised on 2017. Monocyte pct 14.3 % [facility] Comment: Interpretive Data Percent cell count reference ranges are not reported, since discordance with absolute values may lead to misinterpretation of CBC data. Current Interpretive Data was last revised on 2017. Eosinophil pct 2.7 % [facility] Comment: Interpretive Data Percent cell count reference ranges are not reported, since discordance with absolute values may lead to misinterpretation of CBC data. Current Interpretive Data was last revised on 2017. Basophil pct 0.2 % [facility] Comment: Interpretive Data Percent cell count reference ranges are not reported, since discordance with absolute values may lead to misinterpretation of CBC data. Current Interpretive Data was last revised on 2017. Blood 02/07/2025 2:46 AM CHILDREN'S LITERATURE PROFESSOR 02/07/2025 2:54 AM CHILDREN'S LITERATURE PROFESSOR Dru Galvan MD LAB BLOOD ORDERABLES Fin al Result [place] [id number] [facility] Department [place] [address] * (ABNORMAL) CBC with auto differential (02/07/2025 2:46 AM CHILDREN'S LITERATURE PROFESSOR) WBC 9.04 3.80 - 9.90 K/cumm Hgb 9.7(L) 11.9 - 15.5 g/dL [facility] Hct 30.5(L) 35.6 - 45.5 % [facility] Plt 169 150 - 400 K/cumm [facility] MPV 10.9 9.1 - 12.3 fL [facility] RBC 3.18(L) 3.90 - 5.20 M/cumm [facility] MCV 95.9 81.3 - 96.4 fL [facility] MCH 30.5 27.1 - 33.3 pg [facility] MCHC 31.8(L) 32.3 - 35.7 g/dL [facility] RDW CV 13.6 11.1 - 14.9 % [facility] RDW SD 48.6(H) 35.7 - 48.1 fL [facility] NRBC abs 0.00 0.00 - 0.01 K/cumm [facility] Blood 02/07/2025 2:46 AM CHILDREN'S LITERATURE PROFESSOR 02/07/2025 2:54 AM CHILDREN'S LITERATURE PROFESSOR Dru Galvan MD LAB BLOOD ORDERABLES Fin al Result Performing Organization Address [facility] Co de Phone Number MARC [address] [place] [address] * Magnesium (02/07/2025 2:46 AM CHILDREN'S LITERATURE PROFESSOR) [facility] Magnesium 2.4 1.4 - 2.5 mg/dL Blood 02/07/2025 2:46 AM CHILDREN'S LITERATURE PROFESSOR 02/07/2025 2:54 AM CHILDREN'S LITERATURE PROFESSOR Dru Galvan MD LAB BLOOD ORDERABLES Fin al Result Performing Organization Address [facility] de Phone Number MARC [facility] [place] [address] * (ABNORMAL) Comprehensive metabolic panel (02/07/2025 2:46 AM CHILDREN'S LITERATURE PROFESSOR) [facility] Sodium 137 135 - 145 mmol/L Potassium, pl 3.4 3.3 - 4.9 mmol/L [facility] Chloride 102 97 - 110 mmol/L [facility] CO2 26 22 - 32 mmol/L [facility] Anion gap 9 2 - 15 mmol/L [facility] BUN 25 6 - 25 mg/dL [facility] Creatinine 1.61(H) 0.60 - 1.10 mg/dL [facility] Glucose 108 70 - 199 mg/dL [facility] Comment: Interpretive Data Fasting glucose >/= 126 mg/dl is diagnostic for diabetes. Fasting is defined as no caloric intake for at least 8 hours. Fasting glucose between 100 mg/dl to 125 mg/dl is diagnostic of prediabetes. In a patient with classic symptoms of hyperglycemia or hyperglycemic crisis, a random glucose >/= 200 mg/dl is diagnostic for diabetes. In the absence of unequivocal hyperglycemia, results should be confirmed by repeat testing. The classification and Diagnosis of Diabetes Diabetes Care 202; 46: S19-S40. Current interpretive data was last revised 2022. Calcium 8.6 8.5 - 10.3 mg/dL [facility] Bilirubin, total 0.6 0.1 - 1.2 mg/dL [facility] Protein, pl 6.1(L) 6.5 - 8.5 g/dL [facility] Albumin 3.1(L) 3.5 - 5.0 g/dL [facility] Alk phos 85 40 - 130 Units/L [facility] ALT 6(L) 7 - 45 Units/L [facility] AST 25 10 - 45 Units/L [facility] Blood 02/07/2025 2:46 AM CHILDREN'S LITERATURE PROFESSOR 02/07/2025 2:54 AM CHILDREN'S LITERATURE PROFESSOR Dru Galvan MD LAB BLOOD ORDERABLES Fin al Result Performing Organization Address [facility] Co de Phone Number [address] [employer] [address] * (ABNORMAL) eGFR (02/06/2025 5:05 AM CHILDREN'S LITERATURE PROFESSOR) eGFR 40(L) >=60 mL/min/1. 73 m2 Comment: Interpretive Data Reference Interval Normal >/= 90 mL/min/1.73m2 Mildly decreased* 60 - 89 mL/min/1.73m2 Mildly to moderately decreased 45 - 59 mL/min/1.73m2 Moderately to severely decreased 30 - 44 mL/min/1.73m2 Severely decreased 15 - 29 mL/min/1.73m2 Kidney Failure < 15 mL/min/1.73m2 *Relative to young adult level Estimated glomerular filtration rate is determined by the 2020 CKD-EPI equation recommended by the National Kidney Foundation (A Unifying Approach to GFR Estimation: Recommendations of the NKF-ASK Task Force on Reassessing the Inclusion of Race in Diagnosing Kidney Disease, JASN 2020). The CKD-EPI equation should not be used for patients with unstable renal function and has not been validated in children and those over 70. Current interpretive data was last reviewed 2020. Blood 02/06/2025 5:05 AM CHILDREN'S LITERATURE PROFESSOR 02/06/2025 5:18 AM CHILDREN'S LITERATURE PROFESSOR us Dru Galvan MD LAB BLOOD ORDERABLES Fin al Result Performing Organization Address City/[facility]/ZIP Co de Phone Number [address] [place] [address] * (ABNORMAL) Differential, auto (02/06/2025 5:05 AM CHILDREN'S LITERATURE PROFESSOR) Pathologist [facility] Neutrophil abs 6.96(H) 1.50 - 6.50 K/cumm Imm gran abs 0.08 0.00 - 0.10 K/cumm [facility] Lymphocyte abs 1.05 0.80 - 3.30 K/cumm [facility] Monocyte abs 1.02(H) 0.20 - 0.80 K/cumm [facility] Eosinophil abs 0.13 0.00 - 0.50 K/cumm [facility] Basophil abs 0.04 0.00 - 0.10 K/cumm [facility] Neutrophil pct 75.0 % [facility] Comment: Interpretive Data Percent cell count reference ranges are not reported, since discordance with absolute values may lead to misinterpretation of CBC data. Current Interpretive Data was last revised on 2017. Imm gran pct 0.9 % [facility] Comment: Interpretive Data Percent cell count reference ranges are not reported, since discordance with absolute values may lead to misinterpretation of CBC data. Current Interpretive Data was last revised on 2017. Lymphocyte pct 11.3 % [facility] Comment: Interpretive Data Percent cell count reference ranges are not reported, since discordance with absolute values may lead to misinterpretation of CBC data. Current Interpretive Data was last revised on 2017. Monocyte pct 11.0 % [facility] Comment: Interpretive Data Percent cell count reference ranges are not reported, since discordance with absolute values may lead to misinterpretation of CBC data. Current Interpretive Data was last revised on 2017. Eosinophil pct 1.4 % [facility] Comment: Interpretive Data Percent cell count reference ranges are not reported, since discordance with absolute values may lead to misinterpretation of CBC data. Current Interpretive Data was last revised on 2017. Basophil pct 0.4 % [facility] Comment: Interpretive Data Percent cell count reference ranges are not reported, since discordance with absolute values may lead to misinterpretation of CBC data. Current Interpretive Data was last revised on 2017. Blood 02/06/2025 5:05 AM CHILDREN'S LITERATURE PROFESSOR 02/06/2025 5:18 AM CHILDREN'S LITERATURE PROFESSOR Dru Galvan MD LAB BLOOD ORDERABLES Fin al Result Performing Organization Address City/[facility] Co de Phone Number MARC [address] [address] * (ABNORMAL) CBC with auto differential (02/06/2025 5:05 AM CHILDREN'S LITERATURE PROFESSOR) Pathologist [facility] WBC 9.28 3.80 - 9.90 K/cumm Hgb 10.2(L) 11.9 - 15.5 g/dL [facility] Hct 31.5(L) 35.6 - 45.5 % [facility] Plt 167 150 - 400 K/cumm [facility] MPV 11.0 9.1 - 12.3 fL [facility] RBC 3.31(L) 3.90 - 5.20 M/cumm [facility] MCV 95.2 81.3 - 96.4 fL [facility] MCH 30.8 27.1 - 33.3 pg [facility] MCHC 32.4 32.3 - 35.7 g/dL [facility] RDW CV 13.9 11.1 - 14.9 % [facility] RDW SD 48.3(H) 35.7 - 48.1 fL [facility] NRBC abs 0.00 0.00 - 0.01 K/cumm [facility] Blood 02/06/2025 5:05 AM CHILDREN'S LITERATURE PROFESSOR 02/06/2025 5:18 AM CHILDREN'S LITERATURE PROFESSOR Dru Galvan MD LAB BLOOD ORDERABLES Fin al Result Performing Organization Address City/[facility] Co de Phone Number MARC [address] [place] [address] * Magnesium (02/06/2025 5:05 AM CHILDREN'S LITERATURE PROFESSOR) Pathologist [facility] Magnesium 1.6 1.4 - 2.5 mg/dL Blood 02/06/2025 5:05 AM CHILDREN'S LITERATURE PROFESSOR 02/06/2025 5:19 AM CHILDREN'S LITERATURE PROFESSOR Dru Galvan MD LAB BLOOD ORDERABLES Fin al Result Performing Organization Address [facility] de Phone Number [address] [address] * Vancomycin level random (02/06/2025 5:05 AM CHILDREN'S LITERATURE PROFESSOR) [facility] Vancomycin random 12.7 mcg/mL Comment: Interpretive Data No reference ranges have been established for random drug levels. Current Interpretive Data was last revised on 2020. Blood 02/06/2025 5:05 AM CHILDREN'S LITERATURE PROFESSOR 02/06/2025 5:19 AM CHILDREN'S LITERATURE PROFESSOR Dru Galvan MD LAB BLOOD ORDERABLES Fin al Result Performing Organization Address [facility] de Phone Number [address] [address] * (ABNORMAL) Comprehensive metabolic panel (02/06/2025 5:05 AM CHILDREN'S LITERATURE PROFESSOR) [facility] Sodium 138 135 - 145 mmol/L Potassium, pl 3.8 3.3 - 4.9 mmol/L [facility] Chloride 102 97 - 110 mmol/L [facility] CO2 24 22 - 32 mmol/L [facility] Anion gap 12 2 - 15 mmol/L [facility] BUN 18 6 - 25 mg/dL [facility] Creatinine 1.28(H) 0.60 - 1.10 mg/dL [facility] Glucose 90 70 - 199 mg/dL [facility] Comment: Interpretive Data Fasting glucose >/= 126 mg/dl is diagnostic for diabetes. Fasting is defined as no caloric intake for at least 8 hours. Fasting glucose between 100 mg/dl to 125 mg/dl is diagnostic of prediabetes. In a patient with classic symptoms of hyperglycemia or hyperglycemic crisis, a random glucose >/= 200 mg/dl is diagnostic for diabetes. In the absence of unequivocal hyperglycemia, results should be confirmed by repeat testing. The classification and Diagnosis of Diabetes Diabetes Care 202; 46: S19-S40. Current interpretive data was last revised 2022. Calcium 8.5 8.5 - 10.3 mg/dL [facility] Bilirubin, total 1.0 0.1 - 1.2 mg/dL [facility] Protein, pl 6.2(L) 6.5 - 8.5 g/dL [facility] Albumin 3.3(L) 3.5 - 5.0 g/dL [facility] Alk phos 72 40 - 130 Units/L [facility] ALT <5(L) 7 - 45 Units/L [facility] AST 14 10 - 45 Units/L [facility] Blood 02/06/2025 5:05 AM CHILDREN'S LITERATURE PROFESSOR 02/06/2025 5:18 AM CHILDREN'S LITERATURE PROFESSOR Dru Galvan MD LAB BLOOD ORDERABLES Fin al Result [facility] [address] [facility] Department [place] [address] * (ABNORMAL) Urinalysis reflex to microscopic (02/05/2025 6:32 PM CHILDREN'S LITERATURE PROFESSOR) Color, ur Yellow Yellow Clarity, ur Clear Clear [facility] Specific gravity, ur 1.018 1.003 - 1.030 [facility] pH, urine 6.5 [facility] Comment: Interpretive Data U rine pH is affected by diet, medications, systemic acid-base disturbances, and renal tubular function. pH may affect urinary stone formation. For example, urine pH below 6.0 may help reduce the tendency for calcium phosphate stones and pH greater than 6.0 may reduce the tendency for uric acid stone formation. Source: [facility] Current Interpretive Data was last revised on 2017 Protein, ur ql Negative Negative [facility] Glucose, ur ql Negative Negative [facility] Ketones, ur Negative Negative [facility] Bilirubin, ur Negative Negative [facility] Blood, ur Negative Negative [facility] Urobilinogen, ur <2.0 <2.0 mg/dL [facility] Nitrite, ur Negative Negative [facility] Leukocyte esterase, ur 1+(A) Negative [facility] UA reflex comment Reflex to microscopic UA will be performed. [facility] Urine 02/05/2025 6:32 PM CHILDREN'S LITERATURE PROFESSOR 02/05/2025 6:48 PM CHILDREN'S LITERATURE PROFESSOR Dru Galvan MD LAB URINE ORDERABLES Fin al Result Performing Organization Address City/[facility] Co de Phone Number [address] [address] * (ABNORMAL) Urinalysis, microscopic only (02/05/2025 6:32 PM CHILDREN'S LITERATURE PROFESSOR) WBC, ur 0-5 0 - 5 /HPF RBC, ur 3-5(A) 0 - 2 /HPF [facility] Epithelial cells, squamous, ur 1-5 0 - 5 /HPF [facility] Urine 02/05/2025 6:32 PM CHILDREN'S LITERATURE PROFESSOR 02/05/2025 6:48 PM CHILDREN'S LITERATURE PROFESSOR Dru Galvan MD LAB URINE ORDERABLES Fin al Result Performing Organization Address [facility] de Phone Number [address] [address] * MRSA Only (Staphylococcus aureus) PCR Nasal (02/05/2025 5:47 PM CHILDREN'S LITERATURE PROFESSOR) PCR Scrn, Methicillin resistant Staphylococcus aureus (MRSA) Not Detected Not Detected Comment: Interpretive Data Testing performed using Nucleic Acid Amplification with the [employer] Xpert MRSA NxG Assay. This assay detects target DNA from mecA, mecC and the SCCmec insertion site of Staphylococcus aureus using Real-Time PCR and has been cleared by the FDA. Performance characteristics have been verified by the [facility]. Current Interpretive Data was last revised on 2022 Nasal 02/05/2025 5:47 PM CHILDREN'S LITERATURE PROFESSOR 02/05/2025 5:51 PM CHILDREN'S LITERATURE PROFESSOR Dru Galvan MD LAB MICROBIOLOGY - GENER AL ORDERABLES Final Result Performing Organization Address [facility] Co de Phone Number [address] [address] * CT Chest WO Contrast (02/05/2025 2:16 PM CHILDREN'S LITERATURE PROFESSOR) Anatomical Region Laterality Modality Body N/A Computed Tomogra phy 02/05/2025 3:42 PM CHILDREN'S LITERATURE PROFESSOR Impressions 02/05/2025 3:42 PM CHILDREN'S LITERATURE PROFESSOR 1. There is a trace left pleural effusion with adjacent airspace opacity more confluent along the posterior medial aspect of the left lower lobe. Opacity may be in these airways versus compressive atelectasis. Pneumonia and/or atelectasis. Short-term follow-up recommended in 6 weeks to ensure resolution and no abnormality of the airway. 2. There are areas of dependent atelectasis otherwise. Small areas of scarring favored of the lateral aspect of the right upper lobe similar to older exams. Electronically signed by: Sukumar Messer M.D. Narrative 02/05/2025 3:42 PM CHILDREN'S LITERATURE PROFESSOR EXAMINATION: CT CHEST WO CONTRAST ORDERING HEALTHCARE PROVIDER: DRU GALVAN HISTORY: Pneumonia, complication suspected, xray done Evaluation for parenchymal process. COMPARISON: Prior CT 08/20/2022, 05/22/2013 and chest x-ray 02/03/2025. TECHNIQUE: CT of the chest without intravenous contrast. Reconstructed coronal and sagittal MPR images reviewed. Automated exposure control was used as a dose optimization technique for this examination. FINDINGS: LUNGS/PLEURA:Lung windows demonstrate a patent central airway. There is a minimal left pleural effusion with adjacent airspace opacity, atelectasis or infiltrate. There is what appears to be mucus plugging in the airway to the posterior medial aspect of the left lower lobe. Follow-up recommended to ensure resolution. Consider short-term CT in 6 weeks. Apical scarring. Mild dependent atelectasis of the right lung. Again are pleural-based opacities of the peripheral aspect of the right upper lobe similar to the 08/20/2022 exam. These are actually similar to a 05/22/2013 exam indicating more chronic etiology. HEART: Cardiomegaly. Trace pericardial effusion. Coronary artery calcification. VASCULATURE: Atherosclerotic change thoracic aorta. MEDIASTINUM/PAIGE: There is no adenopathy by size criteria. Occasional small lymph node is seen. These are typically reactive. Attention to these on the follow-up CT. AXILLA: No adenopathy. CHEST WALL: Calcified breast implants out complication. HARDWARE/LINES/TUBES: None. UPPER ABDOMEN: Limited view through the more extreme upper abdomen to mistreats no acute findings. MUSCULOSKELETAL: Fairly moderate spondylosis cervical spine with mild to moderate change of the thoracic spine. OTHER: No other acute findings. Procedure Note Sukumar Messer MD - 02/05/2025 EXAMINATION: CT CHEST WO CONTRAST ORDERING HEALTHCARE PROVIDER: DRU GALVAN HISTORY: Pneumonia, complication suspected, xray done Evaluation for parenchymal process. COMPARISON: Prior CT 08/20/2022, 05/22/2013 and chest x-ray 02/03/2025. TECHNIQUE: CT of the chest without intravenous contrast. Reconstructed coronal and sagittal MPR images reviewed. Automated exposure control was used as a dose optimization technique for this examination. FINDINGS: LUNGS/PLEURA:Lung windows demonstrate a patent central airway. There is a minimal left pleural effusion with adjacent airspace opacity, atelectasis or infiltrate. There is what appears to be mucus plugging in the airway to the posterior medial aspect of the left lower lobe. Follow-up recommended to ensure resolution. Consider short-term CT in 6 weeks. Apical scarring. Mild dependent atelectasis of the right lung. Again are pleural-based opacities of the peripheral aspect of the right upper lobe similar to the 08/20/2022 exam. These are actually similar to a 05/22/2013 exam indicating more chronic etiology. HEART: Cardiomegaly. Trace pericardial effusion. Coronary artery calcification. VASCULATURE: Atherosclerotic change thoracic aorta. MEDIASTINUM/PAIGE: There is no adenopathy by size criteria. Occasional small lymph node is seen. These are typically reactive. Attention to these on the follow-up CT. AXILLA: No adenopathy. CHEST WALL: Calcified breast implants out complication. HARDWARE/LINES/TUBES: None. UPPER ABDOMEN: Limited view through the more extreme upper abdomen to mistreats no acute findings. MUSCULOSKELETAL: Fairly moderate spondylosis cervical spine with mild to moderate change of the thoracic spine. OTHER: No other acute findings. IMPRESSION: 1. There is a trace left pleural effusion with adjacent airspace opacity more confluent along the posterior medial aspect of the left lower lobe. Opacity may be in these airways versus compressive atelectasis. Pneumonia and/or atelectasis. Short-term follow-up recommended in 6 weeks to ensure resolution and no abnormality of the airway. 2. There are areas of dependent atelectasis otherwise. Small areas of scarring favored of the lateral aspect of the right upper lobe similar to older exams. Electronically signed by: Sukumar Messer M.D. Dru Galvan MD IM CT PROCEDURES Final Result * (ABNORMAL) Differential, auto (02/05/2025 12:31 PM CHILDREN'S LITERATURE PROFESSOR) Neutrophil abs 7.52(H) 1.50 - 6.50 K/cumm Imm gran abs 0.03 0.00 - 0.10 K/cumm [facility] Lymphocyte abs 1.33 0.80 - 3.30 K/cumm [facility] Monocyte abs 1.07(H) 0.20 - 0.80 K/cumm [facility] Eosinophil abs 0.22 0.00 - 0.50 K/cumm [facility] Basophil abs 0.03 0.00 - 0.10 K/cumm [facility] Neutrophil pct 73.7 % [facility] Comment: Interpretive Data Percent cell count reference ranges are not reported, since discordance with absolute values may lead to misinterpretation of CBC data. Current Interpretive Data was last revised on 2017. Imm gran pct 0.3 % [facility] Comment: Interpretive Data Percent cell count reference ranges are not reported, since discordance with absolute values may lead to misinterpretation of CBC data. Current Interpretive Data was last revised on 2017. Lymphocyte pct 13.0 % [facility] Comment: Interpretive Data Percent cell count reference ranges are not reported, since discordance with absolute values may lead to misinterpretation of CBC data. Current Interpretive Data was last revised on 2017. Monocyte pct 10.5 % [facility] Comment: Interpretive Data Percent cell count reference ranges are not reported, since discordance with absolute values may lead to misinterpretation of CBC data. Current Interpretive Data was last revised on 2017. Eosinophil pct 2.2 % [facility] Comment: Interpretive Data Percent cell count reference ranges are not reported, since discordance with absolute values may lead to misinterpretation of CBC data. Current Interpretive Data was last revised on 2017. Basophil pct 0.3 % [facility] Comment: Interpretive Data Percent cell count reference ranges are not reported, since discordance with absolute values may lead to misinterpretation of CBC data. Current Interpretive Data was last revised on 2017. Blood 02/05/2025 12:3 1 PM CHILDREN'S LITERATURE PROFESSOR 02/05/2025 12:35 PM CHILDREN'S LITERATURE PROFESSOR Dru Galvan MD LAB BLOOD ORDERABLES Fin al Result Performing Organization Address City/[facility] de Phone Number [facility] [address] [employer] [place] [address] * (ABNORMAL) CBC with auto differential (02/05/2025 12:31 PM CHILDREN'S LITERATURE PROFESSOR) WBC 10.20(H) 3.80 - 9.90 K/cumm Hgb 9.9(L) 11.9 - 15.5 g/dL [facility] Hct 30.6(L) 35.6 - 45.5 % [facility] Plt 176 150 - 400 K/cumm [facility] MPV 10.9 9.1 - 12.3 fL [facility] RBC 3.17(L) 3.90 - 5.20 M/cumm [facility] MCV 96.5(H) 81.3 - 96.4 fL [facility] MCH 31.2 27.1 - 33.3 pg [facility] MCHC 32.4 32.3 - 35.7 g/dL [facility] RDW CV 13.9 11.1 - 14.9 % [facility] RDW SD 49.3(H) 35.7 - 48.1 fL [facility] NRBC abs 0.00 0.00 - 0.01 K/cumm [facility] Blood 02/05/2025 12:3 1 PM CHILDREN'S LITERATURE PROFESSOR 02/05/2025 12:35 PM CHILDREN'S LITERATURE PROFESSOR Dru Galvan MD LAB BLOOD ORDERABLES Fin al Result Performing Organization Address [facility] Co de Phone Number MARC [address] [place] [address] * Blood culture Blood (02/05/2025 10:59 AM CHILDREN'S LITERATURE PROFESSOR) Report Final Report: No growth Comment:Testing performed by : [facility], [address] [facility], [place]., [address] Blood 02/05/2025 10:5 9 AM CHILDREN'S LITERATURE PROFESSOR 02/05/2025 2:21 PM CHILDREN'S LITERATURE PROFESSOR Narrative MARC - 02/09/2025 4:00 PM CHILDREN'S LITERATURE PROFESSOR From a different site than #1. Collection->Peripheral 1. Blood cultures are incubated for 4 days on a continuously monitored blood culture system. The first report of a negative culture is issued within 24 hours of receipt of the specimen in the laboratory. 2. Positive culture results are reported as soon as they are detected. 3. The most important factor for detection of microbes in the setting of bloodstream infection is the volume of blood submitted for culture. Failure to collect an optimal blood volume can result in false negative blood cultures. 4. For pediatric patients, the recommended blood volume to collect follows a weight based strategy. See the electronic test catalog for collection instructions. 5. For positive blood cultures, a rapid molecular test may be performed for organism identification using the chanelle ePlex blood culture identification panel for gram positive (BCID-GP) and gram negative (BCID-GN) organisms. This nucleic acid amplification test detects microbial DNA in positive blood culture broth. This assay has been cleared by the [place] Food and Drug Administration and its performance characteristics have been verified by the [facility]. For questions about this culture, contact the Microbiology Laboratory at [phone]. Interpretive data was last revised on 23. Dru Galvan MD LAB MICROBIOLOGY - [facility] AL ORDERABLES Final Result MARC [address] [facility] Department [place] [address] * (ABNORMAL) POC Blood Gas and Chemistries, Venous - (02/05/2025 10:47 AM CHILDREN'S LITERATURE PROFESSOR) pH,tomy POC 7.39 7.32 - 7.43 pCO2, tomy POC 43 40 - 50 mmHg MARC CARDENAS pO2,tomy POC 27 mmHg MARC Comment: Interpretive Data No reference range established. Current interpretive data was last revised 2019. HCO3, tomy (Calc) POC 26 20 - 30 mmol/L [facility] Base excess, tomy POC 1 mmol/L [facility] Comment: Interpretive Data No reference range established. Current interpretive data was last revised 2019. Oxy Hgb, tomy POC 39.6(L) 90.0 - 95.0 % [facility] Met Hgb, tomy POC 0.8 0.0 - 1.9 % [facility] Carboxy Hgb, tomy POC 1.3 0.0 - 2.9 % [facility] Hemoglobin, tomy POC 8.6(L) 11.9 - 15.5 g/dL [facility] Sodium, tomy POC 136 135 - 145 mmol/L [facility] Potassium, tomy POC 3.9 3.3 - 4.9 mmol/L [facility] Comment: Interpretive Data This method is not able to assess for hemolysis, which may falsely increase potassium concentrations. If further testing is needed to evaluate this result, consider in-laboratory plasma potassium. Current Interpretive Data was last revised on 2021. Glucose, tomy POC 89 70 - 199 mg/dL [facility] Ionized Calcium, tomy POC 4.59 4.50 - 5.10 mg/dL [facility] Lactate, tomy POC 1.5 0.7 - 2.0 mmol/L [facility] Blood 02/05/2025 10:4 7 AM CHILDREN'S LITERATURE PROFESSOR 02/05/2025 10:47 AM CHILDREN'S LITERATURE PROFESSOR Dru Galvan MD LAB POCT ORDERABLES - DE VICE Final Result [facility] [address] [facility] Department [place] [address] * (ABNORMAL) eGFR (02/05/2025 10:25 AM CHILDREN'S LITERATURE PROFESSOR) Pathologist [facility] eGFR 39(L) >=60 mL/min/1. 73 m2 Comment: Interpretive Data Reference Interval Normal >/= 90 mL/min/1.73m2 Mildly decreased* 60 - 89 mL/min/1.73m2 Mildly to moderately decreased 45 - 59 mL/min/1.73m2 Moderately to severely decreased 30 - 44 mL/min/1.73m2 Severely decreased 15 - 29 mL/min/1.73m2 Kidney Failure < 15 mL/min/1.73m2 *Relative to young adult level Estimated glomerular filtration rate is determined by the 2020 CKD-EPI equation recommended by the National Kidney Foundation (A Unifying Approach to GFR Estimation: Recommendations of the NKF-ASK Task Force on Reassessing the Inclusion of Race in Diagnosing Kidney Disease, JASN 202). The CKD-EPI equation should not be used for patients with unstable renal function and has not been validated in children and those over 70. Current interpretive data was last reviewed 2020. Blood 02/05/2025 10:2 5 AM CHILDREN'S LITERATURE PROFESSOR 02/05/2025 10:29 AM CHILDREN'S LITERATURE PROFESSOR Dru Galvan MD LAB BLOOD ORDERABLES Fin al Result MARC [address] [facility] Department [place] [address] * Blood culture Blood (02/05/2025 10:25 AM CHILDREN'S LITERATURE PROFESSOR) Report Final Report: No growth Comment:Testing performed by : [facility], [address] [place] [address] Blood 02/05/2025 10:2 5 AM CHILDREN'S LITERATURE PROFESSOR 02/05/2025 2:19 PM CHILDREN'S LITERATURE PROFESSOR Narrative MARC - 02/09/2025 4:00 PM CHILDREN'S LITERATURE PROFESSOR Collection->Peripheral 1. Blood cultures are incubated for 4 days on a continuously monitored blood culture system. The first report of a negative culture is issued within 24 hours of receipt of the specimen in the laboratory. 2. Positive culture results are reported as soon as they are detected. 3. The most important factor for detection of microbes in the setting of bloodstream infection is the volume of blood submitted for culture. Failure to collect an optimal blood volume can result in false negative blood cultures. 4. For pediatric patients, the recommended blood volume to collect follows a weight based strategy. See the electronic test catalog for collection instructions. 5. For positive blood cultures, a rapid molecular test may be performed for organism identification using the chanelle ePlex blood culture identification panel for gram positive (BCID-GP) and gram negative (BCID-GN) organisms. This nucleic acid amplification test detects microbial DNA in positive blood culture broth. This assay has been cleared by the [place] Food and Drug Administration and its performance characteristics have been verified by the [facility]. For questions about this culture, contact the Microbiology Laboratory at [phone]. Interpretive data was last revised on 23. Dru Galvan MD LAB MICROBIOLOGY - [facility] AL ORDERABLES Final Result [facility] [address] [facility] Department [place] [address] * (ABNORMAL) Comprehensive metabolic panel (02/05/2025 10:25 AM CHILDREN'S LITERATURE PROFESSOR) Sodium 137 135 - 145 mmol/L Potassium, pl 4.2 3.3 - 4.9 mmol/L [facility] Comment:Hemolyzed; Potassium value may be falsely elevated by as much as 1.0 mmol/L. Suggest redraw and reanalysis. Chloride 101 97 - 110 mmol/L [facility] CO2 24 22 - 32 mmol/L [facility] Anion gap 12 2 - 15 mmol/L [facility] BUN 17 6 - 25 mg/dL [facility] Creatinine 1.32(H) 0.60 - 1.10 mg/dL [facility] Glucose 97 70 - 199 mg/dL [facility] Comment: Interpretive Data Fasting glucose >/= 126 mg/dl is diagnostic for diabetes. Fasting is defined as no caloric intake for at least 8 hours. Fasting glucose between 100 mg/dl to 125 mg/dl is diagnostic of prediabetes. In a patient with classic symptoms of hyperglycemia or hyperglycemic crisis, a random glucose >/= 200 mg/dl is diagnostic for diabetes. In the absence of unequivocal hyperglycemia, results should be confirmed by repeat testing. The classification and Diagnosis of Diabetes Diabetes Care 2021; 46: S19-S40. Current interpretive data was last revised 2022. Calcium 8.7 8.5 - 10.3 mg/dL [facility] Bilirubin, total 1.0 0.1 - 1.2 mg/dL [facility] Protein, pl 6.3(L) 6.5 - 8.5 g/dL [facility] Albumin 3.7 3.5 - 5.0 g/dL [facility] Alk phos 75 40 - 130 Units/L [facility] ALT 6(L) 7 - 45 Units/L [facility] AST 24 10 - 45 Units/L [facility] Comment:Hemolyzed; result ma y be falsely elevated Blood 02/05/2025 10:2 5 AM CHILDREN'S LITERATURE PROFESSOR 02/05/2025 10:29 AM CHILDREN'S LITERATURE PROFESSOR us Dru Galvan MD LAB BLOOD ORDERABLES Fin al Result MARC [address] [facility] Department [place] [address] * TRANSTHORACIC ECHO (TTE) COMPLETE W DOPPLER/CF WO CONTRAST (02/04/2025 1:49 PM CHILDREN'S LITERATURE PROFESSOR) EF Mod BP 60 % CONS SCIMAGE Anatomical Region Laterality Modality Ultrasound 02/04/2025 1:14 PM CHILDREN'S LITERATURE PROFESSOR Narrative 02/04/2025 5:58 PM CHILDREN'S LITERATURE PROFESSOR Transthoracic Echocardiographic Report Patient Name: REGINALDO CHRISTOPHER : 1935 (89y 2m) Sex: F Study Date: 02/04/2025 01:14:48 PM Ht(Inch): 63 Wt(Lb): 150 BSA: 1.74 Livestock Nutrition Territory Manager: Carol Black [facility] Location: [id number] Order Provider: LIBIA CRAWFORD Heart Rate: 82 BMI: 26.57 BP: 151 / 83 Ref Provider: LIBIA CRAWFORD PROCEDURES: Echocardiographic Report: ([id number]) Transthoracic complete echo, 2D, spectral and tissue Doppler, color flow Doppler, M-mode. Technically difficult study due to: Technically difficult acoustic windows secondary to breast implants. INDICATIONS: Shortness of breath. FINDINGS: Left Ventricle: Normal left ventricular cavity size. Normal Left ventricular wall thickness. Normal left ventricular systolic function. The Ejection Fraction (Patricia's) is measured at 60 %. Diastolic Function Left ventricular diastolic function could not be assessed due to the presence of atrial fibrillation during the study. Regional Wall Motion: There are no regional wall motion abnormalities. Right Ventricle: Normal right ventricular size. Normal right ventricular systolic function. Left Atrium: Mildly dilated left atrium. Right Atrium: Mildly dilated right atrium. Atrial Septum: No shunt by color Doppler. Mitral Valve: Normal mitral valve leaflet structure. No mitral regurgitation seen. No mitral valve stenosis. Aortic Valve: Trileaflet aortic valve. Mild aortic valve regurgitation. Mild aortic valve stenosis. The mean transaortic gradient is 7 mmHg. The aortic valve area by the continuity equation (using VTI) is 2 cm2. Tricuspid Valve: The tricuspid valve demonstrates normal leaflet structure. There is trace to mild tricuspid valve regurgitation. The estimated right ventricular systolic pressure is 24 mmHg. Normal estimated pulmonary artery systolic pressure. No tricuspid valve stenosis. Pulmonic Valve: Valve normal in structure and fuction. Pericardium: Normal pericardium without evidence of pericardial effusion. No pericardial effusion noted. Aorta: Normal aortic root. The aortic Sinus is normal in size. IVC: IVC is normal in size. The estimated RA pressure is 3 mmHg. CONCLUSIONS: 1. Normal left ventricular cavity size. Normal Left ventricular wall thickness. Normal left ventricular systolic function. The Ejection Fraction (Patricia's) is measured at 60 %. Diastolic Function Left ventricular diastolic function could not be assessed due to the presence of atrial fibrillation during the study. 2. Normal right ventricular size. Normal right ventricular systolic function. 3. Normal mitral valve leaflet structure. No mitral regurgitation seen. No mitral valve stenosis. 4. Trileaflet aortic valve. Mild aortic valve regurgitation. Mild aortic valve stenosis. The mean transaortic gradient is 7 mmHg. The aortic valve area by the continuity equation (using VTI) is 2 cm2. 5. The tricuspid valve demonstrates normal leaflet structure. There is trace to mild tricuspid valve regurgitation. The estimated right ventricular systolic pressure is 24 mmHg. Normal estimated pulmonary artery systolic pressure. No tricuspid valve stenosis. MEASUREMENTS: 2D/MM Value Range Doppler Value LVIDd 2D 3.68 cm [ 3.50 - 5.70 ] AV Peak Toni 1.79 m/s LVIDs 2D 2.48 cm [ 3.10 - 4.60 ] AV Peak PG 12.82 mmHg IVSd 2D 1.07 cm [ 0.60 - 1.20 ] AV Mean PG 7.00 mmHg LVPWd 2D 1.00 cm [ 0.60 - 1.10 ] AV VTI 35.80 cm LV Thickness Ratio 1.07 LVOT Peak Toni 1.15 m/s LV Mass 2D 118.90 g LVOT Peak PG 5.29 mmHg LV Mass Index 2D 68.37 g/m2 LVOT Mean PG 3.00 mmHg RWT 0.54 LVOT VTI 22.80 cm EDV Mod BP 44.30 ml [ 46.00 - 106.00 ] LVOT Diam 2.00 cm LV EDV Index 25.47 ml/m2 SV LVOT 72.00 cm3 ESV Mod BP 17.60 ml [ 14.00 - 42.00 ] MALORIE VTI 2.00 cm2 EF Mod BP 60 % [ 54 - 74 ] MALORIE Vmax 2.02 cm2 LA Dimension 2D 4.00 cm [ 1.90 - 4.00 ] LVOT/AV VTI 0.64 - Dimensionless index (DVI) LA Length 2C 7.16 cm AI Peak Toni 4.17 m/s LA Length 4C 7.45 cm AI Peak PG 70.00 mmHg LA Volume BP 88.60 ml AI Decel Lincoln 2.99 m/s2 LA Volume Index 50.95 ml/m2 [ 16.00 - 34.00 ] AI PHT 412.00 ms RVDd 2D 2.66 cm [ 2.00 - 3.00 ] MV E Peak Toni 1.77 m/s TAPSE 1.65 cm [ 1.71 - 5.00 ] MV Decel Time 137.00 msec RA Volume 51.20 ml RV S` 9.14 cm/sec RA Volume Index 29.44 ml/m2 TR Peak Toni 2.27 m/s IVC Diam 1.49 cm TR Peak PG 20.6 mmHg AoR Diam 2D 2.90 cm [ 2.00 - 3.70 ] RA Pressure 3.00 mmHg Ao Root Index 1.67 cm/m2 [ 1.00 - 2.00 ] RVSP 23.60 mmHg Asc Ao Diam 2D 2.50 cm PV Peak Toni 0.96 m/s Asc Ao Index 1.44 cm/m2 PV Peak PG 3.69 mmHg PI ED Toni 166.00 - ATTESTATION: I have reviewed and interpreted the pertinent images and measurements of this study. I attest to the conclusions in the final report that is provided above. DISCLAIMER: The study images and the final report will be retained in the patient chart by the Echo Laboratory for the legally required time period. This chart constitutes the legal record of any testing performed. Electronically Signed By: Reji Clement MD 02/04/2025 5:58:11 PM CHILDREN'S LITERATURE PROFESSOR Procedure Note Reji Clement MD - 02/04/2025 Transthoracic Echocardiographic Report Patient Name: REGINALDO CHRISTOPHER : 1935 (89y 2m) Sex: F Study Date: 02/04/2025 01:14:48 PM Ht(Inch): 63 Wt(Lb): 150 BSA: 1.74 Livestock Nutrition Territory Manager: Carol Black RDCS Location: [place] [address] Order Provider:LIBIA CRAWFORD Heart Rate: 82 BMI: 26.57 BP: 151 / 83 Ref Provider:LIBIA CRAWFORD PROCEDURES: Echocardiographic Report: ([id number]) Transthoracic complete echo, 2D,spectral and tissue Doppler, color flow Doppler, M-mode. Technically difficult study due to: Technically difficult acoustic windowssecondary to breast implants. INDICATIONS: Shortness of breath. FINDINGS: Left Ventricle: Normal left ventricular cavity size. Normal Leftventricular wall thickness. Normal left ventricular systolic function. The EjectionFraction (Patricia's) is measured at 60 %. Diastolic Function Left ventricular diastolicfunction could not be assessed due to the presence of atrial fibrillation during the study. Regional Wall Motion: There are no regional wall motion abnormalities. Right Ventricle: Normal right ventricular size. Normal right ventricularsystolic function. Left Atrium: Mildly dilated left atrium. Right Atrium: Mildly dilated right atrium. Atrial Septum: No shunt by color Doppler. Mitral Valve: Normal mitral valve leaflet structure. No mitralregurgitation seen. No mitral valve stenosis. Aortic Valve: Trileaflet aortic valve. Mild aortic valve regurgitation.Mild aortic valve stenosis. The mean transaortic gradient is 7 mmHg. The aortic valve areaby the continuity equation (using VTI) is 2 cm2. Tricuspid Valve: The tricuspid valve demonstrates normal leafletstructure. There is trace to mild tricuspid valve regurgitation. The estimated rightventricular systolic pressure is 24 mmHg. Normal estimated pulmonary artery systolic pressure.No tricuspid valve stenosis. Pulmonic Valve: Valve normal in structure and fuction. Pericardium: Normal pericardium without evidence of pericardial effusion.No pericardial effusion noted. Aorta: Normal aortic root. The aortic Sinus is normal in size. IVC: IVC is normal in size. The estimated RA pressure is 3 mmHg. CONCLUSIONS: 1. Normal left ventricular cavity size. Normal Left ventricular wallthickness. Normal left ventricular systolic function. The Ejection Fraction (Patricia's) ismeasured at 60 %. Diastolic Function Left ventricular diastolic function could not beassessed due to the presence of atrial fibrillation during the study. 2. Normal right ventricular size. Normal right ventricular systolicfunction. 3. Normal mitral valve leaflet structure. No mitral regurgitation seen. Nomitral valve stenosis. 4. Trileaflet aortic valve. Mild aortic valve regurgitation. Mild aorticvalve stenosis. The mean transaortic gradient is 7 mmHg. The aortic valve area by thecontinuity equation (using VTI) is 2 cm2. 5. The tricuspid valve demonstrates normal leaflet structure. There istrace to mild tricuspid valve regurgitation. The estimated right ventricular systolicpressure is 24 mmHg. Normal estimated pulmonary artery systolic pressure. No tricuspidvalve stenosis. MEASUREMENTS: 2D/MM Value Range DopplerValue LVIDd 2D 3.68 cm [ 3.50 - 5.70 ] AV Peak Vel1.79 m/s LVIDs 2D 2.48 cm [ 3.10 - 4.60 ] AV Peak PG12.82 mmHg IVSd 2D 1.07 cm [ 0.60 - 1.20 ] AV Mean PG7.00 mmHg LVPWd 2D 1.00 cm [ 0.60 - 1.10 ] AV VTI35.80 cm LV Thickness Ratio 1.07 LVOT Peak Vel1.15 m/s LV Mass 2D 118.90 g LVOT Peak PG5.29 mmHg LV Mass Index 2D 68.37 g/m2 LVOT Mean PG3.00 mmHg RWT 0.54 LVOT VTI22.80 cm EDV Mod BP 44.30 ml [ 46.00 - 106.00 ] LVOT Diam2.00 cm LV EDV Index 25.47 ml/m2 SV LVOT72.00 cm3 ESV Mod BP 17.60 ml [ 14.00 - 42.00 ] MALORIE VTI2.00 cm2 EF Mod BP 60 % [ 54 - 74 ] MALORIE Vmax2.02 cm2 LA Dimension 2D 4.00 cm [ 1.90 - 4.00 ] LVOT/AV VTI0.64 - Dimensionless index (DVI) LA Length 2C 7.16 cm AI Peak Vel4.17 m/s LA Length 4C 7.45 cm AI Peak PG70.00 mmHg LA Volume BP 88.60 ml AI Decel Slope2.99 m/s2 LA Volume Index 50.95 ml/m2 [ 16.00 - 34.00 ] AI LZD339.00 ms RVDd 2D 2.66 cm [ 2.00 - 3.00 ] MV E Peak Vel1.77 m/s TAPSE 1.65 cm [ 1.71 - 5.00 ] MV Decel Sbxn104.00 msec RA Volume 51.20 ml RV S`9.14 cm/sec RA Volume Index 29.44 ml/m2 TR Peak Vel2.27 m/s IVC Diam 1.49 cm TR Peak PG20.6 mmHg AoR Diam 2D 2.90 cm [ 2.00 - 3.70 ] RA Pressure3.00 mmHg Ao Root Index 1.67 cm/m2 [ 1.00 - 2.00 ] RVSP23.60 mmHg Asc Ao Diam 2D 2.50 cm PV Peak Vel0.96 m/s Asc Ao Index 1.44 cm/m2 PV Peak PG3.69 mmHg PI ED Toni 166.00 - ATTESTATION: I have reviewed and interpreted the pertinent images and measurements ofthis study. I attest to the conclusions in the final report that is provided above. DISCLAIMER: The study images and the final report will be retained in the patientchart by the Echo Laboratory for the legally required time period. This chart constitutesthe legal record of any testing performed. Electronically Signed By: Reji Clement MD 02/04/2025 5:58:11 PM CHILDREN'S LITERATURE PROFESSOR Libia Crawford MD CV ECHO PROCEDU RES Final Result * (ABNORMAL) eGFR (02/04/2025 7:32 AM CHILDREN'S LITERATURE PROFESSOR) eGFR 48(L) >=60 mL/min/1. 73 m2 Comment: Interpretive Data Reference Interval Normal >/= 90 mL/min/1.73m2 Mildly decreased* 60 - 89 mL/min/1.73m2 Mildly to moderately decreased 45 - 59 mL/min/1.73m2 Moderately to severely decreased 30 - 44 mL/min/1.73m2 Severely decreased 15 - 29 mL/min/1.73m2 Kidney Failure < 15 mL/min/1.73m2 *Relative to young adult level Estimated glomerular filtration rate is determined by the 2020 CKD-EPI equation recommended by the National Kidney Foundation (A Unifying Approach to GFR Estimation: Recommendations of the NKF-ASK Task Force on Reassessing the Inclusion of Race in Diagnosing Kidney Disease, JASN 202). The CKD-EPI equation should not be used for patients with unstable renal function and has not been validated in children and those over 70. Current interpretive data was last reviewed 2020. Blood 02/04/2025 7:32 AM CHILDREN'S LITERATURE PROFESSOR 02/04/2025 8:27 AM CHILDREN'S LITERATURE PROFESSOR Libia Crawford MD LAB BLOOD ORDER NEFTALI Final Result Performing Organization Address City/[facility]/ZIP Co de Phone Number MARC [address] [place] [address] * (ABNORMAL) CBC without differential (02/04/2025 7:32 AM CHILDREN'S LITERATURE PROFESSOR) [facility] WBC 10.12(H) 3.80 - 9.90 K/cumm Hgb 10.7(L) 11.9 - 15.5 g/dL [facility] Hct 33.0(L) 35.6 - 45.5 % [facility] Plt 194 150 - 400 K/cumm [facility] MPV 11.4 9.1 - 12.3 fL [facility] RBC 3.42(L) 3.90 - 5.20 M/cumm [facility] MCV 96.5(H) 81.3 - 96.4 fL [facility] MCH 31.3 27.1 - 33.3 pg [facility] MCHC 32.4 32.3 - 35.7 g/dL [facility] RDW CV 13.9 11.1 - 14.9 % [facility] RDW SD 48.9(H) 35.7 - 48.1 fL [facility] NRBC abs 0.00 0.00 - 0.01 K/cumm [facility] Blood 02/04/2025 7:32 AM CHILDREN'S LITERATURE PROFESSOR 02/04/2025 8:27 AM CHILDREN'S LITERATURE PROFESSOR Libia Crawford MD LAB BLOOD ORDER NEFTALI Final Result MARC [address] [place] [address] * Basic metabolic panel (02/04/2025 7:32 AM CHILDREN'S LITERATURE PROFESSOR) [facility] Sodium 140 135 - 145 mmol/L Potassium, pl 3.6 3.3 - 4.9 mmol/L [facility] Chloride 103 97 - 110 mmol/L [facility] CO2 24 22 - 32 mmol/L [facility] Anion gap 13 2 - 15 mmol/L [facility] BUN 12 6 - 25 mg/dL [facility] Creatinine 1.10 0.60 - 1.10 mg/dL [facility] Glucose 94 70 - 199 mg/dL [facility] Comment: Interpretive Data Fasting glucose >/= 126 mg/dl is diagnostic for diabetes. Fasting is defined as no caloric intake for at least 8 hours. Fasting glucose between 100 mg/dl to 125 mg/dl is diagnostic of prediabetes. In a patient with classic symptoms of hyperglycemia or hyperglycemic crisis, a random glucose >/= 200 mg/dl is diagnostic for diabetes. In the absence of unequivocal hyperglycemia, results should be confirmed by repeat testing. The classification and Diagnosis of Diabetes Diabetes Care 202; 46: S19-S40. Current interpretive data was last revised 2022. Calcium 8.9 8.5 - 10.3 mg/dL [facility] Blood 02/04/2025 7:32 AM CHILDREN'S LITERATURE PROFESSOR 02/04/2025 8:27 AM CHILDREN'S LITERATURE PROFESSOR Libia Crawford MD LAB BLOOD ORDER NEFTALI Final Result [facility] [address] [facility] Department [place] [address] * CT Head WO Contrast (02/04/2025 1:31 AM CHILDREN'S LITERATURE PROFESSOR) Anatomical Region Laterality Modality Head and Neck N/A Computed Tomogra phy 02/04/2025 1:38 AM CHILDREN'S LITERATURE PROFESSOR Impressions 02/04/2025 1:38 AM CHILDREN'S LITERATURE PROFESSOR 1. No acute intracranial finding. 2. Sequela of chronic microangiopathy. Electronically signed by: Luis Argueta M.D. Narrative 02/04/2025 1:38 AM CHILDREN'S LITERATURE PROFESSOR EXAMINATION: CT HEAD WO CONTRAST INDICATION: Female, 89 years old, Memory loss Mental status change, unknown cause COMPARISON(S): 07/24/2024 TECHNIQUE: CT acquisition of the head without contrast. Coronal and sagittal reformatted images provided. This exam was performed according to departmental dose-optimization program which includes automated exposure control, adjustment of the mA and/or kV according to patient size, and/or use of iterative reconstruction technique. FINDINGS: Brain: No evidence of intracranial hemorrhage, mass effect, or cerebral edema. Mild cerebral white matter hypodensity with parenchymal volume loss most likely due to chronic microvascular ischemic changes. CSF Spaces: Moderate symmetric enlargement of the ventricles and sulci. Osseous: No acute finding. Soft tissue: Unremarkable. Orbits: Prior lens surgery, otherwise unremarkable. Sinuses/Mastoids: Visualized portions are clear. Procedure Note Luis Argueta MD - 02/04/2025 EXAMINATION: CT HEAD WO CONTRAST INDICATION: Female, 89 years old, Memory loss Mental status change, unknown cause COMPARISON(S): 07/24/2024 TECHNIQUE: CT acquisition of the head without contrast. Coronal and sagittal reformatted images provided. This exam was performed according to departmental dose-optimization program which includes automated exposure control, adjustment of the mA and/or kV according to patient size, and/or use of iterative reconstruction technique. FINDINGS: Brain: No evidence of intracranial hemorrhage, mass effect, or cerebral edema. Mild cerebral white matter hypodensity with parenchymal volume loss most likely due to chronic microvascular ischemic changes. CSF Spaces: Moderate symmetric enlargement of the ventricles and sulci. Osseous: No acute finding. Soft tissue: Unremarkable. Orbits: Prior lens surgery, otherwise unremarkable. Sinuses/Mastoids: Visualized portions are clear. IMPRESSION: 1. No acute intracranial finding. 2. Sequela of chronic microangiopathy. Electronically signed by: Luis Argueta M.D. Libia Crawford MD IM CT PROCEDUR ES Final Result * Influenza A/B, RSV, and COVID-19 PCR Nasopharyngeal (02/04/2025 12:18 AM CHILDREN'S LITERATURE PROFESSOR) COVID-19 RNA Negative Negative Influenza A RNA Negative Negative M[facility] CARDENAS Influenza B RNA Negative Negative [facility] CAREDNAS RSV RNA Negative Negative [facility] CAR[facility]NA[facility] Comment: Interpretive data: Testing performed by [facility]. This test is performed using the [employer] Xpert Xpress CoV-2/Flu/RSV plus assay. This is a multiplex, real-time reverse transcriptase PCR assay intended for the qualitative detection of nucleic acid from SARS-CoV-2, influenza A, influenza B, and respiratory syncytial virus. This assay has been cleared by the [place] Food and Drug administration. The performance characteristics have been verified by the [facility]. Results must be considered in the clinical context, and a negative result does not rule out infection. Interpretive Data last revised 2023 Nasopharyngeal 02/04/2025 12 :18 AM CHILDREN'S LITERATURE PROFESSOR 02/04/2025 12:21 AM CHILDREN'S LITERATURE PROFESSOR Narrative [facility] - 02/04/2025 1:05 AM CHILDREN'S LITERATURE PROFESSOR Is the Patient experiencing symptoms consistent with COVID?->Yes us Robbi Ocasio DO LAB MICROBIOLOGY - GENERAL ORD ERABLES Final Result MARC [address] [facility] Department [place] [address] * (ABNORMAL) Urinalysis reflex to microscopic and culture Urine (02/04/2025 12:18 AM CHILDREN'S LITERATURE PROFESSOR) Color, ur Yellow Yellow Clarity, ur Clear Clear [facility] Specific gravity, ur 1.044(H) 1.003 - 1.030 [facility] pH, urine 5.5 [facility] Comment: Interpretive Data U rine pH is affected by diet, medications, systemic acid-base disturbances, and renal tubular function. pH may affect urinary stone formation. For example, urine pH below 6.0 may help reduce the tendency for calcium phosphate stones and pH greater than 6.0 may reduce the tendency for uric acid stone formation. Source: [facility] Current Interpretive Data was last revised on 2017 Protein, ur ql Negative Negative [facility] Glucose, ur ql Negative Negative [facility] Ketones, ur Negative Negative [facility] Bilirubin, ur Negative Negative [facility] Blood, ur 1+(A) Negative [facility] Urobilinogen, ur <2.0 <2.0 mg/dL [facility] Nitrite, ur Negative Negative [facility] Leukocyte esterase, ur Negative Negative [facility] UA reflex comment Reflex to microscopic UA will be performed. [facility] Urine 02/04/2025 12:1 8 AM CHILDREN'S LITERATURE PROFESSOR 02/04/2025 12:21 AM CHILDREN'S LITERATURE PROFESSOR Narrative [facility] - 02/04/2025 12:25 AM CHILDREN'S LITERATURE PROFESSOR If patient unable to urinate, straight cath Rbobi Ocasio LAB MICROBIOLOGY - GENERAL ORD ERABLES Final Result Performing Organization Address [facility] de Phone Number MARC [facility] [place] [address] * (ABNORMAL) Urinalysis, microscopic only (02/04/2025 12:18 AM CHILDREN'S LITERATURE PROFESSOR) WBC, ur 0-5 0 - 5 /HPF RBC, ur 6-10(A) 0 - 2 /HPF [facility] Epithelial cells, squamous, ur 1-5 0 - 5 /HPF [facility] Culture Reflex Comment Reflex conditions for urine culture (WBC >10) not met. [facility] Urine 02/04/2025 12:1 8 AM CHILDREN'S LITERATURE PROFESSOR 02/04/2025 12:21 AM CHILDREN'S LITERATURE PROFESSOR [facility] URINE ORDERABLES Final Res ult Performing Organization Address [facility] de Phone Number [id number] [address] * CT Abdomen Pelvis W Contrast (02/03/2025 11:05 PM CHILDREN'S LITERATURE PROFESSOR) Anatomical Region Laterality Modality Body N/A Computed Tomogra phy 02/03/2025 11:5 1 PM CHILDREN'S LITERATURE PROFESSOR Impressions 02/03/2025 11:51 PM CHILDREN'S LITERATURE PROFESSOR 1. No acute findings 2. Trace left pleural effusion. Other nonspecific findings as described above Electronically signed by: Lexa Campblel MD Narrative 02/03/2025 11:51 PM CHILDREN'S LITERATURE PROFESSOR EXAMINATION: CT ABDOMEN PELVIS W CONTRAST HISTORY: Abdominal pain, acute, nonlocalized nausea/vomiting. TECHNIQUE: CT abdomen and pelvis with contrast . Reconstructed coronal and sagittal MPR images reviewed. All images stored on PACS. Automated exposure control was used as a dose optimization technique for this examination. COMPARISON: CT abdomen and pelvis without contrast dated 09/17/2024 FINDINGS: LOWER CHEST: Trace left pleural effusion with bibasilar subsegmental atelectasis. Few scattered areas of parenchymal scarring. . Partially visualized left breast implant. LIVER: Normal in size. No identified cystic or solid masses. GALLBLADDER: BILIARY: No intrahepatic or extrahepatic ductal dilatation SPLEEN: Normal length. No focal lesions. PANCREAS: No identified cystic or solid masses. No significant calcifications. No adjacent inflammation or peripancreatic fluid collections. Pancreatic duct is not dilated. ADRENALS: No discrete nodules. KIDNEYS/URINARY TRACT: No identified significant cystic or solid masses. No stones. No hydronephrosis or hydroureter. The urinary bladder is unremarkable. GI: No dilated bowel loops. No obvious wall thickening. Normal appendix. No significant diverticular disease. PERITONEUM: No free intraperitoneal air or ascites. RETROPERITONEUM:No mass or adenopathy REPRODUCTIVE:No significant abnormality. Trace pelvic free fluid. Patient status post hysterectomy. VASCULATURE: No abdominal aortic aneurysm. Scattered calcifications along the abdominal aorta and aortoiliac vessels. MUSCULOSKELETAL: No acute findings. Degenerative changes of the thoracolumbar spine, particularly with grade 2 anterolisthesis of L4 on L5, with moderate spinal canal narrowing at this level. Additional severe degenerative changes of the right greater than left acetabular joints. OTHER: No other acute findings. Procedure Note Lexa Campbell MD - 02/03/2025 EXAMINATION: CT ABDOMEN PELVIS W CONTRAST HISTORY: Abdominal pain, acute, nonlocalized nausea/vomiting. TECHNIQUE: CT abdomen and pelvis with contrast . Reconstructed coronal and sagittal MPR images reviewed. All images stored on PACS. Automated exposure control was used as a dose optimization technique for this examination. COMPARISON: CT abdomen and pelvis without contrast dated 09/17/2024 FINDINGS: LOWER CHEST: Trace left pleural effusion with bibasilar subsegmental atelectasis. Few scattered areas of parenchymal scarring. . Partially visualized left breast implant. LIVER: Normal in size. No identified cystic or solid masses. GALLBLADDER: BILIARY: No intrahepatic or extrahepatic ductal dilatation SPLEEN: Normal length. No focal lesions. PANCREAS: No identified cystic or solid masses. No significant calcifications. No adjacent inflammation or peripancreatic fluid collections. Pancreatic duct is not dilated. ADRENALS: No discrete nodules. KIDNEYS/URINARY TRACT: No identified significant cystic or solid masses. No stones. No hydronephrosis or hydroureter. The urinary bladder is unremarkable. GI: No dilated bowel loops. No obvious wall thickening. Normal appendix. No significant diverticular disease. PERITONEUM: No free intraperitoneal air or ascites. RETROPERITONEUM:No mass or adenopathy REPRODUCTIVE:No significant abnormality. Trace pelvic free fluid. Patient status post hysterectomy. VASCULATURE: No abdominal aortic aneurysm. Scattered calcifications along the abdominal aorta and aortoiliac vessels. MUSCULOSKELETAL: No acute findings. Degenerative changes of the thoracolumbar spine, particularly with grade 2 anterolisthesis of L4 on L5, with moderate spinal canal narrowing at this level. Additional severe degenerative changes of the right greater than left acetabular joints. OTHER: No other acute findings. IMPRESSION: 1. No acute findings 2. Trace left pleural effusion. Other nonspecific findings as described above Electronically signed by: Lexa Campbell MD Robbi Ocasio DO IMG CT PROCEDURES Final Result * XR Chest 1 Vw Portable (If patient hemodynamically UNstable or UNable to ambulate) (02/03/2025 10:06 PM CHILDREN'S LITERATURE PROFESSOR) Anatomical Region Laterality Modality Body, Chest N/A Computed Radiogr aphy 02/03/2025 11:0 5 PM CHILDREN'S LITERATURE PROFESSOR Impressions 02/03/2025 11:05 PM CHILDREN'S LITERATURE PROFESSOR Mild basilar airspace disease likely representing scarring/atelectasis, although increased from 07/23/2024. Pulmonary edema or atypical infection are possible. Electronically signed by: Luis Argueta M.D. Narrative 02/03/2025 11:05 PM CHILDREN'S LITERATURE PROFESSOR EXAMINATION: XR CHEST 1 VIEW INDICATION: Female, 89 years old, weakness TECHNIQUE: 1 view COMPARISON(S): Most recent chest radiograph 07/23/2024 FINDINGS: SUPPORT DEVICES: Overlying leads. LUNGS/PLEURA: Hazy airspace opacities in the lung bases. No evident pleural effusion or pneumothorax. HEART/MEDIASTINUM: Size within normal limits for technique. Aortic atherosclerosis. OTHER: No acute osseous findings. Calcified breast implants. Procedure Note Luis Argueta MD - 02/03/2025 EXAMINATION: XR CHEST 1 VIEW INDICATION: Female, 89 years old, weakness TECHNIQUE: 1 view COMPARISON(S): Most recent chest radiograph 07/23/2024 FINDINGS: SUPPORT DEVICES: Overlying leads. LUNGS/PLEURA: Hazy airspace opacities in the lung bases. No evident pleural effusion or pneumothorax. HEART/MEDIASTINUM: Size within normal limits for technique. Aortic atherosclerosis. OTHER: No acute osseous findings. Calcified breast implants. IMPRESSION: Mild basilar airspace disease likely representing scarring/atelectasis, although increased from 07/23/2024. Pulmonary edema or atypical infection are possible. Electronically signed by: Luis Argueta M.D. Robbi Ocasio DO IMG XR PROCEDURES Final Result * Sepsis Lactate w/ Reflex (02/03/2025 9:59 PM CHILDREN'S LITERATURE PROFESSOR) Sepsis Lactate 1.0 0.7 - 2.0 mmol/L Blood 02/03/2025 9:59 PM CHILDREN'S LITERATURE PROFESSOR 02/03/2025 10:02 PM CHILDREN'S LITERATURE PROFESSOR us Robbi Ocasio DO LAB BLOOD ORDERABLES Final Res ult M[facility] [address] [facility] Department of Laboratories [place], [place] [id number] * (ABNORMAL) eGFR (02/03/2025 9:59 PM CHILDREN'S LITERATURE PROFESSOR) eGFR 50(L) >=60 mL/min/1. 73 m2 Comment: Interpretive Data Reference Interval Normal >/= 90 mL/min/1.73m2 Mildly decreased* 60 - 89 mL/min/1.73m2 Mildly to moderately decreased 45 - 59 mL/min/1.73m2 Moderately to severely decreased 30 - 44 mL/min/1.73m2 Severely decreased 15 - 29 mL/min/1.73m2 Kidney Failure < 15 mL/min/1.73m2 *Relative to young adult level Estimated glomerular filtration rate is determined by the 2020 CKD-EPI equation recommended by the National Kidney Foundation (A Unifying Approach to GFR Estimation: Recommendations of the NKF-ASK Task Force on Reassessing the Inclusion of Race in Diagnosing Kidney Disease, JASN 2020). The CKD-EPI equation should not be used for patients with unstable renal function and has not been validated in children and those over 70. Current interpretive data was last reviewed 2020. Blood 02/03/2025 9:59 PM CHILDREN'S LITERATURE PROFESSOR 02/03/2025 10:02 PM CHILDREN'S LITERATURE PROFESSOR us Robbi Ocasio DO LAB BLOOD ORDERABLES Final Res ult [facility] [address] [facility] Department [place] [address] * (ABNORMAL) Differential, auto (02/03/2025 9:59 PM CHILDREN'S LITERATURE PROFESSOR) Neutrophil abs 7.39(H) 1.50 - 6.50 K/cumm Imm gran abs 0.04 0.00 - 0.10 K/cumm [facility] Lymphocyte abs 1.19 0.80 - 3.30 K/cumm [facility] Monocyte abs 0.78 0.20 - 0.80 K/cumm [facility] Eosinophil abs 0.26 0.00 - 0.50 K/cumm [facility] Basophil abs 0.02 0.00 - 0.10 K/cumm [facility] Neutrophil pct 76.3 % [facility] Comment: Interpretive Data Percent cell count reference ranges are not reported, since discordance with absolute values may lead to misinterpretation of CBC data. Current Interpretive Data was last revised on 2017. Imm gran pct 0.4 % [facility] Comment: Interpretive Data Percent cell count reference ranges are not reported, since discordance with absolute values may lead to misinterpretation of CBC data. Current Interpretive Data was last revised on 2017. Lymphocyte pct 12.3 % [facility] Comment: Interpretive Data Percent cell count reference ranges are not reported, since discordance with absolute values may lead to misinterpretation of CBC data. Current Interpretive Data was last revised on 2017. Monocyte pct 8.1 % [facility] Comment: Interpretive Data Percent cell count reference ranges are not reported, since discordance with absolute values may lead to misinterpretation of CBC data. Current Interpretive Data was last revised on 2017. Eosinophil pct 2.7 % [facility] Comment: Interpretive Data Percent cell count reference ranges are not reported, since discordance with absolute values may lead to misinterpretation of CBC data. Current Interpretive Data was last revised on 2017. Basophil pct 0.2 % [facility] Comment: Interpretive Data Percent cell count reference ranges are not reported, since discordance with absolute values may lead to misinterpretation of CBC data. Current Interpretive Data was last revised on 2017. Blood 02/03/2025 9:59 PM CHILDREN'S LITERATURE PROFESSOR 02/03/2025 10:02 PM CHILDREN'S LITERATURE PROFESSOR us Robbi Ocasio DO LAB BLOOD ORDERABLES Final Res ult [facility] [address] [facility] Department [place] [address] * (ABNORMAL) Pro B-type natriuretic peptide (02/03/2025 9:59 PM CHILDREN'S LITERATURE PROFESSOR) NT-proBNP 1,868(H) <=450 pg/mL Comment: Interpretive Comments: A. Dyspnea in Acute Care Setting All Ages: < 300 pg/ml, acute heart failure unlikely. < 50 yrs: 300 - 450 pg/ml, further investigation warranted. > 450 pg/ml, acute heart failure likely. 50 - 74 yrs: 300 - 900 pg/ml, further investigation warranted. > 900 pg/ml, acute heart failure likely . > or = 75 yrs: 450 - 1800 pg/ml, further investigation warranted. > 1800 pg/ml, acute heart failure likely. B. Non-acute Setting < 75 yrs < 125 pg/ml, rules out heart failure. > or = 125 pg/ml, further investigation warranted. > or = 75 yrs < 450 pg/ml, rules out heart failure. > or = 450 pg/ml, further investigation warranted. - Knowledge of each individual patient's NT-proBNP range may be more useful than using similar cut-points for every patient. Please note that marked elevations in NT-proBNP levels may be observed in state other than Left Ventricular Congestive Failure, including: acute coronary syndromes, right heart strain/failure (including pulmonary embolism and cor pulmonale), critical illness, renal failure, as well as advanced age. - References: 1. Neelima RIZVI et.al. Eur Heart J. 2006:27:330-337. 2. Ike RW, Aristides AM. J. AM Amanda Cardiol: Cardiovasc Imag. 2009;2: 216- 225. Interpretive Data Last Revised Date: 2017. Blood 02/03/2025 9:59 PM CHILDREN'S LITERATURE PROFESSOR 02/03/2025 10:02 PM CHILDREN'S LITERATURE PROFESSOR Robbi Ocasio DO LAB BLOOD ORDERABLES Final Res ult Performing Organization Address City/[facility]/ZIP Co de Phone Number MARC [address] [place] [address] * (ABNORMAL) CBC with auto differential (02/03/2025 9:59 PM CHILDREN'S LITERATURE PROFESSOR) Pathologist [facility] WBC 9.68 3.80 - 9.90 K/cumm Hgb 10.5(L) 11.9 - 15.5 g/dL [facility] Hct 32.6(L) 35.6 - 45.5 % [facility] Plt 193 150 - 400 K/cumm [facility] MPV 10.8 9.1 - 12.3 fL [facility] RBC 3.42(L) 3.90 - 5.20 M/cumm [facility] MCV 95.3 81.3 - 96.4 fL [facility] MCH 30.7 27.1 - 33.3 pg [facility] MCHC 32.2(L) 32.3 - 35.7 g/dL [facility] RDW CV 14.0 11.1 - 14.9 % [facility] RDW SD 48.7(H) 35.7 - 48.1 fL [facility] NRBC abs 0.00 0.00 - 0.01 K/cumm [facility] Blood 02/03/2025 9:59 PM CHILDREN'S LITERATURE PROFESSOR 02/03/2025 10:02 PM CHILDREN'S LITERATURE PROFESSOR Robbi Ocasio DO LAB BLOOD ORDERABLES Final Res ult Performing Organization Address City/[facility]/ZIP Co de Phone Number MARC [address] [place] [address] * (ABNORMAL) Comprehensive metabolic panel (02/03/2025 9:59 PM CHILDREN'S LITERATURE PROFESSOR) Pathologist [facility] Sodium 140 135 - 145 mmol/L Potassium, pl 3.8 3.3 - 4.9 mmol/L [facility] Chloride 108 97 - 110 mmol/L [facility] CO2 22 22 - 32 mmol/L [facility] Anion gap 10 2 - 15 mmol/L [facility] BUN 14 6 - 25 mg/dL [facility] Creatinine 1.06 0.60 - 1.10 mg/dL [facility] Glucose 116 70 - 199 mg/dL [facility] Comment: Interpretive Data Fasting glucose >/= 126 mg/dl is diagnostic for diabetes. Fasting is defined as no caloric intake for at least 8 hours. Fasting glucose between 100 mg/dl to 125 mg/dl is diagnostic of prediabetes. In a patient with classic symptoms of hyperglycemia or hyperglycemic crisis, a random glucose >/= 200 mg/dl is diagnostic for diabetes. In the absence of unequivocal hyperglycemia, results should be confirmed by repeat testing. The classification and Diagnosis of Diabetes Diabetes Care 202; 46: S19-S40. Current interpretive data was last revised 2022. Calcium 8.7 8.5 - 10.3 mg/dL [facility] Bilirubin, total 0.8 0.1 - 1.2 mg/dL [facility] Protein, pl 6.5 6.5 - 8.5 g/dL [facility] Albumin 3.8 3.5 - 5.0 g/dL [facility] Alk phos 84 40 - 130 Units/L [facility] ALT 5(L) 7 - 45 Units/L [facility] AST 17 10 - 45 Units/L [facility] Blood 02/03/2025 9:59 PM CHILDREN'S LITERATURE PROFESSOR 02/03/2025 10:02 PM CHILDREN'S LITERATURE PROFESSOR us Robbi Ocasio DO LAB BLOOD ORDERABLES Final Res ult [facility] [address] [facility] Department [place] [address] * POC Influenza A/B, COVID-19 antigen (11/27/2024 3:32 PM CDT) Influenza A Ag, POC Negative Negative Influenza B Ag, POC Negative Negative COVID-19 Ag POC Presumptive Negative Presumptive Negative, Invalid Nasal 11/27/2024 3:32 PM CDT us Lili Simpson CUSTOMS COMPLIANCE SPECIALIST POINT OF CARE TEST ORDERABLE S Final Result * POCT respiratory syncytial virus (11/27/2024 3:32 PM CDT) RSV Rapid Ag Negative Negative, Invalid Nasal 11/27/2024 3:32 PM CDT us Lili Simpson CUSTOMS COMPLIANCE SPECIALIST POINT OF CARE TEST ORDERABLE S Final Result * Dexa Axial Skeleton Bone Density 1 or 2 Site (06/18/2021 12:37 PM CDT) Anatomical Region Laterality Modality Body N/A Mammography 06/18/2021 1:04 PM CDT Narrative 06/18/2021 1:14 PM CDT EXAM DESCRIPTION: DEXA AXIAL SKELETON BONE DENSITY 1 OR MORE SITES REASON FOR STUDY: Post-menopausal female, screening for osteoporosis. 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 Low bone mass by WHO criteria. 2. The WHO fracture risk assessment tool (FRAX) indicates that the 10 year risk for a major osteoporotic fracture is 15% and the 10 year risk for a hip fracture is 4.4%. The FRAX tool has not been validated in patients currently or previously treated with pharmacotherapy for osteoporosis. In such patients, clinical judgement must be exercised in interpreting FRAX scores as the fracture risk may be overestimated. REFERENCE: Bone mineral density: Normal (T-score above or = -1.0) Low bone mass (T-score between -1.0 and -2.5) replaces the previously used term osteopenia Osteoporosis (T-score = or below -2.5) Medical evaluation for secondary causes of low bone mineral density may be appropriate. FRAX is a World Health Organization validated fracture risk assessment tool that calculates a person's 10 year probability of a major osteoporosis related fracture and hip fracture. According to the National Osteoporosis Foundation guidelines, postmenopausal women and men age 50 or older with low bone mass and a 10 year probability of a major osteoporosis related fracture = or greater than 20% or a 10 year probability of a hip fracture = or greater than 3% should be considered for treatment. For further information, including treatment recommendations, please refer to the 2013 ISCD Official Positions (http://www.iscd.org) and the NOF's Clinician's Guide to Prevention and Treatment of Osteoporosis (http://www.nof.org/professionals/clinical-guidelines) THIS IS AN ELECTRONICALLY VERIFIED FINAL REPORT 06/18/2021 1:14 PM - Electronically signed by Rebel Seals M.D. AB: Report ID: [id number] Reading Location: [place] [address] Procedure Note Rebel Seals MD - 06/18/2021 EXAM DESCRIPTION: DEXA AXIAL SKELETON BONE DENSITY 1 OR MORE SITES REASON FOR STUDY: Post-menopausal female, screening for osteoporosis. 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 Low bone mass by WHO criteria. 2. The WHO fracture risk assessment tool (FRAX) indicates that the 10 year risk for a major osteoporotic fracture is 15% and the 10 year risk for ahip fracture is 4.4%. The FRAX tool has not been validated in patients currently or previously treated with pharmacotherapy for osteoporosis. In such patients, clinical judgement must be exercised in interpreting FRAX scores as the fracturerisk may be overestimated. REFERENCE: Bone mineral density: Normal (T-score above or = -1.0) Low bone mass (T-score between -1.0 and -2.5) replaces thepreviously used term osteopenia Osteoporosis (T-score = or below -2.5) Medical evaluation for secondary causes of low bone mineral density may be appropriate. FRAX is a World Health Organization validated fracture risk assessmenttool that calculates a person's 10 year probability of a major osteoporosisrelated fracture and hip fracture. According to the National OsteoporosisFoundation guidelines, postmenopausal women and men age 50 or older with low bonemass and a 10 year probability of a major osteoporosis related fracture = or greater than 20% or a 10 year probability of a hip fracture = or greaterthan 3% should be considered for treatment. For further information, including treatment recommendations, please referto the 2013 ISCD Official Positions (http://www.iscd.org) and the NOF's Clinician's Guide to Prevention and Treatment of Osteoporosis (http://www.nof.org/professionals/clinical-guidelines) THIS IS AN ELECTRONICALLY VERIFIED FINAL REPORT 06/18/2021 1:14 PM - Electronically signed by Rebel Seals M.D. AB: Report ID: [id number] Reading Location: [place] [address] us Allison Crain MD IM DXA PROCEDURES Final Res ult from Last 3 Months or Most Recently Relevant to Health Maintenance Additional Health Concerns Infection Onset Date Last Indicated MDR gram neg/ESBL Comment:Contact Precautions (gown and gloves) Must be off effective antibiotics for at least 48 hours, 1 negative culture from original site (if accessible) AND 1 negative culture from any open wounds AND 1 culture from any body site with an indwelling device prior to flag removal. - Nicolas DALEY RN 02/11/25 08/10/2024 08/10/2024 Insurance MEDICARE [facility] MEDICARE [facility] Advance Directives For more information, please contact: [phone] * LIMITED - No CPR (Latest Code Status on File) Date Activated Date Inactivated Comments 02/04/2025 1:57 AM 02/08/2025 9:37 PM Question Answer Comments Provide aggressive medical m anagement before a full cardiopulmonary arrest occurs. Use antibiotics, IV Fluids, and medical treatment unless specifically selected below: No intubationNo non-invasive ventilationNo internal / external pacemakerNo vasopressors * LIMITED - No CPR Date Activated Date Inactivated Comments 07/23/2024 10:13 PM 07/26/2024 6:33 PM Question Answer Comments Provide aggressive medical m anagement before a full cardiopulmonary arrest occurs. Use antibiotics, IV Fluids, and medical treatment unless specifically selected below: No intubationNo non-invasive ventilationNo cardioversionNo internal / external pacemakerNo vasopressors * Full Code Date Activated Date Inactivated Comments 07/12/2024 2:40 PM 07/13/2024 2:28 PM * LIMITED - No CPR Date Activated Date Inactivated Comments 07/12/2024 12:12 AM 07/12/2024 2:40 PM * LIMITED - No CPR Date Activated Date Inactivated Comments 06/01/2024 5:09 PM 06/02/2024 9:34 PM Question Answer Comments Provide aggressive medical m anagement before a full cardiopulmonary arrest occurs. Use antibiotics, IV Fluids, and medical treatment unless specifically selected below: No intubation Care Teams Learning Consultant Relationship Specialty Start Date End Date Allison Crain MD [address] [place] [address] PCP - General Internal Medicine 07/21/18 [place] [address] [place] [address] [place] [address] Scales Inspector Cardiovascular Disease 11/20/18 Grant Romo MD [address] [facility] [address] [facility] [address] [address] Surgeon Vascular Surgery 11/20/18 James Lala MD [address] [facility] [address] [place] [facility] [address] [address] Referring Physician Orthopedic Surgery 11/28/20
--- OUTSIDE RECORDS SUMMARY | 2025-02-18 14:58 | XMS_ITS | Encounter Summary ---
Author Organization [facility] Facility Care Team Providers Care Environmental Tech Name Role Phone Allison Crain MD Primary Care Provider + [phone] Sultan Arabella Tyson MD Unavailable [phone] Grant Romo MD Unavailable [phone] Rosalind Domingo LPN Unavailable [phone] James Lala MD Unavailable Jennifer Lewis MA Unavailable Rosalind Domingo LPN Unavailable [phone] Izabel Alvarez MA Unavailable Eyad Jimenez RN Unavailable [phone] Encounter Details Date Type Department Care Team (Latest Contact Info) Description 06/17/2014 Orders Only [facility] CLINCONV ProviderRonaldo MD [address] [place] [address] Social History Tobacco Use Types Packs/Day Years Used Date Smoking Tobacco: Never Assessed Comments Unknown Sex and Gender Information Value Date Recorded Sex Assigned at Not on file Legal Sex Female 6:46 AM DIE ENGRAVER Gender Identity Not on file Sexual Orientation Not on file documented as of this encounter Plan of Treatment Not on file documented as of this encounter Procedures Procedure Name Priority Date/Time Associated Diagnosis Comments CARDIOLOGY REPORT 06/17/2014 12: 00 AM CDT documented in this encounter Results * CARDIOLOGY REPORT (06/17/2014 12:00 AM CDT) Anatomical Region Laterality Modality Other Narrative 06/17/2014 12:00 AM CDT Ordered by an unspecified provider. us Historical Provider [facility] Final Result documented in this encounter Visit Diagnoses Not on filedocumented in this encounter Additional Health Concerns Infection Onset Date Last Indicated Resolved Time COVID: Suspected 04/12/2022 04/12/2022 04/12/2022 12:14 PM DIE ENGRAVER COVID: Suspected 08/11/2022 08/11/2022 08/11/2022 3:55 PM CDT COVID: Suspected 01/10/2024 01/10/2024 01/10/2024 11:43 AM DIE ENGRAVER COVID: Suspected 07/23/2024 07/23/2024 07/23/2024 7:32 PM [...] COVID: Suspected 02/04/2025 02/04/2025 02/04/2025 1:06 AM DIE ENGRAVER documented as of this encounter Care Teams Environmental Tech Relationship Specialty Start Date End Date Allison Crain MD [address] [place] [address] PCP - General Internal Medicine 07/21/18 Sultan Arbaella Tyson MD [address] [address] Lineman A Class Cardiovascular Disease 11/20/18 Grant Romo MD [address] [facility] [address] [place] [address] Surgeon Vascular Surgery 11/20/18 Rosalind Domingo LPN [address] [facility] [address] [place] [address] [place] [address] Guest Services Associate 07/30/20 07/30/20 James Lala MD [address] [facility] [address] [place] [address] [place] [address] Referring Physician Orthopedic Surgery 11/28/20 Jennifer Lewis MA [address] [place] [address] [address] [place] [address] ACO Care Graphic Pre Press Trades Worker 07/16/24 07/24/24 Rosalind Domingo LPN [address] [place] [address] [address] [place] [address] Guest Services Associate 08/07/24 08/27/24 Izabel Alvarez MA [address] [place] [address] [address] [place] [address] ACO Care Graphic Pre Press Trades Worker 09/17/24 09/17/24 Eyad Jimenez, MAYNOR [address] [place] [address] [address] [place] [address] Guest Services Associate 10/18/24 12/23/24 documented as of this encounter
--- OUTSIDE RECORDS SUMMARY | 2025-02-18 14:58 | XMS_ITS | Encounter Summary ---
Author Organization [facility] Facility Care Team Providers Care Senior Benefits Specialist Name Role Phone Allison Crain MD Primary Care Provider + [phone] Sultan Arabella Tyson MD Unavailable [phone] Grant Romo MD Unavailable [phone] Rosalind Domingo LPN Unavailable [phone] James Lala MD Unavailable Jennifer Lewis MA Unavailable Rosalind Domingo LPN Unavailable [phone] Izabel Alvarez MA Unavailable Eyad Jimenez RN Unavailable [phone] Encounter Details Date Type Department Care Team (Latest Contact Info) Description 06/16/2014 Orders Only [facility] CLINCONV ProviderRonaldo MD [address] [place] [address] Social History Tobacco Use Types Packs/Day Years Used Date Smoking Tobacco: Never Assessed Comments Unknown Sex and Gender Information Value Date Recorded Sex Assigned at Not on file Legal Sex Female 6:46 AM GLOBE MOUNTER Gender Identity Not on file Sexual Orientation Not on file documented as of this encounter Plan of Treatment Not on file documented as of this encounter Procedures Procedure Name Priority Date/Time Associated Diagnosis Comments CARDIOLOGY REPORT 06/16/2014 12: 00 AM CDT documented in this encounter Results * CARDIOLOGY REPORT (06/16/2014 12:00 AM CDT) Anatomical Region Laterality Modality Other Narrative 06/16/2014 12:00 AM CDT Ordered by an unspecified provider. us Historical Provider [facility] Final Result documented in this encounter Visit Diagnoses Not on filedocumented in this encounter Additional Health Concerns Infection Onset Date Last Indicated Resolved Time COVID: Suspected 04/12/2022 04/12/2022 04/12/2022 12:14 PM GLOBE MOUNTER COVID: Suspected 08/11/2022 08/11/2022 08/11/2022 3:55 PM CDT COVID: Suspected 01/10/2024 01/10/2024 01/10/2024 11:43 AM GLOBE MOUNTER COVID: Suspected 07/23/2024 07/23/2024 07/23/2024 7:32 PM [...] COVID: Suspected 02/04/2025 02/04/2025 02/04/2025 1:06 AM GLOBE MOUNTER documented as of this encounter Care Teams Senior Benefits Specialist Relationship Specialty Start Date End Date Allison Crain MD [address] [place] [address] PCP - General Internal Medicine 07/21/18 Sultan Arabella Tyson MD [address] [address] Assistant Manager Pt Cardiovascular Disease 11/20/18 Grant Romo MD [address] [facility] [address] [facility] [place] [address] Surgeon Vascular Surgery 11/20/18 Rosalind Domingo LPN [address] [facility] [address] [place] [address] [place] [address] Undercar Specialist 07/30/20 07/30/20 James Lala MD [address] [facility] [address] [place] [address] [place] [address] Referring Physician Orthopedic Surgery 11/28/20 Jennifer Lewis MA [address] [place] [address] [address] [place] [address] ACO Care Client Onboarding Analyst 07/16/24 07/24/24 Rosalind Domingo LPN [address] [place] [address] [address] [place] [address] Undercar Specialist 08/07/24 08/27/24 Izabel Alvarez MA [address] [place] [address] [address] [place] [address] ACO Care Client Onboarding Analyst 09/17/24 09/17/24 Eyad Jimenez, MAYNOR [address] [place] [address] [address] [place] [address] Undercar Specialist 10/18/24 12/23/24 documented as of this encounter
--- OUTSIDE RECORDS SUMMARY | 2025-02-18 15:32 | XMS_ITS | Encounter Summary ---
Author Organization [facility] Facility Care Team Providers Care Supervisor Print Line Name Role Phone Allison Crain MD Primary Care Provider [phone] Sultan Arabella Tyson MD Unavailable [phone] Grant Romo MD Unavailable [phone] Rosalind Domingo LPN Unavailable [phone] James Lala MD Unavailable Jennifer Lewis MA Unavailable Rosalind Domingo LPN Unavailable [phone] Izabel Alvarez MA Unavailable Eyad Jimenez RN Unavailable [phone] Encounter Details Date Type Department Care Team (Latest Contact Info) Description 03/15/2018 Orders Only [facility] CLINCONV Provider, MD Ronaldo [address] [place] [address] Social History Tobacco Use Types Packs/Day Years Used Date Smoking Tobacco: Never Assessed Comments Unknown Sex and Gender Information Value Date Recorded Sex Assigned at Not on file Legal Sex Female 6:46 AM SHIP PURSER Gender Identity Not on file Sexual Orientation Not on file documented as of this encounter Plan of Treatment Not on file documented as of this encounter Procedures Procedure Name Priority Date/Time Associated Diagnosis Comments SCAN - LABS 03/16/2018 12:00 AM SHIP PURSER documented in this encounter Results * SCAN - LABS (03/16/2018 12:00 AM SHIP PURSER) Narrative 03/16/2018 12:00 AM SHIP PURSER Ordered by an unspecified provider. us Historical Provider Final Res ult documented in this encounter Visit Diagnoses Not on filedocumented in this encounter Additional Health Concerns Infection Onset Date Last Indicated Resolved Time COVID: Suspected 04/12/2022 04/12/2022 04/12/2022 12:14 PM SHIP PURSER COVID: Suspected 08/11/2022 08/11/2022 08/11/2022 3:55 PM CDT COVID: Suspected 01/10/2024 01/10/2024 01/10/2024 11:43 AM SHIP PURSER COVID: Suspected 07/23/2024 07/23/2024 07/23/2024 7:32 PM [...] COVID: Suspected 02/04/2025 02/04/2025 02/04/2025 1:06 AM SHIP PURSER documented as of this encounter Care Teams Supervisor Print Line Relationship Specialty Start Date End Date Allison Crain MD [address] [place] [address] PCP - General Internal Medicine 07/21/18 Sultan Arabella Tyson MD [address] [address] Risk Reduction Counselor Cardiovascular Disease 11/20/18 Grant Romo MD [address] [facility] [address] [place] [address] [place] [address] Surgeon Vascular Surgery 11/20/18 Rosalind Domingo LPN [address] [facility] [address] [place] [address] Physical Geographer 07/30/20 07/30/20 James Lala MD [address] [facility] [address] [place] [address] [place] [address] Referring Physician Orthopedic Surgery 11/28/20 Jennifer Lewis MA [address] [place] [address] [address] [place] [address] ACO Care Commercial Estimator 07/16/24 07/24/24 Rosalind Domingo LPN [address] [facility] [address] [place] [address] Physical Geographer 08/07/24 08/27/24 Izabel Alvarez MA [address] [place] [address] [address] [place] [address] ACO Care Commercial Estimator 09/17/24 09/17/24 Eyad Jimenez, MAYNOR [address] [place] [address] [address] [place] [address] Physical Geographer 10/18/24 12/23/24 documented as of this encounter
--- OUTSIDE RECORDS SUMMARY | 2025-02-18 15:32 | XMS_ITS | Encounter Summary ---
Author Organization [facility] Facility Care Team Providers Care Security Trainer Name Role Phone Allison Crain MD Primary Care Provider [phone] Sultan Arabella Tyson MD Unavailable [phone] Grant Romo MD Unavailable [phone] Rosalind Domingo LPN Unavailable [phone] James Lala MD Unavailable Jennifer Lewis MA Unavailable Rosalind Domingo LPN Unavailable [phone] Izabel Alvarez MA Unavailable Eyad Jimenez RN Unavailable [phone] Encounter Details Date Type Department Care Team (Latest Contact Info) Description 10/20/2017 Orders Only [facility] CLINCONV ProviderRonaldo MD [address] [place] [address] Social History Tobacco Use Types Packs/Day Years Used Date Smoking Tobacco: Never Assessed Comments Unknown Sex and Gender Information Value Date Recorded Sex Assigned at Not on file Legal Sex Female 6:46 AM SANDBLAST OR SHOTBLAST EQUIPMENT TENDER Gender Identity Not on file Sexual Orientation [...] COVID: Suspected 04/12/2022 04/12/2022 04/12/2022 12:14 PM SANDBLAST OR SHOTBLAST EQUIPMENT TENDER COVID: Suspected 08/11/2022 08/11/2022 08/11/2022 3:55 PM CDT COVID: Suspected 01/10/2024 01/10/2024 01/10/2024 11:43 AM SANDBLAST OR SHOTBLAST EQUIPMENT TENDER COVID: Suspected 07/23/2024 07/23/2024 07/23/2024 7:32 PM [...] COVID: Suspected 02/04/2025 02/04/2025 02/04/2025 1:06 AM SANDBLAST OR SHOTBLAST EQUIPMENT TENDER documented as of this encounter Care Teams Security Trainer Relationship Specialty Start Date End Date Allison Crain MD [address] [place] [address] PCP - General Internal Medicine 07/21/18 Sultan Arabella Tyson MD [address] [address] Services Clerk Cardiovascular Disease 11/20/18 Grant Romo MD [address] [facility] [address] [place] [address] [place] [address] Surgeon Vascular Surgery 11/20/18 Rosalind Domingo LPN [address] [facility] [address] [place] [address] [place] [address] Veterinary Pathologist 07/30/20 07/30/20 James Lala MD [address] [facility] [address] [place] [address] [place] [address] Referring Physician Orthopedic Surgery 11/28/20 Jennifer Lewis MA [address] [place] [address] [address] [place] [address] ACO Care Security Chief Museum 07/16/24 07/24/24 Rosalind Domingo LPN [address] [place] [address] [address] [place] [address] Veterinary Pathologist 08/07/24 08/27/24 Izabel Alvarez MA [address] [place] [address] [address] [place] [address] ACO Care Security Chief Museum 09/17/24 09/17/24 Eyad Jimenez, MAYNOR [address] [place] [address] [address] [place] [address] Veterinary Pathologist 10/18/24 12/23/24 documented as of this encounter
--- OUTSIDE RECORDS SUMMARY | 2025-02-18 15:32 | XMS_ITS | Encounter Summary ---
Author Organization [facility] Facility Care Team Providers Care Material Mixer Name Role Phone Allison Crain MD Primary Care Provider [phone] Sultan Arabella Tyson MD Unavailable [phone] Grant Romo MD Unavailable [phone] Rosalind Domingo LPN Unavailable [phone] James Lala MD Unavailable Jennifer Lewis MA Unavailable Rosalind Domingo LPN Unavailable [phone] Izabel Alvarez MA Unavailable Eyad Jimenez RN Unavailable [phone] Encounter Details Date Type Department Care Team (Latest Contact Info) Description 05/14/2015 Orders Only [facility] CLINCONV Provider, MD Ronaldo [address] [place] [address] Social History Tobacco Use Types Packs/Day Years Used Date Smoking Tobacco: Never Assessed Comments Unknown Sex and Gender Information Value Date Recorded Sex Assigned at Not on file Legal Sex Female 6:46 AM CUSTODIAL SERVICES MANAGER Gender Identity Not on file Sexual [...] COVID: Suspected 04/12/2022 04/12/2022 04/12/2022 12:14 PM CUSTODIAL SERVICES MANAGER COVID: Suspected 08/11/2022 08/11/2022 08/11/2022 3:55 PM CDT COVID: Suspected 01/10/2024 01/10/2024 01/10/2024 11:43 AM CUSTODIAL SERVICES MANAGER COVID: Suspected 07/23/2024 07/23/2024 07/23/2024 7:32 [...] COVID: Suspected 02/04/2025 02/04/2025 02/04/2025 1:06 AM CUSTODIAL SERVICES MANAGER documented as of this encounter Care Teams Material Mixer Relationship Specialty Start Date End Date Allison Crain MD [address] [place] [phone] PCP - General Internal Medicine 07/21/18 Sultan Arabella Tyson MD [address] [facility] [address] ARTHUR [address] [address] Puncher And Fastener Cardiovascular Disease 11/20/18 Grant Romo MD [address] [facility] [address] ARTHUR [facility] [address] [address] Surgeon Vascular Surgery 11/20/18 Rosalind Domingo LPN [address] [facility] [address] ARTHUR [facility] [address] [address] Ward Aide 07/30/20 07/30/20 James Lala MD [address] [facility] [address] ARTHUR [facility] [address] [address] Referring Physician Orthopedic Surgery 11/28/20 Jennifer Lewis MA [address] [facility] [address] [place] [address] ACO Care Salad Maker 07/16/24 07/24/24 Rosalind Domingo LPN [address] [facility] [address] Arthur [address] [place] [address] Ward Aide 08/07/24 08/27/24 Izabel Alvarez MA [address] [facility] [address] AR[address] [place] [address] ACO Care Salad Maker 09/17/24 09/17/24 Eyad Jimenez, MAYNOR [address] [facility] [address] [place] [address] Ward Aide 10/18/24 12/23/24 documented as of this encounter
--- OUTSIDE RECORDS SUMMARY | 2025-02-18 15:32 | XMS_ITS | Encounter Summary ---
Author Organization [facility] Facility Care Team Providers Care Information Systems Planner Name Role Phone Allison Crain MD Primary Care Provider [phone] Sultan Arabella Tyson MD Unavailable [phone] Grant Romo MD Unavailable [phone] Rosalind Domingo LPN Unavailable [phone] James Lala MD Unavailable Jennifer Lewis MA Unavailable Rosalind Doimngo LPN Unavailable [phone] Izabel Alvarez MA Unavailable Eyad Jimenez RN Unavailable [phone] Encounter Details Date Type Department Care Team (Latest Contact Info) Description 11/24/2015 Orders Only [facility] CLINCONV ProviderRonaldo MD [address] [place] [address] Social History Tobacco Use Types Packs/Day Years Used Date Smoking Tobacco: Never Assessed Comments Unknown Sex and Gender Information Value Date Recorded Sex Assigned at Not on file Legal Sex Female 6:46 AM PAIL BAILER Gender Identity Not on file Sexual Orientation [...] COVID: Suspected 04/12/2022 04/12/2022 04/12/2022 12:14 PM PAIL BAILER COVID: Suspected 08/11/2022 08/11/2022 08/11/2022 3:55 PM CDT COVID: Suspected 01/10/2024 01/10/2024 01/10/2024 11:43 AM PAIL BAILER COVID: Suspected 07/23/2024 07/23/2024 07/23/2024 7:32 PM [...] COVID: Suspected 02/04/2025 02/04/2025 02/04/2025 1:06 AM PAIL BAILER documented as of this encounter Care Teams Information Systems Planner Relationship Specialty Start Date End Date Allison Crain MD [address] [place] [address] PCP - General Internal Medicine 07/21/18 Sultan Arabella Tyson MD [address] [address] Print Finisher Cardiovascular Disease 11/20/18 Grant Romo MD [address] [facility] [address] [place] [address] [place] [address] Surgeon Vascular Surgery 11/20/18 Rosalind Domingo LPN [address] [facility] [address] [place] [address] [place] [address] Manager Food Beverage 07/30/20 07/30/20 James Lala MD [address] [facility] [address] [place] [address] [place] [address] Referring Physician Orthopedic Surgery 11/28/20 Jennifer Lewis MA [address] [place] [address] [address] [place] [address] ACO Care Global Chief Experience Officer 07/16/24 07/24/24 Rosalind Domingo LPN [address] [place] [address] Dr [address] [place] [address] Manager Food Beverage 08/07/24 08/27/24 Izabel Alvarez MA [address] [place] [address] [address] [place] [address] ACO Care Global Chief Experience Officer 09/17/24 09/17/24 Eyad Jimenez, MAYNOR [address] [place] [address] [address] [place] [address] Manager Food Beverage 10/18/24 12/23/24 documented as of this encounter
--- OUTSIDE RECORDS SUMMARY | 2025-02-18 15:32 | XMS_ITS | Encounter Summary ---
Author Organization [facility] Facility Care Team Providers Care Dining Server Name Role Phone Allison Crain MD Primary Care Provider [phone] Sultan Arabella Tyson MD Unavailable [phone] Grant Romo MD Unavailable [phone] Rosalind Domingo LPN Unavailable [phone] James Lala MD Unavailable Jennifer Lewis MA Unavailable Rosalind Domingo LPN Unavailable [phone] Izabel Alvarez MA Unavailable Eyad Jimenez RN Unavailable [phone] Encounter Details Date Type Department Care Team (Latest Contact Info) Description 02/22/2018 Orders Only [facility] CLINCONV Provider, MD Ronaldo [address] [place] [address] Social History Tobacco Use Types Packs/Day Years Used Date Smoking Tobacco: Never Assessed Comments Unknown Sex and Gender Information Value Date Recorded Sex Assigned at Not on file Legal Sex Female 6:46 AM MANAGER PLANNING Gender Identity Not on file Sexual Orientation Not on file documented as of this encounter Plan of Treatment Not on file documented as of this encounter Procedures Procedure Name Priority Date/Time Associated Diagnosis Comments SCAN - LABS 02/22/2018 12:00 AM MANAGER PLANNING documented in this encounter Results * SCAN - LABS (02/22/2018 12:00 AM MANAGER PLANNING) Narrative 02/22/2018 12:00 AM MANAGER PLANNING Ordered by an unspecified provider. us Historical Provider Final Res ult documented in this encounter Visit Diagnoses Not on filedocumented in this encounter Additional Health Concerns Infection Onset Date Last Indicated Resolved Time COVID: Suspected 04/12/2022 04/12/2022 04/12/2022 12:14 PM MANAGER PLANNING COVID: Suspected 08/11/2022 08/11/2022 08/11/2022 3:55 PM CDT COVID: Suspected 01/10/2024 01/10/2024 01/10/2024 11:43 AM MANAGER PLANNING COVID: Suspected 07/23/2024 07/23/2024 07/23/2024 7:32 PM [...] COVID: Suspected 02/04/2025 02/04/2025 02/04/2025 1:06 AM MANAGER PLANNING documented as of this encounter Care Teams Dining Server Relationship Specialty Start Date End Date Allison Crain MD [address] [place] [address] PCP - General Internal Medicine 07/21/18 Sultan Arabella Tyson MD [address] Cardiovascular Disease 11/20/18 Grant Romo MD [address] [facility] [address] [place] [address] [place] [address] Surgeon Vascular Surgery 11/20/18 Rosalind Domingo LPN [address] [facility] [address] [place] [address] Computer Programmer Analyst 07/30/20 07/30/20 James Lala MD [address] [facility] [address] [place] [address] [place] [address] Referring Physician Orthopedic Surgery 11/28/20 Jennifer Lewis MA [address] [place] [address] [address] [place] [address] ACO Care Shower Maid 07/16/24 07/24/24 Rosalind Domingo LPN [address] [facility] [address] [place] [address] Computer Programmer Analyst 08/07/24 08/27/24 Izabel Alvarez MA [address] [place] [address] [address] [place] [address] ACO Care Shower Maid 09/17/24 09/17/24 Eyad Jimenez, MAYNOR [address] [place] [address] [address] [place] [address] Computer Programmer Analyst 10/18/24 12/23/24 documented as of this encounter
--- OUTSIDE RECORDS SUMMARY | 2025-02-18 15:32 | XMS_ITS | Encounter Summary ---
Author Organization [facility] Facility Care Team Providers Care Antique Furniture Restorer Name Role Phone Allison Crain MD Primary Care Provider [phone] Sultan Arabella Tyson MD Unavailable [phone] Grant Romo MD Unavailable [phone] Rosalind Domingo LPN Unavailable [phone] James Lala MD Unavailable Jennifer Lewsi MA Unavailable Rosalind Domingo LPN Unavailable [phone] Izabel Alvarez MA Unavailable Eyad Jimenez RN Unavailable [phone] Encounter Details Date Type Department Care Team (Latest Contact Info) Description 07/02/2015 Orders Only [facility] CLINCONV ProviderRonaldo MD [address] [place] [address] Social History Tobacco Use Types Packs/Day Years Used Date Smoking Tobacco: Never Assessed Comments Unknown Sex and Gender Information Value Date Recorded Sex Assigned at Not on file Legal Sex Female 6:46 AM CARDIOLOGY TECHNOLOGIST Gender Identity Not on file Sexual Orientation [...] COVID: Suspected 04/12/2022 04/12/2022 04/12/2022 12:14 PM CARDIOLOGY TECHNOLOGIST COVID: Suspected 08/11/2022 08/11/2022 08/11/2022 3:55 PM CDT COVID: Suspected 01/10/2024 01/10/2024 01/10/2024 11:43 AM CARDIOLOGY TECHNOLOGIST COVID: Suspected 07/23/2024 07/23/2024 07/23/2024 7:32 PM [...] COVID: Suspected 02/04/2025 02/04/2025 02/04/2025 1:06 AM CARDIOLOGY TECHNOLOGIST documented as of this encounter Care Teams Antique Furniture Restorer Relationship Specialty Start Date End Date Allison Crain MD [address] [place] [address] PCP - General Internal Medicine 07/21/18 Sultan Arabella Tyson MD [address] [address] Buffing Wheel Former Machine Cardiovascular Disease 11/20/18 Grant Romo MD [address] [facility] [address] [place] [address] [place] [address] Surgeon Vascular Surgery 11/20/18 Rosalind Domingo LPN [address] [facility] [address] [place] [address] [place] [address] Senior Power Scheduler 07/30/20 07/30/20 James Lala MD [address] [facility] [address] [place] [address] [place] [address] Referring Physician Orthopedic Surgery 11/28/20 Jennifer Lewis MA [address] [place] [address] [address] AR[address] [place] [address] ACO Care Food Vendor 07/16/24 07/24/24 Rosalind Domingo LPN [address] [place] [address] Dr [address] [place] [address] Senior Power Scheduler 08/07/24 08/27/24 Izabel Alvarez MA [address] [place] [address] [address] AR[address] [place] [address] ACO Care Food Vendor 09/17/24 09/17/24 Eyad Jimenez, MAYNOR [address] [place] [address] [address] [place] [address] Senior Power Scheduler 10/18/24 12/23/24 documented as of this encounter
--- OUTSIDE RECORDS SUMMARY | 2025-02-18 15:32 | XMS_ITS | Encounter Summary ---
Author Organization [facility] Facility Care Team Providers Care Benefit Specialist Name Role Phone Allison Crain MD Primary Care Provider [phone] Sultan Arabella Tyson MD Unavailable [phone] Grant Romo MD Unavailable [phone] Rosalind Domingo LPN Unavailable [phone] James Lala MD Unavailable Jennifer Lewis MA Unavailable Rosalind Domingo LPN Unavailable [phone] Izabel Alvarez MA Unavailable Eyad Jimenez RN Unavailable [phone] Encounter Details Date Type Department Care Team (Latest Contact Info) Description 07/23/2016 Orders Only [facility] CLINCONV ProviderRonaldo MD [address] [place] [address] Social History Tobacco Use Types Packs/Day Years Used Date Smoking Tobacco: Never Assessed Comments Unknown Sex and Gender Information Value Date Recorded Sex Assigned at Not on file Legal Sex Female 6:46 AM LENS BLOCKER Gender Identity Not on file Sexual Orientation [...] COVID: Suspected 04/12/2022 04/12/2022 04/12/2022 12:14 PM LENS BLOCKER COVID: Suspected 08/11/2022 08/11/2022 08/11/2022 3:55 PM CDT COVID: Suspected 01/10/2024 01/10/2024 01/10/2024 11:43 AM LENS BLOCKER COVID: Suspected 07/23/2024 07/23/2024 07/23/2024 7:32 PM [...] COVID: Suspected 02/04/2025 02/04/2025 02/04/2025 1:06 AM LENS BLOCKER documented as of this encounter Care Teams Benefit Specialist Relationship Specialty Start Date End Date Allison Crain MD [address] [place] [address] PCP - General Internal Medicine 07/21/18 Sultan Arabella Tyson MD [address] [address] Flavor Maker Cardiovascular Disease 11/20/18 Grant Romo MD [address] [facility] [address] [place] [address] [place] [address] Surgeon Vascular Surgery 11/20/18 Rosalind Domingo LPN [address] [facility] [address] [place] [address] [place] [address] Risk Assessment Consultant 07/30/20 07/30/20 James Lala MD [address] [facility] [address] [place] [address] [place] [address] Referring Physician Orthopedic Surgery 11/28/20 Jennifer Lewis MA [address] [place] [address] [address] [place] [address] ACO Care Front End Engineer 07/16/24 07/24/24 Rosalind Domingo LPN [address] [place] [address] Dr [address] [place] [address] Risk Assessment Consultant 08/07/24 08/27/24 Izabel Alvarez MA [address] [place] [address] [address] [place] [address] ACO Care Front End Engineer 09/17/24 09/17/24 Eyad Jimenez, MAYNOR [address] [place] [address] [address] [place] [address] Risk Assessment Consultant 10/18/24 12/23/24 documented as of this encounter
--- OUTSIDE RECORDS SUMMARY | 2025-02-18 15:32 | XMS_ITS | Encounter Summary ---
Author Organization [facility] Facility Care Team Providers Care Pad Assembler Name Role Phone Allison Crain MD Primary Care Provider [phone] Sultan Arabella Tyson MD Unavailable [phone] Grant Romo MD Unavailable [phone] Rosalind Domingo LPN Unavailable [phone] James Lala MD Unavailable Jennifer Lewis MA Unavailable Rosalind Domingo LPN Unavailable [phone] Izabel Alvarez MA Unavailable Eyad Jimenez RN Unavailable [phone] Encounter Details Date Type Department Care Team (Latest Contact Info) Description 01/17/2018 Orders Only MMG CLINCONV Provider, MD Ronaldo [address] [place] [address] Social History Tobacco Use Types Packs/Day Years Used Date Smoking Tobacco: Never Assessed Comments Unknown Sex and Gender Information Value Date Recorded Sex Assigned at Not on file Legal Sex Female 6:46 AM OPERATIONS OFFICER TRUST DEPARTMENT Gender Identity Not on file Sexual Orientation Not on file documented as of this encounter Plan of Treatment Not on file documented as of this encounter Procedures Procedure Name Priority Date/Time Associated Diagnosis Comments SCAN - LABS 01/17/2018 12:00 AM OPERATIONS OFFICER TRUST DEPARTMENT documented in this encounter Results * SCAN - LABS (01/17/2018 12:00 AM OPERATIONS OFFICER TRUST DEPARTMENT) Narrative 01/17/2018 12:00 AM OPERATIONS OFFICER TRUST DEPARTMENT Ordered by an unspecified provider. us Historical Provider Final Res ult documented in this encounter Visit Diagnoses Not on filedocumented in this encounter Additional Health Concerns Infection Onset Date Last Indicated Resolved Time COVID: Suspected 04/12/2022 04/12/2022 04/12/2022 12:14 PM OPERATIONS OFFICER TRUST DEPARTMENT COVID: Suspected 08/11/2022 08/11/2022 08/11/2022 3:55 PM CDT COVID: Suspected 01/10/2024 01/10/2024 01/10/2024 11:43 AM OPERATIONS OFFICER TRUST DEPARTMENT COVID: Suspected 07/23/2024 07/23/2024 07/23/2024 7:32 [...] COVID: Suspected 02/04/2025 02/04/2025 02/04/2025 1:06 AM OPERATIONS OFFICER TRUST DEPARTMENT documented as of this encounter Care Teams Pad Assembler Relationship Specialty Start Date End Date Allison Crain MD [address] [place] [address] PCP - General Internal Medicine 07/21/18 Sultan Arabella Tyson MD [address] [address] Cigarette Lighter Repairer Cardiovascular Disease 11/20/18 Grant Romo MD [address] [facility] [address] [place] [address] [place] [address] Surgeon Vascular Surgery 11/20/18 Rosalind Domingo LPN [address] [facility] [address] [place] [address] Gas Engineer 07/30/20 07/30/20 James Lala MD [address] [facility] [address] [place] [address] [place] [address] Referring Physician Orthopedic Surgery 11/28/20 Jennifer Lewis MA [address] [place] [address] [address] [place] [address] ACO Care Raymond Mill Operator 07/16/24 07/24/24 Rosalind Domingo LPN [address] [facility] [address] [place] [address] Gas Engineer 08/07/24 08/27/24 Izabel Alvarez MA [address] [place] [address] [address] [place] [address] ACO Care Raymond Mill Operator 09/17/24 09/17/24 Eyad Jimenez, MAYNOR [address] [place] [address] [address] [place] [address] Gas Engineer 10/18/24 12/23/24 documented as of this encounter
--- OUTSIDE RECORDS SUMMARY | 2025-02-18 15:32 | XMS_ITS | Encounter Summary ---
Author Organization [facility] Facility Care Team Providers Care Director Of Academic Support Name Role Phone Allison Crain MD Primary Care Provider [phone] Sultan Arabella Tyson MD Unavailable [phone] Grant Romo MD Unavailable [phone] Rosalind Domingo LPN Unavailable [phone] James Lala MD Unavailable Jennifer Lewis MA Unavailable Rosalind Domingo LPN Unavailable [phone] Izabel Alvarez MA Unavailable Eyad Jimenez RN Unavailable [phone] Encounter Details Date Type Department Care Team (Latest Contact Info) Description 11/03/2017 Orders Only [facility]G CLINCONV ProviderRonaldo MD [address] [place] [address] Social History Tobacco Use Types Packs/Day Years Used Date Smoking Tobacco: Never Assessed Comments Unknown Sex and Gender Information Value Date Recorded Sex Assigned at Not on file Legal Sex Female 6:46 AM POT SANDER Gender Identity Not on file Sexual Orientation [...] COVID: Suspected 04/12/2022 04/12/2022 04/12/2022 12:14 PM POT SANDER COVID: Suspected 08/11/2022 08/11/2022 08/11/2022 3:55 PM CDT COVID: Suspected 01/10/2024 01/10/2024 01/10/2024 11:43 AM POT SANDER COVID: Suspected 07/23/2024 07/23/2024 07/23/2024 7:32 PM [...] COVID: Suspected 02/04/2025 02/04/2025 02/04/2025 1:06 AM POT SANDER documented as of this encounter Care Teams Director Of Academic Support Relationship Specialty Start Date End Date Allison Crain MD [address] [place] [address] PCP - General Internal Medicine 07/21/18 Sultan Arabella Tyson MD [address] [address] Director Physical Cardiovascular Disease 11/20/18 Grant Romo MD [address] [facility] [address] [place] [address] [place] [address] Surgeon Vascular Surgery 11/20/18 Rosalind Domingo LPN [address] [facility] [address] [place] [address] [place] [address] Patch Finisher 07/30/20 07/30/20 James Lala MD [address] [facility] [address] [place] [address] [place] [address] Referring Physician Orthopedic Surgery 11/28/20 Jennifer Lewis MA [address] [place] [address] [address] [place] [address] ACO Care Lab Head 07/16/24 07/24/24 Rosalind Domingo LPN [address] [place] [address] Dr [address] [place] [address] Patch Finisher 08/07/24 08/27/24 Izabel Alvarez MA [address] [place] [address] [address] [place] [address] ACO Care Lab Head 09/17/24 09/17/24 Eyad Jimenez, MAYNOR [address] [place] [address] [address] [place] [address] Patch Finisher 10/18/24 12/23/24 documented as of this encounter
--- OUTSIDE RECORDS SUMMARY | 2025-02-18 15:32 | XMS_ITS | Encounter Summary ---
Author Organization [facility] Facility Care Team Providers Care Bistro Attendant Name Role Phone Allison Crain MD Primary Care Provider [phone] Sultan Arabella Tyson MD Unavailable [phone] Grant Romo MD Unavailable [phone] Rosalind Domingo LPN Unavailable [phone] James Lala MD Unavailable Jennifer Lewis MA Unavailable Rosalind Domingo LPN Unavailable [phone] Izabel Alvarez MA Unavailable Eyad Jimenez RN Unavailable [phone] Encounter Details Date Type Department Care Team (Latest Contact Info) Description 08/10/2017 Orders Only [facility] CLINCONV ProviderRonaldo MD [address] [place] [address] Social History Tobacco Use Types Packs/Day Years Used Date Smoking Tobacco: Never Assessed Comments Unknown Sex and Gender Information Value Date Recorded Sex Assigned at Not on file Legal Sex Female 6:46 AM GLOBAL SAFETY OFFICER Gender Identity Not on file Sexual Orientation [...] COVID: Suspected 04/12/2022 04/12/2022 04/12/2022 12:14 PM GLOBAL SAFETY OFFICER COVID: Suspected 08/11/2022 08/11/2022 08/11/2022 3:55 PM CDT COVID: Suspected 01/10/2024 01/10/2024 01/10/2024 11:43 AM GLOBAL SAFETY OFFICER COVID: Suspected 07/23/2024 07/23/2024 07/23/2024 7:32 PM [...] COVID: Suspected 02/04/2025 02/04/2025 02/04/2025 1:06 AM GLOBAL SAFETY OFFICER documented as of this encounter Care Teams Bistro Attendant Relationship Specialty Start Date End Date Allison Crain MD [address] [place] [address] PCP - General Internal Medicine 07/21/18 Sultan Arabella Tyson MD [address] [address] Dope Mixer Cardiovascular Disease 11/20/18 Grant Romo MD [address] [facility] [address] [place] [address] [place] [address] Surgeon Vascular Surgery 11/20/18 Rosalind Domingo LPN [address] [facility] [address] [place] [address] [place] [address] Railroad Car Painter 07/30/20 07/30/20 James Lala MD [address] [facility] [address] [place] [address] [place] [address] Referring Physician Orthopedic Surgery 11/28/20 Jennifer Lewis MA [address] [place] [address] [address] [place] [address] ACO Care Dragline Oiler 07/16/24 07/24/24 Rosalind Domingo LPN [address] [place] [address] Dr [address] [place] [address] Railroad Car Painter 08/07/24 08/27/24 Izabel Alvarez MA [address] [place] [address] [address] [place] [address] ACO Care Dragline Oiler 09/17/24 09/17/24 Eyad Jimenez, MAYNOR [address] [place] [address] [address] [place] [address] Railroad Car Painter 10/18/24 12/23/24 documented as of this encounter
--- OUTSIDE RECORDS SUMMARY | 2025-02-18 15:32 | XMS_ITS | Encounter Summary ---
Author Organization [facility] Facility Care Team Providers Care Bread Panner Name Role Phone Allison Crain MD Primary Care Provider + [phone] Sultan Arabella Tyson MD Unavailable [phone] Grant Romo MD Unavailable [phone] Rosalind Domingo LPN Unavailable [phone] James Lala MD Unavailable Jennifer Lewis MA Unavailable Rosalind Domingo LPN Unavailable [phone] Izabel Alvarez MA Unavailable Eyad Jimenez RN Unavailable [phone] Encounter Details Date Type Department Care Team (Latest Contact Info) Description 08/02/2016 Orders Only [facility] CLINCONV ProviderRonaldo MD [address] [place] [address] Social History Tobacco Use Types Packs/Day Years Used Date Smoking Tobacco: Never Assessed Comments Unknown Sex and Gender Information Value Date Recorded Sex Assigned at Not on file Legal Sex Female 6:46 AM DOMESTIC MAID Gender Identity Not on file Sexual Orientation [...] COVID: Suspected 04/12/2022 04/12/2022 04/12/2022 12:14 PM DOMESTIC MAID COVID: Suspected 08/11/2022 08/11/2022 08/11/2022 3:55 PM CDT COVID: Suspected 01/10/2024 01/10/2024 01/10/2024 11:43 AM DOMESTIC MAID COVID: Suspected 07/23/2024 07/23/2024 07/23/2024 7:32 PM [...] COVID: Suspected 02/04/2025 02/04/2025 02/04/2025 1:06 AM DOMESTIC MAID documented as of this encounter Care Teams Bread Panner Relationship Specialty Start Date End Date Allison Crain MD [address] [place] [address] PCP - General Internal Medicine 07/21/18 Sultan Arabella Tyson MD [address] [address] Dispatcher Motor Vehicle Cardiovascular Disease 11/20/18 Grant Romo MD [address] [facility] [address] CONSTANTINE [facility] [place] [address] Surgeon Vascular Surgery 11/20/18 Rosalind Domingo LPN [address] [facility] [address] [place] [address] [place] [address] Discharge Planner 07/30/20 07/30/20 James Lala MD [address] [facility] [address] [place] [address] [place] [address] Referring Physician Orthopedic Surgery 11/28/20 Jennifer Lewis MA [address] [place] [address] [address] [place] [address] ACO Care Inside Account Representative 07/16/24 07/24/24 Rosalind Domingo LPN [address] [place] [address] Dr [address] [place] [address] Discharge Planner 08/07/24 08/27/24 Izabel Alvarez MA [address] [place] [address] [address] [place] [address] ACO Care Inside Account Representative 09/17/24 09/17/24 Eyad Jimenez, MAYNOR [address] [place] [address] [address] [place] [address] Discharge Planner 10/18/24 12/23/24 documented as of this encounter
--- OUTSIDE RECORDS SUMMARY | 2025-02-18 15:32 | XMS_ITS | Encounter Summary ---
Author Organization [facility] Facility Care Team Providers Care Laborer Shaft Sinking Name Role Phone Allison Crain MD Primary Care Provider [phone] Sultan Arabella Tyson MD Unavailable [phone] Grant Romo MD Unavailable +[phone] Rosalind Domingo LPN Unavailable [phone] James Lala MD Unavailable Jennifer Lewis MA Unavailable Rosalind Domingo LPN Unavailable [phone] Izabel Alvarez MA Unavailable Eyad Jimenez RN Unavailable [phone] Encounter Details Date Type Department Care Team (Latest Contact Info) Description 01/04/2017 Orders Only MMG CLINCONV Provider, MD Ronaldo [address] [place] [address] Social History Tobacco Use Types Packs/Day Years Used Date Smoking Tobacco: Never Assessed Comments Unknown Sex and Gender Information Value Date Recorded Sex Assigned at Not on file Legal Sex Female 6:[address] TRANSCRIBER Gender Identity Not on file Sexual Orientation Not on file documented as of this encounter Plan of Treatment Not on file documented as of this encounter Procedures Procedure Name Priority Date/Time Associated Diagnosis Comments SCAN - LABS 01/04/2017 12:[address] TRANSCRIBER documented in this encounter Results * SCAN - LABS (01/04/2017 12:[address] TRANSCRIBER) Narrative 01/04/2017 12:[address] TRANSCRIBER Ordered by an unspecified provider. us Historical Provider Final Res ult documented in this encounter Visit Diagnoses Not on filedocumented in this encounter Additional Health Concerns Infection Onset Date Last Indicated Resolved Time COVID: Suspected 04/12/2022 04/12/2022 04/12/2022 12:[address] TRANSCRIBER COVID: Suspected 08/11/2022 08/11/2022 08/11/2022 3:55 PM CDT COVID: Suspected 01/10/2024 01/10/2024 01/10/2024 11:[address] TRANSCRIBER COVID: Suspected 07/23/2024 07/23/2024 07/23/2024 7:32 PM [...] COVID: Suspected 02/04/2025 02/04/2025 02/04/2025 1:[address] TRANSCRIBER documented as of this encounter Care Teams Laborer Shaft Sinking Relationship Specialty Start Date End Date Allison Crain MD [address] [place] [address] PCP - General Internal Medicine 07/21/18 Sultan Arabella Tyson MD [address] [address] Filing Machine Operator Cardiovascular Disease 11/20/18 Grant Romo MD [address] [facility] [address] [place] [address] [place] [address] Surgeon Vascular Surgery 11/20/18 Rosalind Domingo LPN [address] [facility] [address] [place] [address] Linux Solaris Administrator 07/30/20 07/30/20 James Lala MD [address] [facility] [address] [place] [address] [place] [address] Referring Physician Orthopedic Surgery 11/28/20 Jennifer Lewis MA [address] [place] [address] [address] [place] [address] ACO Care Ag Equipment Field Service Technician 07/16/24 07/24/24 Rosalind Domingo LPN [address] [facility] [address] [place] [address] Linux Solaris Administrator 08/07/24 08/27/24 Izabel Alvarez MA [address] [place] [address] [address] [place] [address] ACO Care Ag Equipment Field Service Technician 09/17/24 09/17/24 Eyad Jimenez, MAYNOR [address] [place] [address] [address] [place] [address] Linux Solaris Administrator 10/18/24 12/23/24 documented as of this encounter
--- OUTSIDE RECORDS SUMMARY | 2025-02-18 15:32 | XMS_ITS | Encounter Summary ---
Author Organization [facility] Facility Care Team Providers Care Multilith Operator Name Role Phone Allison Crain MD Primary Care Provider [phone] Sultan Arabella Tyson MD Unavailable [phone] Grant Romo MD Unavailable +[phone] Rosalind Domingo LPN Unavailable [phone] James Lala MD Unavailable Jennifer Lewis MA Unavailable Rosalind Domingo LPN Unavailable [phone] Izabel Alvarez MA Unavailable Eyad Jimenez RN Unavailable [phone] Encounter Details Date Type Department Care Team (Latest Contact Info) Description 05/27/2016 Orders Only MMG CLINCONV Provider, MD Ronaldo [address] [place] [address] Social History Tobacco Use Types Packs/Day Years Used Date Smoking Tobacco: Never Assessed Comments Unknown Sex and Gender Information Value Date Recorded Sex Assigned at Not on file Legal Sex Female 6:46 AM AIRCRAFT ELECTRICIAN Gender Identity Not on file Sexual Orientation [...] COVID: Suspected 04/12/2022 04/12/2022 04/12/2022 12:14 PM AIRCRAFT ELECTRICIAN COVID: Suspected 08/11/2022 08/11/2022 08/11/2022 3:55 PM CDT COVID: Suspected 01/10/2024 01/10/2024 01/10/2024 11:43 AM AIRCRAFT ELECTRICIAN COVID: Suspected 07/23/2024 07/23/2024 07/23/2024 7:32 PM [...] COVID: Suspected 02/04/2025 02/04/2025 02/04/2025 1:06 AM AIRCRAFT ELECTRICIAN documented as of this encounter Care Teams Multilith Operator Relationship Specialty Start Date End Date Allison Crain MD [address] [place] [address] PCP - General Internal Medicine 07/21/18 Sultan Arabella Tyson MD [address] [address] Manager Inventory Management Cardiovascular Disease 11/20/18 Grant Romo MD [address] [facility] [address] [place] [address] [place] [address] Surgeon Vascular Surgery 11/20/18 Rosalind Domingo LPN [address] [facility] [address] [place] [address] [place] [address] Deputy Sheriff K9 Handler 07/30/20 07/30/20 James aLla MD [address] [facility] [address] [place] [address] [place] [address] Referring Physician Orthopedic Surgery 11/28/20 Jennifer Lewis MA [address] [place] [address] [address] [place] [address] ACO Care Hard Metals Engraver Hand 07/16/24 07/24/24 Rosalind Domingo LPN [address] [place] [address] Dr [address] [place] [address] Deputy Sheriff K9 Handler 08/07/24 08/27/24 Izabel Alvarez MA [address] [place] [address] [address] [place] [address] ACO Care Hard Metals Engraver Hand 09/17/24 09/17/24 Eyad Jimenez, MAYNOR [address] [place] [address] [address] [place] [address] Deputy Sheriff K9 Handler 10/18/24 12/23/24 documented as of this encounter
--- OUTSIDE RECORDS SUMMARY | 2025-02-18 15:32 | XMS_ITS | Encounter Summary ---
Author Organization [facility] Facility Care Team Providers Care Tipping Machine Operator Name Role Phone Allison Crain MD Primary Care Provider [phone] Sultan Arabella Tyson MD Unavailable [phone] Grant Romo MD Unavailable [phone] Rosalind Domingo LPN Unavailable [phone] James Lala MD Unavailable Jennifer Lewis MA Unavailable Rosalind Domingo LPN Unavailable [phone] Izabel Alvarez MA Unavailable Eyad Jimenez RN Unavailable [phone] Encounter Details Date Type Department Care Team (Latest Contact Info) Description 04/13/2018 Orders Only MMG CLINCONV Provider, MD Ronaldo [address] [place] [address] Social History Tobacco Use Types Packs/Day Years Used Date Smoking Tobacco: Never Assessed Comments Unknown Sex and Gender Information Value Date Recorded Sex Assigned at Not on file Legal Sex Female 6:46 AM SOUND DESIGNER Gender Identity Not on file Sexual Orientation Not on file documented as of this encounter Plan of Treatment Not on file documented as of this encounter Procedures Procedure Name Priority Date/Time Associated Diagnosis Comments SCAN - LABS 04/14/2018 12:00 AM SOUND DESIGNER documented in this encounter Results * SCAN - LABS (04/14/2018 12:00 AM SOUND DESIGNER) Narrative 04/14/2018 12:00 AM SOUND DESIGNER Ordered by an unspecified provider. us Historical Provider Final Res ult documented in this encounter Visit Diagnoses Not on filedocumented in this encounter Additional Health Concerns Infection Onset Date Last Indicated Resolved Time COVID: Suspected 04/12/2022 04/12/2022 04/12/2022 12:14 PM SOUND DESIGNER COVID: Suspected 08/11/2022 08/11/2022 08/11/2022 3:55 PM CDT COVID: Suspected 01/10/2024 01/10/2024 01/10/2024 11:43 AM SOUND DESIGNER COVID: Suspected 07/23/2024 07/23/2024 07/23/2024 7:32 PM [...] COVID: Suspected 02/04/2025 02/04/2025 02/04/2025 1:06 AM SOUND DESIGNER documented as of this encounter Care Teams Tipping Machine Operator Relationship Specialty Start Date End Date Allison Crain MD [address] [place] [address] PCP - General Internal Medicine 07/21/18 Sultan Arabella Tyson MD [address] [address] Street Light Cleaner Cardiovascular Disease 11/20/18 Grant Romo MD [address] [facility] [address] [place] [address] [place] [address] Surgeon Vascular Surgery 11/20/18 Rosalind Domingo LPN [address] [facility] [address] [place] [place] [address] Personal Financial Counselor 07/30/20 07/30/20 James Lala MD [address] [facility] [address] [place] [address] [place] [address] Referring Physician Orthopedic Surgery 11/28/20 Jennifer Lewis MA [address] [place] [address] [address] [place] [address] ACO Care Mental Health Professional 07/16/24 07/24/24 Rosalind Domingo LPN [address] [facility] [address] [place] [address] Personal Financial Counselor 08/07/24 08/27/24 Izabel Alvarez MA [address] [place] [address] [address] [place] [address] ACO Care Mental Health Professional 09/17/24 09/17/24 Eyad Jimenez, MAYNOR [address] [place] [address] [address] [place] [address] Personal Financial Counselor 10/18/24 12/23/24 documented as of this encounter
--- OUTSIDE RECORDS SUMMARY | 2025-02-18 15:32 | XMS_ITS | Encounter Summary ---
Author Organization [facility] Facility Care Team Providers Care Adjunct Nursing Faculty Name Role Phone Allison Crain MD Primary Care Provider [phone] Sultan Arabella Tyson MD Unavailable [phone] Grant Romo MD Unavailable [phone] Rosalind Domingo LPN Unavailable [phone] James Lala MD Unavailable Jennifer Lewis MA Unavailable Rosalind Domingo LPN Unavailable [phone] Izabel Alvarez MA Unavailable Eyad iJmenez RN Unavailable [phone] Encounter Details Date Type Department Care Team (Latest Contact Info) Description 12/19/2017 Orders Only MMG CLINCONV Provider, MD Ronaldo [address] [place] [address] Social History Tobacco Use Types Packs/Day Years Used Date Smoking Tobacco: Never Assessed Comments Unknown Sex and Gender Information Value Date Recorded Sex Assigned at Not on file Legal Sex Female 6:46 AM NATURAL FABRICATOR Gender Identity Not on file Sexual Orientation [...] COVID: Suspected 04/12/2022 04/12/2022 04/12/2022 12:14 PM NATURAL FABRICATOR COVID: Suspected 08/11/2022 08/11/2022 08/11/2022 3:55 PM CDT COVID: Suspected 01/10/2024 01/10/2024 01/10/2024 11:43 AM NATURAL FABRICATOR COVID: Suspected 07/23/2024 07/23/2024 07/23/2024 7:32 PM [...] COVID: Suspected 02/04/2025 02/04/2025 02/04/2025 1:06 AM NATURAL FABRICATOR documented as of this encounter Care Teams Adjunct Nursing Faculty Relationship Specialty Start Date End Date Allison Crain MD [address] [place] [address] PCP - General Internal Medicine 07/21/18 Sultan Arabella Tyson MD [address] [address] Ski Tow Operator Cardiovascular Disease 11/20/18 Grant Romo MD [address] [facility] [address] [place] [address] [place] [address] Surgeon Vascular Surgery 11/20/18 Rosalind Domingo LPN [address] [facility] [address] [place] [address] [place] [address] Seafood Team Member 07/30/20 07/30/20 James Lala MD [address] [facility] [address] [place] [address] [place] [address] Referring Physician Orthopedic Surgery 11/28/20 Jennifer Lewis MA [address] [place] [address] [address] [place] [address] ACO Care Ice Crusher 07/16/24 07/24/24 Rosalind Domingo LPN [address] [place] [address] [address] [place] [address] Seafood Team Member 08/07/24 08/27/24 Izabel Alvarez MA [address] [place] [address] [address] [place] [address] ACO Care Ice Crusher 09/17/24 09/17/24 Eyad Jimenez, MAYNOR [address] [place] [address] [address] [place] [address] Seafood Team Member 10/18/24 12/23/24 documented as of this encounter
--- OUTSIDE RECORDS SUMMARY | 2025-02-18 15:32 | XMS_ITS | Encounter Summary ---
Author Organization [facility] Facility Care Team Providers Care Cupola Liner Helper Name Role Phone Allison Crain MD Primary Care Provider [phone] Sultan Arabella Tyson MD Unavailable [phone] Grant Romo MD Unavailable [phone] Rosalind Domingo LPN Unavailable [phone] James Lala MD Unavailable Jennifer Lewis MA Unavailable Rosalind Domingo LPN Unavailable [phone] Izabel Alvarez MA Unavailable Eyad Jimenez RN Unavailable [phone] Encounter Details Date Type Department Care Team (Latest Contact Info) Description 09/07/2017 Orders Only MMG CLINCONV ProviderRonaldo MD [address] [place] [address] Social History Tobacco Use Types Packs/Day Years Used Date Smoking Tobacco: Never Assessed Comments Unknown Sex and Gender Information Value Date Recorded Sex Assigned at Not on file Legal Sex Female 6:46 AM ASPHALT DAUBER Gender Identity Not on file Sexual Orientation [...] COVID: Suspected 04/12/2022 04/12/2022 04/12/2022 12:14 PM ASPHALT DAUBER COVID: Suspected 08/11/2022 08/11/2022 08/11/2022 3:55 PM CDT COVID: Suspected 01/10/2024 01/10/2024 01/10/2024 11:43 AM ASPHALT DAUBER COVID: Suspected 07/23/2024 07/23/2024 07/23/2024 7:32 PM [...] COVID: Suspected 02/04/2025 02/04/2025 02/04/2025 1:06 AM ASPHALT DAUBER documented as of this encounter Care Teams Cupola Liner Helper Relationship Specialty Start Date End Date Allison Crain MD [address] [place] [address] PCP - General Internal Medicine 07/21/18 Sultan Arabella Tyson MD [address] [address] [place] Brushing Machine Operator Cardiovascular Disease 11/20/18 Grant Romo MD [address] [facility] [address] [place] [address] [place] [address] Surgeon Vascular Surgery 11/20/18 Rosalind Domingo LPN [address] [facility] [address] [place] [address] [place] [address] Stud Driver 07/30/20 07/30/20 James Lala MD [address] [facility] [address] [place] [address] [place] [address] Referring Physician Orthopedic Surgery 11/28/20 Jennifer Lewis MA [address] [place] [address] [address] [place] [address] ACO Care Social Worker Palliative Care 07/16/24 07/24/24 Rosalind Domingo LPN [address] [place] [address] Dr [address] [place] [address] Stud Driver 08/07/24 08/27/24 Izabel Alvarez MA [address] [place] [address] [address] [place] [address] ACO Care Social Worker Palliative Care 09/17/24 09/17/24 Eyad Jimenez, MAYNOR [address] [place] [address] [address] [place] [address] Stud Driver 10/18/24 12/23/24 documented as of this encounter
--- OUTSIDE RECORDS SUMMARY | 2025-02-18 15:32 | XMS_ITS | Encounter Summary ---
Author Organization [facility] Facility Care Team Providers Care Beef Ribber Name Role Phone Allison Crain MD Primary Care Provider [phone] Sultan Arabella Tyson MD Unavailable [phone] Grant Romo MD Unavailable [phone] Rosalind Domingo LPN Unavailable [phone] James Lala MD Unavailable Jennifer Lewis MA Unavailable Rosalind Domingo LPN Unavailable [phone] Izabel Alvarez MA Unavailable Eyad Jimenez RN Unavailable [phone] Encounter Details Date Type Department Care Team (Latest Contact Info) Description 02/26/2013 Orders Only MMG CLINCONV ProviderRonaldo MD [address] [place] [address] Social History Tobacco Use Types Packs/Day Years Used Date Smoking Tobacco: Never Assessed Comments Unknown Sex and Gender Information Value Date Recorded Sex Assigned at Not on file Legal Sex Female 6:46 AM ASSEMBLY CLEANER Gender Identity Not on file Sexual Orientation Not on file documented as of this encounter Plan of Treatment Not on file documented as of this encounter Procedures Procedure Name Priority Date/Time Associated Diagnosis Comments CARDIOLOGY REPORT 02/26/2013 12: 00 AM ASSEMBLY CLEANER CARDIOLOGY REPORT 02/26/2013 12: 00 AM ASSEMBLY CLEANER documented in this encounter Results * CARDIOLOGY REPORT (02/26/2013 12:00 AM ASSEMBLY CLEANER) Anatomical Region Laterality Modality Other Narrative 02/26/2013 12:00 AM ASSEMBLY CLEANER Ordered by an unspecified provider. us Historical Provider CV CARDIAC SERVICES PROCE DURES Final Result * CARDIOLOGY REPORT (02/26/2013 12:00 AM ASSEMBLY CLEANER) Anatomical Region Laterality Modality Other Narrative 02/26/2013 12:00 AM ASSEMBLY CLEANER Ordered by an unspecified provider. us Historical Provider CV CARDIAC SERVICES PROCE DURES Final Result documented in this encounter Visit Diagnoses Not on filedocumented in this encounter Additional Health Concerns Infection Onset Date Last Indicated Resolved Time COVID: Suspected 04/12/2022 04/12/2022 04/12/2022 12:14 PM ASSEMBLY CLEANER COVID: Suspected 08/11/2022 08/11/2022 08/11/2022 3:55 PM CDT COVID: Suspected 01/10/2024 01/10/2024 01/10/2024 11:43 AM ASSEMBLY CLEANER COVID: Suspected 07/23/2024 07/23/2024 07/23/2024 7:32 PM [...] COVID: Suspected 02/04/2025 02/04/2025 02/04/2025 1:06 AM ASSEMBLY CLEANER documented as of this encounter Care Teams Beef Ribber Relationship Specialty Start Date End Date Allison Crain MD [address] [place] [address] PCP - General Internal Medicine 07/21/18 Sultan Arabella Tyson MD [address] [facility] [address] [address] Inspection Machine Tender Cardiovascular Disease 11/20/18 Grant Romo MD [address] [facility] [address] [address] Surgeon Vascular Surgery 11/20/18 Rosalind Domingo LPN [address] [facility] [address] [address] Sailing Instructor 07/30/20 07/30/20 James Lala MD [address] [facility] [address] [address] Referring Physician Orthopedic Surgery 11/28/20 Jennifer Lewis MA [address] [facility] [address] [place] [address] ACO Care Medicinal Plant Picker 07/16/24 07/24/24 Rosalind Domingo LPN [address] [facility] [address] [place] [address] Sailing Instructor 08/07/24 08/27/24 Izabel Alvarez MA [address] [facility] [address] [place] [address] ACO Care Medicinal Plant Picker 09/17/24 09/17/24 Eyad Jimenez, MAYNOR [address] [place] [address] [address] [place] [address] Sailing Instructor 10/18/24 12/23/24 documented as of this encounter
--- OUTSIDE RECORDS SUMMARY | 2025-02-18 15:32 | XMS_ITS | Encounter Summary ---
Author Organization [facility] Care Team Providers Care Rotary Peel Oven Tender Name Role Phone Allison Crain MD Primary Care Provider [phone] Sultan Arabella Tyson MD Unavailable [phone] Grant Romo MD Unavailable [phone] Rosalind Domingo LPN Unavailable [phone] James Lala MD Unavailable Jennifer Lewis MA Unavailable Rosalind Domingo LPN Unavailable [phone] Izabel Alvarez MA Unavailable Eyad Jimenez RN Unavailable [phone] Encounter Details Date Type Department Care Team (Latest Contact Info) Description 09/09/2017 Orders Only [facility] CLINCONV ProviderRonaldo MD [address] [place] [address] Social History Tobacco Use Types Packs/Day Years Used Date Smoking Tobacco: Never Assessed Comments Unknown Sex and Gender Information Value Date Recorded Sex Assigned at Not on file Legal Sex Female 6:46 AM CASE SUPERVISOR Gender Identity Not on file Sexual [...] COVID: Suspected 04/12/2022 04/12/2022 04/12/2022 12:14 PM CASE SUPERVISOR COVID: Suspected 08/11/2022 08/11/2022 08/11/2022 3:55 PM CDT COVID: Suspected 01/10/2024 01/10/2024 01/10/2024 11:43 AM CASE SUPERVISOR COVID: Suspected 07/23/2024 07/23/2024 07/23/2024 7:32 [...] COVID: Suspected 02/04/2025 02/04/2025 02/04/2025 1:06 AM CASE SUPERVISOR documented as of this encounter Care Teams Rotary Peel Oven Tender Relationship Specialty Start Date End Date Allison Crain MD [address] [place] [address] PCP - General Internal Medicine 07/21/18 Sultan Arabella Tyson MD [address] [address] Finance Admin Cardiovascular Disease 11/20/18 Grant Romo MD [address] [facility] [address] [place] [address] [place] [address] Surgeon Vascular Surgery 11/20/18 Rosalind Domingo LPN [address] [facility] [address] [place] [address] [place] [address] [employer] 07/30/20 07/30/20 James Lala MD [address] [facility] [address] [place] [address] [place] [address] Referring Physician Orthopedic Surgery 11/28/20 Jennifer Lewis MA [address] [place] [address] [address] [place] [address] ACO Care Clam Shovel Operator 07/16/24 07/24/24 Rosalind Domingo LPN [address] [place] [address] [address] [place] [address] [employer] 08/07/24 08/27/24 Izabel Alvarez MA [address] [place] [address] [address] [place] [address] ACO Care Clam Shovel Operator 09/17/24 09/17/24 Eyad Jimenez, MAYNOR [address] [place] [address] [address] [place] [address] [employer] 10/18/24 12/23/24 documented as of this encounter
--- OUTSIDE RECORDS SUMMARY | 2025-02-18 15:32 | XMS_ITS | Encounter Summary ---
Author Organization [facility] Facility Care Team Providers Care Capacitor Inspector Name Role Phone Allison Crain MD Primary Care Provider [phone] Sultan Arabella Tyson MD Unavailable [phone] Grant Romo MD Unavailable [phone] Rosalind Domingo LPN Unavailable [phone] James Lala MD Unavailable Jennifer Lewis MA Unavailable Rosalind Domingo LPN Unavailable [phone] Izabel Alvarez MA Unavailable Eyad Jimenez RN Unavailable [phone] Encounter Details Date Type Department Care Team (Latest Contact Info) Description 05/22/2018 Orders Only [facility] CLINCONV Provider, MD Ronaldo [address] [place] [address] Social History Tobacco Use Types Packs/Day Years Used Date Smoking Tobacco: Never Assessed Comments Unknown Sex and Gender Information Value Date Recorded Sex Assigned at Not on file Legal Sex Female 6:46 AM MOBILE MARKETING MANAGER Gender Identity Not on file Sexual [...] COVID: Suspected 04/12/2022 04/12/2022 04/12/2022 12:14 PM MOBILE MARKETING MANAGER COVID: Suspected 08/11/2022 08/11/2022 08/11/2022 3:55 PM CDT COVID: Suspected 01/10/2024 01/10/2024 01/10/2024 11:43 AM MOBILE MARKETING MANAGER COVID: Suspected 07/23/2024 07/23/2024 07/23/2024 7:32 [...] COVID: Suspected 02/04/2025 02/04/2025 02/04/2025 1:06 AM MOBILE MARKETING MANAGER documented as of this encounter Care Teams Capacitor Inspector Relationship Specialty Start Date End Date Allison Crain MD [address] [place] [id number] PCP - General Internal Medicine 07/21/18 Sultan Arabella Tyson MD [address] [facility] [address] [address] [employer]els Production Manager Cardiovascular Disease 11/20/18 Grant Romo MD [address] [facility] [address] [facility] [address] [address] Surgeon Vascular Surgery 11/20/18 Rosalind Domigno LPN [address] [facility] [address] [facility] [address] [address] Experimental Mechanic Spacecraft 07/30/20 07/30/20 James Lala MD [address] [facility] [address] [facility] [address] [address] Referring Physician Orthopedic Surgery 11/28/20 Jennifer Lewis MA [address] [facility] [address] [place] [address] ACO Care Community Outreach Specialist 07/16/24 07/24/24 Rosalind Domingo LPN [address] [facility] [address] [place] [address] Experimental Mechanic Spacecraft 08/07/24 08/27/24 Izabel Alvarez MA [address] [facility] [address] [place] [address] ACO Care Community Outreach Specialist 09/17/24 09/17/24 Eyad Jimenez, MAYNOR [address] [facility] [address] [place] [address] Experimental Mechanic Spacecraft 10/18/24 12/23/24 documented as of this encounter
--- OUTSIDE RECORDS SUMMARY | 2025-02-18 15:33 | XMS_ITS | Clinical Summary ---
Author Organization [facility] at the [facility] Office Center Address [address] [place] [address] Care Team Providers Care Lumber Salvager Name Role Phone Allison Crain MD Primary Care Provider [phone] Sultan Arabella Tyson MD Unavailable [phone] Grant Romo MD Unavailable [phone] James Lala MD Unavailable Allergies Active [...] mouth or place under the tongue. Call [facility] hospice if no relief. 12 each Active [...] 02/07/2025 Assessment & Plan (02/07/2025 1:47 PM PUBLIC WELFARE DIRECTOR): Patient may very well have septic arthritis or crystalline arthritis of right know but planning to be made hospice by end of week. -continue with [facility]-acquired pneumonia 02/06/2025 Assessment & Plan (02/07/2025 1:05 PM PUBLIC WELFARE DIRECTOR): Secondary to aspiration - since discovered 72 hours after admission would treat as hap -mrsa nares negative, continue with cefepime -blood cultures, ua, skin source negative as a source for sepsis Assessment & Plan (02/06/2025 10:46 AM PUBLIC WELFARE DIRECTOR): Secondary to aspiration - since discovered 72 hours after admission would treat as hap -mrsa nares negative, continue with cefepime -blood cultures, ua, skin source negative as a source for sepsis Dysphagia 02/06/2025 Assessment & Plan (02/07/2025 1:05 PM PUBLIC WELFARE DIRECTOR): Secondary to advanced dementia. Likely not reversible. Will treat as per family wishes to see if it improves with pneumonia and if there is some role for metabolic encephalopathy acute -if no response by end of week, hospice appropriate -TRAVEL PROFESSIONAL working with patient Assessment & Plan (02/06/2025 10:46 AM PUBLIC WELFARE DIRECTOR): Secondary to advanced dementia. Likely not reversible. Will treat as per family wishes to see if it improves with pneumonia and if there is some role for metabolic encephalopathy acute -if no response by end of week, hospice appropriate -TRAVEL PROFESSIONAL working with patient Aspiration pneumonia 02/06/2025 Assessment & Plan (02/07/2025 1:05 PM PUBLIC WELFARE DIRECTOR): Secondary to dysphagia secondary to dementia. Assessment & Plan (02/06/2025 10:46 AM PUBLIC WELFARE DIRECTOR): Secondary to dysphagia secondary to dementia. 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 -may require hospice referral if dysphagia not improving by the end of the week Assessment & Plan (02/06/2025 12:19 PM PUBLIC WELFARE DIRECTOR): 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 -may require hospice referral if dysphagia not improving by the end of the week Lethargy 02/05/2025 Assessment & Plan (02/07/2025 1:47 PM PUBLIC WELFARE DIRECTOR): Workup for this yesterday discovered HAP as below - secondary to aspiration -improving Assessment & Plan (02/06/2025 10:46 AM PUBLIC WELFARE DIRECTOR): Workup for this yesterday discovered HAP as below - secondary to aspiration Spiked a fever yesterday Assessment & Plan (02/05/2025 10:31 AM PUBLIC WELFARE DIRECTOR): Patient found to be lethargic with a [...] cultures, urinalysis -obtain pvr -CT chest noncon -TRAVEL PROFESSIONAL evaluation, npo till then -After evaluation, will discuss treatment options with family vs hospice Generalized weakness 02/04/2025 Assessment & Plan (02/07/2025 1:05 PM PUBLIC WELFARE DIRECTOR): Patient has this recurrent acute syndrome several times a year. Luminal and imaging evaluation has been negative. Likely to be sequelae of dementia- with aspiration leading to cough. Assessment & Plan (02/06/2025 10:46 AM PUBLIC WELFARE DIRECTOR): Patient has this recurrent acute syndrome several times a year. Luminal and imaging evaluation has been negative. Likely to be sequelae of dementia- with aspiration leading to cough. Assessment & Plan (02/05/2025 10:31 AM PUBLIC WELFARE DIRECTOR): Patient has this recurrent acute syndrome several [...] tomorrow Assessment & Plan (02/04/2025 2:45 PM PUBLIC WELFARE DIRECTOR): Patient has this recurrent acute syndrome several [...] 07/11/2024 Assessment & Plan (02/07/2025 1:05 PM PUBLIC WELFARE DIRECTOR): Patient has this recurrent acute syndrome several times a year. Luminal and imaging evaluation has been negative. Likely to be sequelae of dementia- with aspiration leading to cough. Assessment & Plan (02/06/2025 10:46 AM PUBLIC WELFARE DIRECTOR): Patient has this recurrent acute syndrome several times a year. Luminal and imaging evaluation has been negative. Likely to be sequelae of dementia- with aspiration leading to cough. Assessment & Plan (02/05/2025 10:31 AM PUBLIC WELFARE DIRECTOR): Patient has this recurrent acute syndrome several [...] tomorrow Assessment & Plan (02/04/2025 2:45 PM PUBLIC WELFARE DIRECTOR): Patient has this recurrent acute syndrome several [...] escitalopram Assessment & Plan (01/24/2024 4:30 PM PUBLIC WELFARE DIRECTOR): Situationally worse with recent of daughter. Continue [...] cardio Assessment & Plan (01/24/2024 4:30 PM PUBLIC WELFARE DIRECTOR): Acute on chronic flare recently with pneumonia. Resolved during hospitalization into [facility]. 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 Hoarseness 04/22/2023 Assessment & Plan (04/22/2023 2:21 PM PUBLIC WELFARE DIRECTOR): I reassured her that I do not [...] 04/22/2023 Assessment & Plan (04/22/2023 2:19 PM PUBLIC WELFARE DIRECTOR): She does very well with Atrovent nasal [...] 07/09/2021 Assessment & Plan (02/07/2025 1:47 PM PUBLIC WELFARE DIRECTOR): Add propranolol Stop metoprolol Assessment & Plan [...] 07/24 Assessment & Plan (01/24/2024 4:26 PM PUBLIC WELFARE DIRECTOR): Wear sunscreen with SPF over 50 while [...] and establishing or updating healthcare power of corporate associate attorney document and providing our office with a copy. Please give the patient papers with information on Advanced Directives, Healthcare Power of Direct Response Consultant and Living Will to complete and bring back to the office for their medical records. For comprehensive documentation of your Healthcare directives, I recommend that you fill out paperwork for 5 WISHES online at [email or web address] and return a copy of the completed [...] and establishing or updating healthcare power of corporate associate attorney document and providing our office with a copy. Please give the patient papers with information on Advanced Directives, Healthcare Power of Direct Response Consultant and Living Will to complete and bring back to the office for their medical records. For comprehensive documentation of your Healthcare directives, I recommend that you fill out paperwork for 5 WISHES online at [email or web address] and return a copy of the completed [...] and establishing or updating healthcare power of corporate associate attorney document and providing our office with a copy. Risk for falls 07/24/2020 Assessment & Plan (01/24/2024 4:26 PM PUBLIC WELFARE DIRECTOR): Ongoing. Made worse with recent hospitalization. Patient [...] ischemia. Assessment & Plan (04/01/2020 11:36 AM PUBLIC WELFARE DIRECTOR): Was hospitalized at [facility] 03/14/2020 with chest pain and dyspnea. The Lexiscan stress test 03/14/2020 was negative for ischemia. History of osteoporosis 05/02/2019 Overview (05/02/2019): Boniva therapy completed 5 yrs Assessment & Plan (05/02/2019 3:50 PM PUBLIC WELFARE DIRECTOR): Due for dexa hip and spine Cough 05/02/2019 Assessment & Plan (02/07/2025 1:05 PM PUBLIC WELFARE DIRECTOR): Patient has this recurrent acute syndrome several times a year. Luminal and imaging evaluation has been negative. Likely to be sequelae of dementia- with aspiration leading to cough. Assessment & Plan (02/06/2025 10:46 AM PUBLIC WELFARE DIRECTOR): Patient has this recurrent acute syndrome several times a year. Luminal and imaging evaluation has been negative. Likely to be sequelae of dementia- with aspiration leading to cough. Assessment & Plan (02/05/2025 10:31 AM PUBLIC WELFARE DIRECTOR): Patient has this recurrent acute syndrome several [...] tomorrow Assessment & Plan (02/04/2025 2:45 PM PUBLIC WELFARE DIRECTOR): Patient has this recurrent acute syndrome several [...] tomorrow Assessment & Plan (05/02/2019 3:57 PM PUBLIC WELFARE DIRECTOR): CXR Recurrent UTI 05/02/2019 Assessment & Plan (05/02/2019 4:02 PM PUBLIC WELFARE DIRECTOR): Hydrate more Drink more water daily 6-8 8 oz glasses a day at least Repeat UA Chronic fatigue 05/01/2019 Assessment & Plan (01/24/2024 4:27 PM PUBLIC WELFARE DIRECTOR): Ongoing. Made worse with recent hospitalization for pneumonia and acute on chronic congestive heart failure. Patient encouraged activity as tolerated, but allow 3- 6 weeks for improvement. Assessment & Plan (06/30/2020 5:07 PM CDT): Labs okay. Fatigue due to stress and depression. Assessment & Plan (03/28/2020 11:05 AM PUBLIC WELFARE DIRECTOR): Labs okay. Stress. Depression. Assessment & Plan (02/01/2020 1:32 PM PUBLIC WELFARE DIRECTOR): The CBC, electrolytes, chemistries, TSH April 2019 were within normal limits. Assessment & Plan (05/01/2019 10:31 AM PUBLIC WELFARE DIRECTOR): Will check CBC, complete metabolic panel, CPK, T4 and TSH and will follow the results. Her daughter wanted the UA done and I told her to have it done through her primary MD. Vascular dementia 01/22/2019 Overview (01/27/2021): SLUMs 01/22/2019 score 24, namenda started [facility] 05/02/[address] Brain 01/22/2019 small vessel disease o/w negative [facility] 01/27/21 score 25, off namenda Assessment & Plan (11/27/2024 4:02 PM CDT): Patient poor historian. Primary day care teacher not in office today. Some concern with listed allergies and tessalon perle Rx. Patient reports previously tolerated and worked well. Family instructed to call if reporting different history with tessalon. Consider OTC cough medication options. Assessment & Plan (08/03/2024 2:58 PM CDT): [place] [address]30 indicating severe decline. Easily redirectable by [...] Linares Assessment & Plan (01/24/2024 4:31 PM PUBLIC WELFARE DIRECTOR): Stable. 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 SLUMs 05/02/[address] Brain 01/22/2019 small vessel disease o/w negative Slums testing is better since December. Do brain exercises Do physical exercises Assessment & Plan (01/22/2019 7:25 PM PUBLIC WELFARE DIRECTOR): SLUMS score is 24 c/w mild cognitive [...] memory. It is the active ingredient in vicotria. Take Theracurmin 90mg twice daily. Available over the counter and in health food stores. Start a B-100 complex, this is also good for the brain and nervous system. This is also available [id number]. New learning is vital to engage the [...] daily Assessment & Plan (01/24/2024 4:27 PM PUBLIC WELFARE DIRECTOR): Stable. Continue pantoprazole 40 mg daily. Assessment [...] Bev. Assessment & Plan (01/22/2019 4:58 PM PUBLIC WELFARE DIRECTOR): Cont on pantoprazole therapy as rx at [...] 3. Assessment & Plan (04/01/2020 11:33 AM PUBLIC WELFARE DIRECTOR): Coumadin to prevent systemic embolization from the atrial fibrillation. Assessment & Plan (02/05/2020 10:32 AM PUBLIC WELFARE DIRECTOR): For atrial fibrillation. Therapeutic INR between 2 and 3. Assessment & Plan (11/23/2018 3:36 PM CDT): Cont under care of dr Tyson, manages protimes. Stable. Continue for stroke prevention from AFIB Diverticulosis of sigmoid colon 11/23/2018 Overview (11/23/2018): Colonoscopy done in 2018, Dr Mancia Irritable bowel syndrome with diarrhea 9 Assessment & Plan (01/24/2024 4:28 PM PUBLIC WELFARE DIRECTOR): Stable. Continue dicyclomine 20 mg twice a [...] fibrillation. Assessment & Plan (03/28/2020 10:58 AM PUBLIC WELFARE DIRECTOR): Previous atrial flutter which was ablated. No recent recurrence of the atrial flutter. Now has permanent atrial fibrillation. Assessment & Plan (02/05/2020 10:32 AM PUBLIC WELFARE DIRECTOR): Previous atrial flutter. Was ablated. No recent recurrence of the atrial fibrillation. Now permanent atrial fibrillation. Assessment & Plan (04/26/2019 5:42 PM PUBLIC WELFARE DIRECTOR): Previous atrial flutter. Was ablated. No recent atrial flutter . Now permanent atrial fibrillation. Assessment & Plan (02/15/2019 6:47 PM PUBLIC WELFARE DIRECTOR): Previous atrial flutter. Was ablated Assessment & Plan (07/20/2018 12:43 PM CDT): Previous atrial flutter. Was ablated. Status post cardiac catheterization 07/20/2018 Overview (11/23/2018): Dr Tyson. Cardiac catheterization 05/26/2005 showed normal coronary arteries. Assessment & Plan (06/30/2020 5:06 PM CDT): Cardiac catheterization 05/26/2005 showed normal coronary arteries. Assessment & Plan (03/28/2020 11:04 AM PUBLIC WELFARE DIRECTOR): Cardiac catheterization 05/26/2005 showed normal coronary arteries. Assessment & Plan (02/01/2020 1:30 PM PUBLIC WELFARE DIRECTOR): Cardiac catheterization 05/26/2005 showed normal coronary arteries. Assessment & Plan (04/26/2019 5:37 PM PUBLIC WELFARE DIRECTOR): Cardiac catheterization 05/26/2005 showed normal coronary arteries. Assessment & Plan (02/15/2019 6:50 PM PUBLIC WELFARE DIRECTOR): Cardiac catheterization 05/26/2005 showed normal coronary arteries. Assessment & Plan (07/20/2018 12:44 PM CDT): Cardiac catheterization 05/26/2005 showed normal coronary arteries. Atrial septal defect 07/20/2018 Overview (11/23/2018): Small. Does not require intervention Assessment & Plan (06/30/2020 5:01 PM CDT): Small. Does not require intervention Assessment & Plan (04/01/2020 11:33 AM PUBLIC WELFARE DIRECTOR): Small. Does not require intervention. Assessment & Plan (02/01/2020 1:28 PM PUBLIC WELFARE DIRECTOR): Small. Does not require intervention. Assessment & Plan (04/26/2019 5:42 PM PUBLIC WELFARE DIRECTOR): Small. No intervention required. Assessment & Plan (02/15/2019 6:48 PM PUBLIC WELFARE DIRECTOR): Small. Does not require intervention Assessment & Plan (07/20/2018 12:45 PM CDT): Small. Does not require intervention. Raynaud's phenomenon without gangrene 07/20/2018 Overview (11/23/2018): No recurrence, amlodipine helps vasodilation Assessment & Plan (07/01/2020 9:48 AM CDT): No recurrence. Amlodipine. Assessment & Plan (03/28/2020 11:00 AM PUBLIC WELFARE DIRECTOR): No recurrence. Amlodipine. Assessment & Plan (02/05/2020 10:34 AM PUBLIC WELFARE DIRECTOR): No recurrence. Assessment & Plan (11/23/2018 3:33 [...] examination of 02/19/2014. Vascular surgery is following. 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 Aorta remains non aneurysmal. Plan: Follow-up in 1 year with aortic duplex. Assessment & Plan (01/11/2022 12:04 PM PUBLIC WELFARE DIRECTOR): Patient has stable non flow-limiting infrarenal aortic [...] following Assessment & Plan (03/28/2020 10:57 AM PUBLIC WELFARE DIRECTOR): CT abdomen 08/11/2017 showed ectasia of the abdominal aorta with a focal short segment of dissection which is unchanged since the previous examination of 02/19/2014. Vascular surgery is following Assessment & Plan (02/01/2020 1:27 PM PUBLIC WELFARE DIRECTOR): CT abdomen 08/11/2017 showed ectasia of the [...] surveillance. Assessment & Plan (04/26/2019 5:40 PM PUBLIC WELFARE DIRECTOR): CT abdomen 08/11/2017 showed ectasia of the abdominal aorta with a focal short segment of dissection which is unchanged since the previous examination of 02/19/2014. 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 Stable. Assessment & Plan (03/28/2020 11:04 AM PUBLIC WELFARE DIRECTOR): Mirapex. Assessment & Plan (02/05/2020 10:34 AM PUBLIC WELFARE DIRECTOR): Mirapex. Permanent atrial fibrillation 06/08/2018 Overview (05/17/2022): Dr Tyson. Persistent atrial fibrillation now Rate control with Toprol XL. On Coumadin to prevent systemic embolization Last Assessment & Plan: Rate control with Toprol XL. Coumadin to prevent systemic embolization. Assessment & Plan (02/07/2025 1:05 PM PUBLIC WELFARE DIRECTOR): Has been off anticoagulation due to falls Assessment & Plan (02/06/2025 10:46 AM PUBLIC WELFARE DIRECTOR): Has been off anticoagulation due to falls Assessment & Plan (02/05/2025 10:31 AM PUBLIC WELFARE DIRECTOR): Has been off anticoagulation due to falls Assessment & Plan (02/04/2025 2:45 PM PUBLIC WELFARE DIRECTOR): Has been off anticoagulation due to falls [...] therapy Assessment & Plan (02/07/2025 1:05 PM PUBLIC WELFARE DIRECTOR): Continue home medications Assessment & Plan (02/06/2025 10:46 AM PUBLIC WELFARE DIRECTOR): Continue home medications Assessment & Plan (02/05/2025 10:31 AM PUBLIC WELFARE DIRECTOR): Continue home medications Assessment & Plan (02/04/2025 2:45 PM PUBLIC WELFARE DIRECTOR): Continue home medications Assessment & Plan (11/27/2024 [...] b.i.d.. Assessment & Plan (01/24/2024 4:29 PM PUBLIC WELFARE DIRECTOR): Stable. Continue metoprolol 25 mg twice daily. Assessment & Plan (06/07/2023 9:41 AM CDT): bp stable continue current prescription regimen Cont same prescription amlodipine Follow low-sodium diet Assessment & Plan (11/29/2022 7:02 PM CDT): bp stable continue current prescription regimen Cont same Assessment & Plan (01/11/2022 12:04 PM PUBLIC WELFARE DIRECTOR): Hypertension chronic and controlled. Continue current medical therapy. Assessment & Plan (07/09/2021 11:21 AM CDT): bp stable Cont same Assessment & Plan (12/25/2020 3:50 PM CDT): Impression: Stable chronic hypertension. Plan: Medications reviewed and recommend continuing daily antihypertensive regimen as directed by patient's primary care physician. Assessment & Plan (04/01/2020 11:32 AM PUBLIC WELFARE DIRECTOR): Salt restriction. Amlodipine. Losartan. Toprol XL. Blood pressure 110/60. Assessment & Plan (02/05/2020 10:33 AM PUBLIC WELFARE DIRECTOR): Blood pressure 136/80. Salt restriction. Continue the current regimen. Assessment & Plan (12/18/2019 3:20 PM CDT): Impression: Stable hypertension. Plan: Continue current antihypertensive regimen as directed by PCP. Assessment & Plan (02/16/2019 12:15 PM PUBLIC WELFARE DIRECTOR): Blood pressure 148/80. Salt restriction. Continue the [...] recurrence. Assessment & Plan (03/28/2020 10:59 AM PUBLIC WELFARE DIRECTOR): No recurrence. Assessment & Plan (02/01/2020 1:28 PM PUBLIC WELFARE DIRECTOR): No recurrence. Assessment & Plan (04/26/2019 5:39 PM PUBLIC WELFARE DIRECTOR): No recurrence. Assessment & Plan (02/15/2019 6:45 PM PUBLIC WELFARE DIRECTOR): No recurrence . Assessment & Plan (07/20/2018 12:42 PM CDT): No recurrence. Hyponatremia 09/24/2015 Assessment & Plan (07/01/2020 9:48 AM CDT): Fluid restriction. On 03/14/2020, sodium was 137. Assessment & Plan (03/28/2020 11:00 AM PUBLIC WELFARE DIRECTOR): Fluid restriction. Corrected. On 03/14/2020 the sodium was 137. Assessment & Plan (02/05/2020 10:33 AM PUBLIC WELFARE DIRECTOR): Fluid restriction. Hyperlipidemia 05/25/2015 Overview (11/23/2018): Statin intolerant Assessment & Plan (01/11/2022 12:04 PM PUBLIC WELFARE DIRECTOR): Stable chronic hyperlipidemia. Continue current medical therapy. Assessment & Plan (12/25/2020 3:51 PM CDT): Impression: Stable chronic hyperlipidemia. Plan: Medications reviewed I recommend continuing daily statin regimen as directed by patient's primary care physician. Assessment & Plan (06/30/2020 5:01 PM CDT): Statin intolerant. Assessment & Plan (03/28/2020 10:59 AM PUBLIC WELFARE DIRECTOR): Statin intolerant. Assessment & Plan (02/01/2020 1:28 PM PUBLIC WELFARE DIRECTOR): Statin intolerant. Assessment & Plan (04/26/2019 5:39 PM PUBLIC WELFARE DIRECTOR): Statin intolerant. Assessment & Plan (02/15/2019 6:49 PM PUBLIC WELFARE DIRECTOR): Statin intolerant Assessment & Plan (07/25/2018 10:02 [...] (05/17/2022): SLUMs 01/22/2019 score 24, namenda started [facility] 05/02/[address] Brain 01/22/2019 small vessel disease o/w negative [facility] 01/27/21 score 25, off namenda Last Assessment [...] embolization. Assessment & Plan (03/28/2020 11:00 AM PUBLIC WELFARE DIRECTOR): Rate control with Toprol XL. Coumadin to prevent systemic embolization. Assessment & Plan (03/19/2020 12:20 PM PUBLIC WELFARE DIRECTOR): Recent hospitalization for afib with rvr Cont on beta eamon Cont on coumadin therapy Managed by dr Tyson Assessment & Plan (02/01/2020 1:29 PM PUBLIC WELFARE DIRECTOR): Rate control with Toprol XL. Coumadin to prevent systemic embolization. Assessment & Plan (05/01/2019 10:30 AM PUBLIC WELFARE DIRECTOR): Persistent atrial fibrillation now Rate control with Toprol XL. On Coumadin to prevent systemic embolization. The amiodarone was discontinued a while back. EKG today shows atrial fibrillation with ventricular rate of 75,, incomplete right bundle branch block, minor T-wave changes. Assessment & Plan (02/16/2019 12:17 PM PUBLIC WELFARE DIRECTOR): Persistent atrial fibrillation. Rate control with Toprol [...] primary care physician. Hypertensive heart disease w [facility] heart failure 09/26/2015 01/10/2023 Assessment & Plan (07/01/2020 9:46 AM CDT): Salt restriction. Amlodipine. Losartan. Toprol XL. Blood pressure 132/80. Assessment & Plan (05/01/2019 10:30 AM PUBLIC WELFARE DIRECTOR): Blood pressure 110/70. Salt restriction. Continue the [...] Type Department Care Team Description 02/13/2025 Telephone [facility] Primary Care [address] [place] [phone] Allison Crain MD 02/12/2025 Telephone [facility] [address] [place] [phone] Allison Crain MD 02/03/2025 9:53 PM PUBLIC WELFARE DIRECTOR - 02/08/2025 4:15 PM PUBLIC WELFARE DIRECTOR Hospital Encounter [address] [id number] Robbi Ocasio DO Sada, Kahmalia-Kalee Conceptia, MD Venkataramanan, Akash, MD Generalized weakness (Primary Dx); Frequent falls; Nausea; Atrial septal defect; Typical atrial flutter (HCC); Dependence on care provider Discharge Disposition: Discharge to hospice / home 12/31/2024 Telephone [facility] [address] [place] [phone] Allison Crain MD Additional Services Or Orders 11/27/2024 3:00 PM CDT Office Visit [facility] [address] [place] [phone] Lili Simpson NP Viral upper respiratory tract infection with cough (Primary Dx); Acute cough; Congestion of nasal sinus; Acute bronchitis, unspecified organism; Essential (primary) hypertension; Severe vascular dementia with anxiety (HCC) 11/27/2024 Nurse Triage [facility] [address] [place] [phone] Allison Crain MD from Last 3 [...] often do you attend chur ch or jew services? Never 07/12/2024 Do you belong to any clubs o r organizations such as muslim groups, unions, fraternal or athletic groups, or [...] any time in the past 12 m [facility], were you homeless or living in [...] often do you attend chur ch or jew services? Never 02/04/2025 Do you belong to any clubs o r organizations such as muslim groups, unions, fraternal or athletic groups, or [...] any time in the past 12 m [facility], were you homeless or living in a retirement (including now)? No 02/04/2025 [facility] Utilities Answer Date Recorded In [...] on file Legal Sex Female 6:46 AM PUBLIC WELFARE DIRECTOR Gender Identity Not on file Sexual Orientation Not on file Obstetrics History Para Term AB IAB SAB Ectopic Multiple Livin g Live Births 2 Date Outcome GA Total Labor Labor/2nd/3rd Weight Sex Type Anes PTL Janae A1 A5 Name Clin Last Filed Vital Signs Vital Sign Reading Time Taken Comments Blood Pressure 107/56 02/08/2025 2:30 PM PUBLIC WELFARE DIRECTOR Pulse 85 02/08/2025 2:30 PM PUBLIC WELFARE DIRECTOR Temperature 36.9 C (98.4 F) 02/08/2025 2:30 PM PUBLIC WELFARE DIRECTOR Respiratory Rate 19 02/08/2025 2:30 PM PUBLIC WELFARE DIRECTOR Oxygen Saturation 95% 02/08/2025 2:30 PM PUBLIC WELFARE DIRECTOR Inhaled Oxygen Concentration - - Weight 70 kg (154 lb 5.2 oz) 02/07/2025 5:20 AM PUBLIC WELFARE DIRECTOR Height 160 cm (5' 2.99) 02/04/2025 2:26 AM PUBLIC WELFARE DIRECTOR Body Mass Index 27.34 02/04/2025 2:26 AM PUBLIC WELFARE DIRECTOR Plan of Treatment Health Maintenance Due Date [...] Diagnosis Comments MAGNESIUM Routine 02/07/2025 2:46 AM PUBLIC WELFARE DIRECTOR EGFR Routine 02/07/2025 2:46 AM PUBLIC WELFARE DIRECTOR DIFFERENTIAL AUTO Routine 02/07/2025 2:4 6 AM PUBLIC WELFARE DIRECTOR CBC WITH AUTO DIFFERENTIAL Routine 02/07/2025 2:46 AM PUBLIC WELFARE DIRECTOR COMPREHENSIVE METABOLIC PANEL Routine 02/07/2025 2:46 AM PUBLIC WELFARE DIRECTOR MAGNESIUM Timed 02/06/2025 5:05 AM PUBLIC WELFARE DIRECTOR EGFR Routine 02/06/2025 5:05 AM PUBLIC WELFARE DIRECTOR DIFFERENTIAL AUTO Routine 02/06/2025 5:0 5 AM PUBLIC WELFARE DIRECTOR VANCOMYCIN LEVEL RANDOM Timed 02/06/2025 5:05 AM PUBLIC WELFARE DIRECTOR CBC WITH AUTO DIFFERENTIAL Routine 02/06/2025 5:05 AM PUBLIC WELFARE DIRECTOR COMPREHENSIVE METABOLIC PANEL Routine 02/06/2025 5:05 AM PUBLIC WELFARE DIRECTOR URINALYSIS, MICROSCOPIC ONLY Routine 02/05/2025 6:32 PM PUBLIC WELFARE DIRECTOR URINALYSIS AND REFLEX TO MICROSCOPIC Routine 02/05/2025 6:32 PM PUBLIC WELFARE DIRECTOR MRSA ONLY (STAPHYLOCOCCUS AUREUS) PCR Routine 02/05/2025 5:[address] CHEST WO CONTRAST IP Routine 02/05/2025 2:16 PM PUBLIC WELFARE DIRECTOR DIFFERENTIAL AUTO Routine 02/05/2025 12: 31 PM PUBLIC WELFARE DIRECTOR CBC WITH AUTO DIFFERENTIAL Routine 02/05/2025 12:31 PM PUBLIC WELFARE DIRECTOR BLOOD CULTURE STAT 02/05/2025 10:59 AM PUBLIC WELFARE DIRECTOR POC BLOOD GAS AND CHEMISTRIES, VENOUS Routine 02/05/2025 10:47 AM PUBLIC WELFARE DIRECTOR EGFR STAT 02/05/2025 10:25 AM PUBLIC WELFARE DIRECTOR COMPREHENSIVE METABOLIC PANEL STAT 02/05/2025 10:25 AM PUBLIC WELFARE DIRECTOR BLOOD CULTURE STAT 02/05/2025 10:25 AM PUBLIC WELFARE DIRECTOR TRANSTHORACIC ECHO (TTE) COMPLETE W DOPPLER/CF WO CONTRAST Routine 02/04/2025 1:49 PM PUBLIC WELFARE DIRECTOR EGFR Routine 02/04/2025 7:32 AM PUBLIC WELFARE DIRECTOR CBC WITHOUT DIFFERENTIAL Routine 02/04/2025 7:32 AM PUBLIC WELFARE DIRECTOR BASIC METABOLIC PANEL Routine 02/04/2025 7:[address] HEAD WO CONTRAST ED Urgent/IP Urgent 02/04/2025 1:31 AM PUBLIC WELFARE DIRECTOR URINALYSIS, MICROSCOPIC ONLY STAT 02/04/2025 12:18 AM PUBLIC WELFARE DIRECTOR INFLUENZA A/B, RSV, AND COVID-19 PCR STAT 02/04/2025 12:18 AM PUBLIC WELFARE DIRECTOR URINALYSIS AND REFLEX TO MICROSCOPIC AND CULTURE STAT 02/04/2025 12:[address] ABDOMEN PELVIS W CONTRAST ED 02/03/2025 11:05 PM PUBLIC WELFARE DIRECTOR XR CHEST 1 VIEW ED 02/03/2025 10:06 PM PUBLIC WELFARE DIRECTOR PRO B-TYPE NATRIURETIC PEPTIDE STAT 02/03/2025 9:59 PM PUBLIC WELFARE DIRECTOR EGFR STAT 02/03/2025 9:59 PM PUBLIC WELFARE DIRECTOR DIFFERENTIAL AUTO STAT 02/03/2025 9:5 9 PM PUBLIC WELFARE DIRECTOR SEPSIS LACTATE WITH REFLEX STAT 02/03/2025 9:59 PM PUBLIC WELFARE DIRECTOR COMPREHENSIVE METABOLIC PANEL STAT 02/03/2025 9:59 PM PUBLIC WELFARE DIRECTOR CBC WITH AUTO DIFFERENTIAL STAT 02/03/2025 9:59 PM PUBLIC WELFARE DIRECTOR POC INFLUENZA A/B, COVID-19 ANTIGEN Routine 11/27/2024 [...] Results * (ABNORMAL) eGFR (02/07/2025 2:46 AM PUBLIC WELFARE DIRECTOR) eGFR 30(L) >=60 mL/min/1. 73 m2 Comment: [...] last reviewed 2020. Blood 02/07/2025 2:46 AM PUBLIC WELFARE DIRECTOR 02/07/2025 2:54 AM PUBLIC WELFARE DIRECTOR Dru Galvan MD LAB BLOOD ORDERABLES Fin al Result [facility] [address] Department [place] [address] * (ABNORMAL) Differential, auto (02/07/2025 2:46 AM PUBLIC WELFARE DIRECTOR) Neutrophil abs 6.24 1.50 - 6.50 K/cumm Imm gran abs 0.07 0.00 - 0.10 K/cumm [facility] Lymphocyte abs 1.18 0.80 - 3.30 K/cumm [facility] Monocyte abs 1.29(H) 0.20 - 0.80 K/cumm [facility] Eosinophil abs 0.24 0.00 - 0.50 K/cumm [facility] Basophil abs 0.02 0.00 - 0.10 K/cumm [facility] Neutrophil pct 68.9 % [facility] Comment: Interpretive Data Percent cell count reference ranges are not reported, since discordance with absolute values may lead to misinterpretation of CBC data. Current Interpretive Data was last revised on 2017. Imm gran pct 0.8 % [facility] Comment: Interpretive Data Percent cell count reference ranges are not reported, since discordance with absolute values may lead to misinterpretation of CBC data. Current Interpretive Data was last revised on 2017. Lymphocyte pct 13.1 % [facility] Comment: Interpretive Data Percent cell count reference ranges are not reported, since discordance with absolute values may lead to misinterpretation of CBC data. Current Interpretive Data was last revised on 2017. Monocyte pct 14.3 % [facility] Comment: Interpretive Data Percent cell count reference ranges are not reported, since discordance with absolute values may lead to misinterpretation of CBC data. Current Interpretive Data was last revised on 2017. Eosinophil pct 2.7 % [facility] Comment: Interpretive Data Percent cell count reference ranges are not reported, since discordance with absolute values may lead to misinterpretation of CBC data. Current Interpretive Data was last revised on 2017. Basophil pct 0.2 % [facility] Comment: Interpretive Data Percent cell count reference ranges are not reported, since discordance with absolute values may lead to misinterpretation of CBC data. Current Interpretive Data was last revised on 2017. Blood 02/07/2025 2:46 AM PUBLIC WELFARE DIRECTOR 02/07/2025 2:54 AM PUBLIC WELFARE DIRECTOR Dru Galvan MD LAB BLOOD ORDERABLES Fin al Result [place] [id number] Department [place] [address] * (ABNORMAL) CBC with auto differential (02/07/2025 2:46 AM PUBLIC WELFARE DIRECTOR) WBC 9.04 3.80 - 9.90 K/cumm Hgb 9.7(L) 11.9 - 15.5 g/dL [facility] Hct 30.5(L) 35.6 - 45.5 % [facility] Plt 169 150 - 400 K/cumm [facility] MPV 10.9 9.1 - 12.3 fL [facility] RBC 3.18(L) 3.90 - 5.20 M/cumm [facility] MCV 95.9 81.3 - 96.4 fL [facility] MCH 30.5 27.1 - 33.3 pg [facility] MCHC 31.8(L) 32.3 - 35.7 g/dL [facility] RDW CV 13.6 11.1 - 14.9 % [facility] RDW SD 48.6(H) 35.7 - 48.1 fL [facility] NRBC abs 0.00 0.00 - 0.01 K/cumm [facility] Blood 02/07/2025 2:46 AM PUBLIC WELFARE DIRECTOR 02/07/2025 2:54 AM PUBLIC WELFARE DIRECTOR Dru Galvan MD LAB BLOOD ORDERABLES Fin al Result Performing Organization Address [facility] Co de Phone Number MARC [address] [place] [address] * Magnesium (02/07/2025 2:46 AM PUBLIC WELFARE DIRECTOR) [facility] Magnesium 2.4 1.4 - 2.5 mg/dL Blood 02/07/2025 2:46 AM PUBLIC WELFARE DIRECTOR 02/07/2025 2:54 AM PUBLIC WELFARE DIRECTOR Dru Galvan MD LAB BLOOD ORDERABLES Fin al Result Performing Organization Address [facility] de Phone Number MARC [facility] [place] [address] * (ABNORMAL) Comprehensive metabolic panel (02/07/2025 2:46 AM PUBLIC WELFARE DIRECTOR) [facility] Sodium 137 135 - 145 mmol/L Potassium, pl 3.4 3.3 - 4.9 mmol/L [facility] Chloride 102 97 - 110 mmol/L [facility] CO2 26 22 - 32 mmol/L [facility] Anion gap 9 2 - 15 mmol/L [facility] BUN 25 6 - 25 mg/dL [facility] Creatinine 1.61(H) 0.60 - 1.10 mg/dL [facility] Glucose 108 70 - 199 mg/dL [facility] Comment: Interpretive Data Fasting glucose >/= 126 [...] 2022. Calcium 8.6 8.5 - 10.3 mg/dL [facility] Bilirubin, total 0.6 0.1 - 1.2 mg/dL [facility] Protein, pl 6.1(L) 6.5 - 8.5 g/dL [facility] Albumin 3.1(L) 3.5 - 5.0 g/dL [facility] Alk phos 85 40 - 130 Units/L [facility] ALT 6(L) 7 - 45 Units/L [facility] AST 25 10 - 45 Units/L [facility] Blood 02/07/2025 2:46 AM PUBLIC WELFARE DIRECTOR 02/07/2025 2:54 AM PUBLIC WELFARE DIRECTOR Dru Galvan MD LAB BLOOD ORDERABLES Fin al Result Performing Organization Address [facility] Co de Phone Number [address] [place] [address] * (ABNORMAL) eGFR (02/06/2025 5:05 AM PUBLIC WELFARE DIRECTOR) eGFR 40(L) >=60 mL/min/1. 73 m2 Comment: [...] last reviewed 2020. Blood 02/06/2025 5:05 AM PUBLIC WELFARE DIRECTOR 02/06/2025 5:18 AM PUBLIC WELFARE DIRECTOR us Dru Galvan MD LAB BLOOD ORDERABLES Fin al Result Performing Organization Address City/[facility]/ZIP Co de Phone Number [address] [place] [address] * (ABNORMAL) Differential, auto (02/06/2025 5:05 AM PUBLIC WELFARE DIRECTOR) Pathologist [facility] Neutrophil abs 6.96(H) 1.50 - 6.50 K/cumm Imm gran abs 0.08 0.00 - 0.10 K/cumm [facility] Lymphocyte abs 1.05 0.80 - 3.30 K/cumm [facility] Monocyte abs 1.02(H) 0.20 - 0.80 K/cumm [facility] Eosinophil abs 0.13 0.00 - 0.50 K/cumm [facility] Basophil abs 0.04 0.00 - 0.10 K/cumm [facility] Neutrophil pct 75.0 % [facility] Comment: Interpretive Data Percent cell count reference ranges are not reported, since discordance with absolute values may lead to misinterpretation of CBC data. Current Interpretive Data was last revised on 2017. Imm gran pct 0.9 % [facility] Comment: Interpretive Data Percent cell count reference ranges are not reported, since discordance with absolute values may lead to misinterpretation of CBC data. Current Interpretive Data was last revised on 2017. Lymphocyte pct 11.3 % [facility] Comment: Interpretive Data Percent cell count reference ranges are not reported, since discordance with absolute values may lead to misinterpretation of CBC data. Current Interpretive Data was last revised on 2017. Monocyte pct 11.0 % [facility] Comment: Interpretive Data Percent cell count reference ranges are not reported, since discordance with absolute values may lead to misinterpretation of CBC data. Current Interpretive Data was last revised on 2017. Eosinophil pct 1.4 % [facility] Comment: Interpretive Data Percent cell count reference ranges are not reported, since discordance with absolute values may lead to misinterpretation of CBC data. Current Interpretive Data was last revised on 2017. Basophil pct 0.4 % [facility] Comment: Interpretive Data Percent cell count reference ranges are not reported, since discordance with absolute values may lead to misinterpretation of CBC data. Current Interpretive Data was last revised on 2017. Blood 02/06/2025 5:05 AM PUBLIC WELFARE DIRECTOR 02/06/2025 5:18 AM PUBLIC WELFARE DIRECTOR Dru Galvan MD LAB BLOOD ORDERABLES Fin al Result Performing Organization Address City/[facility] Co de Phone Number MARC [address] [address] * (ABNORMAL) CBC with auto differential (02/06/2025 5:05 AM PUBLIC WELFARE DIRECTOR) Pathologist [facility] WBC 9.28 3.80 - 9.90 K/cumm Hgb 10.2(L) 11.9 - 15.5 g/dL [facility] Hct 31.5(L) 35.6 - 45.5 % [facility] Plt 167 150 - 400 K/cumm [facility] MPV 11.0 9.1 - 12.3 fL [facility] RBC 3.31(L) 3.90 - 5.20 M/cumm [facility] MCV 95.2 81.3 - 96.4 fL [facility] MCH 30.8 27.1 - 33.3 pg [facility] MCHC 32.4 32.3 - 35.7 g/dL [facility] RDW CV 13.9 11.1 - 14.9 % [facility] RDW SD 48.3(H) 35.7 - 48.1 fL [facility] NRBC abs 0.00 0.00 - 0.01 K/cumm [facility] Blood 02/06/2025 5:05 AM PUBLIC WELFARE DIRECTOR 02/06/2025 5:18 AM PUBLIC WELFARE DIRECTOR Dru Galvan MD LAB BLOOD ORDERABLES Fin al Result Performing Organization Address City/[facility] Co de Phone Number MARC [address] [place] [place] [address] * Magnesium (02/06/2025 5:05 AM PUBLIC WELFARE DIRECTOR) Pathologist [facility] Magnesium 1.6 1.4 - 2.5 mg/dL Blood 02/06/2025 5:05 AM PUBLIC WELFARE DIRECTOR 02/06/2025 5:19 AM PUBLIC WELFARE DIRECTOR Dru Galvan MD LAB BLOOD ORDERABLES Fin al Result Performing Organization Address [facility] de Phone Number [address] [address] * Vancomycin level random (02/06/2025 5:05 AM PUBLIC WELFARE DIRECTOR) [facility] Vancomycin random 12.7 mcg/mL Comment: Interpretive Data No reference ranges have been established for random drug levels. Current Interpretive Data was last revised on 2020. Blood 02/06/2025 5:05 AM PUBLIC WELFARE DIRECTOR 02/06/2025 5:19 AM PUBLIC WELFARE DIRECTOR Dru Galvan MD LAB BLOOD ORDERABLES Fin al Result Performing Organization Address [facility] de Phone Number [address] [address] * (ABNORMAL) Comprehensive metabolic panel (02/06/2025 5:05 AM PUBLIC WELFARE DIRECTOR) [facility] Sodium 138 135 - 145 mmol/L Potassium, pl 3.8 3.3 - 4.9 mmol/L [facility] Chloride 102 97 - 110 mmol/L [facility] CO2 24 22 - 32 mmol/L [facility] Anion gap 12 2 - 15 mmol/L [facility] BUN 18 6 - 25 mg/dL [facility] Creatinine 1.28(H) 0.60 - 1.10 mg/dL [facility] Glucose 90 70 - 199 mg/dL [facility] Comment: Interpretive Data Fasting glucose >/= 126 [...] 2022. Calcium 8.5 8.5 - 10.3 mg/dL [facility] Bilirubin, total 1.0 0.1 - 1.2 mg/dL [facility] Protein, pl 6.2(L) 6.5 - 8.5 g/dL [facility] Albumin 3.3(L) 3.5 - 5.0 g/dL [facility] Alk phos 72 40 - 130 Units/L [facility] ALT <5(L) 7 - 45 Units/L [facility] AST 14 10 - 45 Units/L [facility] Blood 02/06/2025 5:05 AM PUBLIC WELFARE DIRECTOR 02/06/2025 5:18 AM PUBLIC WELFARE DIRECTOR Dru Galvan MD LAB BLOOD ORDERABLES Fin al Result [facility] [address] Department [place] [address] * (ABNORMAL) Urinalysis reflex to microscopic (02/05/2025 6:32 PM PUBLIC WELFARE DIRECTOR) Color, ur Yellow Yellow Clarity, ur Clear Clear [facility] Specific gravity, ur 1.018 1.003 - 1.030 [facility] pH, urine 6.5 [facility] Comment: Interpretive Data U rine pH is affected by diet, medications, systemic acid-base disturbances, and renal tubular function. pH may affect urinary stone formation. For example, urine pH below 6.0 may help reduce the tendency for calcium phosphate stones and pH greater than 6.0 may reduce the tendency for uric acid stone formation. Source: [facility] Current Interpretive Data was last revised on 2017 Protein, ur ql Negative Negative [facility] Glucose, ur ql Negative Negative [facility] Ketones, ur Negative Negative [facility] Bilirubin, ur Negative Negative [facility] Blood, ur Negative Negative [facility] Urobilinogen, ur <2.0 <2.0 mg/dL [facility] Nitrite, ur Negative Negative [facility] Leukocyte esterase, ur 1+(A) Negative [facility] UA reflex comment Reflex to microscopic UA will be performed. [facility] Urine 02/05/2025 6:32 PM PUBLIC WELFARE DIRECTOR 02/05/2025 6:48 PM PUBLIC WELFARE DIRECTOR Dru Galvan MD LAB URINE ORDERABLES Fin al Result Performing Organization Address City/[facility] Co de Phone Number [address] [address] * (ABNORMAL) Urinalysis, microscopic only (02/05/2025 6:32 PM PUBLIC WELFARE DIRECTOR) WBC, ur 0-5 0 - 5 /HPF RBC, ur 3-5(A) 0 - 2 /HPF [facility] Epithelial cells, squamous, ur 1-5 0 - 5 /HPF [facility] Urine 02/05/2025 6:32 PM PUBLIC WELFARE DIRECTOR 02/05/2025 6:48 PM PUBLIC WELFARE DIRECTOR Dru Galvan MD LAB URINE ORDERABLES Fin al Result Performing Organization Address [facility] de Phone Number [address] [address] * MRSA Only (Staphylococcus aureus) PCR Nasal (02/05/2025 5:47 PM PUBLIC WELFARE DIRECTOR) PCR Scrn, Methicillin resistant Staphylococcus aureus (MRSA) Not Detected Not Detected Comment: Interpretive Data Testing performed using Nucleic Acid Amplification with the [employer] Xpert MRSA NxG Assay. This assay detects target DNA from mecA, mecC and the SCCmec insertion site of Staphylococcus aureus using Real-Time PCR and has been cleared by the FDA. Performance characteristics have been verified by the [facility]. Current Interpretive Data was last revised on 2022 Nasal 02/05/2025 5:47 PM PUBLIC WELFARE DIRECTOR 02/05/2025 5:51 PM PUBLIC WELFARE DIRECTOR Dru Galvan MD LAB MICROBIOLOGY - GENER AL ORDERABLES Final Result Performing Organization Address [facility] Co de Phone Number [address] [address] * CT Chest WO Contrast (02/05/2025 2:16 PM PUBLIC WELFARE DIRECTOR) Anatomical Region Laterality Modality Body N/A Computed Tomogra phy 02/05/2025 3:42 PM PUBLIC WELFARE DIRECTOR Impressions 02/05/2025 3:42 PM PUBLIC WELFARE DIRECTOR 1. There is a trace left pleural [...] Sukumar Messer M.D. Narrative 02/05/2025 3:42 PM PUBLIC WELFARE DIRECTOR EXAMINATION: CT CHEST WO CONTRAST ORDERING HEALTHCARE [...] CHEST WO CONTRAST ORDERING HEALTHCARE PROVIDER: DRU GLAVAN HISTORY: Pneumonia, complication suspected, xray done Evaluation [...] * (ABNORMAL) Differential, auto (02/05/2025 12:31 PM PUBLIC WELFARE DIRECTOR) Neutrophil abs 7.52(H) 1.50 - 6.50 K/cumm Imm gran abs 0.03 0.00 - 0.10 K/cumm [facility] Lymphocyte abs 1.33 0.80 - 3.30 K/cumm [facility] Monocyte abs 1.07(H) 0.20 - 0.80 K/cumm [facility] Eosinophil abs 0.22 0.00 - 0.50 K/cumm [facility] Basophil abs 0.03 0.00 - 0.10 K/cumm [facility] Neutrophil pct 73.7 % [facility] Comment: Interpretive Data Percent cell count reference ranges are not reported, since discordance with absolute values may lead to misinterpretation of CBC data. Current Interpretive Data was last revised on 2017. Imm gran pct 0.3 % [facility] Comment: Interpretive Data Percent cell count reference ranges are not reported, since discordance with absolute values may lead to misinterpretation of CBC data. Current Interpretive Data was last revised on 2017. Lymphocyte pct 13.0 % [facility] Comment: Interpretive Data Percent cell count reference ranges are not reported, since discordance with absolute values may lead to misinterpretation of CBC data. Current Interpretive Data was last revised on 2017. Monocyte pct 10.5 % [facility] Comment: Interpretive Data Percent cell count reference ranges are not reported, since discordance with absolute values may lead to misinterpretation of CBC data. Current Interpretive Data was last revised on 2017. Eosinophil pct 2.2 % [facility] Comment: Interpretive Data Percent cell count reference ranges are not reported, since discordance with absolute values may lead to misinterpretation of CBC data. Current Interpretive Data was last revised on 2017. Basophil pct 0.3 % [facility] Comment: Interpretive Data Percent cell count reference ranges are not reported, since discordance with absolute values may lead to misinterpretation of CBC data. Current Interpretive Data was last revised on 2017. Blood 02/05/2025 12:3 1 PM PUBLIC WELFARE DIRECTOR 02/05/2025 12:35 PM PUBLIC WELFARE DIRECTOR Dru Galvan MD LAB BLOOD ORDERABLES Fin al Result Performing Organization Address City/[facility] de Phone Number [facility] [address] [place] [employer] [address] * (ABNORMAL) CBC with auto differential (02/05/2025 12:31 PM PUBLIC WELFARE DIRECTOR) WBC 10.20(H) 3.80 - 9.90 K/cumm Hgb 9.9(L) 11.9 - 15.5 g/dL [facility] Hct 30.6(L) 35.6 - 45.5 % [facility] Plt 176 150 - 400 K/cumm [facility] MPV 10.9 9.1 - 12.3 fL [facility] RBC 3.17(L) 3.90 - 5.20 M/cumm [facility] MCV 96.5(H) 81.3 - 96.4 fL [facility] MCH 31.2 27.1 - 33.3 pg [facility] MCHC 32.4 32.3 - 35.7 g/dL [facility] RDW CV 13.9 11.1 - 14.9 % [facility] RDW SD 49.3(H) 35.7 - 48.1 fL [facility] NRBC abs 0.00 0.00 - 0.01 K/cumm [facility] Blood 02/05/2025 12:3 1 PM PUBLIC WELFARE DIRECTOR 02/05/2025 12:35 PM PUBLIC WELFARE DIRECTOR Dru Galvan MD LAB BLOOD ORDERABLES Fin al Result Performing Organization Address [facility] Co de Phone Number MARC [address] [place] [place] [address] * Blood culture Blood (02/05/2025 10:59 AM PUBLIC WELFARE DIRECTOR) Report Final Report: No growth Comment:Testing performed by : [facility], [address], [place]., [address] Blood 02/05/2025 10:5 9 AM PUBLIC WELFARE DIRECTOR 02/05/2025 2:21 PM PUBLIC WELFARE DIRECTOR Narrative MARC - 02/09/2025 4:00 PM PUBLIC WELFARE DIRECTOR From a different site than #1. Collection->Peripheral [...] performance characteristics have been verified by the [facility]. For questions about this culture, contact the Microbiology Laboratory at [phone]. Interpretive data was last revised on 23. Dru Galvan MD LAB MICROBIOLOGY - [facility] AL ORDERABLES Final Result MARC [id number] Region Department [place] [address] * (ABNORMAL) POC Blood Gas and Chemistries, Venous - (02/05/2025 10:47 AM PUBLIC WELFARE DIRECTOR) pH,tomy POC 7.39 7.32 - 7.43 pCO2, tomy POC 43 40 - 50 mmHg MARC CARDENAS pO2,tomy POC 27 mmHg MARC Comment: Interpretive Data No reference range established. Current interpretive data was last revised 2019. HCO3, tomy (Calc) POC 26 20 - 30 mmol/L [facility] Base excess, tmoy POC 1 mmol/L [facility] Comment: Interpretive Data No reference range established. Current interpretive data was last revised 2019. Oxy Hgb, tomy POC 39.6(L) 90.0 - 95.0 % [facility] Met Hgb, tomy POC 0.8 0.0 - 1.9 % [facility] Carboxy Hgb, tomy POC 1.3 0.0 - 2.9 % [facility] Hemoglobin, tomy POC 8.6(L) 11.9 - 15.5 g/dL [facility] Sodium, tomy POC 136 135 - 145 mmol/L [facility] Potassium, tomy POC 3.9 3.3 - 4.9 mmol/L [facility] Comment: Interpretive Data This method is not able to assess for hemolysis, which may falsely increase potassium concentrations. If further testing is needed to evaluate this result, consider in-laboratory plasma potassium. Current Interpretive Data was last revised on 2021. Glucose, tomy POC 89 70 - 199 mg/dL [facility] Ionized Calcium, tomy POC 4.59 4.50 - 5.10 mg/dL [facility] Lactate, tomy POC 1.5 0.7 - 2.0 mmol/L [facility] Blood 02/05/2025 10:4 7 AM PUBLIC WELFARE DIRECTOR 02/05/2025 10:47 AM PUBLIC WELFARE DIRECTOR Dru Galvan MD LAB POCT ORDERABLES - DE VICE Final Result [facility] [address] Department [place] [address] * (ABNORMAL) eGFR (02/05/2025 10:25 AM PUBLIC WELFARE DIRECTOR) Pathologist [facility] eGFR 39(L) >=60 mL/min/1. 73 m2 Comment: [...] reviewed 2020. Blood 02/05/2025 10:2 5 AM PUBLIC WELFARE DIRECTOR 02/05/2025 10:29 AM PUBLIC WELFARE DIRECTOR Dru Galvan MD LAB BLOOD ORDERABLES Fin al Result MARC [address] Department [place] [address] * Blood culture Blood (02/05/2025 10:25 AM PUBLIC WELFARE DIRECTOR) Report Final Report: No growth Comment:Testing performed by : [facility], [address] [place]., [address] Blood 02/05/2025 10:2 5 AM PUBLIC WELFARE DIRECTOR 02/05/2025 2:19 PM PUBLIC WELFARE DIRECTOR Narrative MARC - 02/09/2025 4:00 PM PUBLIC WELFARE DIRECTOR Collection->Peripheral 1. Blood cultures are incubated for [...] performance characteristics have been verified by the [facility] Microbiology Laboratory. For questions about this culture, contact the Microbiology Laboratory at [phone]. Interpretive data was last revised on 23. Dru Galvan MD LAB MICROBIOLOGY - [facility] AL ORDERABLES Final Result [facility] [address] Department [place] [address] * (ABNORMAL) Comprehensive metabolic panel (02/05/2025 10:25 AM PUBLIC WELFARE DIRECTOR) Sodium 137 135 - 145 mmol/L Potassium, pl 4.2 3.3 - 4.9 mmol/L [facility] Comment:Hemolyzed; Potassium value may be falsely elevated by as much as 1.0 mmol/L. Suggest redraw and reanalysis. Chloride 101 97 - 110 mmol/L [facility] CO2 24 22 - 32 mmol/L [facility] Anion gap 12 2 - 15 mmol/L [facility] BUN 17 6 - 25 mg/dL [facility] Creatinine 1.32(H) 0.60 - 1.10 mg/dL [facility] Glucose 97 70 - 199 mg/dL [facility] Comment: Interpretive Data Fasting glucose >/= 126 [...] 2022. Calcium 8.7 8.5 - 10.3 mg/dL [facility] Bilirubin, total 1.0 0.1 - 1.2 mg/dL [facility] Protein, pl 6.3(L) 6.5 - 8.5 g/dL [facility] Albumin 3.7 3.5 - 5.0 g/dL [facility] Alk phos 75 40 - 130 Units/L [facility] ALT 6(L) 7 - 45 Units/L [facility] AST 24 10 - 45 Units/L [facility] Comment:Hemolyzed; result ma y be falsely elevated Blood 02/05/2025 10:2 5 AM PUBLIC WELFARE DIRECTOR 02/05/2025 10:29 AM PUBLIC WELFARE DIRECTOR us Dru Galvan MD LAB BLOOD ORDERABLES Fin al Result MARC [address] Department [place] [address] * TRANSTHORACIC ECHO (TTE) COMPLETE W DOPPLER/CF WO CONTRAST (02/04/2025 1:49 PM PUBLIC WELFARE DIRECTOR) EF Mod BP 60 % CONS SCIMAGE Anatomical Region Laterality Modality Ultrasound 02/04/2025 1:14 PM PUBLIC WELFARE DIRECTOR Narrative 02/04/2025 5:58 PM PUBLIC WELFARE DIRECTOR Transthoracic Echocardiographic Report Patient Name: REGINALDO CHRISTOPHER : 1935 (89y 2m) Sex: F Study Date: 02/04/2025 01:14:48 PM Ht(Inch): 63 Wt(Lb): 150 BSA: 1.74 Billiard Table Repairer: Carol Black [facility] Location: [id number] Order Provider: LIBIA CRAWFORD Heart Rate: 82 BMI: 26.57 BP: 151 / 83 Ref Provider: LIBIA CRAWFORD PROCEDURES: Echocardiographic Report: ([id number]) Transthoracic complete echo, 2D, spectral and tissue [...] LA Volume BP 88.60 ml AI Decel [place] 2.99 m/s2 LA Volume Index 50.95 ml/m2 [...] By: Reji Clement MD 02/04/2025 5:58:11 PM PUBLIC WELFARE DIRECTOR Procedure Note Reji Clement MD - 02/04/2025 Transthoracic Echocardiographic Report Patient Name: REGINALDO CHRISTOPHER : 1935 (89y 2m) Sex: F Study Date: 02/04/2025 01:14:48 PM Ht(Inch): 63 Wt(Lb): 150 BSA: 1.74 Billiard Table Repairer: Carol Black [facility]CS Location: [place] [address] Order Provider:LIBIA CRAWFORD Heart Rate: 82 BMI: 26.57 BP: 151 / 83 Ref Provider:LIBIA CRAWFORD PROCEDURES: Echocardiographic Report: ([id number]) Transthoracic complete echo, 2D,spectral and tissue Doppler, [...] ml/m2 [ 16.00 - 34.00 ] AI PAR718.00 ms RVDd 2D 2.66 cm [ 2.00 - 3.00 ] MV E Peak Vel1.77 m/s TAPSE 1.65 cm [ 1.71 - 5.00 ] MV Decel Mppn240.00 msec RA Volume 51.20 ml RV S`9.14 [...] By: Reji Clement MD 02/04/2025 5:58:11 PM PUBLIC WELFARE DIRECTOR Libia Crawford MD CV ECHO PROCEDU RES Final Result * (ABNORMAL) eGFR (02/04/2025 7:32 AM PUBLIC WELFARE DIRECTOR) eGFR 48(L) >=60 mL/min/1. 73 m2 Comment: [...] last reviewed 2020. Blood 02/04/2025 7:32 AM PUBLIC WELFARE DIRECTOR 02/04/2025 8:27 AM PUBLIC WELFARE DIRECTOR Libia Crawford MD LAB BLOOD ORDER NEFTALI Final Result Performing Organization Address City/[facility]/ZIP Co de Phone Number MARC [address] [place] [address] * (ABNORMAL) CBC without differential (02/04/2025 7:32 AM PUBLIC WELFARE DIRECTOR) [facility] WBC 10.12(H) 3.80 - 9.90 K/cumm Hgb 10.7(L) 11.9 - 15.5 g/dL [facility] Hct 33.0(L) 35.6 - 45.5 % [facility] Plt 194 150 - 400 K/cumm [facility] MPV 11.4 9.1 - 12.3 fL [facility] RBC 3.42(L) 3.90 - 5.20 M/cumm [facility] MCV 96.5(H) 81.3 - 96.4 fL [facility] MCH 31.3 27.1 - 33.3 pg [facility] MCHC 32.4 32.3 - 35.7 g/dL [facility] RDW CV 13.9 11.1 - 14.9 % [facility] RDW SD 48.9(H) 35.7 - 48.1 fL [facility] NRBC abs 0.00 0.00 - 0.01 K/cumm [facility] Blood 02/04/2025 7:32 AM PUBLIC WELFARE DIRECTOR 02/04/2025 8:27 AM PUBLIC WELFARE DIRECTOR Libia Crawford MD LAB BLOOD ORDER NEFTLAI Final Result MARC [address] [place] [place] [address] * Basic metabolic panel (02/04/2025 7:32 AM PUBLIC WELFARE DIRECTOR) [facility] Sodium 140 135 - 145 mmol/L Potassium, pl 3.6 3.3 - 4.9 mmol/L [facility] Chloride 103 97 - 110 mmol/L [facility] CO2 24 22 - 32 mmol/L [facility] Anion gap 13 2 - 15 mmol/L [facility] BUN 12 6 - 25 mg/dL [facility] Creatinine 1.10 0.60 - 1.10 mg/dL [facility] Glucose 94 70 - 199 mg/dL [facility] Comment: Interpretive Data Fasting glucose >/= 126 [...] 2022. Calcium 8.9 8.5 - 10.3 mg/dL [facility] Blood 02/04/2025 7:32 AM PUBLIC WELFARE DIRECTOR 02/04/2025 8:27 AM PUBLIC WELFARE DIRECTOR Libia Crawford MD LAB BLOOD ORDER NEFTALI Final Result [facility] [address] Department [place] [address] * CT Head WO Contrast (02/04/2025 1:31 AM PUBLIC WELFARE DIRECTOR) Anatomical Region Laterality Modality Head and Neck N/A Computed Tomogra phy 02/04/2025 1:38 AM PUBLIC WELFARE DIRECTOR Impressions 02/04/2025 1:38 AM PUBLIC WELFARE DIRECTOR 1. No acute intracranial finding. 2. Sequela of chronic microangiopathy. Electronically signed by: Luis Argueta M.D. Narrative 02/04/2025 1:38 AM PUBLIC WELFARE DIRECTOR EXAMINATION: CT HEAD WO CONTRAST INDICATION: Female, [...] and COVID-19 PCR Nasopharyngeal (02/04/2025 12:18 AM PUBLIC WELFARE DIRECTOR) COVID-19 RNA Negative Negative Influenza A RNA Negative Negative MARC CARDENAS Influenza B RNA Negative Negative MARC CARDENAS RSV RNA Negative Negative MARC CARDENAS Comment: Interpretive data: Testing performed by [facility]. This test is performed using the [employer] Xpert Xpress CoV-2/Flu/RSV plus assay. This is a multiplex, real-time reverse transcriptase PCR assay intended for the qualitative detection of nucleic acid from SARS-CoV-2, influenza A, influenza B, and respiratory syncytial virus. This assay has been cleared by the [place] Food and Drug administration. The performance characteristics have been verified by the [facility]. Results must be considered in the clinical context, and a negative result does not rule out infection. Interpretive Data last revised 2023 Nasopharyngeal 02/04/2025 12 :18 AM PUBLIC WELFARE DIRECTOR 02/04/2025 12:21 AM PUBLIC WELFARE DIRECTOR Narrative [facility] - 02/04/2025 1:05 AM PUBLIC WELFARE DIRECTOR Is the Patient experiencing symptoms consistent with COVID?->Yes us Robbi Ocasio DO LAB MICROBIOLOGY - GENERAL ORD ERABLES Final Result MARC [address] Department [place] [address] * (ABNORMAL) Urinalysis reflex to microscopic and culture Urine (02/04/2025 12:18 AM PUBLIC WELFARE DIRECTOR) Color, ur Yellow Yellow Clarity, ur Clear Clear [facility] Specific gravity, ur 1.044(H) 1.003 - 1.030 [facility] pH, urine 5.5 [facility] Comment: Interpretive Data U rine pH is affected by diet, medications, systemic acid-base disturbances, and renal tubular function. pH may affect urinary stone formation. For example, urine pH below 6.0 may help reduce the tendency for calcium phosphate stones and pH greater than 6.0 may reduce the tendency for uric acid stone formation. Source: [facility] Current Interpretive Data was last revised on 2017 Protein, ur ql Negative Negative [facility] Glucose, ur ql Negative Negative [facility] Ketones, ur Negative Negative [facility] Bilirubin, ur Negative Negative [facility] Blood, ur 1+(A) Negative [facility] Urobilinogen, ur <2.0 <2.0 mg/dL [facility] Nitrite, ur Negative Negative [facility] Leukocyte esterase, ur Negative Negative [facility] UA reflex comment Reflex to microscopic UA will be performed. [facility] Urine 02/04/2025 12:1 8 AM PUBLIC WELFARE DIRECTOR 02/04/2025 12:21 AM PUBLIC WELFARE DIRECTOR Narrative [facility] - 02/04/2025 12:25 AM PUBLIC WELFARE DIRECTOR If patient unable to urinate, straight cath Robbi Ocasio LAB MICROBIOLOGY - GENERAL ORD ERABLES Final Result Performing Organization Address [facility] de Phone Number MARC [facility] [place] [address] * (ABNORMAL) Urinalysis, microscopic only (02/04/2025 12:18 AM PUBLIC WELFARE DIRECTOR) WBC, ur 0-5 0 - 5 /HPF RBC, ur 6-10(A) 0 - 2 /HPF [facility] Epithelial cells, squamous, ur 1-5 0 - 5 /HPF [facility] Culture Reflex Comment Reflex conditions for urine culture (WBC >10) not met. [facility] Urine 02/04/2025 12:1 8 AM PUBLIC WELFARE DIRECTOR 02/04/2025 12:21 AM PUBLIC WELFARE DIRECTOR [facility] URINE ORDERABLES Final Res ult Performing Organization Address [facility] de Phone Number [id number] [address] * CT Abdomen Pelvis W Contrast (02/03/2025 11:05 PM PUBLIC WELFARE DIRECTOR) Anatomical Region Laterality Modality Body N/A Computed Tomogra phy 02/03/2025 11:5 1 PM PUBLIC WELFARE DIRECTOR Impressions 02/03/2025 11:51 PM PUBLIC WELFARE DIRECTOR 1. No acute findings 2. Trace left pleural effusion. Other nonspecific findings as described above Electronically signed by: Lexa Campbell MD Narrative 02/03/2025 11:51 PM PUBLIC WELFARE DIRECTOR EXAMINATION: CT ABDOMEN PELVIS W CONTRAST HISTORY: [...] OTHER: No other acute findings. Procedure Note Lxea Campbell MD - 02/03/2025 EXAMINATION: CT ABDOMEN [...] or UNable to ambulate) (02/03/2025 10:06 PM PUBLIC WELFARE DIRECTOR) Anatomical Region Laterality Modality Body, Chest N/A Computed Radiogr aphy 02/03/2025 11:0 5 PM PUBLIC WELFARE DIRECTOR Impressions 02/03/2025 11:05 PM PUBLIC WELFARE DIRECTOR Mild basilar airspace disease likely representing scarring/atelectasis, although increased from 07/23/2024. Pulmonary edema or atypical infection are possible. Electronically signed by: Luis Argueta M.D. Narrative 02/03/2025 11:05 PM PUBLIC WELFARE DIRECTOR EXAMINATION: XR CHEST 1 VIEW INDICATION: Female, [...] Sepsis Lactate w/ Reflex (02/03/2025 9:59 PM PUBLIC WELFARE DIRECTOR) Sepsis Lactate 1.0 0.7 - 2.0 mmol/L Blood 02/03/2025 9:59 PM PUBLIC WELFARE DIRECTOR 02/03/2025 10:02 PM PUBLIC WELFARE DIRECTOR us Robbi Ocasio DO LAB BLOOD ORDERABLES Final Res ult MARC [address] Department of Laboratories [place], [place] [id number] * (ABNORMAL) eGFR (02/03/2025 9:59 PM PUBLIC WELFARE DIRECTOR) eGFR 50(L) >=60 mL/min/1. 73 m2 Comment: [...] last reviewed 2020. Blood 02/03/2025 9:59 PM PUBLIC WELFARE DIRECTOR 02/03/2025 10:02 PM PUBLIC WELFARE DIRECTOR us Robbi Ocasio DO LAB BLOOD ORDERABLES Final Res ult [facility] [address] Department [place] [address] * (ABNORMAL) Differential, auto (02/03/2025 9:59 PM PUBLIC WELFARE DIRECTOR) Neutrophil abs 7.39(H) 1.50 - 6.50 K/cumm Imm gran abs 0.04 0.00 - 0.10 K/cumm [facility] Lymphocyte abs 1.19 0.80 - 3.30 K/cumm [facility] Monocyte abs 0.78 0.20 - 0.80 K/cumm [facility] Eosinophil abs 0.26 0.00 - 0.50 K/cumm [facility] Basophil abs 0.02 0.00 - 0.10 K/cumm [facility] Neutrophil pct 76.3 % [facility] Comment: Interpretive Data Percent cell count reference ranges are not reported, since discordance with absolute values may lead to misinterpretation of CBC data. Current Interpretive Data was last revised on 2017. Imm gran pct 0.4 % [facility] Comment: Interpretive Data Percent cell count reference ranges are not reported, since discordance with absolute values may lead to misinterpretation of CBC data. Current Interpretive Data was last revised on 2017. Lymphocyte pct 12.3 % [facility] Comment: Interpretive Data Percent cell count reference ranges are not reported, since discordance with absolute values may lead to misinterpretation of CBC data. Current Interpretive Data was last revised on 2017. Monocyte pct 8.1 % [facility] Comment: Interpretive Data Percent cell count reference ranges are not reported, since discordance with absolute values may lead to misinterpretation of CBC data. Current Interpretive Data was last revised on 2017. Eosinophil pct 2.7 % [facility] Comment: Interpretive Data Percent cell count reference [...] revised on 2017. Blood 02/03/2025 9:59 PM PUBLIC WELFARE DIRECTOR 02/03/2025 10:02 PM PUBLIC WELFARE DIRECTOR us Robbi Ocasio DO LAB BLOOD ORDERABLES Final Res ult MARC CARDENAS [address] Department [place] [address] * (ABNORMAL) Pro B-type natriuretic peptide (02/03/2025 9:59 PM PUBLIC WELFARE DIRECTOR) NT-proBNP 1,868(H) <=450 pg/mL Comment: Interpretive Comments: [...] Revised Date: 2017. Blood 02/03/2025 9:59 PM PUBLIC WELFARE DIRECTOR 02/03/2025 10:02 PM PUBLIC WELFARE DIRECTOR Robbi Ocasio DO LAB BLOOD ORDERABLES Final Res ult Performing Organization Address City/[facility]/ZIP Co de Phone Number MARC [address] [place] [address] * (ABNORMAL) CBC with auto differential (02/03/2025 9:59 PM PUBLIC WELFARE DIRECTOR) Pathologist [facility] WBC 9.68 3.80 - 9.90 K/cumm Hgb 10.5(L) 11.9 - 15.5 g/dL [facility] Hct 32.6(L) 35.6 - 45.5 % [facility] Plt 193 150 - 400 K/cumm [facility] MPV 10.8 9.1 - 12.3 fL [facility] RBC 3.42(L) 3.90 - 5.20 M/cumm [facility] MCV 95.3 81.3 - 96.4 fL [facility] MCH 30.7 27.1 - 33.3 pg [facility] MCHC 32.2(L) 32.3 - 35.7 g/dL [facility] RDW CV 14.0 11.1 - 14.9 % [facility] RDW SD 48.7(H) 35.7 - 48.1 fL [facility] NRBC abs 0.00 0.00 - 0.01 K/cumm [facility] Blood 02/03/2025 9:59 PM PUBLIC WELFARE DIRECTOR 02/03/2025 10:02 PM PUBLIC WELFARE DIRECTOR Robbi Ocasio DO LAB BLOOD ORDERABLES Final Res ult Performing Organization Address City/[facility]/ZIP Co de Phone Number MARC [address] [place] [address] * (ABNORMAL) Comprehensive metabolic panel (02/03/2025 9:59 PM PUBLIC WELFARE DIRECTOR) Pathologist [facility] Sodium 140 135 - 145 mmol/L Potassium, pl 3.8 3.3 - 4.9 mmol/L [facility] Chloride 108 97 - 110 mmol/L [facility] CO2 22 22 - 32 mmol/L [facility] Anion gap 10 2 - 15 mmol/L [facility] BUN 14 6 - 25 mg/dL [facility] Creatinine 1.06 0.60 - 1.10 mg/dL [facility] Glucose 116 70 - 199 mg/dL [facility] Comment: Interpretive Data Fasting glucose >/= 126 [...] 2022. Calcium 8.7 8.5 - 10.3 mg/dL [facility] Bilirubin, total 0.8 0.1 - 1.2 mg/dL [facility] Protein, pl 6.5 6.5 - 8.5 g/dL [facility] Albumin 3.8 3.5 - 5.0 g/dL [facility] Alk phos 84 40 - 130 Units/L [facility] ALT 5(L) 7 - 45 Units/L [facility] AST 17 10 - 45 Units/L [facility] Blood 02/03/2025 9:59 PM PUBLIC WELFARE DIRECTOR 02/03/2025 10:02 PM PUBLIC WELFARE DIRECTOR us Robbi Ocasio DO LAB BLOOD ORDERABLES Final Res ult [facility] [address] Department [place] [address] * POC Influenza A/B, COVID-19 antigen (11/27/2024 3:32 PM CDT) Influenza A Ag, POC Negative Negative Influenza B Ag, POC Negative Negative COVID-19 Ag POC Presumptive Negative Presumptive Negative, Invalid Nasal 11/27/2024 3:32 PM CDT us Lili Simpson CREATIVE WRITING ENGLISH PROFESSOR POINT OF CARE TEST ORDERABLE S Final Result * POCT respiratory syncytial virus (11/27/2024 3:32 PM CDT) RSV Rapid Ag Negative Negative, Invalid Nasal 11/27/2024 3:32 PM CDT us Lili Simpson CREATIVE WRITING ENGLISH PROFESSOR POINT OF CARE TEST ORDERABLE S Final Result * Dexa Axial Skeleton Bone Density 1 or 2 Site (06/18/2021 12:37 PM CDT) Anatomical Region Laterality Modality Body N/A Mammography 06/18/2021 1:04 PM CDT Narrative 06/18/2021 1:14 PM CDT EXAM DESCRIPTION: DEXA AXIAL SKELETON BONE DENSITY 1 OR MORE SITES REASON FOR STUDY: Post-menopausal female, screening for osteoporosis. Television Journalist/Model: [employer] A (S/N [id number]) CLINICAL INFORMATION: Current height: 63 inches Maximum [...] by Rebel Seals M.D. AB: Report ID: [id number] Reading Location: [place] [address] Procedure Note Rebel Seals MD - 06/18/2021 EXAM DESCRIPTION: DEXA AXIAL SKELETON BONE DENSITY 1 OR MORE SITES REASON FOR STUDY: Post-menopausal female, screening for osteoporosis. Television Journalist/Model: [employer] A (S/N [id number]) CLINICAL INFORMATION: Current height: 63 inches Maximum [...] by Rebel Seals M.D. AB: Report ID: [id number] Reading Location: [place] [address] us Allison Crain MD IM DXA PROCEDURES [...] DALEY RN 02/11/25 08/10/2024 08/10/[address] [facility]ARE [facility] Advance Directives For more information, please contact: [phone] * LIMITED - No CPR (Latest Code [...] specifically selected below: No intubation Care Teams Lumber Salvager Relationship Specialty Start Date End Date Allison Crain MD [address] [place] [id number] PCP - General Internal Medicine 07/21/18 [place] [address] [place] [address] [place] [address] Manager Operational Cardiovascular Disease 11/20/18 Grant Romo MD [address] [facility] [address] [address] Surgeon Vascular Surgery 11/20/18 James Lala MD [address] [facility] [address] [address] Referring Physician Orthopedic Surgery 11/28/20
--- OUTSIDE RECORDS SUMMARY | 2025-02-18 15:33 | XMS_ITS | Encounter Summary ---
Author Organization [facility] Facility Care Team Providers Care Panel Monitor Name Role Phone Allison Crain MD Primary Care Provider [phone] Sultan Arabella Tyson MD Unavailable [phone] Grant Romo MD Unavailable [phone] Rosalind Domingo LPN Unavailable [phone] James Lala MD Unavailable Jennifer Lewis MA Unavailable Rosalind Domingo LPN Unavailable Izabel Alvarez MA Unavailable Eyad Jimenez RN Unavailable [phone] Encounter Details Date Type Department Care Team (Latest Contact Info) Description 12/29/2014 Orders Only [facility]G CLINCONV Provider, MD Ronaldo [address] [place] [address] Social History Tobacco Use Types Packs/Day Years Used Date Smoking Tobacco: Never Assessed Comments Unknown Sex and Gender Information Value Date Recorded Sex Assigned at Not on file Legal Sex Female 6:46 AM CHANNEL DEVELOPMENT MANAGER Gender Identity Not on file Sexual [...] COVID: Suspected 04/12/2022 04/12/2022 04/12/2022 12:14 PM CHANNEL DEVELOPMENT MANAGER COVID: Suspected 08/11/2022 08/11/2022 08/11/2022 3:55 PM CDT COVID: Suspected 01/10/2024 01/10/2024 01/10/2024 11:43 AM CHANNEL DEVELOPMENT MANAGER COVID: Suspected 07/23/2024 07/23/2024 07/23/2024 7:32 [...] COVID: Suspected 02/04/2025 02/04/2025 02/04/2025 1:06 AM CHANNEL DEVELOPMENT MANAGER documented as of this encounter Care Teams Panel Monitor Relationship Specialty Start Date End Date Allison Crain MD [address] [place] [id number] PCP - General Internal Medicine 07/21/18 Sultan Arabella Tyson MD [address] [facility] [address] ARTHUR [address] [address] Braided Rug Maker Cardiovascular Disease 11/20/18 Grant Romo MD [address] [facility] [address] ARTHUR [facility] [address] Surgeon Vascular Surgery 11/20/18 Rosalind Domingo LPN [address] [facility] [address] ARTHUR [facility] [address] [address] Rug Renovator 07/30/20 07/30/20 James Lala MD [address] [facility] [address] ARTHUR [facility] [address] [address] Referring Physician Orthopedic Surgery 11/28/20 Jennifer Lewis MA [address] [facility] [address] [place] [address] ACO Care Professor Of Communication And Writing 07/16/24 07/24/24 Rosalind Domingo LPN [address] [facility] [address] Arthur [address] [place] [address] Rug Renovator 08/07/24 08/27/24 Izabel Alvarez MA [address] [facility] [address] [place] [address] ACO Care Professor Of Communication And Writing 09/17/24 09/17/24 Eyad Jimenez, MAYNOR [address] [facility] [address] [place] [address] Rug Renovator 10/18/24 12/23/24 documented as of this encounter
--- OUTSIDE RECORDS SUMMARY | 2025-02-18 15:33 | XMS_ITS | Encounter Summary ---
Author Organization [facility] Facility Care Team Providers Care See Supervisor Name Role Phone Allison Crain MD Primary Care Provider + [phone] Sultan Arabella Tyson MD Unavailable [phone] Grant Romo MD Unavailable [phone] Rosalind Domingo LPN Unavailable [phone] James Lala MD Unavailable Jennifer Lewis MA Unavailable Rosalind Domingo LPN Unavailable [phone] Izabel Alvarez MA Unavailable Eyad Jimenez RN Unavailable [phone] Encounter Details Date Type Department Care Team (Latest Contact Info) Description 03/21/2014 Orders Only [facility]G CLINCONV ProviderRonaldo MD [address] [place] [address] Social History Tobacco Use Types Packs/Day Years Used Date Smoking Tobacco: Never Assessed Comments Unknown Sex and Gender Information Value Date Recorded Sex Assigned at Not on file Legal Sex Female 6:46 AM GAS ENGINE OPERATOR Gender Identity Not on file Sexual Orientation [...] COVID: Suspected 04/12/2022 04/12/2022 04/12/2022 12:14 PM GAS ENGINE OPERATOR COVID: Suspected 08/11/2022 08/11/2022 08/11/2022 3:55 PM CDT COVID: Suspected 01/10/2024 01/10/2024 01/10/2024 11:43 AM GAS ENGINE OPERATOR COVID: Suspected 07/23/2024 07/23/2024 07/23/2024 7:32 PM [...] COVID: Suspected 02/04/2025 02/04/2025 02/04/2025 1:06 AM GAS ENGINE OPERATOR documented as of this encounter Care Teams See Supervisor Relationship Specialty Start Date End Date Allison Crain MD [address] [place] [address] PCP - General Internal Medicine 07/21/18 Sultan Arabella Tyson MD [address] [address] Launderer Hand Cardiovascular Disease 11/20/18 Grant Romo MD [address] [facility] [address] [place] [address] [place] [address] Surgeon Vascular Surgery 11/20/18 Rosalind Domingo LPN [address] [facility] [address] [place] [address] [place] [address] Medicaid Billing Clerk 07/30/20 07/30/20 James Lala MD [address] [facility] [address] [place] [address] [place] [address] Referring Physician Orthopedic Surgery 11/28/20 Jennifer Lewis MA [address] [place] [address] [address] [place] [address] ACO Care Marketing Planner 07/16/24 07/24/24 Rosalind Domingo LPN [address] [place] [address] Dr [address] [place] [address] Medicaid Billing Clerk 08/07/24 08/27/24 Izabel Alvarez MA [address] [place] [address] [address] [place] [address] ACO Care Marketing Planner 09/17/24 09/17/24 Eyad Jimenez, MAYNOR [address] [place] [address] [address] [place] [address] Medicaid Billing Clerk 10/18/24 12/23/24 documented as of this encounter
--- OUTSIDE RECORDS SUMMARY | 2025-02-18 15:33 | XMS_ITS | Encounter Summary ---
Author Organization [facility] Facility Care Team Providers Care Wireless Operator Name Role Phone Allison Crain MD Primary Care Provider + [phone] Sultan Arabella Tyson MD Unavailable [phone] Grant Romo MD Unavailable [phone] Rosalind Domingo LPN Unavailable [phone] James Lala MD Unavailable Jennifer Lewis MA Unavailable Rosalind Domingo LPN Unavailable [phone] Izabel Alvarez MA Unavailable Eyad Jimenez RN Unavailable [phone] Encounter Details Date Type Department Care Team (Latest Contact Info) Description 06/17/2014 Orders Only [facility]G CLINCONV ProviderRonaldo MD [address] [place] [address] Social History Tobacco Use Types Packs/Day Years Used Date Smoking Tobacco: Never Assessed Comments Unknown Sex and Gender Information Value Date Recorded Sex Assigned at Not on file Legal Sex Female 6:46 AM PALLETIZER OPERATOR Gender Identity Not on file Sexual [...] COVID: Suspected 04/12/2022 04/12/2022 04/12/2022 12:14 PM PALLETIZER OPERATOR COVID: Suspected 08/11/2022 08/11/2022 08/11/2022 3:55 PM CDT COVID: Suspected 01/10/2024 01/10/2024 01/10/2024 11:43 AM PALLETIZER OPERATOR COVID: Suspected 07/23/2024 07/23/2024 07/23/2024 7:32 [...] COVID: Suspected 02/04/2025 02/04/2025 02/04/2025 1:06 AM PALLETIZER OPERATOR documented as of this encounter Care Teams Wireless Operator Relationship Specialty Start Date End Date Allison Crain MD [address] [place] [address] PCP - General Internal Medicine 07/21/18 Sultan Arabella Tyson MD [address] [address] Hot Dimpling Machine Operator Cardiovascular Disease 11/20/18 Grant Romo MD [address] [facility] [address] [facility] [place] [address] Surgeon Vascular Surgery 11/20/18 Rosalind Domingo LPN [address] [facility] [address] [place] [address] [place] [address] Animal Care Giver 07/30/20 07/30/20 James Lala MD [address] [facility] [address] [place] [address] [place] [address] Referring Physician Orthopedic Surgery 11/28/20 Jennifer Lewis MA [address] [place] [address] [address] [place] [address] ACO Care Leather Coverer 07/16/24 07/24/24 Rosalind Domingo LPN [address] [place] [address] Dr [address] [place] [address] Animal Care Giver 08/07/24 08/27/24 Izabel Alvarez MA [address] [place] [address] [address] [place] [address] ACO Care Leather Coverer 09/17/24 09/17/24 Eyad Jimenez, MAYNOR [address] [place] [address] [address] [place] [address] Animal Care Giver 10/18/24 12/23/24 documented as of this encounter
--- OUTSIDE RECORDS SUMMARY | 2025-02-18 15:33 | XMS_ITS | Clinical Summary ---
Author Organization [facility] Address [facility] [place] [address] Care Team Providers Care Waterproofing Mixer Name Role Phone Allison Crain MD Primary Care Provider [phone] Allergies Active Allergy Reactions Criticality Noted Date Comments Caffeine Unknown High 11/15/2011 Causes A Fib Codeine GI Upset,Unknown Low 01/25/2017 Fluoxetine Unknown 01/25/2017 Other reaction(s): body jerks Hydroxyzine Other (see comment),Unknown High 01/25/2017 Paroxetine Unknown 01/25/2017 Other reaction(s): body jerks Procaine Unknown High 01/25/2017 Other reaction(s): a-fib Propafenone Diarrhea,Nausea and Vomiting,Unknown High 10/11/2011 diarrhea Severe metal taste in mouth Other reaction(s): diarrhea and a strong metal taste in the mouth. Medications pantoprazole EC (PROTONIX) 40 MG tablet Take 1 tablet by mouth daily. 12/22/2020 Active metoprolol succinate ER (TOPROL-XL) 25 MG 24 hr tablet Take 1 tablet by mouth 2 (two) times daily. 01/13/2021 Active losartan (COZAAR) 25 MG tablet Take 1 tablet by mouth daily. 03/31/2021 Active ipratropium (ATROVENT) 0.06 % nasal spray 2 sprays by Nasal route 4 (four) times daily. 08/14/2020 Active amLODIPine (NORVASC) 5 MG tablet Take 1 tablet by mouth daily. 05/24/2021 Active ALPRAZolam (XANAX) 0.5 MG tablet Take 1 tablet by mouth nightly as needed. 04/16/2021 Active aspirin EC (ECOTRIN) 81 MG tablet Take 81 mg by mouth daily. Active montelukast (SINGULAIR) 10 MG tablet Take 10 mg by mouth nightly at bedtime. Active Active Problems Problem Noted Date Diagnosed Date History of recent fall 03/10/2021 Overview (03/04/2022): 07/28/2021 Fall in yard, ER, CT Brain no bleed, on coumadin for afib 03/08/2021 fell in kitchen, hit head, ER, CT brain no bleed, Headache (on coumadin for afib) Pre-syncope 08/14/2020 Overview (03/04/2022): Last Assessment & Plan: Sec to cv disease Sec to chr afib Avoid stooping forward Keep hydrated Get up and go slowly to avoid falls Risk for falls 07/24/2020 Overview (03/04/2022): Last Assessment & Plan: Recent fall Get a shower chair for safety Install ring cameras or similar for surveillance Cont to wear the lifeline, upgrade to the kind that detects fall or change in position Precordial chest pain 04/01/2020 Overview (03/04/2022): Last Assessment & Plan: Cardiac catheterization 05/26/2005 showed normal coronary arteries. The Lexiscan stress test 03/14/2020 was negative for ischemia. Recurrent UTI 05/02/2019 Overview (03/04/2022): Last Assessment & Plan: Hydrate more Drink more water daily 6-8 8 oz glasses a day at least Repeat UA Hemoptysis 05/02/2019 Overview (03/04/2022): Last Assessment & Plan: CXR History of osteoporosis 05/02/2019 Overview (03/04/2022): Boniva therapy completed 5 yrs Last Assessment & Plan: Due for dexa hip and spine Chronic fatigue 05/01/2019 Overview (03/04/2022): Last Assessment & Plan: Labs okay. Fatigue due to stress and depression. Vascular dementia 01/22/2019 Overview (03/04/2022): SLUMs 01/22/2019 score 24, namenda started UMs 05/02/[address] Brain 01/22/2019 small vessel disease o/w negative [facility] 01/27/21 score 25, off namenda Last [...] driving her places is a good idea GERD without esophagitis 01/22/2019 Overview (03/04/2022): Used to take nexium (nausea) has had EGDs Dr Mancia Last Assessment & Plan: Cont on pantoprazole therapy as rx at 40mg for now, plan on lowering the dose to 20mg if it helps at the lower dose. Watch the b12 levels, check b12 soon, might need to restart b12 injections again Irritable bowel syndrome with diarrhea 9 Overview (03/04/2022): Last Assessment & Plan: Vs biliary dysfunction May benefit cholestyramine powder Anticoagulation adequate with anticoagulant ther apy 11/23/2018 Overview (03/04/2022): Dr Tyson manages coumadin. Permanent AFIB on coumadin for stroke prevention Last Assessment & Plan: Coumadin to prevent systemic embolization from the atrial fibrillation. Target INR between 2 and 3. Diverticulosis of sigmoid colon 11/23/2018 Overview (03/04/2022): Colonoscopy done in 2018, Dr Mancia Status post cardiac catheterization 07/20/2018 Overview (03/04/2022): Dr Tyson. Cardiac catheterization 05/26/2005 showed normal coronary arteries. Last Assessment & Plan: Cardiac catheterization 05/26/2005 showed normal coronary arteries. Restless leg syndrome 07/20/2018 Overview (03/04/2022): Last Assessment & Plan: Mirapex. Raynaud's phenomenon without gangrene 07/20/2018 Overview (03/04/2022): No recurrence, amlodipine helps vasodilation Last Assessment & Plan: No recurrence. Amlodipine. Aortic dissection, abdominal 07/20/2018 Overview (03/04/2022): CT abdomen 08/11/2017 showed ectasia of the [...] for re-evaluation with repeat aortic duplex surveillance. Atrial flutter 07/20/2018 Overview (03/04/2022): Last Assessment & Plan: Previous atrial flutter which was ablated. No recurrence. Now has permanent atrial fibrillation. Atrial septal defect 07/20/2018 Overview (03/04/2022): Small. Does not require intervention Last Assessment & Plan: Small. Does not require intervention Generalized anxiety disorder 07/20/2018 Overview (03/04/2022): Last Assessment & Plan: Cont xanax, take full dose if needs it Cont to use prn Prefer her anxiety to be controlled than to trigger afib Permanent atrial fibrillation 06/08/2018 Overview (03/04/2022): Dr Tyson. Persistent atrial fibrillation now Rate control with Toprol XL. On Coumadin to prevent systemic embolization Last Assessment & Plan: Rate control with Toprol XL. Coumadin to prevent systemic embolization. Essential (primary) hypertension 02/14/2017 Overview (03/04/2022): Last Assessment & Plan: Impression: Stable chronic hypertension. Plan: Medications reviewed and recommend continuing daily antihypertensive regimen as directed by patient's primary care physician. Hypertensive heart disease without heart failure 09/26/2015 Overview (03/04/2022): Last Assessment & Plan: Salt restriction. Amlodipine. Losartan. Toprol XL. Blood pressure 132/80. Hyponatremia 09/24/2015 Overview (03/04/2022): Last Assessment & Plan: Fluid restriction. On 03/14/2020, sodium was 137. Bradycardia 09/24/2015 Overview (03/04/2022): Last Assessment & Plan: No recurrence. Hyperlipidemia 05/25/2015 Overview (03/04/2022): Statin intolerant Last Assessment & Plan: Impression: Stable chronic hyperlipidemia. Plan: Medications reviewed I recommend continuing daily statin regimen as directed by patient's primary care physician. Immunizations Immunization Administration Dates Next Due Influenza (Generic) 12/06/2015,12/25/2012 Influenza Adult (Generic) 12/10/2018,06/2017,11/16/2016,12/05/19 16,12/20/2014 Pneumococcal (Pneumovax 23) 12/02/2017, 0 Pneumococcal (Prevnar 13) 11/16/2016,05/26/2015, 07/25/2014 Zoster (Zostavax) [address] Unt/0.65Ml 02/29/2012 Social History Tobacco Use Types Packs/Day Years Used Date Smoking Tobacco: Never Smokeless Tobacco: Never Tobacco Cessation:Counseling Given: Not Answered Alcohol Use Standard Drinks/Week Comments Never 0 (1 standard drink = 0.6 oz pur e alcohol) Comments Unknown Sex and Gender Information Value Date Recorded Sex Assigned at Not on file Legal Sex Female 6:07 PM CDT Gender Identity Not on file Sexual Orientation Not on file Last Filed Vital Signs Vital Sign Reading Time Taken Comments Blood Pressure 126/77 03/05/2022 1:05 PM RN MATERNITY Pulse 73 03/05/2022 1:05 PM RN MATERNITY Temperature 36.6 C (97.9 F) 03/05/2022 12:45 PM RN MATERNITY Respiratory Rate 21 03/05/2022 1:05 PM RN MATERNITY Oxygen Saturation 100% 03/05/2022 1:05 PM RN MATERNITY Inhaled Oxygen Concentration - - Weight 61.2 kg (135 lb) 03/04/2022 9:42 AM RN MATERNITY Height 160 cm (5' 3) 03/04/2022 9:42 AM RN MATERNITY Body Mass Index 23.91 03/04/2022 9:42 AM RN MATERNITY Plan of Treatment Health Maintenance Due Date Last Done Comments DTaP, Tdap and Td Vaccines (1 - Tdap) 11/08/1954 Annual Medicare Wellness Visit 11/08/2000 RSV Immunization or 60+ Years (1 - 1-dose 75+ series) 11/08/2010 Zoster Vaccines (2 of 3) 04/25/2012 02/29/2012 COVID-19 Vaccine ( - season) 2024 01/04/2022, 07/20/2021, 12/30/2020, Additional history exists Influenza Adult (#1) 2024 12/10/2018, 12/02/2017, 11/16/2016, Additional history exists Pneumococcal Vaccine: 50+ Years Completed 12/02/2017, 11/16/2016, 05/26/2015, Additional history exists Hepatitis A Vaccines Aged Out No long er eligible based on patient's age to complete this topic Meningococcal B Vaccine Aged Out No l onger eligible based on patient's age to complete this topic Meningococcal Vaccine Aged Out No ronald thony eligible based on patient's age to complete this topic RSV Immunizations Under 20 Months Aged Out No longer eligible based on patient's age to complete this topic Insurance [facility]ICARE [facility] Care Teams Waterproofing Mixer Relationship Specialty Start Date End Date Allison Crain MD [address] [facility] [address] [place] [address] PCP - General INTERNAL MEDICINE 03/05/22
--- OUTSIDE RECORDS SUMMARY | 2025-02-18 15:33 | XMS_ITS | Encounter Summary ---
Author Organization [facility] Facility Care Team Providers Care Roll Forming Machine Operator Name Role Phone Allison Crain MD Primary Care Provider + [phone] Sultan Arabella Tyson MD Unavailable [phone] Grant Romo MD Unavailable [phone] Rosalind Domingo LPN Unavailable [phone] James Lala MD Unavailable Jennifer Lewis MA Unavailable Rosalind Domingo LPN Unavailable [phone] Izabel Alvarez MA Unavailable Eyad Jimenez RN Unavailable [phone] Encounter Details Date Type Department Care Team (Latest Contact Info) Description 06/16/2014 Orders Only MMG CLINCONV ProviderRonaldo MD [address] [place] [address] Social History Tobacco Use Types Packs/Day Years Used Date Smoking Tobacco: Never Assessed Comments Unknown Sex and Gender Information Value Date Recorded Sex Assigned at Not on file Legal Sex Female 6:46 AM STONE CRUSHER OPERATOR Gender Identity Not on file Sexual [...] COVID: Suspected 04/12/2022 04/12/2022 04/12/2022 12:14 PM STONE CRUSHER OPERATOR COVID: Suspected 08/11/2022 08/11/2022 08/11/2022 3:55 PM CDT COVID: Suspected 01/10/2024 01/10/2024 01/10/2024 11:43 AM STONE CRUSHER OPERATOR COVID: Suspected 07/23/2024 07/23/2024 07/23/2024 7:32 [...] COVID: Suspected 02/04/2025 02/04/2025 02/04/2025 1:06 AM STONE CRUSHER OPERATOR documented as of this encounter Care Teams Roll Forming Machine Operator Relationship Specialty Start Date End Date Allison Crain MD [address] [place] [address] PCP - General Internal Medicine 07/21/18 Sultan Arabella Tyson MD [address] [address] Soldering Machine Operator Helper Cardiovascular Disease 11/20/18 Grant Romo MD [address] [facility] [address] [facility] [place] [address] Surgeon Vascular Surgery 11/20/18 Rosalind Domingo LPN [address] [facility] [address] [place] [address] [place] [address] Model And Pattern Supervisor 07/30/20 07/30/20 James Lala MD [address] [facility] [address] [place] [address] [place] [address] Referring Physician Orthopedic Surgery 11/28/20 Jennifer Lewis MA [address] [place] [address] [address] [place] [address] ACO Care Business Initiatives Manager 07/16/24 07/24/24 Rosalind Domingo LPN [address] [place] [address] [address] [place] [address] Model And Pattern Supervisor 08/07/24 08/27/24 Izabel Alvarez MA [address] [place] [address] [address] [place] [address] ACO Care Business Initiatives Manager 09/17/24 09/17/24 Eyad Jimenez, MAYNOR [address] [place] [address] [address] [place] [address] Model And Pattern Supervisor 10/18/24 12/23/24 documented as of this encounter
== END 2025-02-18 14:15 | disposition home or self-care (01) ==
LOC: ANHED 13:47
PROVIDERS: Emergency Provider Student in an Organized Health Care Education/Training Program
DX: K08.531 Fractured dental restorative material with loss of material (principal); I99.9 Unspecified disorder of circulatory system; I10 Essential (primary) hypertension; I34.1 Nonrheumatic mitral (valve) prolapse; I48.91 Unspecified atrial fibrillation; M81.0 Age-related osteoporosis without current pathological fracture; G25.81 Restless legs syndrome; Z85.828 Personal history of other malignant neoplasm of skin; Z86.2 Personal history of diseases of the blood and blood-forming organs and certain disorders involving the immune mechanism; Z90.89 Acquired absence of other organs; Z90.710 Acquired absence of both cervix and uterus
CPT/HCPCS: 99281